=== PATIENT | female | born 1945 | race Caucasian/White ===

== ENCOUNTER → 2018-03-01 09:32 | Outpatient (CLI) | payer MEDICARE, SELFPAY ==
--- NOTE | 2018-03-01 09:35 | CT_ITS ---
STUDY: CT MAXILLOFACIAL SINUSES REASON FOR EXAM: Female, 73 years old. Chronic sinusitis. Nasal drainage. RADIATION DOSAGE (If Supplied By Facility): CTDIvol = ( 33.06 ) mGy, DLP = ( 792.53 ) mGycm TECHNIQUE: The patient was scanned in a multi detector CT scanner. High resolution axial imaging was performed without the administration of intravenous contrast material. Sagittal and coronal images were reconstructed. Individualized dose optimization techniques were used for this CT. COMPARISON: None. FINDINGS: FRONTAL SINUSES: Normal aeration, without mucosal inflammatory disease. ETHMOIDAL SINUSES: Normal aeration, without mucosal inflammatory disease. MAXILLARY SINUSES: Mild mucosal thickening floor of the right maxillary sinus. Mild mucosal thickening roof of the left maxillary sinus. SPHENOIDAL SINUSES: Normal aeration, without mucosal inflammatory disease. There is patency of the bilateral maxillary infundibuli with normal uncinate processes, ethmoid bullae, and hiatus semilunaris. Normal bilateral middle turbinates. Normal bilateral inferior turbinates. Nasal septum mildly deviated to the right. There is patency of the bilateral nasal airways. The visualized osseous structures are normal. The visualized bilateral orbital contents are normal. CT/Sinus/Facial Bone IMPRESSION: Mild bilateral maxillary sinus mucosal thickening. Ostiomeatal complexes are patent. Mild nasal septal deviation. Electronically Signed: Edenilson Escobedo MD at 6:55 EDT , Service support ,
== END ==
PROVIDERS: Family Provider Family Medicine; PCP Family Medicine; Visit Provider Otolaryngology
DX: J32.9 Chronic sinusitis, unspecified (principal); J34.2 Deviated nasal septum
CPT/HCPCS: 70486

== ENCOUNTER → 2018-05-31 09:55 | Outpatient (CLI) | payer MEDICARE, SELFPAY ==
[2018-05-31 10:25] LABS: Hematocrit 39.2 % (37-47); Hemoglobin 13.3 g/dl (12.0-15.0); Mean Corp Hgb Conc 33.9 g/gl (32-36); Mean Corpuscular Hgb 30.9 pg (27.0-32.0); Mean Platelet Vol. 12.2 fl (6.2-12.0); Platelet Count 221 K/mm3 (150-450); RBC Distribution Width CV 13.8 % (11.6-14.6); RBC Distribution Width SD 45.6 fl (35.1-43.9); Red Blood Count 4.31 M/mm3 (4.2-5.4); White Blood Count 9.9 K/mm3 (4.4-11.0)
[2018-05-31 10:26] LABS: Scan Indicated on CBC? Y/N NO
[2018-05-31 10:47] LABS: Anion Gap 13 (5-15); BUN 83 mg/dL (7-18); BUN/Creat Ratio 22.2 RATIO (10-20); Calcium,Total 9.1 mg/dL (8.5-10.1); Chloride 111 mmol/L (98-107); Creatinine, Serum 3.74 mg/dL (0.55-1.02); EST Glomerular Filtration Rate 13 mL/min (>60); Est Glom Filt Rate - Afr Amer 15 mL/min (>60); Glucose 100 mg/dL (74-106); Potassium 4.1 mmol/L (3.5-5.1); Sodium Level 143 mmol/L (136-145)
== END ==
PROVIDERS: Family Provider Family Medicine; PCP Family Medicine; Referring Provider Otolaryngology; Visit Provider Otolaryngology
DX: Z01.818 Encounter for other preprocedural examination (principal)
CPT/HCPCS: 36415; 80048; 85027

== ENCOUNTER 2018-06-05 10:25 | Emergency (ER) | payer MEDICARE, SELFPAY ==
[2018-06-05 10:25] VITALS: BP 145/68; PULSE 81; RESP 18; TEMP 37; O2SAT 99; BMI 38.5
--- NOTE | 2018-06-05 10:44 | ED.DCSUM_ITS ---
- ER Visit Summary Date of Service: 06/05/18 Chief Complaint: Abnormal labs and IV hydration History of Present Illness: The patient is a 73 F who had blood work on May 31 and was found to have an elevated BUN and creatinine of approximately 90 and 3.4. She is presently taking lisinopril with Hydrocort thiazide. She has been on the lisinopril Hydrocort thiazide for 2 years. She states she has had no change in medication for the past 2 years. Blood work was routine prior to sinus surgery for sinus problems. She denies any new symptoms. Review of systems positive for postnasal drainage, which is chronic and cough which is nonproductive and chronic. She is a smoker 1 pack/day for 50+ years. Please read written note for complete detail Physical Examination: Vital signs are remarkable for blood pressure 145/68. BMI 38.6. Head is atraumatic normocephalic. Pupils are equal round reactive. Extraocular muscles are intact. TMs are pearly white with landmarks noted. Nares patent with no drainage. Posterior pharynx without erythema or exudate. Uvula is midline. There is no dysphonia or dysphasia. Trachea is midline. There is no stridor with auscultation of the neck. Heart is regular without murmur, gallop or rub. S1 and S2 are normal. Lungs are clear to auscultation with good movement of air bilaterally. Abdomen is remarkable for minimal tenderness left lower quadrant without guarding or rebound tenderness. There is no CVA tenderness noted. Lower extremity exam is unremarkable. Neuro exam is nonfocal. Test Results: CBC is normal. Basic metabolic panel is marked for BUN of 76 and creatinine of 3.3. UA is positive for leukoesterase negative protein. There is no hematuria either. Emergency Department Course and Treatment: IV was established she received 1 L of normal saline and will repeat blood work and compared to results obtained on May 31, 2018. Treatment Plan: Spoke with Dr. Collazo who is on-call for Dr. Rene Limon. He will make arrangement for outpatient workup and referral to nephrology. Disposition: Discharge to home and will change blood pressure medicine to lisinopril without hydrochlorothiazide Impression: Acute renal failure History hypertension This note was generated with [employer] dictation software. It may contain incorrect words, spelling, and punctuation that were not noted in review of the chart prior to signing ED Disposition - Plan for ED Patient: Chief Complaint: Abn Labs Instructions: ED Insufficiency Renal Prescriptions: Lisinopril 20 mg PO DAILY #30 tab Referrals: Rene Limon III, MD [Primary Care Provider] - Additional Instructions: Discontinue taking lisinopril 20 hydrochlorothiazide 12.5. Fill new prescription for lisinopril only.
[2018-06-05 10:53] LABS: Bacteria 0 SEEN /hpf (None Seen); Mucous, Urine 0 SEEN /hpf (<or=2+); Red Blood Cells-Urine 0 SEEN /hpf (0-5); Squamous Epithelial Cells - UA 0 SEEN /hpf (5-10)
[2018-06-05] MEDS: 0.9% Normal Saline 1,000 ML 1000 ML IV (10:53)
[2018-06-05 10:57] LABS: Hematocrit 38.6 % (37-47); Hemoglobin 12.6 g/dl (12.0-15.0); Mean Corp Hgb Conc 32.6 g/gl (32-36); Mean Corpuscular Hgb 29.9 pg (27.0-32.0); Mean Corpuscular Volume 91.5 fL (81-99); Mean Platelet Vol. 11.8 fl (6.2-12.0); Platelet Count 233 K/mm3 (150-450); RBC Distribution Width CV 13.8 % (11.6-14.6); RBC Distribution Width SD 45.5 fl (35.1-43.9); Red Blood Count 4.22 M/mm3 (4.2-5.4); White Blood Count 10.1 K/mm3 (4.4-11.0)
[2018-06-05 10:57] LABS: Color, Urine Yellow (Yellow); Glucose, Dipstick Normal (Normal); Ketone-Dipstick Negative (Negative); Leukocyte Esterase-Dipstick 100 /ul (Negative); Nitrite-Dipstick Negative (Negative); Occult Blood-Urine Negative /ul (Negative); Protein-Dipstick Negative (Negative); Urine Bilirubin Dipstick Negative (Negative); Urine Clarity Clear (Clear); Urine Urobilinogen Normal (Normal); Urine pH 6.5 (5.0 - 8.0)
[2018-06-05 10:58] LABS: Scan Indicated on CBC? Y/N NO
[2018-06-05 11:04] LABS: White Blood Cells 0-5 SEEN /hpf (0-5)
[2018-06-05 11:08] LABS: Anion Gap 11 (5-15); BUN 76 mg/dL (7-18); BUN/Creat Ratio 22.6 RATIO (10-20); Calcium,Total 9.1 mg/dL (8.5-10.1); Chloride 110 mmol/L (98-107); Creatinine, Serum 3.36 mg/dL (0.55-1.02); EST Glomerular Filtration Rate 14 mL/min (>60); Est Glom Filt Rate - Afr Amer 17 mL/min (>60); Estimated Creatinine Clearance 10.87 ml/min; Glucose 86 mg/dL (74-106); Potassium 4.5 mmol/L (3.5-5.1); Sodium Level 143 mmol/L (136-145)
[2018-06-05 12:48] VITALS: BP 123/66
[2018-06-05 14:56] VITALS: BP 103/61; PULSE 77; RESP 15; O2SAT 98
== END 2018-06-05 15:12 | disposition home or self-care (01) ==
PROVIDERS: Emergency Provider Emergency Medicine; Family Provider Family Medicine; PCP Family Medicine
DX: N17.9 Acute kidney failure, unspecified (principal); I10 Essential (primary) hypertension; F17.200 Nicotine dependence, unspecified, uncomplicated; E66.9 Obesity, unspecified; Z68.38 Body mass index [BMI] 38.0-38.9, adult; Z79.899 Other long term (current) drug therapy
CPT/HCPCS: 80048; 81001; 85027; 99283

== ENCOUNTER 2020-08-22 09:18 | Outpatient (RCR) | payer MEDICARE, SELFPAY ==
[2020-08-18] MEDS: COVID-19 VACC, MRNA(PFIZER)/PF 30 MCG/0.3 ML SYRINGE IM (18:28)
[2020-09-08] MEDS: COVID-19 VACC, MRNA(PFIZER)/PF 30 MCG/0.3 ML SYRINGE IM (17:39)
== END 2020-11-15 23:59 ==
LOC: IMMUN 09:18
PROVIDERS: PCP Family Medicine; Referring Provider Family Medicine; Visit Provider Family Medicine
DX: Z23 Encounter for immunization (principal)
CPT/HCPCS: 0001A; 0002A; 91300

== ENCOUNTER → 2022-11-27 | Outpatient (CLI) | payer MEDICARE, SELFPAY ==
--- NOTE | 2022-11-27 13:02 | STRESSREP_ITS ---
Stress Test Report Date: 11/27/2022 Procedure: Pharmacologic stress nuclear imaging study Indications: Dyspnea Consent: Per the patient Procedure: The patient underwent pharmacologic (Regadenoson 0.4mg ) evaluation with a peak heart rate of 80 beats per minute (55%predicted maximal heart rate) and a peak blood pressure of 128/80 mmHg. The baseline ECG demonstrated normal sinus rhythm. The peak pharmacologic ECG demonstrated no ischemic changes. There were no cardiac dysrhythmias pretest, during pharmacologic infusion, or recovery. There was no complaint of chest discomfort during pharmacologic infusion or recovery. The patient was injected with 15 millicuries of technetium 99m Cardiolite and subsequently rest SPECT Cardiolite nuclear imaging was obtained in the horizontal long, vertical long, and short axis views. The patient underwent pharmacologic (Regadenoson) evaluation. The patient was injected with 45 millicuries of technetium 99m Cardiolite and subsequently stress SPECT Cardiolite nuclear imaging was obtained in the horizontal long, vertical long, and short axis views. A gated Cardiolite study at peak stress was obtained. The examination was stopped secondary to completion of protocol. Rest and stress SPECT Cardiolite nuclear imaging status post realignment, normalization, and attenuation correction demonstrate no fixed or reversible perfusion defects. There is end systolic thickening and brightening. The gated Cardiolite study demonstrates myocardial thickening and inward wall motion. The reported LVEF is 74%. Impression: 1. Pharmacologic (Regadenoson) evaluation 2. Peak pharmacologic ECG with no ischemic changes. 3. There were no cardiac dysrhythmias pretest, during pharmacologic infusion, or recovery. 5. No fixed or reversible perfusion defects. 6. The gated Cardiolite study reports an LVEF of 74%. This note was generated with [employer] software. It may contain incorrect words, spelling, and punctuation that were not noted in checking the note before signing.
== END | disposition home or self-care (01) ==
LOC: CVS 06:44
PROVIDERS: PCP Family Medicine; Referring Provider Family Medicine; Visit Provider Family Medicine
DX: R06.02 Shortness of breath (principal)
CPT/HCPCS: 78452; 93017; A9500; A4216; J2785

== ENCOUNTER 2023-05-13 15:53 | Emergency (ER) | payer MEDICARE, SELFPAY ==
[2023-05-13 15:56] VITALS: BP 127/63; PULSE 74; RESP 16; TEMP 36.9; O2SAT 99
--- NOTE | 2023-05-13 16:23 | EDS_ITS ---
HPI History of Present Illness Chief Complaint: Chest Pain Narrative Narrative: 78-year-old female, past medical history of COPD, smoker, presents to the emergency department because while she was at the eye doctor she states they performed an EKG which showed her to be in atrial fibrillation. She states that she does not have this diagnosis but admittedly has been having intermittent palpitations and fluttering of her heart for the last few months to years. She states that as soon as they took the EKG legs off of her, she felt back to normal. She denies any chest pain or shortness of breath that is new for her with her COPD. She presents because of the atrial fibrillation. PFSH PFS Home Medications albuterol sulfate 90 mcg/actuation aerosol inhaler (ProAir HFA) 2 puff PO PRN PRN Sob &/Or Wheezing 06/05/18 [History Last Taken Unknown] levothyroxine 150 mcg tablet (Synthroid) 150 mcg PO DAILY THYROID 06/05/18 [History Last Taken 06/05/18] lisinopril 20 mg tablet 20 mg PO DAILY #30 tabs 06/05/18 [Rx Last Taken Unknown] lisinopril 20 mg-hydrochlorothiazide 12.5 mg tablet 1 tab PO DAILY BP 06/05/18 [History Last Taken 06/05/18] [id number] 8 mg-folic 400 mcg-K 50 mcg-lutein 300 mcg tablet (Centrum Silver Women) 1 tab PO DAILY SUPPLEMENT 06/05/18 [History Last Taken 06/04/18] omeprazole 40 mg capsule,delayed release 40 mg PO DAILY 06/05/18 [History Last Taken 06/05/18] simvastatin 20 mg tablet 20 mg PO DAILY CHOLESTEROL 06/05/18 [History Last Taken 06/04/18] apixaban 5 mg tablet (Eliquis) 5 mg PO BID #60 tabs 05/13/23 [Rx Last Taken Unknown] metoprolol succinate 50 mg tablet,extended release 24 hr (Toprol XL) 50 mg PO DAILY #30 tabs 05/13/23 [Rx Last Taken Unknown] Allergy/AdvReac Type Severity Reaction Status Date / Time Sulfa (Sulfonamide AdvReac Vomiting Verified 05/13/23 15:56 Antibiotics) Social History Smoking Status: Current every day smoker tobacco type: cigarettes ROS ROS ED ROS Narrative Constitutional: No fever, no chills. HEENT: No sore throat. No neck pain. No loss of vision. No rhinorrhea. Cardiovascular: No chest pain. Intermittent palpitations and fluttering. No pedal edema. Respiratory: No cough, no shortness of breath. Abdominal: No abdominal pain. No nausea. No vomiting. Genitourinary: No dysuria. No hematuria. Musculoskeletal: No myalgias. No arthralgias. Neurologic: No headaches. No dizziness. No lightheadedness. Skin: No rash. No change in color. Psychiatric: No depression. No anxiety. EXAM Physical Exam Narrative Exam Narrative: Afebrile. Vital signs noted. HEENT: Normocephalic. Atraumatic. PERRL, EOMI. Neck soft and supple. No point tenderness or step off. Cardiovascular: Regular rate and rhythm. No murmurs, rubs, or gallops appreciated. Respiratory: No tachypnea. Lungs clear to auscultation bilaterally. Diminished breath sounds bilateral bases. Gastrointestinal: Abdomen soft, nontender, with normoactive bowel sounds. No rebound or guarding. Neurological: Awake. Alert. Nonfocal, nonlateralizing. Skin: No rash. Normal color. No pallor. Musculoskeletal: No pedal edema. Full range of motion extremities. Const Vital Signs: 05/13/23 15:56 05/13/23 16:15 05/13/23 16:18 Temperature 98.4 F Temperature Source Temporal Pulse Rate 74 Respiratory Rate 16 Respiratory Effort Normal Non-Labored Blood Pressure 127/63 H Blood Pressure Mean 84 Pulse Ox 99 Oxygen Delivery Method Room Air Room Air MDM MDM MDM Narrative Medical decision making narrative: Concern is for atrial fibrillation with RVR versus PACs. I reviewed her prior records. I see no evidence of atrial fibrillation on her previous EKGs except the one that was performed today. It shows atrial fibrillation at around 167 bpm/RVR. She states she is supposed to see a finished goods planner in the future as she has had multiple work-ups including echocardiogram and EKGs, but has never been found to be in atrial fibrillation. Her EKG today was obtained and interpreted by myself independently as normal sinus rhythm at 71 bpm without ectopy or acute ST changes. No STEMI. I reviewed her laboratory work and she has a normal white count of 7.9, hemoglobin slightly hemoconcentrated at 15.6, hematocrit 47.9, platelet count normal at 209. Potassium is slightly low at 3.2. She is on hydrochlorothiazide. This was supplemented and replaced with 40 mill equivalents orally. Glucose is slightly elevated at 117 but she has a normal anion gap of 7 with a BUN of 21 and creatinine normal 0.96. TSH is slightly low at 0.23, she does take levothyroxine. High-sensitivity troponin is 8. Chest x- ray in 1 view interpreted by myself independently shows no evidence of acute process, no pneumothorax or pneumonia. I reviewed the radiology report which confirms my independent interpretation. As her EKG shows her to be in normal sinus rhythm, she is not on anything for rate control currently. I did discuss the risk-benefit of starting her on a blood thinner such as Eliquis. She states her brothers take that and she is familiar with that. She was told of the risk of intracranial hemorrhage and GI bleeding and increased bleeding from wounds and acknowledges an understanding. I feel the risk-benefit ratio has been discussed and she accepts because her CHADS2 score is 2. Additionally, I discussed the patient with Dr. Fleming with [facility] cardiology who agrees with starting her on metoprolol succinate at 50 mg, and Eliquis. She was given her first doses here in the emergency department and prescription called in for the next 30 days. She will follow-up with cardiology in the next week. I feel she can be discharged safely home with follow-up. Return instructions to the emergency department were reviewed. Disposition is discharged home in stable condition. History & Record Review Discussion w/independent historian: Patient Additional record(s) reviewed:: Prior ED visit and Prior labs Lab Data Labs: Laboratory Results - last 24 hr 05/13/23 16:23 WBC 7.9 RBC 5.29 Hgb 15.6 H Hct 47.9 H MCV 90.5 MCH 29.5 MCHC 32.6 RDW Std Deviation 46.5 H RDW Coeff of Martir 13.8 Plt Count 209 MPV 11.0 Immature Gran % (Auto) 0.400 Neut % (Auto) 62.1 Lymph % (Auto) 26.0 [place] % (Auto) 8.7 Eos % (Auto) 1.9 Baso % (Auto) 0.9 Absolute Neuts (auto) 4.9 Absolute Lymphs (auto) 2.06 Nucleated RBC % 0 Sodium 142 Potassium 3.2 L Chloride 104 Carbon Dioxide 31.0 Anion Gap 7 BUN 21 H Creatinine 0.96 Est GFR (MDRD) Af Amer 72 Est GFR (MDRD) Non-Af 60 BUN/Creatinine Ratio 21.8 H Glucose 117 H Calcium 8.6 Magnesium 1.6 Total Bilirubin 0.50 AST 17 ALT 17 Alkaline Phosphatase 108 Troponin I High Sens 8 Total Protein 6.7 Albumin 3.2 Globulin 3.5 Albumin/Globulin Ratio 0.9 TSH 0.23 L Radiography Diagnostic Testing: Clinical Impression(s) from Imaging Studies Chest X-Ray 05/13/23 16:40 IMPRESSION: No acute findings in the chest. Electronically Signed: Shalom Lares MD at 17:01 EST , Discharge Plan Triage Chief Complaint: Chest Pain Other Complaint: Palpitations ED Provider: Giancarlo Ya Dx/Rx/DC Orders Clinical Impression: Palpitations, Atrial fibrillation, Hypokalemia Instructions: ED AFIB, ED Hypokalemia Prescriptions: New metoprolol succinate [Toprol XL] 50 mg tablet extended release 24 hr 50 mg PO DAILY Qty: 30 0RF Eliquis 5 mg tablet 5 mg PO BID Qty: 60 0RF No Action lisinopril-hydrochlorothiazide 20-12.5 tablet 1 tab PO DAILY omeprazole 40 MG capsule,delayed release(DR/EC) 40 mg PO DAILY simvastatin 20 MG tablet 20 mg PO DAILY levothyroxine [Synthroid] 150 MCG tablet 150 mcg PO DAILY albuterol sulfate [ProAir HFA] 1 PUFF inhaler 2 puff PO PRN PRN (Reason: Sob &/Or Wheezing) [id number] K-lut [Centrum Silver Women] 1 EACH tablet 1 tab PO DAILY lisinopril 20 MG tablet 20 mg PO DAILY Qty: 30 1RF Primary Care Provider: Bradley Collazo Referrals: Nu Fleming MD [Non-Staff] - 5-7 Days Bradley Collazo MD [Primary Care Provider] - 3-5 Days Activity Restrictions/Additional Instructions: Follow-up with cardiology in 5 to 7 days. You may need to follow-up with your primary care physician as well to recheck your potassium as you may need to start supplementation. We will be starting Eliquis, and you do have increased risk of bleeding. Disposition Disposition: Home, Self Care
[2023-05-13 16:31] LABS: Absolute Lymphocyte Count 2.06 X10^3/uL (0.83-4.51); Absolute Neutrophil Count 4.9 X10^3/uL (2.0-7.7); Basophil# 0.07 X10^3/uL; Basophil% 0.9 % (0-1); Eosinophil# 0.15 X10^3/uL; Eosinophils% 1.9 % (0-5); Hematocrit 47.9 % (37-47); Hemoglobin 15.6 g/dL (12.0-15.0); Lymphocyte # 2.06 X10^3/ul (0.83-4.51); Mean Corp Hgb Conc 32.6 g/dL (32-36); Mean Corpuscular Hgb 29.5 pg (27.0-32.0); Mean Corpuscular Volume 90.5 fL (81-99); Monocyte# 0.69 X10^3/uL; Monocyte% 8.7 % (0-10); NRBC Flagged by Analyzer 0 % (0-5); Neutrophil # 4.92 X10^3/uL (2.7-7.7); Neutrophil % 62.1 % (47-70); Platelet Count 209 K/mm3 (150-450); RBC Distribution Width CV 13.8 % (11.6-14.6); RBC Distribution Width SD 46.5 fl (35.1-43.9); Red Blood Count 5.29 M/mm3 (4.2-5.4); White Blood Count 7.9 K/mm3 (4.4-11.0)
--- NOTE | 2023-05-13 16:40 | RAD_ITS ---
EXAM: XR CHEST, 1 VIEW CLINICAL INDICATION: chest pain TECHNIQUE: Frontal view of the chest. COMPARISON: No relevant prior studies available. FINDINGS: LUNGS AND PLEURAL SPACES: Unremarkable. No consolidation or edema. No pneumothorax. No effusion. HEART: Unremarkable. Cardiac silhouette not enlarged. MEDIASTINUM: Central airways and mediastinal contour are unremarkable. BONES/JOINTS: There is elevation of the right humeral head in the glenoid fossa which can be seen in chronic rotator cuff injury. No acute fracture. SOFT TISSUES: Unremarkable. RAD/Chest 1 View (Portable) IMPRESSION: No acute findings in the chest. Electronically Signed: Shalom Lares MD at 17:01 EST ,
[2023-05-13 16:57] LABS: ALB/GLOB Ratio 0.9 RATIO (0.9-2.4); AST(SGOT) 17 U/L (15-37); Alanine Aminotransfer ALT/SGPT 17 U/L (13-56); Albumin, Serum 3.2 g/dL (3.2-5.0); Alkaline Phosphatase 108 U/L (45-117); Anion Gap 7 (5-15); BUN 21 mg/dL (7-18); BUN/Creat Ratio 21.8 RATIO (10-20); Calcium,Total 8.6 mg/dL (8.5-10.1); Chloride 104 mmol/L (98-107); Creatinine, Serum 0.96 mg/dL (0.55-1.02); EST Glomerular Filtration Rate 60 mL/min (>60); Est Glom Filt Rate - Afr Amer 72 mL/min (>60); Globulin 3.5 g/dL (2.2-4.2); Glucose 117 mg/dL (74-106); Magnesium 1.6 mg/dL (1.6-2.6); Potassium 3.2 mmol/L (3.5-5.1); Protein, Total 6.7 g/dL (6.4-8.2); Sodium Level 142 mmol/L (136-145); Thyroid Stim Hormone (TSH) 0.23 uIU/mL (0.358-3.74); Troponin-I HS 8 pg/mL (3.0-54.0)
--- NOTE | 2023-05-13 17:27 | NURSING ---
PAGED DR JONES THROUGH [employer]
[2023-05-13 17:53] VITALS: RESP 18
[2023-05-13] MEDS: Metoprolol(XL)Succ 50 MG Tablet PO (18:36)
[2023-05-13] MEDS: APIXABAN 5 MG TABLET PO (18:36)
[2023-05-13] MEDS: Potassium Chloride Oral Tablet 20 MEQ 40 MEQ PO (18:36)
== END 2023-05-13 18:46 | disposition home or self-care (01) ==
PROVIDERS: Emergency Provider Emergency Medicine; PCP Family Medicine; Visit Provider Emergency Medicine
DX: R00.2 Palpitations (principal); J44.9 Chronic obstructive pulmonary disease, unspecified; I48.91 Unspecified atrial fibrillation; E87.6 Hypokalemia; F17.210 Nicotine dependence, cigarettes, uncomplicated
CPT/HCPCS: 71045; 80053; 83735; 84443; 84484; 85025; 93005; 99285; A4216

== ENCOUNTER 2024-11-14 12:28 | Emergency (ER) | payer MEDICARE, SELFPAY ==
[2024-11-14 12:29] VITALS: BP 140/87; PULSE 56; RESP 19; TEMP 36.4; O2SAT 97
--- NOTE | 2024-11-14 12:44 | CT_ITS ---
PROCEDURE: ABDOMEN/PELVIS W IV CONT ONLY 11/14/2024 REASON FOR EXAM: ABD PAIN, CONSTIPATION TECHNIQUE: Abdomen and pelvis CT with intravenous contrast. Coronal and Sagittal reconstruction series were provided. PATIENT PREPARATION: Per protocol ORAL CONTRAST TYPE: None. AMOUNT: mL CONTRAST: VOLUME: CT control room CT mL One or more dose reduction techniques were used (e.g., Automated exposure control, adjustment of the mA and/or kV according to patient size, use of iterative reconstruction technique. RADIATION DOSE SUMMARY: CTDlvol: 33.21 mGy DLP: 1864.69 mGycm COMPARISON: None. FINDINGS: Lung bases: Moderate-sized hiatal hernia. Liver: Unremarkable. Gallbladder: Cholelithiasis. No pericholecystic fat stranding Spleen: Normal Pancreas: Normal Adrenals: Normal Kidneys: No hydronephrosis. Kidneys normal in size, contour and position Bladder: Unremarkable Reproductive Organs: Unremarkable Bowel: Normal caliber appearance. Appendix: Normal appendix identified. Lymph nodes: No lymphadenopathy Vasculature: Scattered moderate amount of calcific plaque Peritoneum / Retroperitoneum: Unremarkable Bones: No lytic or osteoblastic process. Osteoporotic vertebral central endplate compression deformities: T 12, L1, L4. No aggressive bony lesions. Spondylolisthesis L5 on S1 CT/Abdomen/Pelvis W IV Cont ONLY IMPRESSION: Cholelithiasis without cholecystitis Hiatal hernia Reading Location[facility]
--- OUTSIDE RECORDS SUMMARY | 2024-11-14 13:03 | XMS RPT_ITS | CCD ---
Author Organization [facility] Care Team Providers Care Front Desk Lead Name Role Phone Bradley Causey MD Primary Care Provider Priscilla GIBBONS Referring Unavailable BRADLEY CAUSEY Primary Care Unavailable Priscilla GIBBONS Referring Unavailable BRADLEY CAUSEY Primary Care Unavailable Priscilla GIBBONS Referring Unavailable BRADLEY CAUSEY Primary Care Unavailable Bradley Causey MD Primary Care Provider Bradley Causey Primary Care Unavailable Bradley Causey Consulting Unavailable Bradley Causey Referring Unavailable Ky Yen Attending Unavailable Giancarlo Ya Attending Unavailable Bradley Causey Primary Care Unavailable Bradley Causey Primary Care Unavailable Bradley Causey Attending Unavailable Bradley Causey Referring Unavailable Eloise Hurt PA-C Unavailable Bradley Causey MD Primary Care Provider Ashly PAINTING MD, Rene Neal Primary Care Provider Tamika vailable Gabi BRAIDING MACHINE TENDER.Yarelis VILLEDA Unavailable Suppan BRAIDING MACHINE TENDER.CHRISTIANA Preethi A Unavailable [phone] Suppan BRAIDING MACHINE TENDER.CHRISTIANA Preethi A Unavailable [phone] PREETHI MCCLURE Attending Unavailable BRADLEY CAUSEY Primary Care Unavailable BRADLEY CAUSEY Referring Unavailable BRADLEY CAUSEY Primary Care Unavailable ELOISE HURT Attending Unavailable BRADLEY CAUSEY Primary Care Unavailable ELOISE HURT Referring Unavailable BRADLEY CAUSEY Primary Care Unavailable HANNA ANTOINE Attending Unavailable BRADLEY CAUSEY Referring Unavailable BRADLEY CAUSEY Primary Care Unavailable BRADLEY CAUSEY Referring Unavailable BRADLEY CAUSEY Primary Care Unavailable PREETHI MCCLURE Attending Unavailable BRADLEY CAUSEY Primary Care Unavailable PREETHI MCCLURE Attending Unavailable BRADLEY CAUSEY Primary Care Unavailable FREDIS KHAN Referring Unavailable BRADLEY CAUSEY Primary Care Unavailable BRADLEY CAUSEY Referring Unavailable BRADLEY CAUSEY Primary Care Unavailable KEISHA HOFFMAN Attending Unavailable PREETHI MCCLURE A Referring Unavailable BRADLEY CAUSEY Primary Care Unavailable PREETHI MCCLURE A Attending Unavailable BRADLEY CAUSEY Primary Care Unavailable PREETHI CMCLURE A Referring Unavailable BRADLEY CAUSEY Primary Care Unavailable PREETHI MCCLURE A Attending Unavailable BRADLEY CAUSEY Primary Care Unavailable FREDIS KHAN Attending Unavailable FREDIS KHAN Referring Unavailable BRADLEY CAUSEY Primary Care Unavailable Allergies Allergy Classification Reported Allergen(s) Allergy Type Date of Onset Reaction(s) Facility Sulfonamides (antibiotic) (1 source) Sulfonamides (Antibiotic) Drug Allergy 6 [facility] (20 sources) Sulfonamides (Antibiotic); Translations: [SULFA (SULFONAMIDE ANTIBIOTICS)] Drug Allergy 6 [facility] (1 source) Sulfonamides (Antibiotic) Propensity to adverse reactions 3 [facility] (1 source) Sulfonamides (Antibiotic) Drug allergy (disorder) 3 [facility] Repository Medications Current Medications Medication Drug Class(es) Dates Sig (Normalized) Sig (Original) [id number] 200 actuat albuterol 0.09 mg/actuat metered dose inhaler (20 sources) beta2-Adrenergic Agonist Start: 07-21-2024 End: 07-21-2025 take 2 puff(s) by inhalation every four hours as needed for wheezing albuterol HFA (PROVENTIL HFA, VENTOLIN HFA) 90 mcg/actuation inhaler Indications: COPD with exacerbation (HCC) Inhale 2 Puffs as instructed every 4 hours as needed for wheezing/shortness of breath. 1 Each 07/21/2024 07/21/2025 Active Start: 06-08-2022 End: 07-21-2024 take 2 puff(s) by inhalation every four hours as needed for wheezing albuterol HFA (PROVENTIL HFA, VENTOLIN HFA) 90 mcg/actuation inhaler Indications: COPD with exacerbation (HCC) Inhale 2 Puffs as instructed every 4 hours as needed for wheezing/shortness of breath. 6.7 g 06/08/2022 07/21/2024 Discontinued Start: 06-05-2018 Albuterol Sulf ate (Proair Hfa) 1 PUFF inhaler Active 2 PUFF PO NEEDED June 05, 2018 12:00am Start: 12-13-2017 End: 05-20-2023 take 2 puff(s) by inhalation every six hours as needed albuterol HFA (PROVENTIL HFA, VENTOLIN HFA) 90 mcg/actuation inhaler Indications: Wheezing Inhale 2 Puffs as instructed every 6 hours as needed. 3 Each 3 01/27/2021 10/17/2021 Discontinued Comment on above: Inhale 2 Puffs as in structed every 6 hours as needed. Inhale 2 Puffs as in structed every 4 hours as needed for wheezing/shortness of breath. amoxicillin 875 mg / clavulanate 125 mg oral tablet (2 sources) Penicillin-class Antibacterial Start: 5 End: 5 take 1 tablet by mouth twice daily amoxicillin-clavulan ate potassium (AUGMENTIN) 875-125 mg per tablet Indications: Acute maxillary sinusitis, recurrence not specified Take 1 tablet by mouth two times a day for 10 days. 20 tablet 07/06/2024 07/16/2024 Active apixaban 5 mg oral tablet (20 sources) Factor Xa Inhibitor Start: 4 End: 6 take 1 tablet by mouth twice daily ELIQUIS 5 mg tab(s) Indications: Paroxysmal atrial fibrillation (HCC) Take 1 tablet by mouth two times a day. 180 tablet 3 07/06/2024 07/06/2025 Active Start: 06-11-2023 End: 11-09-2023 take 1 tablet by mouth twice daily ELIQUIS 5 mg tab(s) Take 1 tablet by mouth two times a day. 180 tablet 1 06/11/2023 11/09/2023 Discontinued Start: 05-13-2023 take 1 tablet by shikha th twice daily ELIQUIS 5 mg tab(s) Take 5 mg by mouth two times a day. 0 05/13/2023 Active Comment on above: Take 5 mg by mouth t wo times a day. Take 1 tablet by shikha th two times a day. Budesonide / formoterol (20 sources) Corticosteroid, beta2-Adrenergic Agonist Start: 05-20-20 take 2 puff(s) by inhalation twice daily budesonide-formoter ol (SYMBICORT) 160-4.5 mcg/actuation inhaler Indications: COPD, mild (HCC) Inhale 2 Puffs as instructed two times a day. 10.2 Each 11 05/20/2023 Active Comment on above: Inhale 2 Puffs as in structed two times a day. doxycycline monohydrate 100 mg oral capsule (1 source) Tetracycline-class Drug Start: 06-08-20 End: 06-13-19 23 take 1 capsule by mouth twice daily doxycycline monohydrate (MONODOX) 100 mg capsule Indications: COPD with exacerbation (HCC) Take 1 capsule by mouth twice daily for 5 days. 10 capsule 0 06/08/2022 06/13/2022 Active Comment on above: Take 1 capsule by [facility] twice daily for 5 days. fluticasone propionate 0.05 mg/actuat metered dose nasal spray (20 sources) Corticosteroid Start: 02-27-20 18 End: 01-28-20 21 take 1 spray(s) nasal route once daily fluticasone (FLONASE) 50 mcg/actuation nasal spray Use 1 [place] in each nostril once daily. 3 Bottle 3 01/27/2021 Active Comment on above: Use 1 [place] in each nostril once daily. furosemide 40 mg oral tablet (20 sources) Loop Diuretic Start: 11-11-19 24 End: 11-10-19 26 take 1 tablet by mouth once daily furosemide (LASIX) 40 mg tablet Indications: Bilateral leg edema Take 1 tablet by mouth once daily. 90 tablet 3 11/09/2024 11/09/2025 Active Start: 05-13-2023 End: 08-11-2023 take 1 tablet by mouth once daily furosemide (LASIX) 40 mg tablet Indications: Bilateral leg edema Take 1 tablet by mouth once daily. 90 tablet 1 05/13/2023 Active Start: 11-12-2022 End: 05-11-2023 take 1 tablet by mouth once daily furosemide (LASIX) 40 mg tablet Indications: Bilateral leg edema Take 1 tablet by mouth once daily. 90 tablet 1 11/12/2022 05/11/2023 Discontinued Start: 11-01-2022 End: 11-12-2022 take 1 tablet by mouth once daily furosemide (LASIX) 20 mg tablet Indications: Bilateral leg edema Take 1 tablet by mouth once daily. 30 tablet 0 11/01/2022 11/12/2022 Discontinued Comment on above: Take 1 tablet by shikha th once daily. hydroCHLOROthiazide 12.5 mg / lisinopril 20 mg oral tablet (1 source) Thiazide Diuretic, Angiotensin Converting Enzyme Inhibitor Start: 018 take 1 tablet by mouth once daily Lisinopril-Hydrochl orothiazide Active 1 TABLET PO DAILY June 05, 2018 12:00am levothyroxine sodium 0.15 mg oral tablet (20 sources) l-Thyroxine Start: 024 End: 025 take 1 tablet by mouth once daily before breakfast levothyroxine (SYNTHROID) 150 mcg tablet Indications: Hypothyroidism, unspecified type Take 1 tablet by mouth daily before breakfast. 90 tablet 3 05/25/2024 05/25/2025 Active Start: 03-08-2022 End: 08-22-2023 take 1 tablet by mouth once daily before breakfast levothyroxine (SYNTHROID) 175 mcg tablet Take 1 tablet by mouth daily before breakfast. 30 tablet 04/08/2023 05/20/2023 Discontinued (Duplicate Entry) Start: 11-27-2019 End: 01-30-2021 take 1 tablet by mouth once daily for thyroid dysfunction levothyroxine (SYNTHROID) 175 mcg tablet Indications: Hypothyroidism, unspecified type Take 1 tablet by mouth once daily. Take on empty stomach. For Thyroid. 90 tablet 3 01/27/2021 01/30/2021 Discontinued Start: 06-05-2018 End: 04-15-2022 take 1 tablet by mouth once daily for thyroid dysfunction levothyroxine (SYNTHROID) 150 mcg tablet Indications: Hypothyroidism, unspecified type Take 1 tablet by mouth once daily. Take on empty stomach. For Thyroid. 90 tablet 1 10/17/2021 03/15/2022 Discontinued (Dosage adjustment) Comment on above: Take 1 tablet by shikha th once daily. Take on empty stomach. For Thyroid. Take 1 tablet by shikha th daily before breakfast. lisinopril 20 mg oral tablet (1 source) Angiotensin Converting Enzyme Inhibitor Start: 06-05-20 18 take 20 mg by mouth once daily Lisinopril Active 20 MG PO DAILY June 05, 2018 12:00am meclizine hydrochloride 25 mg oral tablet (5 sources) Antiemetic Start: 08-30-19 End: 09-29-19 take 1 tablet by mouth three times daily as needed meclizine (ANTIVERT) 25 mg tab Indications: BPPV (benign paroxysmal positional vertigo), unspecified laterality Take 1 tablet by mouth three times a day as needed. 90 tablet 0 08/30/2023 09/29/2023 Active Comment on above: Take 1 tablet by shikha th three times a day as needed. 24 hr metoprolol succinate 50 mg extended release oral tablet (20 sources) beta-Adrenergic Angel Start: 05-11-20 End: 05-11-20 take 1.5 tablets by mouth once daily metoprolol succinate ER (TOPROL XL) 50 mg 24 hr tablet Indications: Paroxysmal atrial fibrillation (HCC) Take 1.5 tablets by mouth once daily. 135 tablet 2 05/11/2024 05/11/2025 Active Start: 06-11-2023 End: 02-26-2024 take 1.5 tablets by mouth once daily metoprolol succinate ER (TOPROL XL) 50 mg 24 hr tablet Indications: Paroxysmal atrial fibrillation (HCC) Take 1.5 tablets by mouth once daily. 135 tablet 1 08/30/2023 Active Start: 05-13-2023 take 1 tablet by shikha th once daily metoprolol succinate ER (TOPROL XL) 50 mg 24 hr tablet Take 50 mg by mouth once daily. 0 05/13/2023 Active Comment on above: Take 50 mg by mouth once daily. Take 1 tablet by shikha th once daily. Take 1.5 tablets by mouth once daily. mirtazapine 7.5 mg oral tablet (6 sources) Start: End: take 1 tablet by mouth once daily at bedtime Mirtazapine (REMERON) 7.5 mg tablet Indications: Anxiety with depression , Chronic insomnia Take 1 tablet by mouth daily at bedtime. 30 tablet 5 07/06/2024 01/02/2025 Active Klyofcws-Fot-Oybo-Fa -Vit K-Lut (Centrum Silver Women Tablet) 1 EACH tablet (1 source) Start: 8 take 1 tablet by mouth once daily Fmrazwji-Bsv-Kmwg-Fa-V it K-Lut (Centrum Silver Women Tablet) 1 EACH tablet Active 1 TABLET PO DAILY June 05, 2018 12:00am omeprazole 40 mg delayed release oral capsule (20 sources) Proton Pump Inhibitor Start: 8 End: 3 take 1 capsule by mouth once daily omeprazole (PRILOSEC) 40 mg capsule Indications: GERD without esophagitis Take 1 capsule by mouth once daily. 90 capsule 3 04/24/2023 Active Comment on above: Take 1 capsule by [facility] once daily. predniSONE 10 mg oral tablet (1 source) Start: 2 End: 3 take 5 tablets by mouth once daily, then take 4 tablets by mouth once daily, then take 3 tablets by mouth once daily, then take 2 tablets by mouth once daily, then take 1 tablet by mouth once daily predniSONE (DELTASONE) 10 mg tablet Indications: COPD with exacerbation ([facility]) Take 5 tablets by mouth once daily for 1 day, THEN 4 tablets once daily for 1 day, THEN 3 tablets once daily for 1 day, THEN 2 tablets once daily for 1 day, THEN 1 tablet once daily for 1 day. 15 tablet 0 06/08/2022 06/13/2022 Active Comment on above: Take 5 tablets by [facility] once daily for 1 day, THEN 4 tablets once daily for 1 day, THEN 3 tablets once daily for 1 day, THEN 2 tablets once daily for 1 day, THEN 1 tablet once daily for 1 day. semaglutide, weight loss, (WEGOVY) 0.25 mg/0.5 mL pen injector (1 source) Start: 4 End: 4 semaglutide, weight loss, (WEGOVY) 0.25 mg/0.5 mL pen injector Indications: Class 3 severe obesity due to excess calories with serious comorbidity and body mass index (BMI) of 40.0 to 44.9 in adult ([facility]) Inject 0.5 mL subcutaneously one time a week for 28 days. 2 mL 0 01/03/2024 01/31/2024 Active simvastatin 20 mg oral tablet (20 sources) HMG-CoA Reductase Inhibitor Start: 5 take 1 tablet by mouth once daily at bedtime simvastatin (ZOCOR) 20 mg tablet Indications: Hyperlipidemia with target LDL less than 100 Take 1 tablet by mouth daily at bedtime. 90 tablet 3 10/19/2024 Active Start: 06-05-2018 End: 10-16-2024 take 1 tablet by mouth once daily at bedtime simvastatin (ZOCOR) 20 mg tablet Indications: Hyperlipidemia with target LDL less than 100 Take 1 tablet by mouth daily at bedtime. 90 tablet 3 04/24/2023 10/16/2024 Discontinued Comment on above: Take 1 tablet by shikha th daily at bedtime. Completed/Discontinued Medications Medication Drug Class(es) Dates Sig (Normalized) Sig (Original) 6 ml hylan g-f 20 8 mg/ml prefilled syringe (2 sources) Start: 09-27-2023 End: 09-27-2023 hylan G-F 20 48 mg/6 mL 48 mg injection (SYNVISC-ONE) Start: 01-21-2023 End: 01-21-2023 hylan G-F 20 48 mg/6 mL 48 m g injection (SYNVISC-ONE) 10 ml lidocaine hydrochloride 10 mg/ml injection (2 sources) Antiarrhythmic, Amide Local Anesthetic Start: 09-27-2023 End: 09-27-2023 lidocaine (PF) 10 mg/mL (1 %) 5 mL injection (XYLOCAINE) Start: 01-21-2023 End: 01-21-2023 lidocaine (PF) 10 mg/mL (1 % ) 5 mL injection (XYLOCAINE) meloxicam 15 mg oral tablet (20 sources) Nonsteroidal Anti-inflammatory Drug Start: 06-19-2021 End: 11-12-2022 take 1 tablet by mouth once daily meloxicam (MOBIC) 15 mg tablet Indications: Primary osteoarthritis of right knee , Knee injury, right, initial encounter Take 1 tablet by mouth once daily. 90 tablet 1 09/28/2022 11/12/2022 Discontinued Start: 09-19-2020 End: 05-18-2021 take 1 tablet by mouth once daily meloxicam (MOBIC) 15 mg tablet Indications: Knee injury, right, initial encounter , Primary osteoarthritis of right knee Take 1 tablet by mouth once daily. 30 tablet 1 09/19/2020 05/18/2021 Discontinued Comment on above: Take 1 tablet by shikha th once daily. Multivitamins chew (5 sources) End: 01-14-2023 Multivitamins chew Take by mouth. gummy 0 01/14/2023 Discontinued Multivitamins ch ew Take by mouth. gummy 0 Active Comment on above: Take by mouth. gummy perflutren lipid microspheres 1.3 mL in NaCl (PF) 0.9% 10 mL injection (DEFINITY) (20 sources) Start: End: perflutren lipid microspheres 1.3 mL in NaCl (PF) 0.9% 10 mL injection (DEFINITY) regadenoson (LEXISCAN) 0.4 mg/5 mL syrg (1 source) Start: End: regadenoson (LEXISCAN) 0.4 mg/5 mL syrg Indications: SOB (shortness of breath) Inject 5 mL intravenously one time only for 1 dose. Give IV push over 10 seconds and follow with 5 ml of normal saline 5 mL 0 11/12/2022 11/12/2022 Comment on above: Inject 5 mL intraven ously one time only for 1 dose. Give IV push over 10 seconds and follow with 5 ml of normal saline 125 ml sodium chloride 9 mg/ml prefilled syringe (20 sources) Start: End: sodium chloride 0.9 % (flush) 10 mL (BD POSIFLUSH) tiotropium 0.018 mg inhalation powder (7 sources) Anticholinergic Start: End: take 1 capsule by inhalation once daily tiotropium (SPIRIVA WITH HANDIHALER) 18 mcg inhalation capsule Indications: COPD, mild (HCC) Inhale 1 capsule as instructed once daily. USE WITH HANDIHALER. 30 capsule 02/15/2023 05/20/2023 Discontinued (Discontinued by Patient) Comment on above: Inhale 1 capsule as instructed once daily. USE WITH HANDIHALER. Problems Active Problems Problem Classification Problem Date Documented Date Episodic/Chronic Anxiety disorders (1 source) Mixed anxiety and depressive disorder; Translations: [Other specified anxiety disorders] 07-06-2024 Chronic Cardiac dysrhythmias (20 sources) Irregular heart beat; Translations: [Cardiac arrhythmia, unspecified] Onset: 05-13-2023 02-15-2023 Chronic Cardiac dysrhythmias (1 source) Palpitations; Translations: [Palpitations] 05-13-2023 Episodic Chronic obstructive pulmonary disease and bronchiectasis (20 sources) Acute exacerbation of chronic obstructive airways disease; Translations: [Chronic obstructive pulmonary disease with (acute) exacerbation] Onset: 02-15-2023 Chronic Congestive heart failure; nonhypertensive (20 sources) Diastolic heart failure; Translations: [Unspecified diastolic (congestive) heart failure] Onset: 06-24-2023 04-24-2023 Chronic Disorders of lipid metabolism (20 sources) Hyperlipidemia; Translations: [Hyperlipidemia, unspecified] Onset: 06-20-2012 12-20-2014 Chronic Esophageal disorders (4 sources) Gastroesophageal reflux disease without esophagitis; Translations: [Gastro-esophageal reflux disease without esophagitis] Chronic Essential hypertension (20 sources) Benign essential hypertension; Translations: [Essential (primary) hypertension] Onset: 09-23-2008 09-23-2008 Chronic Fluid and electrolyte disorders (1 source) Hypokalemia; Translations: [Hypokalemia] 05-13-2023 Episodic Immunizations and screening for infectious disease (3 sources) Needs influenza immunization; Translations: [Encounter for immunization] Episodic Miscellaneous mental health disorders (3 sources) Chronic insomnia; Translations: [Psychophysiologic insomnia] Onset: 07-06-2024 07-06-2024 Chronic Nonspecific chest pain (1 source) Chest pain, unspecified; Translations: [Chest pain, unspecified] Onset: 05-17-2023 Episodic Osteoarthritis (20 sources) Arthritis of right knee; Translations: [Unilateral primary osteoarthritis, right knee] Onset: 06-09-2012 06-09-2012 Chronic Other connective tissue disease (2 sources) Swelling of left lower limb; Translations: [Other specified soft tissue disorders] Episodic Other connective tissue disease (2 sources) Pain of left calf; Translations: [Pain in left lower leg] Episodic Other connective tissue disease (2 sources) Pain in both feet; Translations: [Pain in right foot] 04-24-2023 Episodic Other injuries and conditions due to external causes (2 sources) Injury of finger of left hand; Translations: [Unspecified injury of left wrist, hand and finger(s), subsequent encounter] Episodic Other injuries and conditions due to external causes (1 source) Unspecified injury of left wrist, hand and finger(s), subsequent encounter; Translations: [Injury of finger of left hand, subsequent encounter] Onset: 10-01-2022 Episodic Other lower respiratory disease (3 sources) Wheezing; Translations: [Wheezing] Episodic Other non-traumatic joint disorders (1 source) Pain in left knee; Translations: [Pain in joint, lower leg] 01-27-2021 Episodic Other nutritional; endocrine; and metabolic disorders (20 sources) Metabolic syndrome X; Translations: [Metabolic syndrome] Onset: 08-24-2005 08-24-2005 Chronic Other nutritional; endocrine; and metabolic disorders (20 sources) Morbid obesity; Translations: [Morbid (severe) obesity due to excess calories] Onset: 06-09-2012 06-09-2012 Chronic Other nutritional; endocrine; and metabolic disorders (1 source) Severe obesity; Translations: [Morbid (severe) obesity due to excess calories] 01-03-2024 Chronic Other screening for suspected conditions (not mental disorders or infectious disease) (3 sources) Hormone level - finding; Translations: [Other specified abnormal findings of blood chemistry] Episodic Other skin disorders (2 sources) Nodule of subcutaneous tissue of left lower leg; Translations: [Localized swelling, mass and lump, left lower limb] Episodic Other skin disorders (4 sources) Mass of lower limb; Translations: [Localized swelling, mass and lump, right lower limb] Episodic Other skin disorders (2 sources) Disorder of left lower extremity; Translations: [Localized swelling, mass and lump, left lower limb] Episodic Other skin disorders (1 source) Localized swelling, mass and lump, right lower limb; Translations: [Mass of right lower leg] Onset: 10-18-2022 Episodic Other skin disorders (3 sources) Localized swelling, mass and lump, left lower limb; Translations: [Mass of left lower leg] Onset: 10-01-2022 Episodic Other upper respiratory infections (1 source) Acute maxillary sinusitis; Translations: [Acute maxillary sinusitis, unspecified] 07-06-2024 Episodic Residual codes; unclassified (3 sources) Tobacco use and exposure - finding; Translations: [Tobacco use] Episodic Residual codes; unclassified (2 sources) Edema; Translations: [Edema, unspecified] Episodic Residual codes; unclassified (6 sources) Bilateral lower limb edema; Translations: [Localized edema] Episodic Screening and history of mental health and substance abuse codes (2 sources) Patient encounter status; Translations: [Encounter for screening for depression] 07-06-2024 Episodic Substance-related disorders (3 sources) Cigarette smoker ; Translations: [Nicotine dependence, cigarettes, uncomplicated] 02-15-2023 Chronic Thyroid disorders (20 sources) Hypothyroidism; Translations: [Hypothyroidism, unspecified] Onset: 08-24-2005 02-25-2017 Chronic Past or Other Problems Problem Classification Problem Date Documented Da te Episodic/Chronic Acute and unspecified renal failure (20 sources) Acute renal failure syndrome; Translations: [Acute kidney failure, unspecified] Onset: 06-06-2018 Resolved: 01-27-2021 01-27-2021 Episodic Conditions associated with dizziness or vertigo (3 sources) Benign paroxysmal positional vertigo; Translations: [Benign paroxysmal vertigo, unspecified ear] Onset: 09-18-2023 08-30-2023 Episodic Diabetes mellitus without complication (20 sources) Prediabetes; Translations: [Prediabetes] Onset: 11-19-2022 11-19-2022 Episodic Nutritional deficiencies (20 sources) Vitamin D deficiency; Translations: [Vitamin D deficiency, unspecified] Onset: 12-19-2007 Resolved: 03-06-2017 03-06-2017 Chronic Osteoporosis (20 sources) Osteoporosis; Translations: [Other osteoporosis without current pathological fracture] Onset: 12-19-2007 Resolved: 07-24-2011 07-24-2011 Chronic Other and unspecified benign neoplasm (20 sources) Benign neoplasm of colon; Translations: [Benign neoplasm of colon, unspecified] Onset: 09-23-2008 09-23-2008 Episodic Other and unspecified benign neoplasm (20 sources) History of polyp of colon; Translations: [Personal history of colonic polyps] Onset: 10-29-2008 10-29-2008 Episodic Other bone disease and musculoskeletal deformities (20 sources) Osteopenia; Translations: [Other specified disorders of bone density and structure, unspecified site] Onset: 07-24-2011 07-24-2011 Episodic Other circulatory disease (20 sources) Cardiovascular finding; Translations: [Other specified symptoms and signs involving the circulatory and respiratory systems] Onset: 09-23-2008 Resolved: 03-14-2016 03-14-2016 Episodic Other connective tissue disease (20 sources) Plantar fascial fibromatosis; Translations: [Plantar fascial fibromatosis] Onset: 04-04-2006 Resolved: 01-27-2021 01-27-2021 Episodic Other connective tissue disease (20 sources) Enthesopathy of ankle AND/OR tarsus; Translations: [Other enthesopathy of unspecified foot and ankle] Onset: 11-05-2007 Resolved: 03-06-2017 03-06-2017 Episodic Other gastrointestinal disorders (20 sources) Occult blood in stools; Translations: [Other fecal abnormalities] Onset: 12-28-2014 Resolved: 03-06-2017 03-06-2017 Episodic Other injuries and conditions due to external causes (20 sources) Injury of right knee; Translations: [Unspecified injury of right lower leg, initial encounter] Onset: 12-27-2021 Episodic Other lower respiratory disease (20 sources) Dyspnea; Translations: [Shortness of breath] Onset: 11-19-2022 Resolved: 02-15-2023 Episodic Other lower respiratory disease (20 sources) Multiple nodules of lung; Translations: [Other nonspecific abnormal finding of lung field] Onset: 02-15-2023 Episodic Other lower respiratory disease (2 sources) Shortness of breath; Translations: [Shortness of breath] Onset: 12-06-2022 Episodic Other lower respiratory disease (1 source) Other nonspecific abnormal finding of lung field; Translations: [Lung nodules] Onset: 02-15-2023 Episodic Other skin disorders (20 sources) Ingrowing nail; Translations: [Ingrowing nail] Onset: 01-02-2008 Resolved: 04-23-2014 04-23-2014 Episodic Residual codes; unclassified (20 sources) Tobacco user; Translations: [Tobacco use] Onset: 12-20-2014 12-20-2014 Episodic Spondylosis; intervertebral disc disorders; other back problems (20 sources) Low back pain; Translations: [Lumbago] Onset: 08-24-2005 Resolved: 03-06-2017 03-06-2017 Episodic Sprains and strains (20 sources) Sprain of foot; Translations: [Unspecified sprain of unspecified foot, initial encounter] Onset: 10-22-2007 Resolved: 04-23-2014 04-23-2014 Episodic Results Test Name Value Interpretation Reference Range Facility [facility] 07-21-2024 [facility] MARIA ESTHER REDDY ([id number]) 1945 F Date Time Provider Department 07/21/24 10:20 AM [facility] During your visit today, we recorded the following information about you: Temperature Pulse Blood pressure Weight 98.4 degrees 64/minute 134/56 112.5 kg Preethi Mcclure, BRAIDING MACHINE TENDER.OTOLARYNGOLOGY NURSE 07/21/2024 10:46 AM Signed This is a 79 year old female who presents today with: Patient presents with: Follow Up HISTORY OF PRESENT ILLNESS: Maria Esther Reddy is a 79 year old female. Patient presents with: Follow Up Tearful. admitted to [facility]- metastatic cancer. Considering hospice Cough is better Mirtazepine helped with sleep. Lasts about 4 hours. 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 CHF (congestive heart failure) (HCC) Dysmetabolic syndrome X Hyperlipidemia LDL goal < 100 06/20/2012 Morbid obesity (HCC) 06/09/2012 Other osteoporosis Other symptoms involving cardiovascular system Personal history of colonic polyps Phlebitis and thrombophlebitis of other deep vessels of lower extremities Unspecified hypothyroidism H/o Radioactive Iodine Treatment Unspecified vitamin D deficiency PAST SURGICAL HISTORY Procedure Laterality Date ADENOIDECTOMY PRIMARY Adenoidectomy COLONOSCOPY W/BIOPSY SINGLE/MULTIPLE 12/10/08 3 small polyps COLSC FLX W/RMVL OF TUMOR POLYP LESION SNARE TQ COLSC FLX W/RMVL OF TUMOR POLYP LESION SNARE TQ 03/18/15 2 polyps in transverse colon - no retrieved, 2 at 20 nd 30cm EGD TRANSORAL BIOPSY SINGLE/MULTIPLE 03/18/15 duodenitis, small hiatal hernia LIG/TRNSXJ FLP TUBE ABDL/VAG APPR UNI/BI Tubal ligation NEUROPLASTY AND/TRANSPOS MEDIAN NRV CARPAL TUNNE Carpal tunnel decomp- both PAST SURGICAL HISTORY OF radioactive iodine to thyroid TONSILLECTOMY PRIMARY/SECONDARY Tonsillectomy ALLERGIES Sulfa (Sulfonamide Antibiotics) MEDICATIONS Current Outpatient Medications Medication Sig ELIQUIS 5 mg tab(s) Take 1 tablet by mouth two times a day. Mirtazapine (REMERON) 7.5 mg tablet Take 1 tablet by mouth daily at bedtime. levothyroxine (SYNTHROID) 150 mcg tablet Take 1 tablet by mouth daily before breakfast. metoprolol succinate ER (TOPROL XL) 50 mg 24 hr tablet Take 1.5 tablets by mouth once daily. furosemide (LASIX) 40 mg tablet Take 1 tablet by mouth once daily. budesonide-formoterol (SYMBICORT) 160-4.5 mcg/actuation inhaler Inhale 2 Puffs as instructed two times a day. omeprazole (PRILOSEC) 40 mg capsule Take 1 capsule by mouth once daily. simvastatin (ZOCOR) 20 mg tablet Take 1 tablet by mouth daily at bedtime. albuterol HFA (PROVENTIL HFA, VENTOLIN HFA) 90 mcg/actuation inhaler Inhale 2 Puffs as instructed every 4 hours as needed for wheezing/shortness of breath. fluticasone (FLONASE) 50 mcg/actuation nasal spray Use 1 [place] in each nostril once daily. No current facility-administered medications for this visit. FAMILY HISTORY Problem Relation Age of Onset Stroke Mother Heart Mother other (atrial fibulation) Mother Heart Father Alzheimer's Disease Father Diabetes Father other (PARKINSONS) Father other (atrial fibrillation) Brother artificial heart valve Colon Cancer Brother other (colon polyps) Brother Social History Tobacco Use Smoking status: Every Day Current packs/day: 1.00 Average packs/day: 1 pack/day for 57.0 years (57.0 ttl pk-yrs) Types: Cigarettes Smokeless tobacco: Never Vaping Use Vaping status: Never Used Substance Use Topics Alcohol use: Yes Comment: once a year Drug use: No EXAM: BP 134/56 Pulse 64 Temp 36.9 ?C (98.4 ?F) (Right Tympanic) Wt 112.5 kg (248 lb) SpO2 94% BMI 45.36 kg/m? PHYSICAL EXAM: Physical Exam Vitals reviewed. Constitutional: Appearance: Normal appearance. Cardiovascular: Rate and Rhythm: Normal rate and regular rhythm. Pulses: Normal pulses. Heart sounds: Normal heart sounds. Pulmonary: Effort: Pulmonary effort is normal. Breath sounds: Normal breath sounds. Musculoskeletal: General: Normal range of motion. Comments: Generalized weakness, presents in wheelchair- not able to ambulate any distance Skin: General: Skin is warm and dry. Neurological: Mental Status: She is alert and oriented to person, place, and time. Psychiatric: Comments: Tearful and sad about decline of who has stage IV metastatic cancer LABS: ASSESSMENT/PLAN: 1. Acute exacerbation of chronic obstructive pulmonary disease (COPD) (HCC) - ICD9: 491.21, ICD10: J44.1 (primary diagnosis) Acute flare resolved but pt. With JEROME 2. Chronic insomnia - ICD9: 780.52, ICD10: F51.04 Continue Mirtazapine 7.5 mg at bedtime Discussed treatment plan and patient voices understanding. Patient's questions answered appr (more content not included)... [facility] MARIA ESTHER REDDY ([id number]) 1945 F Date Time Provider Department 07/07/24 BRADLEY CAUSEY [facility] During your visit today, we recorded the following information about you: Maryam Oswald RN 07/07/2024 9:48 AM Signed Patient calling with prescription related question. Information provided. Maryam Oswald RN Allergies As of Date: 07/07/2024 Noted Allergy Reaction SULFA (SULFONAMIDE ANTIBIOTICS) 06/21/2005 11 - Vomiting Date Reviewed: 03/02/2024 Reviewed by: Preethi Mcclure APRN.OTOLARYNGOLOGY NURSE - Fully Assessed Reason for Visit: Patient Question [1216] Prescriptions as of 07/07/2024 - ELIQUIS 5 mg tab(s) Take 1 tablet by mouth two times a day. - amoxicillin-clavulana te potassium (AUGMENTIN) 875-125 mg per tablet Take 1 tablet by mouth two times a day for 10 days. - Mirtazapine (REMERON) 7.5 mg tablet Take 1 tablet by mouth daily at bedtime. - levothyroxine (SYNTHROID) 150 mcg tablet Take 1 tablet by mouth daily before breakfast. - metoprolol succinate ER (TOPROL XL) 50 mg 24 hr tablet Take 1.5 tablets by mouth once daily. - furosemide (LASIX) 40 mg tablet Take 1 tablet by mouth once daily. - budesonide-formoterol (SYMBICORT) 160-4.5 mcg/actuation inhaler Inhale 2 Puffs as instructed two times a day. - omeprazole (PRILOSEC) 40 mg capsule Take 1 capsule by mouth once daily. - simvastatin (ZOCOR) 20 mg tablet Take 1 tablet by mouth daily at bedtime. - albuterol HFA (PROVENTIL HFA, VENTOLIN HFA) 90 mcg/actuation inhaler Inhale 2 Puffs as instructed every 4 hours as needed for wheezing/shortness of breath. - fluticasone (FLONASE) 50 mcg/actuation nasal spray Use 1 [place] in each nostril once daily. Problem List As Of Date 07/07/2024 Noted Resolved DYSMETABOLIC SYNDROME X [E88.810] 08/24/2005 Hypothyroidism [E03.9] 08/24/2005 Lumbago [M54.50] 08/24/2005 03/06/2017 Plantar fascial fibromatosis [M72.2] 04/04/2006 01/27/2021 Sprain of foot, unspecified site [S93.609A] 10/22/2007 04/23/2014 Other enthesopathy of ankle and tarsus [M77.50] 11/05/2007 03/06/2017 Vitamin D deficiency [E55.9] 12/19/2007 03/06/2017 Other osteoporosis [M81.8] 12/19/2007 07/24/2011 Ingrowing nail [L60.0] 01/02/2008 04/23/2014 BENIGN HYPERTENSION [I10] 09/23/2008 BENIGN NEOPLASM LG BOWEL [D12.6] 09/23/2008 Other symptoms involving cardiovascular system *09/23/2008 03/14/2016 PERSONAL HISTORY OF COLONIC POLYPS [Z86.0100] 10/29/2008 Osteopenia [M85.80] 07/24/2011 Primary osteoarthritis of right knee [M17.11] 06/09/2012 Morbid obesity [E66.01] 06/09/2012 Hyperlipidemia with target LDL less than 100 [E*06/20/2012 Tobacco abuse [Z72.0] 12/20/2014 Occult GI bleeding [R19.5] 12/28/2014 03/06/2017 IVONNE (acute kidney injury) (HCC) [N17.9] 06/06/2018 01/27/2021 Knee injuries, right, initial encounter [S89.91*12/27/2021 Prediabetes [R73.03] 11/19/2022 SOB (shortness of breath) [R06.02] 11/19/2022 02/15/2023 COPD, 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] 02/15/2023 Centrilobular emphysema (HCC) [J43.2] 02/15/2023 Lung nodules [R91.8] 02/15/2023 Paroxysmal atrial fibrillation (HCC) [I48.0] 05/13/2023 Congestive heart failure (HCC) [I50.9] 06/24/2023 Pre-operative cardiovascular examination [Z01.8*06/24/2023 Encounter Status:Closed by MARYAM OSWALD on 07/07/24 Normal [facility] CBC W Auto Differential pane l (Bld)on 07-06-2024 Basophils (Bld) [#/Vol] 0.08 10*3/uL Normal <0.11 [facility] Comment on above: Order Comment: Speci men Type: BLOOD SPECIMEN Ordering Facility: [facility] Address: [address] [place] [address] Performed By: #### 5 7021-8 #### [facility] CLIA [id number] [address] [place], [place] [id number] [place] Basophils/100 WBC (Bld) 1.0 % Normal [facility] Comment on above: Order Comment: Speci men Type: BLOOD SPECIMEN Ordering Facility: [facility] Address: [address] [place] [address] Performed By: #### 5 7021-8 #### [facility] CLIA [id number] [address] [place] [address] [place] Differential cell count method Nom (Bld) Auto Normal [facility] Comment on above: Order Comment: Speci men Type: BLOOD SPECIMEN Ordering Facility: [facility] Address: [address] [place] [address] Performed By: #### 5 7021-8 #### [facility] CLIA [id number] [address] [place] [address] [place] Eosinophils (Bld) [#/Vol] 0.16 10*3/uL Normal <0.46 [facility] Comment on above: Order Comment: Speci men Type: BLOOD SPECIMEN Ordering Facility: [facility] Address: [address] [place] [address] Performed By: #### 5 7021-8 #### [facility] CLIA [id number] [address] [place] [address] [place] Eosinophils/100 WBC (Bld) 1.9 % Normal [facility] Comment on above: Order Comment: Speci men Type: BLOOD SPECIMEN Ordering Facility: [facility] Address: [address] [place] [address] Performed By: #### 5 7021-8 #### [facility] CLIA [id number] [address] [place] [address] [place] Erythrocyte distribution width (RBC) [Ratio] 14.1 % Normal 11.5-15.0 [facility] Comment on above: Order Comment: Speci men Type: BLOOD SPECIMEN Ordering Facility: [facility] Address: [address] [place] [address] Performed By: #### 5 7021-8 #### [facility] CLIA [id number] [address] [place] [address] [place] Hematocrit (Bld) [Volume fraction] 47.8 % High 36.0-46.0 [facility] Comment on above: Order Comment: Speci men Type: BLOOD SPECIMEN Ordering Facility: [facility] Address: [address] [place] [address] Performed By: #### 5 7021-8 #### [facility] CLIA [id number] [address] [place] [address] [place] Hemoglobin (Bld) [Mass/Vol] 15.0 g/dL Normal 11.5-15.5 [facility] Comment on above: Order Comment: Speci men Type: BLOOD SPECIMEN Ordering Facility: [facility] Address: [address] [place] [address] Performed By: #### 5 7021-8 #### [facility] CLIA [id number] [address] [place] [address] [place] Immature granulocytes (Bld) [#/Vol] 0.03 10*3/uL Normal <0.10 [facility] Comment on above: Order Comment: Speci men Type: BLOOD SPECIMEN Ordering Facility: [facility] Address: [address] [place] [address] Performed By: #### 5 7021-8 #### [facility] CLIA [id number] [address] [place] [address] [place] Immature granulocytes/100 WBC (Bld) 0.4 % Normal [facility] Comment on above: Order Comment: Speci men Type: BLOOD SPECIMEN Ordering Facility: [facility] Address: [address] [place] [address] Performed By: #### 5 7021-8 #### [facility] CLIA [id number] [address] [place] [address] [place] Lymphocytes (Bld) [#/Vol] 1.90 10*3/uL Normal 1.00-4.00 [facility] Comment on above: Order Comment: Speci men Type: BLOOD SPECIMEN Ordering Facility: [facility] Address: [address] [place] [address] Performed By: #### 5 7021-8 #### [facility] CLIA [id number] [address] [place] [address] [place] Lymphocytes/100 WBC (Bld) 23.0 % Normal [facility] Comment on above: Order Comment: Speci men Type: BLOOD SPECIMEN Ordering Facility: [facility] Address: [address] [place] [address] Performed By: #### 5 7021-8 #### [facility] CLIA [id number] [address] [place] [address] [place] MCH (RBC) [Entitic mass] 29.4 pg Normal 26.0-34.0 [facility] Comment on above: Order Comment: Speci men Type: BLOOD SPECIMEN Ordering Facility: [facility] Address: [address] [place] [address] Performed By: #### 5 7021-8 #### [facility] CLIA [id number] [address] [place] [address] [place] MCHC (RBC) [Mass/Vol] 31.4 g/dL Normal 30.5-36.0 [facility] Comment on above: Order Comment: Speci men Type: BLOOD SPECIMEN Ordering Facility: [facility] Address: [address] [place] [address] Performed By: #### 5 7021-8 #### [facility] CLIA [id number] [address] [place] [address] [place] MCV (RBC) [Entitic vol] 93.7 fL Normal 80.0-100.0 [facility] Comment on above: Order Comment: Speci men Type: BLOOD SPECIMEN Ordering Facility: [facility] Address: [address] [place] [address] Performed By: #### 5 7021-8 #### [facility] CLIA [id number] [address] [place] [address] [place] Monocytes (Bld) [#/Vol] 0.71 10*3/uL Normal <0.87 [facility] Comment on above: Order Comment: Speci men Type: BLOOD SPECIMEN Ordering Facility: [facility] Address: [address] [place] [address] Performed By: #### 5 7021-8 #### [facility] CLIA [id number] [address] [place] [address] [place] Monocytes/100 WBC (Bld) 8.6 % Normal [facility] Comment on above: Order Comment: Speci men Type: BLOOD SPECIMEN Ordering Facility: [facility] Address: [address] [place] [address] Performed By: #### 5 7021-8 #### [facility] CLIA [id number] [address] [place] [address] [place] Neutrophils (Bld) [#/Vol] 5.38 10*3/uL Normal 1.45-7.50 [facility] Comment on above: Order Comment: Speci men Type: BLOOD SPECIMEN Ordering Facility: [facility] Address: [address] [place] [address] Performed By: #### 5 7021-8 #### [facility] CLIA [id number] [address] [place] [address] [place] Neutrophils/100 WBC (Bld) 65.1 % Normal [facility] Comment on above: Order Comment: Speci men Type: BLOOD SPECIMEN Ordering Facility: [facility] Address: [address] [place] [address] Performed By: #### 5 7021-8 #### [facility] CLIA [id number] [address] [place] [address] [place] Nucleated RBC (Bld) [#/Vol] 10*3/uL Normal <0.01 [facility] Comment on above: Order Comment: Speci men Type: BLOOD SPECIMEN Ordering Facility: [facility] Address: [address] [place] [address] Performed By: #### 5 7021-8 #### [facility] CLIA [id number] [address] [place] [address] [place] Nucleated RBC/100 WBC (Bld) [Ratio] 0.0 /100 WBC Normal [facility] Comment on above: Order Comment: Speci men Type: BLOOD SPECIMEN Ordering Facility: [facility] Address: [address] [place] [address] Performed By: #### 5 7021-8 #### [facility] CLIA [id number] [address] [place] [address] [place] Platelet mean volume (Bld) [Entitic vol] 11.3 fL Normal 9.0-12.7 [facility] Comment on above: Order Comment: Speci men Type: BLOOD SPECIMEN Ordering Facility: [facility] Address: [address] [place] [address] Performed By: #### 5 7021-8 #### [facility] CLIA [id number] [address] [place] [address] [place] Platelets (Bld) [#/Vol] 232 10*3/uL Normal 150-400 [facility] Comment on above: Order Comment: Speci men Type: BLOOD SPECIMEN Ordering Facility: [facility] Address: [address] [place] [address] Performed By: #### 5 7021-8 #### [facility] CLIA [id number] [address] [place] [address] [place] RBC (Bld) [#/Vol] 5.10 10*6/uL Normal 3.90-5.20 [facility] Comment on above: Order Comment: Speci men Type: BLOOD SPECIMEN Ordering Facility: [facility] Address: [address] [place] [address] [place] [address] Performed By: #### 5 7021-8 #### [facility] CLIA [id number] [address] [place] [address] [place] WBC (Bld) [#/Vol] 8.26 10*3/uL Normal 3.70-11.00 [facility] Comment on above: Order Comment: Speci men Type: BLOOD SPECIMEN Ordering Facility: [facility] Address: [address] [place] [address] Performed By: #### 5 7021-8 #### [facility] CLIA [id number] [address] [place] [address] [place] CNOVon 07-06-2024 CNOV Office Visit ([facility] ) RAKELALEXANDRUMARIA ESTHER ([id number]) 1945 F Date Time Provider Department 07/06/24 10:00 AM [facility] During your visit today, we recorded the following information about you: Temperature Pulse Respiration Blood pressure 98.4 degrees 64/minute 16/minute 120/64 Weight 110.7 kg rPeethi Mcclure, BRAIDING MACHINE TENDER.OTOLARYNGOLOGY NURSE 07/06/2024 11:18 AM Signed This is a 79 year old female who presents today with: Patient presents with: 6 Month Exam HISTORY OF PRESENT ILLNESS: Maria Esther Reddy is a 79 year old female. Patient presents with: 6 Month Exam Tearful. Under much stress with who has cancer. Not sleeping well- only about 3- 4 hours. PAST MEDICAL HISTORY: PAST MEDICAL HISTORY Diagnosis Date A-fib (HCC) Arthritis of knee, right 06/09/2012 Benign neoplasm of colon 06/10/2002 CHF (congestive heart failure) (HCC) Dysmetabolic syndrome X Hyperlipidemia LDL goal < 100 06/20/2012 Morbid obesity (HCC) 06/09/2012 Other osteoporosis Other symptoms involving cardiovascular system Personal history of colonic polyps Phlebitis and thrombophlebitis of other deep vessels of lower extremities Unspecified hypothyroidism H/o Radioactive Iodine Treatment Unspecified vitamin D deficiency PAST SURGICAL HISTORY Procedure Laterality Date ADENOIDECTOMY PRIMARY Adenoidectomy COLONOSCOPY W/BIOPSY SINGLE/MULTIPLE 12/10/08 3 small polyps COLSC FLX W/RMVL OF TUMOR POLYP LESION SNARE TQ COLSC FLX W/RMVL OF TUMOR POLYP LESION SNARE TQ 03/18/15 2 polyps in transverse colon - no retrieved, 2 at 20 nd 30cm EGD TRANSORAL BIOPSY SINGLE/MULTIPLE 03/18/15 duodenitis, small hiatal hernia LIG/TRNSXJ FLP TUBE ABDL/VAG APPR UNI/BI Tubal ligation NEUROPLASTY AND/TRANSPOS MEDIAN NRV CARPAL TUNNE Carpal tunnel decomp- both PAST SURGICAL HISTORY OF radioactive iodine to thyroid TONSILLECTOMY PRIMARY/SECONDARY Tonsillectomy ALLERGIES Sulfa (Sulfonamide Antibiotics) MEDICATIONS Current Outpatient Medications Medication Sig levothyroxine (SYNTHROID) 150 mcg tablet Take 1 tablet by mouth daily before breakfast. metoprolol succinate ER (TOPROL XL) 50 mg 24 hr tablet Take 1.5 tablets by mouth once daily. furosemide (LASIX) 40 mg tablet Take 1 tablet by mouth once daily. budesonide-formoterol (SYMBICORT) 160-4.5 mcg/actuation inhaler Inhale 2 Puffs as instructed two times a day. omeprazole (PRILOSEC) 40 mg capsule Take 1 capsule by mouth once daily. simvastatin (ZOCOR) 20 mg tablet Take 1 tablet by mouth daily at bedtime. albuterol HFA (PROVENTIL HFA, VENTOLIN HFA) 90 mcg/actuation inhaler Inhale 2 Puffs as instructed every 4 hours as needed for wheezing/shortness of breath. fluticasone (FLONASE) 50 mcg/actuation nasal spray Use 1 [place] in each nostril once daily. ELIQUIS 5 mg tab(s) Take 1 tablet by mouth two times a day. No current facility-administered medications for this visit. FAMILY HISTORY Problem Relation Age of Onset Stroke Mother Heart Mother other (atrial fibulation) Mother Heart Father Alzheimer's Disease Father Diabetes Father other (PARKINSONS) Father other (atrial fibrillation) Brother artificial heart valve Colon Cancer Brother other (colon polyps) Brother Social History Tobacco Use Smoking status: Every Day Current packs/day: 1.00 Average packs/day: 1 pack/day for 57.0 years (57.0 ttl pk-yrs) Types: Cigarettes Smokeless tobacco: Never Vaping Use Vaping status: Never Used Substance Use Topics Alcohol use: Yes Comment: once a year Drug use: No REVIEW OF SYSTEMS GENERAL: No weight loss- some gain, no malaise no fevers/chills HEENT: Left frontal for frequent or significant headaches, No changes in hearing or vision. NECK: Left sided lumps, goiter, pain and significant neck swelling RESPIRATORY: Productive cough, no hemoptysis, + wheezing, + dyspnea or shortness of breath, + tobacco- getting LDCT in November CARDIOVASCULAR: Negative for chest pain, + leg swelling, no orthopnea, no palpitations GI: No nausea, vomiting, or diarrhea/constipation . No hematochezia/melena. No heartburn or reflux symptoms. : No history of dysuria, no frequency, + incontinence MUSCULOSKELETAL: Right knee joint painSKIN: Negative for lesions, rash, and itching ENDOCRINE: Negative for cold or heat intolerance, polyuria, polydipsia and goiter NEURO: No history of headaches, syncope, paralysis, seizures or tremors MOOD: Both depression, anxiety, sometimes suicidal ideation. EXAM: BP 120/64 Pulse 64 Temp 36.9 ?C (98.4 ?F) (Tympanic) Resp 16 Wt 110.7 kg (244 lb) SpO2 97% BMI 44.63 kg/m? PHYSICAL EXAM: Physical Exam Vitals reviewed. Constitutional: Appearance: Normal appearance. HENT: Head: Normocephalic. Right Ear: Ear canal and external ear normal. There is no impacted cerumen. Left Ear: Ear canal and external ear normal. (more content not included)... Normal [facility] Comprehensive metabolic 2000 panelon 07-06-2024 Albumin [Mass/Vol] 3.9 g/dL Normal 3.9-4.9 [facility] Comment on above: Order Comment: Speci men Type: BLOOD SPECIMENOrdering Facility: [facility] Address: [address] [place] [address] Performed By: #### L [facility], 6-3, 67720-5, ####[facility] LABCLIA [id number] [place] [address] [place] ALP [Catalytic activity/Vol] 128 U/L High 34-123 [facility] Comment on above: Order Comment: Speci men Type: BLOOD SPECIMENOrdering Facility: [facility] Address: [address] [place] [address] Performed By: #### L IPNF, 6-3, 92137-2, ####[facility] LABCLIA [id number] [place] [address] [place] ALT [Catalytic activity/Vol] 14 U/L Normal 7-38 [facility] Comment on above: Order Comment: Speci men Type: BLOOD SPECIMENOrdering Facility: [facility] Address: [address] [place] [address] Performed By: #### L IPNF, 3015-3, 14068-5, ####[facility] LABIA [id number] [place] [address] [place] Anion gap [Moles/Vol] 15 mmol/L Normal 8-15 [facility] Comment on above: Order Comment: Speci men Type: BLOOD SPECIMENOrdering Facility: [facility] Address: [address] [place] [address] Performed By: #### L IPNF, 6-3, 95088-9, ####[facility] LABCLIA [id number] [place] [id number] [place] AST [Catalytic activity/Vol] 19 U/L Normal 13-35 [facility] Comment on above: Order Comment: Speci men Type: BLOOD SPECIMENOrdering Facility: [facility] Address: [address] [place] [address] Performed By: #### L IPNF, 6-3, 09654-4, 93500-0 ####[facility] LABCLIA [id number] [address] [address] [place] Bilirubin [Mass/Vol] 0.8 mg/dL Normal 0.2-1.3 [facility] Comment on above: Order Comment: Speci men Type: BLOOD SPECIMENOrdering Facility: [facility] Address: [address] [place] [address] Performed By: #### L IPNF, 3015-3, 95445-2, 69540-8 ####[facility] LABCLIA [id number] [address] [address] [place] Calcium [Mass/Vol] 9.2 mg/dL Normal 8.5-10.2 [facility] Comment on above: Order Comment: Speci men Type: BLOOD SPECIMENOrdering Facility: [facility] Address: [address] [place] [address] Performed By: #### L IPNF, 3015-3, 02191-5, ####[facility] LABCLIA [id number] [place] [id number] [place] Chloride [Moles/Vol] 101 mmol/L Normal 98-107 [facility] Comment on above: Order Comment: Speci men Type: BLOOD SPECIMENOrdering Facility: [facility] Address: [address] [place] [address] Performed By: #### L IPNF, 3015-3, 08787-5, ####[facility] LABCLIA [id number] [address] [address] [place] CO2 [Moles/Vol] 26 mmol/L Normal 22-30 [facility] Comment on above: Order Comment: Speci men Type: BLOOD SPECIMENOrdering Facility: [facility] Address: [address] [place] [address] Performed By: #### L IPNF, 3015-3, 43532-0, 14111-1 ####[facility] LABCLIA [id number] [address] [address] [place] Creatinine [Mass/Vol] 0.92 mg/dL Normal 0.58-0.96 [facility] Comment on above: Order Comment: Bryn bradford Type: BLOOD SPECIMENOrdering Facility: [facility] Address: [address] [place] [address] Performed By: #### L ANGIE, 3016-3, 32058-3, ####[facility] LABIA [id number] [place] [address] [place] Creatinine and Glomerular filtration rate.predicted panel (S/P/Bld) 64 mL/min/1.73m??? Normal >=60 [facility] Comment on above: Order Comment: Bryn bradford Type: BLOOD SPECIMENOrdering Facility: [facility] Address: [address] [place] [address] Result Comment: Marcela mated Glomerular Filtration Rate (eGFR) is calculated using the 2020 CKD-EPI creatinine equation. This equation utilizes serum creatinine, sex, and age as parameters. The creatinine assay has traceable calibration to isotope dilution-mass spectrometry. Refer to KDIGO guidelines for clinical interpretation. In patients with unstable renal function, e.g. those with acute kidney injury, the eGFR may not accurately reflect actual GFR. Performed By: #### L ANGIE, 3016-3, 75356-2, ####[facility] LABIA [id number] [place] [id number] [place] Glucose [Mass/Vol] 126 mg/dL High 74-99 [facility] Comment on above: Order Comment: Speci men Type: BLOOD SPECIMENOrdering Facility: [facility] Address: [address] [place] [address] Result Comment: The [place] Diabetes Association (ADA) provides guidance for cutoff values for fasting glucose and random glucose. The ADA defines fasting as no caloric intake for at least 8 hours. Fasting plasma glucose results between 100 to 125 mg/dL indicate increased risk for diabetes (prediabetes). Fasting plasma glucose results greater than or equal to 126 mg/dL meet the criteria for diagnosis of diabetes. In the absence of unequivocal hyperglycemia, results should be confirmed by repeat testing. In a patient with classic symptoms of hyperglycemia or hyperglycemic crisis, random plasma glucose results greater than or equal to 200 mg/dL meet the criteria for diagnosis of diabetes. Reference: Standards of Medical Care in Diabetes 2016, [place] Diabetes Association. Diabetes Care. 2016.39(Suppl 1). Performed By: #### L IPASHLEY, 6-3, 68538-3, 43633-7 ####[facility] LABCLIA [id number] [address] [address] [place] Potassium [Moles/Vol] 4.0 mmol/L Normal 3.7-5.1 [facility] Comment on above: Order Comment: Speci men Type: BLOOD SPECIMENOrdering Facility: [facility] Address: [address] [place] [address] Performed By: #### L ANGIE, 3015-3, , ####[facility] LABCLIA [id number] [place] [address] [place] Protein [Mass/Vol] 6.7 g/dL Normal 6.3-8.0 [facility] Comment on above: Order Comment: Speci men Type: BLOOD SPECIMENOrdering Facility: [facility] Address: [address] [place] [address] Performed By: #### L ANGIE, 3015-3, 29947-7, ####[facility] LABCLIA [id number] [address] [address] [place] Sodium [Moles/Vol] 142 mmol/L Normal 136-144 [facility] Comment on above: Order Comment: Speci men Type: BLOOD SPECIMENOrdering Facility: [facility] Address: [address] [place] [address] Performed By: #### L IPASHLEY, 6-3, 31118-4, 22212-1 ####[facility] LABCLIA [id number] [place] [address] [place] Urea nitrogen [Mass/Vol] 21 mg/dL Normal 7-21 [facility] Comment on above: Order Comment: Bryn bradford Type: BLOOD SPECIMENOrdering Facility: [facility] Address: [address] [place] [address] Performed By: #### L IPNF, 3016-3, 40188-1, 42877-4 ####[facility] [id number] [place] [address] [place] HbA1c (Bld)on 07-06-2024 Average glucose Estimated from glycated hemoglobin (Bld) [Mass/Vol] 128 mg/dL Normal [facility] Comment on above: Order Comment: Bryn bradford Type: BLOOD SPECIMENOrdering Facility: [facility] Address: [address] [place] [address] Result Comment: eAG: (Estimated average glucose) is a calculated value from HgbA1c and is admissions representative of the average blood glucose level in the last 2-3 month period. Performed By: #### 5 5454-3 ####[facility] [id number] [place] [address] [place] HbA1c (Bld) [Mass fraction] 6.1 % High 4.3-5.6 [facility] Comment on above: Order Comment: Bryn bradford Type: BLOOD SPECIMENOrdering Facility: [facility] Address: [address] [place] [address] Result Comment: Amer [place] Diabetes Association guidelines indicate that patients with HgbA1c in the range 5.7-6.4% are at increased risk for development of diabetes, and intervention by lifestyle modification may be beneficial. HgbA1c greater or equal to 6.5% is considered diagnostic of diabetes. Performed By: #### 5 5454-3 ####[facility] LABIA [id number] [place] [address] [place] LIPID PANEL, NONFASTINGon Cholesterol [Mass/Vol] 163 mg/dL Normal <200 [facility] Comment on above: Order Comment: Speci men Type: BLOOD SPECIMENOrdering Facility: [facility] Address: [address] [place] [address] Result Comment: <200 mg/dL, Desirable 200-239 mg/dL, Borderline high >239 mg/dL, High Performed By: #### L IPNF, 6-3, 03607-1, ####[facility] LABCLIA [id number] [place] [address] [place] HDL CHOLESTEROL, NF 48 mg/dL Normal >39 [facility] Comment on above: Order Comment: Speci men Type: BLOOD SPECIMENOrdering Facility: [facility] Address: [address] [place] [address] Result Comment: 40-5 9 mg/dL, Acceptable >59 mg/dL, High: Negative risk factor for coronary heart disease <40 mg/dL, Low: Positive risk factor for coronary heart disease Performed By: #### L IPNF, 6-3, 50216-5, ####[facility] LABCLIA [id number] [place] [address] [place] LDL CHOLESTEROL, NF 98 mg/dL Normal <100 [facility] Comment on above: Order Comment: Speci men Type: BLOOD SPECIMENOrdering Facility: [facility] Address: [address] [place] [address] Result Comment: <100 mg/dL, Optimal 100-129 mg/dL, Near optimal/above optimal 130-159 mg/dL, Borderline high 160-189 mg/dL, High >189 mg/dL, Very high Secondary prevention optimal LDL Cholesterol levels are recommended to be < 70 mg/dL Performed By: #### L IPNF, 6-3, 17563-2, ####[facility] LABCLIA [id number] [place] [address] [place] LDL/HDL RATIO, NF 2.04 mg/dL Normal <2.54 [facility] Comment on above: Order Comment: Holliei men Type: BLOOD SPECIMENOrdering Facility: [facility] Address: [address] [place] [address] Result Comment: Antonio luevano: 1. National Cholesterol Education Program ATP III Guideline At-A-Glance Quick Desk Reference: National Heart, Lung, and Blood [place]. National Institutes of Health. 2001: NIH Publication No. 01-3305. 2. An International Atherosclerosis Society position paper: global recommendations for the management of dyslipidemia: executive summary, Atherosclerosis. 2014: 232(2):410-413. Performed By: #### L IPNF, 3016-3, 80267-8, 09706-6 ####[facility] LABCLIA [id number] [place] [address] [place] NON HDL CHOL, NF 115 mg/dL Normal <130 [facility] Comment on above: Order Comment: Bryn suzette Type: BLOOD SPECIMENOrdering Facility: [facility] Address: [address] [place] [address] Result Comment: <130 mg/dL, Optimal 130-159 mg/dL, Near optimal/above optimal 160-189 mg/dL, Borderline high 190-219 mg/dL, High >219 mg/dL, Very high Secondary prevention optimal non HDL Cholesterol levels are recommended to be <100 mg/dL Performed By: #### L IPNF, 3016-3, 00083-5, ####[facility] LABCLIA [id number] [place] [address] [place] T CHOL/HDL RATIO NF 3.40 mg/dL Normal <5.10 [facility] Comment on above: Order Comment: Holliei suzette Type: BLOOD SPECIMENOrdering Facility: [facility] Address: [address] [place] [address] Performed By: #### L IPNF, 3016-3, 01726-4, 85756-1 ####[facility] LABCLIA [id number] [place] [address] [place] TRIGLYCERIDES, NF 84 mg/dL Normal <150 [facility] Comment on above: Order Comment: Speci men Type: BLOOD SPECIMENOrdering Facility: [facility] Address: [address] [place] [address] Result Comment: <150 mg/dL, Normal 150-199 mg/dL, Borderline high 200-499 mg/dL, High >499 mg/dL, Very high Performed By: #### L IPNF, 3016-3, 70923-9, ####[facility] LABCLIA [id number] [place] [address] [place] VLDL CHOLESTEROL, NF 17 mg/dL Normal <30 [facility] Comment on above: Order Comment: Speci men Type: BLOOD SPECIMENOrdering Facility: [facility] Address: [address] [place] [address] Performed By: #### L IPNF, 6-3, 24626-7, ####[facility] LABCLIA [id number] [place] [address] [place] Magnesium SerPl-mCncon 07-06 Magnesium [Mass/Vol] 2.0 mg/dL Normal 1.7-2.3 [facility] Comment on above: Order Comment: Speci men Type: BLOOD SPECIMENOrdering Facility: [facility] Address: [address] [place] [address] Performed By: #### L IPNF, 6-3, 20139-8, ####[facility] LABCLIA [id number] [place] [address] [place] TSH SerPl-aCncon 07-06-2024 TSH Qn 1.080 m[IU]/L Normal 0.270-4.200 [facility] Comment on above: Order Comment: Speci men Type: BLOOD SPECIMENOrdering Facility: [facility] Address: [address] [place] [address] Performed By: #### L IPNF, 6-3, 63099-5, ####[facility] LABCLIA [id number] [facility] [id number] [id number] [place] Vit B12 [facility] -27-2 025 Cobalamin (Vitamin B12) [Mass/Vol] 686 pg/mL Normal 232-1245 [facility] Comment on above: Order Comment: Speci men Type: BLOOD SPECIMENOrdering Facility: [facility] Address: [address] [place] [address] Performed By: #### 2 132-9 ####[facility] LABCLIA [id number] [facility] [id number] [id number] [place] CNOVon 03-02-2024 [facility] MARIA ESTHER REDDY ([id number]) 1945 F Date Time Provider Department 03/02/24 11:40 AM [facility] During your visit today, we recorded the following information about you: Temperature Pulse Respiration Blood pressure 97.4 degrees 70/minute 20/minute 110/58 Weight 113.4 kg Preethi Mcclure, BRAIDING MACHINE TENDER.OTOLARYNGOLOGY NURSE 03/02/2024 12:02 PM Signed This is a 79 year old female who presents today with: Patient presents with: Swelling: Bilateral legs, worse Cough: Couple days Shortness of Breath HISTORY OF PRESENT ILLNESS: Maria Esther Val Reddy is a 79 year old female. Patient presents with: Swelling: Bilateral legs, worse Cough: Couple days Shortness of Breath Drove to wedding in [place] on Saturday. Wedding on Saturday. Skipped Water pill for wedding. Came back yesterday. Stopped a few times driving back because water pills were working. Ate pulled pork, cheese and pasta salad. Cut out salt. Feels SOB- continuous even at rest. Swelling in legs all along. No orthopnea or PND. No chest pain- some pulling on left side not related to activity. Once or twice palpations related to stress. Appetite is good. Urine out is fine. On Eliquis PAST MEDICAL HISTORY: PAST MEDICAL HISTORY Diagnosis Date A-fib (HCC) Arthritis of knee, right 06/09/2012 Benign neoplasm of colon 06/10/2002 CHF (congestive heart failure) (HCC) Dysmetabolic syndrome X Hyperlipidemia LDL goal < 100 06/20/2012 Morbid obesity (HCC) 06/09/2012 Other osteoporosis Other symptoms involving cardiovascular system Personal history of colonic polyps Phlebitis and thrombophlebitis of other deep vessels of lower extremities Unspecified hypothyroidism H/o Radioactive Iodine Treatment Unspecified vitamin D deficiency PAST SURGICAL HISTORY Procedure Laterality Date ADENOIDECTOMY PRIMARY Adenoidectomy COLONOSCOPY W/BIOPSY SINGLE/MULTIPLE 12/10/08 3 small polyps COLSC FLX W/RMVL OF TUMOR POLYP LESION SNARE TQ COLSC FLX W/RMVL OF TUMOR POLYP LESION SNARE TQ 03/18/15 2 polyps in transverse colon - no retrieved, 2 at 20 nd 30cm EGD TRANSORAL BIOPSY SINGLE/MULTIPLE 03/18/15 duodenitis, small hiatal hernia LIG/TRNSXJ FLP TUBE ABDL/VAG APPR UNI/BI Tubal ligation NEUROPLASTY AND/TRANSPOS MEDIAN NRV CARPAL TUNNE Carpal tunnel decomp- both PAST SURGICAL HISTORY OF radioactive iodine to thyroid TONSILLECTOMY PRIMARY/SECONDARY Tonsillectomy ALLERGIES Sulfa (Sulfonamide Antibiotics) MEDICATIONS Current Outpatient Medications Medication Sig furosemide (LASIX) 40 mg tablet Take 1 tablet by mouth once daily. ELIQUIS 5 mg tab(s) Take 1 tablet by mouth two times a day. metoprolol succinate ER (TOPROL XL) 50 mg 24 hr tablet Take 1.5 tablets by mouth once daily. levothyroxine (SYNTHROID) 150 mcg tablet Take 1 tablet by mouth daily before breakfast. budesonide-formoterol (SYMBICORT) 160-4.5 mcg/actuation inhaler Inhale 2 Puffs as instructed two times a day. omeprazole (PRILOSEC) 40 mg capsule Take 1 capsule by mouth once daily. simvastatin (ZOCOR) 20 mg tablet Take 1 tablet by mouth daily at bedtime. albuterol HFA (PROVENTIL HFA, VENTOLIN HFA) 90 mcg/actuation inhaler Inhale 2 Puffs as instructed every 4 hours as needed for wheezing/shortness of breath. fluticasone (FLONASE) 50 mcg/actuation nasal spray Use 1 [place] in each nostril once daily. No current facility-administered medications for this visit. FAMILY HISTORY Problem Relation Age of Onset Stroke Mother Heart Mother other (atrial fibulation) Mother Heart Father Alzheimer's Disease Father Diabetes Father other (PARKINSONS) Father other (atrial fibrillation) Brother artificial heart valve Colon Cancer Brother other (colon polyps) Brother Social History Tobacco Use Smoking status: Every Day Current packs/day: 1.00 Average packs/day: 1 pack/day for 57.0 years (57.0 ttl pk-yrs) Types: Cigarettes Smokeless tobacco: Never Vaping Use Vaping status: Never Used Substance Use Topics Alcohol use: Yes Comment: once a year Drug use: No EXAM: BP 110/58 Pulse 70 Temp 36.3 ?C (97.4 ?F) (Tympanic) Resp 20 Wt 113.4 kg (250 lb) SpO2 96% BMI 45.73 kg/m? PHYSICAL EXAM: Physical Exam Vitals reviewed. Constitutional: Appearance: Normal appearance. She is obese. HENT: Head: Normocephalic. Cardiovascular: Rate and Rhythm: Normal rate and regular rhythm. Pulses: Normal pulses. Heart sounds: Normal heart sounds. Pulmonary: Effort: Pulmonary effort is normal. Breath sounds: Normal breath sounds. Comments: Diminished in RLL- poor air exchange throughout Abdominal: General: Bowel sounds are normal. Palpations: Abdomen is soft. Musculoskeletal: General: Swelling present. Normal range of motion. Comments: Negative Chace's sign raji. Skin: General: Skin is warm and dry. Neurological: (more content not included)... Normal [facility] CNOVon 01-03-2024 CNOV Office Visit ([facility] ) MARIA ESTHER REDDY ([id number]) 1945 F Date Time Provider Department 01/03/24 1:00 PM PREETHI MCCLURE During your visit today, we recorded the following information about you: Pulse Respiration Blood pressure Weight 77/minute 16/minute 100/58 107.5 kg Preethi Mcclure APRN.CNP 01/03/2024 1:17 PM Addendum This is a 78 year old female who presents today with: No chief complaint on file. HISTORY OF PRESENT ILLNESS: Maria Esther Reddy is a 78 year old female. No chief complaint on file. Knee pain- can't have surgery until she looses weight. No further palpitations Dizziness with lying down resolved with Hallpike's maneuver . HR better- known Afib, anticoagulated REVIEW OF SYSTEMS has cancer GENERAL: No weight loss, + malaise, no fevers, + chills HEENT: Negative for frequent or significant headaches, No changes in hearing, had cataract surgery. NECK: Negative for lumps, goiter, pain and significant neck swelling RESPIRATORY: + productive cough clear on occ.- lung nodules being monitored by CT, no hemoptysis, + wheezing, + dyspnea or shortness of breath CARDIOVASCULAR: Negative for chest pain,+ leg swelling left > right, not new, denies orthopnea, no palpitations GI: No nausea, vomiting, or diarrhea/constipation . No hematochezia/melena. No heartburn or reflux symptoms with medication. : No history of dysuria, no frequency, +incontinence MUSCULOSKELETAL: Negative for joint pain or swelling, right knee SKIN: Negative for lesions, rash, and itching ENDOCRINE: Negative for cold or heat intolerance, polyuria, + polydipsia, no goiter NEURO: No history of headaches, syncope, paralysis, seizures or tremors MOOD: Negative for depression, anxiety, and suicidal ideation except with HR increased PAST MEDICAL HISTORY: PAST MEDICAL HISTORY Diagnosis Date A-fib (HCC) Arthritis of knee, right 06/09/2012 Benign neoplasm of colon 06/10/2002 CHF (congestive heart failure) (HCC) Dysmetabolic syndrome X Hyperlipidemia LDL goal < 100 06/20/2012 Morbid obesity (HCC) 06/09/2012 Other osteoporosis Other symptoms involving cardiovascular system Personal history of colonic polyps Phlebitis and thrombophlebitis of other deep vessels of lower extremities Unspecified hypothyroidism H/o Radioactive Iodine Treatment Unspecified vitamin D deficiency PAST SURGICAL HISTORY Procedure Laterality Date ADENOIDECTOMY PRIMARY Adenoidectomy COLONOSCOPY W/BIOPSY SINGLE/MULTIPLE 12/10/08 3 small polyps COLSC FLX W/RMVL OF TUMOR POLYP LESION SNARE TQ COLSC FLX W/RMVL OF TUMOR POLYP LESION SNARE TQ 03/18/15 2 polyps in transverse colon - no retrieved, 2 at 20 nd 30cm EGD TRANSORAL BIOPSY SINGLE/MULTIPLE 03/18/15 duodenitis, small hiatal hernia LIG/TRNSXJ FLP TUBE ABDL/VAG APPR UNI/BI Tubal ligation NEUROPLASTY AND/TRANSPOS MEDIAN NRV CARPAL TUNNE Carpal tunnel decomp- both PAST SURGICAL HISTORY OF radioactive iodine to thyroid TONSILLECTOMY PRIMARY/SECONDARY Tonsillectomy ALLERGIES Sulfa (Sulfonamide Antibiotics) MEDICATIONS Current Outpatient Medications Medication Sig furosemide (LASIX) 40 mg tablet Take 1 tablet by mouth once daily. ELIQUIS 5 mg tab(s) Take 1 tablet by mouth two times a day. metoprolol succinate ER (TOPROL XL) 50 mg 24 hr tablet Take 1.5 tablets by mouth once daily. levothyroxine (SYNTHROID) 150 mcg tablet Take 1 tablet by mouth daily before breakfast. budesonide-formoterol (SYMBICORT) 160-4.5 mcg/actuation inhaler Inhale 2 Puffs as instructed two times a day. omeprazole (PRILOSEC) 40 mg capsule Take 1 capsule by mouth once daily. simvastatin (ZOCOR) 20 mg tablet Take 1 tablet by mouth daily at bedtime. albuterol HFA (PROVENTIL HFA, VENTOLIN HFA) 90 mcg/actuation inhaler Inhale 2 Puffs as instructed every 4 hours as needed for wheezing/shortness of breath. fluticasone (FLONASE) 50 mcg/actuation nasal spray Use 1 [place] in each nostril once daily. No current facility-administered medications for this visit. FAMILY HISTORY Problem Relation Age of Onset Stroke Mother Heart Mother other (atrial fibulation) Mother Heart Father Alzheimer's Disease Father Diabetes Father other (PARKINSONS) Father other (atrial fibrillation) Brother artificial heart valve Colon Cancer Brother other (colon polyps) Brother Social History Tobacco Use Smoking status: Every Day Packs/day: 1.00 Years: 57.00 Additional pack years: 0.00 Total pack years: 57.00 Types: Cigarettes Smokeless tobacco: Never Vaping Use Vaping Use: Never used Substance Use Topics Alcohol use: Yes Comment: once a year Drug use: No EXAM: BP 100/58 Pulse 77 Resp 16 Wt 107.5 kg (237 lb) SpO2 96% BMI 43.35 kg/m? PHYSICAL EXAM: Physical Exam Vitals reviewed. Constitutional: Appearance: Normal appearance. She is obese. HENT: (more content not included)... Normal [facility] TSH SerPl-aCncon 12-31-2023 TSH Qn 0.972 m[IU]/L Normal 0.270-4.200 [facility] Comment on above: Order Comment: Speci men Type: BLOOD SPECIMEN Ordering Facility: [facility] Address: [facility] [place] [id number] Performed By: #### 5 [id number] #### [facility] CLIA [id number] [address] [place] [address] Sadaf 12-05-2023 CHRISTIANAN Telephone ([facility]) MARIA ESTHER REDDY ([id number]) 1945 F Date Time Provider Department 12/05/23 FREDIS KHAN [facility] During your visit today, we recorded the following information about you: Fredis Khan APRN.CNP 12/05/2023 3:13 PM Signed Left message for pt to I will call back regarding results and recommendations on 12/10/2023. CHITRA Neumann Melinda, APRN.CNP 12/11/2023 2:52 PM Signed Left message notifying pt 12 month follow up is recommended. Fredis Khan APRN.CNP Allergies As of Date: 12/05/2023 Noted Allergy Reaction SULFA (SULFONAMIDE ANTIBIOTICS) 06/21/2005 11 - Vomiting Date Reviewed: 12/02/2023 Reviewed by: Fredis Khan APRN.OTOLARYNGOLOGY NURSE - Fully Assessed Reason for Visit: Results [95] Primary Visit Diagnosis:Lung nodules [R91.8] Order(s):CT LUNG FOLLOWUP WO KRISTINE [[id number]] Order #: [id number] FUTURE Prescriptions as of 12/11/2023 - furosemide (LASIX) 40 mg tablet Take 1 tablet by mouth once daily. - ELIQUIS 5 mg tab(s) Take 1 tablet by mouth two times a day. - metoprolol succinate ER (TOPROL XL) 50 mg 24 hr tablet Take 1.5 tablets by mouth once daily. - levothyroxine (SYNTHROID) 150 mcg tablet Take 1 tablet by mouth daily before breakfast. - budesonide-formoterol (SYMBICORT) 160-4.5 mcg/actuation inhaler Inhale 2 Puffs as instructed two times a day. - omeprazole (PRILOSEC) 40 mg capsule Take 1 capsule by mouth once daily. - simvastatin (ZOCOR) 20 mg tablet Take 1 tablet by mouth daily at bedtime. - albuterol HFA (PROVENTIL HFA, VENTOLIN HFA) 90 mcg/actuation inhaler Inhale 2 Puffs as instructed every 4 hours as needed for wheezing/shortness of breath. - fluticasone (FLONASE) 50 mcg/actuation nasal spray Use 1 [place] in each nostril once daily. Problem List As Of Date 12/05/2023 Noted Resolved DYSMETABOLIC SYNDROME X [E88.810] 08/24/2005 Hypothyroidism [E03.9] 08/24/2005 Lumbago [M54.50] 08/24/2005 03/06/2017 Plantar fascial fibromatosis [M72.2] 04/04/2006 01/27/2021 Sprain of foot, unspecified site [S93.609A] 10/22/2007 04/23/2014 Other enthesopathy of ankle and tarsus [M77.50] 11/05/2007 03/06/2017 Vitamin D deficiency [E55.9] 12/19/2007 03/06/2017 Other osteoporosis [M81.8] 12/19/2007 07/24/2011 Ingrowing nail [L60.0] 01/02/2008 04/23/2014 BENIGN HYPERTENSION [I10] 09/23/2008 BENIGN NEOPLASM LG BOWEL [D12.6] 09/23/2008 Other symptoms involving cardiovascular system *09/23/2008 03/14/2016 PERSONAL HISTORY OF COLONIC POLYPS [Z86.010] 10/29/2008 Osteopenia [M85.80] 07/24/2011 Primary osteoarthritis of right knee [M17.11] 06/09/2012 Morbid obesity [E66.01] 06/09/2012 Hyperlipidemia with target LDL less than 100 [E*06/20/2012 Tobacco abuse [Z72.0] 12/20/2014 Occult GI bleeding [R19.5] 12/28/2014 03/06/2017 IVONEN (acute kidney injury) (HCC) [N17.9] 06/06/2018 01/27/2021 Knee injuries, right, initial encounter [S89.91*12/27/2021 Prediabetes [R73.03] 11/19/2022 SOB (shortness of breath) [R06.02] 11/19/2022 02/15/2023 COPD, 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] 02/15/2023 Centrilobular emphysema (HCC) [J43.2] 02/15/2023 Lung nodules [R91.8] 02/15/2023 Paroxysmal atrial fibrillation (HCC) [I48.0] 05/13/2023 Congestive heart failure (HCC) [I50.9] 06/24/2023 Pre-operative cardiovascular examination [Z01.8*06/24/2023 Encounter Status:Closed by FREDIS KHAN on 12/11/23 [facility] CNOVon 12-02-2023 CNOV Office Visit (PULMWS ) MARIA ESTHER REDDY ([id number]) 1945 F Date Time Provider Department 12/02/23 11:00 AM FREDIS KHAN During your visit today, we recorded the following information about you: Pulse Respiration Weight 66/minute 18/minute 108 kg Fredis Khan APRN.CNP 12/02/2023 12:35 PM Signed Chief Complaint: 6 mos follow-up from LDCT scan dated 06/04/2023 for LUNG RADS Category 3 finding of new 5 mm RUL nodule. History of Present Illness: Maria Esther Reddy is a 78 year old female who is presenting today for pulmonary nodule follow-up. Nodule was found through lung cancer screening on LDCT. Patient has a PMH significant for hypothyroidism, HLD, copd, emphysema, A fib, CHF. Patient is a current smoker with a 71.25 pack year history. Currently still smoking daily. Since the patient's last visit the patient has not had new medical issues or hospitalizations. No recent respiratory infections/pneumonia. The patient does not require assistance with normal activities of daily living. Modified Medical Research [place] Dyspnea Scale (MMRC) I only get breathless with strenous exercise 0 Patient's appetite is good and weight is stable. Unintentional weight loss: No Sinus drainage: No SOB: Yes, not worsening Chest tightness: No Coughing: Without mucus Hemoptysis: No Fever/Chills: No Wheezing: Yes, not worsening Medication Treatment: Are you using regular inhalers?: Yes symbicort Past Medical History: PAST MEDICAL HISTORY Diagnosis Date A-fib (HCC) Arthritis of knee, right 06/09/2012 Benign neoplasm of colon 06/10/2002 CHF (congestive heart failure) (HCC) Dysmetabolic syndrome X Hyperlipidemia LDL goal < 100 06/20/2012 Morbid obesity (HCC) 06/09/2012 Other osteoporosis Other symptoms involving cardiovascular system Personal history of colonic polyps Phlebitis and thrombophlebitis of other deep vessels of lower extremities Unspecified hypothyroidism H/o Radioactive Iodine Treatment Unspecified vitamin D deficiency Surgical Hx: PAST SURGICAL HISTORY Procedure Laterality Date ADENOIDECTOMY PRIMARY Adenoidectomy COLONOSCOPY W/BIOPSY SINGLE/MULTIPLE 12/10/08 3 small polyps COLSC FLX W/RMVL OF TUMOR POLYP LESION SNARE TQ COLSC FLX W/RMVL OF TUMOR POLYP LESION SNARE TQ 03/18/15 2 polyps in transverse colon - no retrieved, 2 at 20 nd 30cm EGD TRANSORAL BIOPSY SINGLE/MULTIPLE 03/18/15 duodenitis, small hiatal hernia LIG/TRNSXJ FLP TUBE ABDL/VAG APPR UNI/BI Tubal ligation NEUROPLASTY AND/TRANSPOS MEDIAN NRV CARPAL TUNNE Carpal tunnel decomp- both PAST SURGICAL HISTORY OF radioactive iodine to thyroid TONSILLECTOMY PRIMARY/SECONDARY Tonsillectomy Family Hx: FAMILY HISTORY Problem Relation Age of Onset Stroke Mother Heart Mother other (atrial fibulation) Mother Heart Father Alzheimer's Disease Father Diabetes Father other (PARKINSONS) Father other (atrial fibrillation) Brother artificial heart valve Colon Cancer Brother other (colon polyps) Brother Allergies: ALLERGIES Allergen Reactions Sulfa (Sulfonamide * Vomiting Social History Tobacco Use: 1 packs/day, for 57 years. Types: Cigarettes Review Of Systems: See HPI for ROS All of the remainder systems were reviewed and negative. PHYSICAL EXAMINATION: Pulse 66 Resp 18 Wt 238 lb (108.0kg) SpO2 94% General appearance: well appearing, in no acute distress, and alert Skin: skin color, texture, turgor normal, no rashes or lesions Nose/Sinuses: Negative Oropharynx: Lips, mucosa, and tongue normal, teeth and gums normal, oropharynx normal Neck: Supple, no adenopathy; thyroid symmetric, normal size Respiratory: lungs clear to auscultation no wheezing or rhonchi Cardiovascular: Negative. RRR without murmur, gallop, or rubs. No ectopy Musculoskeletal: Extremities normal. No deformities, edema, or skin discoloration. Neuro: Oriented X 3 Data Review I have visually reviewed imaging and testing below CT imaging done today was reviewed and analyzed independently by practitioner and awaiting radiology review. CT was compared to prior CT chest. Prior PFTS: SPIROMETRY WITH DILATOR IF OBSTRUCTED ([id number]) - ordered on 01/16/23 [facility] [address] [place] [address] Test Date: 2023-01-16 Pat Name: MARIA ESTHER REDDY Department: Room: Gender: Female Doughmaker: : 1945 Requested By: Order Number: [id number] Reading MD: Smita Henderson MD Interpretive Statements ATS/ERS acceptability and repeatability standards for spirometry met. IMPRESSION: Spirometry shows a reduced FEV1/FVC ratio; but individually normal FVC and FEV1 predicted values.This pattern indicates mild obstruction or a normal variant. Small airways obstruction noted. Electronically Signed On 01-17-2023 8:21:29 EDT by Priscilla Milian (more content not included)... Normal [facility] CT LUNG FOLLOWUP WO IVCONon 12-02-2023 CT LUNG FOLLOWUP WO IVCON * * *Final Report* * * DATE OF EXAM: Dec 02 2023 11:32AM [facility] 0561 - CT LUNG FOLLOWUP WO IVCON / PROCEDURE REASON: Lung nodules * * * * Physician Interpretation * * * * EXAMINATION: CT LUNG FOLLOWUP WO IVCON CLINICAL HISTORY: Lung nodules Technique: Spiral CT acquisition of the chest from the thoracic inlet to the upper abdomen without contrast. MQ: CTLCS_6 Followup LDCT Patient characteristics: * Kumk-vx-Bjwmp: 1945; Age at exam: 78 years * Gender: Female * Lung Disease: Asymptomatic (no signs or symptoms of lung disease) * Number of Pack Years: 71 * Current smoker (=0) or Number of Years since Quit: 0 * Ordering provider and NPI: FREDIS KHAN [id number] * Interpreting radiologist and NPI: Jalen [id number] Exam acquisition parameters: * Exam Date: 12/02/2023 11:32 AM * Site: [facility] * * CT System Closing Manager: Siemens * CT System Model: Sensation * Tube Current-Time (mA-sec): 36 * Peak Voltage (kV): 120V * Scan Time (sec): 10.04 * Scan Volume (z-length, cm): -26.50 * Pitch: 0.75 * Slice Thickness (mm): 1.5 * CT Dose-Length Product: 103 mGy*cm * CT Dose Index: 2.81mGy * CT Dose Reduction Method: Automated exposure control(AEC) and iterative recon COMPARISON: Prior lung screen dated 06/04/2023 RESULT: Are nodules present? Yes, 1-5 nodules Lung nodule comments: 5 mm posterior right upper lobe nodule (99) unchanged. 7 mm posterior subpleural right lower lobe nodule (122) unchanged. 6 mm subpleural right lateral lung base nodule (205) unchanged. Other findings: Small hiatal hernia. Aortic root calcifications and minimal coronary calcifications. Mild degenerative changes of the thoracic spine. Diffuse bronchial thickening, moderate upper lobe predominant emphysema, scattered areas of groundglass opacity and subpleural reticulation likely smoking-related interstitial lung disease. IMPRESSION: LungRADS category: 2 LungRADS modifier: None LungRADS 0 reason: n/a Recommendations: Continue annual screening with LDCT in 12 months. Reference: [employer]. Lung CT Screening Reporting and Data System (Lung-RADS). Available at: http://www.acr.org/Qu ality-Safety/Resource s/LungRADS Partner Marketing Manager: ARBEN Transcribe Date/Time: Dec 03 2023 10:36A Dictated by : DONNA GRAY MD This examination was interpreted and the report reviewed and electronically signed by: DONNA GRAY MD on Dec 03 2023 10:49AM EST [id number] Normal [facility] CNOVon 09-27-2023 CNOV Office Visit (REYES ) MARIA ESTHER REDDY ([id number]) 1945 F Date Time Provider Department 09/27/23 10:30 AM HANNA ANTOINE During your visit today, we recorded the following information about you: Darlnig Hodgson MA 09/27/2023 10:05 AM Signed AMB ROOMING INTAKE FLOWSHEET DATA Pain Pain Level: 9 Pain Location: Knee-Right Description: Sharp Duration Amount of Time: (ongoing) Frequency: Continuous Intervention/Comfort measure: Exercise Patient here today for Synvisc One injection into the right knee. LOT # [id number] EXP 09/07/2025 RUTH Mcwilliams Pawel, PA-C 09/27/2023 10:05 AM Signed INJECTION PROCEDURE NOTE: Patient returns today for synvisc one injection. Previously been seen by Marissa Pena for routine injection. Prior to the procedure, the patient's allergies were reviewed. The procedure site was marked. The procedure team checked for proper functioning of devices and supplies to be used for the procedure. Large Joint Arthro/Inj: R knee joint Informed Consent Consent Obtained: Verbal [place] Protocol A moment to CARE was completed. SIGN IN Personnel directly involved with the procedure wore the appropriate PPE. Special Equipment: N/A Patient/Surrogate Stated/Verified: Patient name, Date of , Relevant allergies and Intended procedure TIME OUT Relevant labs, photos, and/or imaging studies have been reviewed. Correct side/site marked and visible. Medications required for procedure verified. Fire risk assessed and interventions discussed. No implant(s) inserted. 09/27/2023 10:05 AM The procedure site was prepped in the usual sterile fashion. Site: R knee joint Medications: 48 mg hylan G-F 20 48 mg/6 mL Anesthetics: 5 mL lidocaine (PF) 10 mg/mL (1 %) Outcome: Tolerated well, no immediate complications Post-injection instructions were reviewed with the patient and the patient voiced understanding of these instructions. SIGN OUT All instruments, equipment, possible retained foreign bodies accounted for. Hanna Antoine PA-C Referring Provider: BRADLEY CAUSEY [[id number]] Allergies As of Date: 09/27/2023 Noted Allergy Reaction SULFA (SULFONAMIDE ANTIBIOTICS) 06/21/2005 11 - Vomiting Date Reviewed: 09/27/2023 Reviewed by: Darling Hodgson MA - Fully Assessed Reason for Visit: Established Patient [175] Injections [199] Primary Visit Diagnosis:Primary osteoarthritis of right knee [M17.11] Order(s):Large Joint Arthro/Inj: R knee joint [UEW695] Order #: [id number] [] hylan G-F 20 48 mg/6 mL 48 mg injection (SYNVISC-ONE)Disp: Rfl: [] lidocaine (PF) 10 mg/mL (1 %) 5 mL injection (XYLOCAINE)Disp: Rfl: Prescriptions as of 09/27/2023 - metoprolol succinate ER (TOPROL XL) 50 mg 24 hr tablet Take 1.5 tablets by mouth once daily. - meclizine (ANTIVERT) 25 mg tab Take 1 tablet by mouth three times a day as needed. - levothyroxine (SYNTHROID) 150 mcg tablet Take 1 tablet by mouth daily before breakfast. - ELIQUIS 5 mg tab(s) Take 1 tablet by mouth two times a day. - budesonide-formoterol (SYMBICORT) 160-4.5 mcg/actuation inhaler Inhale 2 Puffs as instructed two times a day. - furosemide (LASIX) 40 mg tablet Take 1 tablet by mouth once daily. - omeprazole (PRILOSEC) 40 mg capsule Take 1 capsule by mouth once daily. - simvastatin (ZOCOR) 20 mg tablet Take 1 tablet by mouth daily at bedtime. - albuterol HFA (PROVENTIL HFA, VENTOLIN HFA) 90 mcg/actuation inhaler Inhale 2 Puffs as instructed every 4 hours as needed for wheezing/shortness of breath. - fluticasone (FLONASE) 50 mcg/actuation nasal spray Use 1 [place] in each nostril once daily. Facility-Administered Medications as of 09/27/2023 - perflutren lipid microspheres 1.3 mL in NaCl (PF) 0.9% 10 mL injection (DEFINITY) - sodium chloride 0.9 % (flush) 10 mL (BD POSIFLUSH) Problem List As Of Date 09/27/2023 Noted Resolved DYSMETABOLIC SYNDROME X [E88.810] 08/24/2005 Hypothyroidism [E03.9] 08/24/2005 Lumbago [M54.50] 08/24/2005 03/06/2017 Plantar fascial fibromatosis [M72.2] 04/04/2006 01/27/2021 Sprain of foot, unspecified site [S93.609A] 10/22/2007 04/23/2014 Other enthesopathy of ankle and tarsus [M77.50] 11/05/2007 03/06/2017 Vitamin D deficiency [E55.9] 12/19/2007 03/06/2017 Other osteoporosis [M81.8] 12/19/2007 07/24/2011 Ingrowing nail [L60.0] 01/02/2008 04/23/2014 BENIGN HYPERTENSION [I10] 09/23/2008 BENIGN NEOPLASM LG BOWEL [D12.6] 09/23/2008 Other symptoms involving cardiovascular system *09/23/2008 03/14/2016 PERSONAL HISTORY OF COLONIC POLYPS [Z86.010] 10/29/2008 Osteopenia [M85.80] 07/24/2011 Primary osteoarthritis of right knee [M17.11] 06/09/2012 Morbid obesity [E66.01] 06/09/2012 Hyperlipidemia with target LDL less than 100 [E*06/20/2012 Tobacco abuse [Z72.0] 12/20/2014 Occult GI bleeding [R19.5] 12/28/2014 03/06/2017 IVONNE (more content not included)... Normal [facility] [id number] 09-18-2023 [id number] HNO ID: [id number] Author: KEISHA HOFFMAN PT Service: ? Author Type: Physical Therapist Type: [id number] Filed: 09/18/2023 11:55 Note Text: [facility] Physical Therapy Plan of Care Certification Patient Name: Maria Esther Reddy : 1945 [facility] #: [id number] Date: 09/18/2023 To: Preethi Mcclure A* From Therapist: Keisha Hoffman PT RE: Patient Certification/ Recertification Your review, approval and electronic signature are required in order to comply with Payor: T MEDICARE / Plan: [employer] MEDICARE PPO / Product Type: PPO / regulations. The identified Physical Therapy PLAN OF CARE for the patient is as follows: H81.10 BPPV (benign paroxysmal positional vertigo), unspecified laterality PLAN OF CARE: Assessment: Maria Esther Reddy presents with diagnosis of vertigo that interferes with nothing . She presents with impairments in functional performance testing indicates pt. Is currently performing all fucntional movements at her baseline without onset of dizziness symptoms. PROMIS? (Patient-Reported Outcomes Measurement Information System) scores were reviewed and identified as a rehabilitation concern. Prognosis for therapy is Excellent due to: current objective clinical presentation . She will benefit from skilled therapy services to meet the goals established for this plan of care as noted below. Goals for Episode of Care: created on 09/18/23 through 09/18/23 All goals met. Symptoms resolved. Patient Goals: pt. denies dizziness but states she came to al as instructed by referring provider Planned Interventions, Frequency, and Duration: Current Frequency: 1 visit Duration: 1 visit Total Number of Visits Planned: 0 Planned Treatment Interventions: Self-retirement management ([id number]) PLAN FOR NEXT VISIT: DC - pt. denies need for PT and demonstrates negative testing for peripheral vestibular involvement Patient demonstrates good understanding of plan of care and treatment. The above goals and plan of care were discussed and agreed upon by patient/family. For further details regarding this patient refer to the Physical Therapy electronically documented visit dated 09/18/2023. Provider Attestation I have reviewed the treatment plan for Maria Esther Merchantalexandru, [facility]# [id number] for the period of 09/18/23 -- 09/18/23, established on 09/18/2023. Signature certifies the need for therapy services. Normal [facility] 09-18-2023 [facility] Telephone (ORTHWS) MARIA ESTHER REDDY ([id number]) 1945 F Date Time Provider Department 09/18/23 MARISSA PENA During your visit today, we recorded the following information about you: Darling Hodgson MA 09/18/2023 1:45 PM Signed Patient stopped by the office while in the building. She would like to get another Synvisc One injection into the right knee. She had good relief from previous injection. Referral created. Allergies As of Date: 09/18/2023 Noted Allergy Reaction SULFA (SULFONAMIDE ANTIBIOTICS) 06/21/2005 11 - Vomiting Date Reviewed: 08/30/2023 Reviewed by: Preethi Mcclure APRN.MOLD HOISTER - Fully Assessed Reason for Visit: Synvisc One injection [Other] Prescriptions as of 09/26/2023 - metoprolol succinate ER (TOPROL XL) 50 mg 24 hr tablet Take 1.5 tablets by mouth once daily. - meclizine (ANTIVERT) 25 mg tab Take 1 tablet by mouth three times a day as needed. - levothyroxine (SYNTHROID) 150 mcg tablet Take 1 tablet by mouth daily before breakfast. - ELIQUIS 5 mg tab(s) Take 1 tablet by mouth two times a day. - budesonide-formoterol (SYMBICORT) 160-4.5 mcg/actuation inhaler Inhale 2 Puffs as instructed two times a day. - furosemide (LASIX) 40 mg tablet Take 1 tablet by mouth once daily. - omeprazole (PRILOSEC) 40 mg capsule Take 1 capsule by mouth once daily. - simvastatin (ZOCOR) 20 mg tablet Take 1 tablet by mouth daily at bedtime. - albuterol HFA (PROVENTIL HFA, VENTOLIN HFA) 90 mcg/actuation inhaler Inhale 2 Puffs as instructed every 4 hours as needed for wheezing/shortness of breath. - fluticasone (FLONASE) 50 mcg/actuation nasal spray Use 1 [place] in each nostril once daily. Facility-Administered Medications as of 09/26/2023 - perflutren lipid microspheres 1.3 mL in NaCl (PF) 0.9% 10 mL injection (DEFINITY) - sodium chloride 0.9 % (flush) 10 mL (BD POSIFLUSH) Problem List As Of Date 09/18/2023 Noted Resolved DYSMETABOLIC SYNDROME X [E88.810] 08/24/2005 Hypothyroidism [E03.9] 08/24/2005 Lumbago [M54.50] 08/24/2005 03/06/2017 Plantar fascial fibromatosis [M72.2] 04/04/2006 01/27/2021 Sprain of foot, unspecified site [S93.609A] 10/22/2007 04/23/2014 Other enthesopathy of ankle and tarsus [M77.50] 11/05/2007 03/06/2017 Vitamin D deficiency [E55.9] 12/19/2007 03/06/2017 Other osteoporosis [M81.8] 12/19/2007 07/24/2011 Ingrowing nail [L60.0] 01/02/2008 04/23/2014 BENIGN HYPERTENSION [I10] 09/23/2008 BENIGN NEOPLASM LG BOWEL [D12.6] 09/23/2008 Other symptoms involving cardiovascular system *09/23/2008 03/14/2016 PERSONAL HISTORY OF COLONIC POLYPS [Z86.010] 10/29/2008 Osteopenia [M85.80] 07/24/2011 Primary osteoarthritis of right knee [M17.11] 06/09/2012 Morbid obesity [E66.01] 06/09/2012 Hyperlipidemia with target LDL less than 100 [E*06/20/2012 Tobacco abuse [Z72.0] 12/20/2014 Occult GI bleeding [R19.5] 12/28/2014 03/06/2017 IVONNE (acute kidney injury) (HCC) [N17.9] 06/06/2018 01/27/2021 Knee injuries, right, initial encounter [S89.91*12/27/2021 Prediabetes [R73.03] 11/19/2022 SOB (shortness of breath) [R06.02] 11/19/2022 02/15/2023 COPD, 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] 02/15/2023 Centrilobular emphysema (HCC) [J43.2] 02/15/2023 Lung nodules [R91.8] 02/15/2023 Paroxysmal atrial fibrillation (HCC) [I48.0] 05/13/2023 Congestive heart failure (HCC) [I50.9] 06/24/2023 Pre-operative cardiovascular examination [Z01.8*06/24/2023 Encounter Status:Closed by DARLING HODGSON on 09/26/23 [facility] CNTHERAPYon 09-18-2023 CNTHERAPY OT/PT/Speech Visit (PTWS) MARIA ESTHER REDDY ([id number]) 1945 F Date Time Provider Department 09/18/23 11:15 AM KEISHA HOFFMAN Date Time Provider Department Center 09/18/2023 11:15 AM [id number] HOFFMAN Jet Osman Reason for Visit: PT Discharge [752] Visit Diagnosis:BPPV (benign paroxysmal positional vertigo), unspecified laterality [H81.10] Allergies As of Date: 09/18/2023 Noted Allergy Reaction SULFA (SULFONAMIDE ANTIBIOTICS) 06/21/2005 11 - Vomiting Date Reviewed: 08/30/2023 Reviewed by: Preethi Mcclure APRN.MOLD HOISTER - Fully Assessed Prescriptions as of 01/08/2024 - semaglutide, weight loss, (WEGOVY) 0.25 mg/0.5 mL pen injector Inject 0.5 mL subcutaneously one time a week for 28 days. - furosemide (LASIX) 40 mg tablet Take 1 tablet by mouth once daily. - ELIQUIS 5 mg tab(s) Take 1 tablet by mouth two times a day. - metoprolol succinate ER (TOPROL XL) 50 mg 24 hr tablet Take 1.5 tablets by mouth once daily. - levothyroxine (SYNTHROID) 150 mcg tablet Take 1 tablet by mouth daily before breakfast. - budesonide-formoterol (SYMBICORT) 160-4.5 mcg/actuation inhaler Inhale 2 Puffs as instructed two times a day. - omeprazole (PRILOSEC) 40 mg capsule Take 1 capsule by mouth once daily. - simvastatin (ZOCOR) 20 mg tablet Take 1 tablet by mouth daily at bedtime. - albuterol HFA (PROVENTIL HFA, VENTOLIN HFA) 90 mcg/actuation inhaler Inhale 2 Puffs as instructed every 4 hours as needed for wheezing/shortness of breath. - fluticasone (FLONASE) 50 mcg/actuation nasal spray Use 1 [place] in each nostril once daily. [facility] MARIA ESTHER REDDY ([id number]) 1945 F Date Time Provider Department 08/30/23 2:40 PM [facility] During your visit today, we recorded the following information about you: Pulse Respiration Blood pressure Weight 132/minute 20/minute 128/64 104.8 kg Preethi Mcclure APRN.MOLD HOISTER 08/30/2023 3:03 PM Signed This is a 78 year old female who presents today with: Patient presents with: Follow Up: Routine 4 month follow up HISTORY OF PRESENT ILLNESS: Maria Esther Reddy is a 78 year old female. Patient presents with: Follow Up: Routine 4 month follow up Having palpitations and lightheadedness. Dizziness with lying down. HR elevated- known Afib, anticoagulated REVIEW OF SYSTEMS has cancer GENERAL: No weight loss, + malaise, no fevers, + chills HEENT: Negative for frequent or significant headaches, No changes in hearing, + change in vision since cataract surgery. NECK: Negative for lumps, goiter, pain and significant neck swelling RESPIRATORY: + productive cough clear- lung nodules being monitored by CT, no hemoptysis, + wheezing, + dyspnea or shortness of breath CARDIOVASCULAR: Negative for chest pain,+ leg swelling left not new, denies orthopnea, + palpitations GI: No nausea, vomiting, or diarrhea/constipation . No hematochezia/melena. No heartburn or reflux symptoms with medication. : No history of dysuria, no frequency, +incontinence MUSCULOSKELETAL: Negative for joint pain or swelling, right knee SKIN: Negative for lesions, rash, and itching ENDOCRINE: Negative for cold or heat intolerance, polyuria, + polydipsia, no goiter NEURO: No history of headaches, syncope, paralysis, seizures or tremors MOOD: Negative for depression, anxiety, or suicidal ideation except with HR increased PAST MEDICAL HISTORY: PAST MEDICAL HISTORY Diagnosis Date A-fib (HCC) Arthritis of knee, right 06/09/2012 Benign neoplasm of colon 06/10/2002 CHF (congestive heart failure) (HCC) Dysmetabolic syndrome X Hyperlipidemia LDL goal < 100 06/20/2012 Morbid obesity (HCC) 06/09/2012 Other osteoporosis Other symptoms involving cardiovascular system Personal history of colonic polyps Phlebitis and thrombophlebitis of other deep vessels of lower extremities Unspecified hypothyroidism H/o Radioactive Iodine Treatment Unspecified vitamin D deficiency PAST SURGICAL HISTORY Procedure Laterality Date ADENOIDECTOMY PRIMARY Adenoidectomy COLONOSCOPY W/BIOPSY SINGLE/MULTIPLE 12/10/08 3 small polyps COLSC FLX W/RMVL OF TUMOR POLYP LESION SNARE TQ COLSC FLX W/RMVL OF TUMOR POLYP LESION SNARE TQ 03/18/15 2 polyps in transverse colon - no retrieved, 2 at 20 nd 30cm EGD TRANSORAL BIOPSY SINGLE/MULTIPLE 03/18/15 duodenitis, small hiatal hernia LIG/TRNSXJ FLP TUBE ABDL/VAG APPR UNI/BI Tubal ligation NEUROPLASTY AND/TRANSPOS MEDIAN NRV CARPAL TUNNE Carpal tunnel decomp- both PAST SURGICAL HISTORY OF radioactive iodine to thyroid TONSILLECTOMY PRIMARY/SECONDARY Tonsillectomy ALLERGIES Sulfa (Sulfonamide Antibiotics) MEDICATIONS Current Outpatient Medications Medication Sig levothyroxine (SYNTHROID) 150 mcg tablet Take 1 tablet by mouth daily before breakfast. ELIQUIS 5 mg tab(s) Take 1 tablet by mouth two times a day. metoprolol succinate ER (TOPROL XL) 50 mg 24 hr tablet Take 1 tablet by mouth once daily. budesonide-formoterol (SYMBICORT) 160-4.5 mcg/actuation inhaler Inhale 2 Puffs as instructed two times a day. furosemide (LASIX) 40 mg tablet Take 1 tablet by mouth once daily. omeprazole (PRILOSEC) 40 mg capsule Take 1 capsule by mouth once daily. simvastatin (ZOCOR) 20 mg tablet Take 1 tablet by mouth daily at bedtime. albuterol HFA (PROVENTIL HFA, VENTOLIN HFA) 90 mcg/actuation inhaler Inhale 2 Puffs as instructed every 4 hours as needed for wheezing/shortness of breath. fluticasone (FLONASE) 50 mcg/actuation nasal spray Use 1 [place] in each nostril once daily. Current Facility-Administered Medications Medication Dose Route Frequency perflutren lipid microspheres 1.3 mL in NaCl (PF) 0.9% 10 mL injection (DEFINITY) INTRAVENOUS DIRECTED PRN sodium chloride 0.9 % (flush) 10 mL (BD POSIFLUSH) 10 mL INTRAVENOUS DIRECTED PRN FAMILY HISTORY Problem Relation Age of Onset Stroke Mother Heart Mother other (atrial fibulation) Mother Heart Father Alzheimer's Disease Father Diabetes Father other (PARKINSONS) Father other (atrial fibrillation) Brother artificial heart valve Colon Cancer Brother other (colon polyps) Brother Social History Tobacco Use Smoking status: Every Day Packs/day: 1.00 Years: 57.00 Additional pack years: 0.00 Total pack years: 57.00 Types: Cigarettes Smokeless tobacco: Never Vaping Use Vaping Use: Never used Substance Use Topics Alcohol use: Yes Comment: once a year Drug use: No EXAM: B (more content not included)... Normal [facility] MARIA ESTHER REDDY ([id number]) 1945 F Date Time Provider Department 08/23/23 BRADLEY CAUSEY [facility] During your visit today, we recorded the following information about you: Bradley Causey MD 08/23/2023 12:42 PM Signed They nan thyroid when they did pulmonary's labs. It was not to be done for a number of weeks yet. Recheck labs in four to six weeks. Celina Hernadez MA 08/23/2023 1:41 PM Signed Patient informed via . Advised to call back with any questions or concerns. Celina Hernadez MA Allergies As of Date: 08/23/2023 Noted Allergy Reaction SULFA (SULFONAMIDE ANTIBIOTICS) 06/21/2005 11 - Vomiting Date Reviewed: 08/21/2023 Reviewed by: Mandie, Eloise M, PA-C - Fully Assessed Reason for Visit: Results [95] Primary Visit Diagnosis:Hypothyroid ism, unspecified type [E03.9] [facility] Order #: [id number] FUTURE Prescriptions as of 08/23/2023 - levothyroxine (SYNTHROID) 150 mcg tablet Take 1 tablet by mouth daily before breakfast. - ELIQUIS 5 mg tab(s) Take 1 tablet by mouth two times a day. - metoprolol succinate ER (TOPROL XL) 50 mg 24 hr tablet Take 1 tablet by mouth once daily. - budesonide-formoterol (SYMBICORT) 160-4.5 mcg/actuation inhaler Inhale 2 Puffs as instructed two times a day. - furosemide (LASIX) 40 mg tablet Take 1 tablet by mouth once daily. - omeprazole (PRILOSEC) 40 mg capsule Take 1 capsule by mouth once daily. - simvastatin (ZOCOR) 20 mg tablet Take 1 tablet by mouth daily at bedtime. - albuterol HFA (PROVENTIL HFA, VENTOLIN HFA) 90 mcg/actuation inhaler Inhale 2 Puffs as instructed every 4 hours as needed for wheezing/shortness of breath. - fluticasone (FLONASE) 50 mcg/actuation nasal spray Use 1 [place] in each nostril once daily. Facility-Administered Medications as of 08/23/2023 - perflutren lipid microspheres 1.3 mL in NaCl (PF) 0.9% 10 mL injection (DEFINITY) - sodium chloride 0.9 % (flush) 10 mL (BD POSIFLUSH) Problem List As Of Date 08/23/2023 Noted Resolved DYSMETABOLIC SYNDROME X [E88.810] 08/24/2005 Hypothyroidism [E03.9] 08/24/2005 Lumbago [M54.50] 08/24/2005 03/06/2017 Plantar fascial fibromatosis [M72.2] 04/04/2006 01/27/2021 Sprain of foot, unspecified site [S93.609A] 10/22/2007 04/23/2014 Other enthesopathy of ankle and tarsus [M77.50] 11/05/2007 03/06/2017 Vitamin D deficiency [E55.9] 12/19/2007 03/06/2017 Other osteoporosis [M81.8] 12/19/2007 07/24/2011 Ingrowing nail [L60.0] 01/02/2008 04/23/2014 BENIGN HYPERTENSION [I10] 09/23/2008 BENIGN NEOPLASM LG BOWEL [D12.6] 09/23/2008 Other symptoms involving cardiovascular system *09/23/2008 03/14/2016 PERSONAL HISTORY OF COLONIC POLYPS [Z86.010] 10/29/2008 Osteopenia [M85.80] 07/24/2011 Primary osteoarthritis of right knee [M17.11] 06/09/2012 Morbid obesity [E66.01] 06/09/2012 Hyperlipidemia with target LDL less than 100 [E*06/20/2012 Tobacco abuse [Z72.0] 12/20/2014 Occult GI bleeding [R19.5] 12/28/2014 03/06/2017 IVONNE (acute kidney injury) (HCC) [N17.9] 06/06/2018 01/27/2021 Knee injuries, right, initial encounter [S89.91*12/27/2021 Prediabetes [R73.03] 11/19/2022 SOB (shortness of breath) [R06.02] 11/19/2022 02/15/2023 COPD, 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] 02/15/2023 Centrilobular emphysema (HCC) [J43.2] 02/15/2023 Lung nodules [R91.8] 02/15/2023 Paroxysmal atrial fibrillation (HCC) [I48.0] 05/13/2023 Congestive heart failure (HCC) [I50.9] 06/24/2023 Pre-operative cardiovascular examination [Z01.8*06/24/2023 Encounter Status:Closed by CELINA HERNADEZ on 08/23/23 [facility] 08-22-2023 [facility] Telephone ([facility]) MARIA ESTHER REDDY ([id number]) 1945 F Date Time Provider Department 08/22/23 BRADLEY CAUSEY [facility] During your visit today, we recorded the following information about you: Bradley Causey MD 08/22/2023 8:11 AM Signed Labs are ok.thyroid appears to be overcorrected now. Change synthroid to 150 mcg a day and recheck tsh in six weeks. Padmini Tobin LPN 08/22/2023 11:42 AM Signed Patient notified of results, verbalizes understanding of instructions. Padmini Tobin LPN Allergies As of Date: 08/22/2023 Noted Allergy Reaction SULFA (SULFONAMIDE ANTIBIOTICS) 06/21/2005 11 - Vomiting Date Reviewed: 08/21/2023 Reviewed by: Eloise Hurt PA-C - Fully Assessed Reason for Visit: Results [95] Primary Visit Diagnosis:Hypothyroid ism, unspecified type [E03.9] Order(s):TSH BLD [[facility]] Order #: [id number] FUTURE levothyroxine (SYNTHROID) 150 mcg tabletTake 1 tablet by mouth daily before breakfast.Disp: 90 tabletRfl: 3 Prescriptions as of 08/22/2023 - levothyroxine (SYNTHROID) 150 mcg tablet Take 1 tablet by mouth daily before breakfast. - ELIQUIS 5 mg tab(s) Take 1 tablet by mouth two times a day. - metoprolol succinate ER (TOPROL XL) 50 mg 24 hr tablet Take 1 tablet by mouth once daily. - budesonide-formoterol (SYMBICORT) 160-4.5 mcg/actuation inhaler Inhale 2 Puffs as instructed two times a day. - furosemide (LASIX) 40 mg tablet Take 1 tablet by mouth once daily. - omeprazole (PRILOSEC) 40 mg capsule Take 1 capsule by mouth once daily. - simvastatin (ZOCOR) 20 mg tablet Take 1 tablet by mouth daily at bedtime. - albuterol HFA (PROVENTIL HFA, VENTOLIN HFA) 90 mcg/actuation inhaler Inhale 2 Puffs as instructed every 4 hours as needed for wheezing/shortness of breath. - fluticasone (FLONASE) 50 mcg/actuation nasal spray Use 1 [place] in each nostril once daily. Facility-Administered Medications as of 08/22/2023 - perflutren lipid microspheres 1.3 mL in NaCl (PF) 0.9% 10 mL injection (DEFINITY) - sodium chloride 0.9 % (flush) 10 mL (BD POSIFLUSH) Problem List As Of Date 08/22/2023 Noted Resolved DYSMETABOLIC SYNDROME X [E88.810] 08/24/2005 Hypothyroidism [E03.9] 08/24/2005 Lumbago [M54.50] 08/24/2005 03/06/2017 Plantar fascial fibromatosis [M72.2] 04/04/2006 01/27/2021 Sprain of foot, unspecified site [S93.609A] 10/22/2007 04/23/2014 Other enthesopathy of ankle and tarsus [M77.50] 11/05/2007 03/06/2017 Vitamin D deficiency [E55.9] 12/19/2007 03/06/2017 Other osteoporosis [M81.8] 12/19/2007 07/24/2011 Ingrowing nail [L60.0] 01/02/2008 04/23/2014 BENIGN HYPERTENSION [I10] 09/23/2008 BENIGN NEOPLASM LG BOWEL [D12.6] 09/23/2008 Other symptoms involving cardiovascular system *09/23/2008 03/14/2016 PERSONAL HISTORY OF COLONIC POLYPS [Z86.010] 10/29/2008 Osteopenia [M85.80] 07/24/2011 Primary osteoarthritis of right knee [M17.11] 06/09/2012 Morbid obesity [E66.01] 06/09/2012 Hyperlipidemia with target LDL less than 100 [E*06/20/2012 Tobacco abuse [Z72.0] 12/20/2014 Occult GI bleeding [R19.5] 12/28/2014 03/06/2017 IVONNE (acute kidney injury) (HCC) [N17.9] 06/06/2018 01/27/2021 Knee injuries, right, initial encounter [S89.91*12/27/2021 Prediabetes [R73.03] 11/19/2022 SOB (shortness of breath) [R06.02] 11/19/2022 02/15/2023 COPD, 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] 02/15/2023 Centrilobular emphysema (HCC) [J43.2] 02/15/2023 Lung nodules [R91.8] 02/15/2023 Paroxysmal atrial fibrillation (HCC) [I48.0] 05/13/2023 Congestive heart failure (HCC) [I50.9] 06/24/2023 Pre-operative cardiovascular examination [Z01.8*06/24/2023 Prescriptions ordered this encounter Disp Refills Start End LEVOTHYROXINE 150 MCG TABLET 90 t* 3 08/22/2023 08/21/2024 Route: ORAL Sig: Take 1 tablet by mouth daily before breakfast. Medications Discontinued During This Encounter Prescriptions - levothyroxine (SYNTHROID) 175 mcg tablet (Discontinued) Take 1 tablet by mouth daily before breakfast. Encounter Status:Closed by PADMINI TOBIN on 08/22/23 Normal [facility] TSH BLDon 08-22-2023 TSH Qn 0.120 m[IU]/L Low 0.270 - 4.200 mIU/L [facility] TSH SerPl-aCncon 08-22-2023 TSH Qn 0.120 m[IU]/L Low 0.270-4.200 [facility] Comment on above: Order Comment: Speci men Type: BLOOD SPECIMEN Ordering Facility: [facility] Address: [address] [place] [address] Performed By: #### 3 016-3 #### [facility] CLIA [id number] [address] [place] [address] [place] A1AT SerPl-mCncon 08-21-2023 Alpha 1 antitrypsin [Mass/Vol] 161 mg/dL Normal 90-200 [facility] Comment on above: Order Comment: Speci men Type: BLOOD SPECIMENOrdering Facility: [facility] Address: [address] [place] [address] Performed By: #### 1 825-9 ####[facility] [id number] [place] [address] [place] ALPHA 1 ANTITRYP PHEN/GENOTY PEon 08-21-2023 HA1IN Normal [facility] Comment on above: Order Comment: Speci men Type: BLOOD SPECIMEN Ordering Facility: [facility] Address: [place] [address] Result Comment: Alph a 1 Antitrypsin Phenotype and Genotype Laboratory Accession Number: [id number] Result: No Variant Detected in SERPINA1 (PI*MM) Interpretation: DNA testing indicates that this patient does not have the S, Z, F, or I alleles of SERPINA1, the alpha-1 antitrypsin gene. Guidance: Genetic consultation and counseling of at risk family members regarding this laboratory testing may be considered as clinically appropriate. Patients with no variants of SERPINA1 typically have serum alpha-1 antitrypsin levels between 102-254 mg/dL. If this patient has a serum alpha-1 antitrypsin level that is not consistent with this genotype and alpha-1 antitrypsin deficiency caused by a rare variant is clinically suspected, consider performing SERPINA1 gene sequencing. Methodology: Isolated genomic DNA from the patient's blood specimen is evaluated for four variants in the alpha-1 antitrypsin gene SERPINA1 (RefSeq NM_[id number]; GRCh38/hg38) by multiplex polymerase chain reaction (PCR) followed by melting curve analysis. These included the two most common pathogenic variants: S (c.863A>T, p.Xfs091Fhz, g.[id number]), Z (c.1096G>A, p.Bnw897Aai, g.37685310), and the rarer variants: F (c.739C>T, p.Gvx227Ock, g.03195843), I (c.187C>T, p.Jzf80Prt, g.06693131). Limitations: This Laboratory Developed Test (LDT) is designed to detect the S, Z, F and I alleles. The S and Z alleles comprise 95% of non-wild type genotypes. Uncommon variants or Single Nucleotide Polymorphisms may affect binding of LightMix or LightSNiP probes and may result in a false negative, false positive, or indeterminate result. Absence of the S, Z, F, and I alleles is interpreted as PI*MM genotype. However, there are over 100 known rare variants of SERPINA1 that are not detected by this LDT. Therefore, correlation of the genotype with the patient's serum alpha-1 antitrypsin level and clinical manifestations is strongly recommended. Frequency of S, Z, F and I Alleles in the general population: S: Heterozygous 2%; Homozygous 0.04% Z: Heterozygous 1%; Homozygous 0.01% F: Heterozygous 0.3%; Homozygous 0.001% I: Heterozygous 0.1%; Homozygous unknown Allele frequency information was gathered from the [employer] ([employer]) and includes data from , , , and populations (supporting data in references). Disclaimer: This test was developed and its performance characteristics determined by [facility]'s [facility] [place] ([facility]). It has not been cleared or approved by the FDA. [facility] is regulated under CLIA as certified to perform high- complexity testing. This test is used for clinical purposes. It should not be regarded as investigational or for research. Testing and interpretation performed at [facility], [address] [place] [address]. CLIA Number: [id number] References: 1) Lauren GONSALEZ, Jarod G, Shai ML, Harry M, Melvin CE, K, Clovis DK, Markus SL, Khanh JM, Delonte LanK, Fernanda C, Chad J. The Diagnosis and Management of Alpha-1 Antritrypsin Deficiency in the Adult. Chronic Obstr Pulm Dis. 2016 Nov 6;3:668-682. 2) Corry JA, Jose Elias ON, Matt ER, Adiel DG. a1-Antitrypsin phenotypes and associated serum protein concentrations in a large clinical population. Chest.2013 Sep;143(4):1000-8. 3) Israel Neal, Jackie NA, Noel CR, Watson FJ, Armand SJ, Giovany AF. Molecular characterisation of three kqsra-7-gendeffnpnn deficiency variants: proteinase inhibitor (Pi) nullcardiff (Fob901----Zut); PiMmalton (Uet62----rsxcyesc) and PiI (Yeq51----Ygv). Hum Camryn. 1989 May;84(1):55-8. 4) Shahid GONZALEZ and Lauren GONSALEZ. Clinical practice. Alpha1-antitrypsin deficiency. N Engl J Med. 2008Dec 02;360(43)0073-74. 5) Michelle NJ, Quita F, Kezia RA. The significance of the F variant of cikcy-6-khpsdrhdvfr and unique case report of a PiFF homozygote. [facility] Pulm Med. 2013Jan 14;14:132. 6) Delonte LanK, Gina FL, and Shin Perez. Alpha-1 Antitrypsin Deficiency. 2005Apr 05 [Updated 2016June 28]. In: Stacia RA, Jimenez MP, Lito TO, et al., editors. GeneReviews [Internet]. [place]): [facility]; 0738-9392. Available from: http://www.ncbi.nlm.nih.gov/books/VJK2466/ As reviewed by Morteza Villanueva, PhD, [facility] Performed By: #### 5 7021-8 #### [facility] CLIA [id number] [address] [place] [address] [place] CBC W Auto Differential pane l (Bld)on 08-21-2023 Basophils (Bld) [#/Vol] 0.07 10*3/uL Normal <0.11 [facility] Comment on above: Order Comment: Speci men Type: BLOOD SPECIMEN Ordering Facility: [facility] Address: [address] [place] [address] Performed By: #### 5 7021-8 #### [facility] CLIA [id number] [address] [place] [address] [place] Basophils/100 WBC (Bld) 1.0 % Normal [facility] Comment on above: Order Comment: Speci men Type: BLOOD SPECIMEN Ordering Facility: [facility] Address: [address] [place] [address] Performed By: #### 5 7021-8 #### [facility] CLIA [id number] [address] [place] [address] [place] Differential cell count method Nom (Bld) Auto Normal [facility] Comment on above: Order Comment: Speci men Type: BLOOD SPECIMEN Ordering Facility: [facility] Address: [address] [place] [address] Performed By: #### 5 7021-8 #### [facility] CLIA [id number] [address] [place] [address] [place] Eosinophils (Bld) [#/Vol] 0.21 10*3/uL Normal <0.46 [facility] Comment on above: Order Comment: Speci men Type: BLOOD SPECIMEN Ordering Facility: [facility] Address: [address] [place] [address] Performed By: #### 5 7021-8 #### [facility] CLIA [id number] [address] [place] [address] [place] Eosinophils/100 WBC (Bld) 2.9 % Normal [facility] Comment on above: Order Comment: Speci men Type: BLOOD SPECIMEN Ordering Facility: [facility] Address: [address] [place] [address] Performed By: #### 5 7021-8 #### [facility] CLIA [id number] [address] [place] [address] [place] Erythrocyte distribution width (RBC) [Ratio] 14.5 % Normal 11.5-15.0 [facility] Comment on above: Order Comment: Speci men Type: BLOOD SPECIMEN Ordering Facility: [facility] Address: [address] [place] [address] Performed By: #### 5 7021-8 #### [facility] CLIA [id number] [address] [place] [address] [place] Hematocrit (Bld) [Volume fraction] 44.0 % Normal 36.0-46.0 [facility] Comment on above: Order Comment: Speci men Type: BLOOD SPECIMEN Ordering Facility: [facility] Address: [address] [place] [address] Performed By: #### 5 7021-8 #### [facility] CLIA [id number] [address] [place] [address] [place] Hemoglobin (Bld) [Mass/Vol] 14.6 g/dL Normal 11.5-15.5 [facility] Comment on above: Order Comment: Speci men Type: BLOOD SPECIMEN Ordering Facility: [facility] Address: [address] [place] [address] Performed By: #### 5 7021-8 #### [facility] CLIA [id number] [address] [place] [address] [place] Immature granulocytes (Bld) [#/Vol] 10*3/uL Normal <0.10 [facility] Comment on above: Order Comment: Speci men Type: BLOOD SPECIMEN Ordering Facility: [facility] Address: [address] [place] [address] Performed By: #### 5 7021-8 #### [facility] CLIA [id number] [address] [place] [address] [place] Immature granulocytes/100 WBC (Bld) 0.3 % Normal [facility] Comment on above: Order Comment: Speci men Type: BLOOD SPECIMEN Ordering Facility: [facility] Address: [address] [place] [address] Performed By: #### 5 7021-8 #### [facility] CLIA [id number] [address] [place] [address] [place] Lymphocytes (Bld) [#/Vol] 2.26 10*3/uL Normal 1.00-4.00 [facility] Comment on above: Order Comment: Speci men Type: BLOOD SPECIMEN Ordering Facility: [facility] Address: [address] [place] [address] Performed By: #### 5 7021-8 #### [facility] CLIA [id number] [address] [place] [address] [place] Lymphocytes/100 WBC (Bld) 31.0 % Normal [facility] Comment on above: Order Comment: Speci men Type: BLOOD SPECIMEN Ordering Facility: [facility] Address: [address] [place] [address] Performed By: #### 5 7021-8 #### [facility] CLIA [id number] [address] [place] [address] [place] MCH (RBC) [Entitic mass] 29.7 pg Normal 26.0-34.0 [facility] Comment on above: Order Comment: Speci men Type: BLOOD SPECIMEN Ordering Facility: [facility] Address: [address] [place] [address] Performed By: #### 5 7021-8 #### [id number] [address] [place] [address] [place] MCHC (RBC) [Mass/Vol] 33.2 g/dL Normal 30.5-36.0 [facility] Comment on above: Order Comment: Speci men Type: BLOOD SPECIMEN Ordering Facility: [facility] Address: [address] [place] [address] Performed By: #### 5 7021-8 #### [facility] [id number] [address] [place] [address] [place] MCV (RBC) [Entitic vol] 89.4 fL Normal 80.0-100.0 [facility] Comment on above: Order Comment: Speci men Type: BLOOD SPECIMEN Ordering Facility: [facility] Address: [address] [place] [address] Performed By: #### 5 7021-8 #### [facility] [id number] [address] [place] [address] [place] Monocytes (Bld) [#/Vol] 0.72 10*3/uL Normal <0.87 [facility] Comment on above: Order Comment: Speci men Type: BLOOD SPECIMEN Ordering Facility: [facility] Address: [address] [place], [place] [address], [place] [address] Performed By: #### 5 7021-8 #### [facility] CLIA [id number] [address] [place] [address] [place] Monocytes/100 WBC (Bld) 9.9 % Normal [facility] Comment on above: Order Comment: Speci men Type: BLOOD SPECIMEN [facility] [facility] Address: [address] [place] [address] Performed By: #### 5 7021-8 #### [facility] CLIA [id number] [address] [place] [address] [place] Neutrophils (Bld) [#/Vol] 4.00 10*3/uL Normal 1.45-7.50 [facility] Comment on above: Order Comment: Speci men Type: BLOOD SPECIMEN Ordering Facility: [facility] Address: [facility] [place] [address] Performed By: #### 5 7021-8 #### [facility] CLIA [id number] [address] [place] [address] [place] Neutrophils/100 WBC (Bld) 54.9 % Normal [facility] Comment on above: Order Comment: Speci men Type: BLOOD SPECIMEN Ordering Facility: [facility] Address: [address] [place] [address] Performed By: #### 5 7021-8 #### [facility] CLIA [id number] [address] [place] [address] [place] Nucleated RBC (Bld) [#/Vol] 10*3/uL Normal <0.01 [facility] Comment on above: Order Comment: Speci men Type: BLOOD SPECIMEN Ordering Facility: [facility] Address: [address] [place] [address] Performed By: #### 5 7021-8 #### [facility] CLIA [id number] [address] [place] [address] [place] Nucleated RBC/100 WBC (Bld) [Ratio] 0.0 /100 WBC Normal [facility] Comment on above: Order Comment: Speci men Type: BLOOD SPECIMEN Ordering Facility: [facility] Address: [address] [place] [address] Performed By: #### 5 7021-8 #### [facility] CLIA [id number] [address] [place] [address] [place] Platelet mean volume (Bld) [Entitic vol] 10.9 fL Normal 9.0-12.7 [facility] Comment on above: Order Comment: Speci men Type: BLOOD SPECIMEN Ordering Facility: [facility] Address: [address] [place] [address] Performed By: #### 5 7021-8 #### [facility] CLIA [id number] [address] [place] [address] [place] Platelets (Bld) [#/Vol] 203 10*3/uL Normal 150-400 [facility] Comment on above: Order Comment: Speci men Type: BLOOD SPECIMEN Ordering Facility: [facility] Address: [address] [place] [address] Performed By: #### 5 7021-8 #### [facility] CLIA [id number] [address] [place] [address] [place] RBC (Bld) [#/Vol] 4.92 10*6/uL Normal 3.90-5.20 [facility] Comment on above: Order Comment: Speci men Type: BLOOD SPECIMEN Ordering Facility: [facility] Address: [address] [place] [address] Performed By: #### 5 7021-8 #### [facility] CLIA [id number] [address] [place] [address] [place] WBC (Bld) [#/Vol] 7.28 10*3/uL Normal 3.70-11.00 [facility] Comment on above: Order Comment: Speci men Type: BLOOD SPECIMEN Ordering Facility: [facility] Address: [address] [place] [address] Performed By: #### 5 7021-8 #### [facility]IR [id number] [address] [place] [address] [place] [facility] CNOVon 08-21-2023 CNOV Office Visit (PULMWS ) MARIA ESTHER REDDY ([id number]) 1945 F Date Time Provider Department 08/21/23 10:30 AM ELOISE HURT PULMWS During your visit today, we recorded the following information about you: Temperature Pulse Respiration Blood pressure 98 degrees 65/minute 17/minute 124/62 Weight 108.8 kg Eloise Hurt PA-C 08/21/2023 1:13 PM Signed Patient: Maria Esther Reddy PCP: Bradley Causey MD CC: follow up HPI: Maria Esther Reddy 78 year old morbidly obese female current smoker, 57 pack years with PMH significant for hypothyroidism h/o Grave's dz s/p radioactive iodine ablation, HLD, AFib on Eliquis, lung nodules, and COPD. Current maintenance therapy with Symbicort and as needed Albuterol. Today, patient reports daily cough productive of white phlegm. No hemoptysis. Variable wheezing. Exertional dyspnea with climbing stairs, walking up inclines and long distances. Patient states, I am headed in my brothers footsteps. Apparently he is on supplemental oxygen and has a very minimal remote smoking history. She is unsure of any further details. I do not see an Alpha-1 on file. Lower extremity edema, stable. Currently smoking 1 ppd. She is under stress with her spouses cancer. He has melanoma and they are traveling [facility] for treatment. PAST MEDICAL HISTORY Diagnosis Date A-fib (HCC) Arthritis of knee, right 06/09/2012 Benign neoplasm of colon 06/10/2002 CHF (congestive heart failure) ([facility]) Dysmetabolic syndrome X Hyperlipidemia LDL goal < 100 06/20/2012 Morbid obesity (HCC) 06/09/2012 Other osteoporosis Other symptoms involving cardiovascular system Personal history of colonic polyps Phlebitis and thrombophlebitis of other deep vessels of lower extremities Unspecified hypothyroidism H/o Radioactive Iodine Treatment Unspecified vitamin D deficiency Allergies: Sulfa (Sulfonamide * Vomiting ELIQUIS 5 mg tab(s)Take 1 tablet by mouth two times a day.Disp: 180 tabletRfl: 1 metoprolol succinate ER (TOPROL XL) 50 mg 24 hr tabletTake 1 tablet by mouth once daily.Disp: 90 tabletRfl: 1 budesonide-formoterol (SYMBICORT) 160-4.5 mcg/actuation inhalerInhale 2 Puffs as instructed two times a day.Disp: 10.2 EachRfl: 11 furosemide (LASIX) 40 mg tabletTake 1 tablet by mouth once daily.Disp: 90 tabletRfl: 1 omeprazole (PRILOSEC) 40 mg capsuleTake 1 capsule by mouth once daily.Disp: 90 capsuleRfl: 3 simvastatin (ZOCOR) 20 mg tabletTake 1 tablet by mouth daily at bedtime.Disp: 90 tabletRfl: 3 levothyroxine (SYNTHROID) 175 mcg tabletTake 1 tablet by mouth daily before breakfast.Disp: 90 tabletRfl: 3 albuterol HFA (PROVENTIL HFA, VENTOLIN HFA) 90 mcg/actuation inhalerInhale 2 Puffs as instructed every 4 hours as needed for wheezing/shortness of breath.Disp: 6.7 gRfl: 0 fluticasone (FLONASE) 50 mcg/actuation nasal sprayUse 1 [place] in each nostril once daily.Disp: 3 BottleRfl: 3 Social History Tobacco Use Smoking status: Every Day Packs/day: 1.00 Years: 57.00 Additional pack years: 0.00 Total pack years: 57.00 Types: Cigarettes Smokeless tobacco: Never Substance Use Topics Alcohol use: Yes Comment: once a year Drug use: No Family History Problem Relation Age of Onset Stroke Mother Heart Mother other (atrial fibulation) Mother Heart Father Alzheimer's Disease Father Diabetes Father other (PARKINSONS) Father other (atrial fibrillation) Brother artificial heart valve Colon Cancer Brother other (colon polyps) Brother PAST SURGICAL HISTORY Procedure Laterality Date ADENOIDECTOMY PRIMARY Adenoidectomy COLONOSCOPY W/BIOPSY SINGLE/MULTIPLE 12/10/08 3 small polyps COLSC FLX W/RMVL OF TUMOR POLYP LESION SNARE TQ COLSC FLX W/RMVL OF TUMOR POLYP LESION SNARE TQ 03/18/15 2 polyps in transverse colon - no retrieved, 2 at 20 nd 30cm EGD TRANSORAL BIOPSY SINGLE/MULTIPLE 03/18/15 duodenitis, small hiatal hernia LIG/TRNSXJ FLP TUBE ABDL/VAG APPR UNI/BI Tubal ligation NEUROPLASTY AND/TRANSPOS MEDIAN NRV CARPAL TUNNE Carpal tunnel decomp- both PAST SURGICAL HISTORY OF radioactive iodine to thyroid TONSILLECTOMY PRIMARY/SECONDARY Tonsillectomy I reviewed the past medical history, family history, social history and surgical history with changes noted above and updated in EMR. IMMUNIZATIONS Prevnar - 2014 Pneumovax - 2016 Influenza - 04/24/2023 COVID-19 - most recent 09/2020 ROS: CONSTITUTIONAL: No fevers, chills, nightsweats, unintended weight loss HEENT: Some nasal congestion/sinus symptoms, postnasal drip. EYES: No diplopia or blurry vision, itchy eyes CARDIOVASCULAR: No chest pain, palpitations, orthopnea, PND PULM: See HPI GI: No dysphagia/odynophagia , problematic reflux. NEURO: No new balance problems, peripheral weakness/paresthesias or numbness of concern. MUSC-SKEL: Polyarticular joint (more content not included)... Normal [facility] HbA1c (Bld)on 08-21-2023 Average glucose Estimated from glycated hemoglobin (Bld) [Mass/Vol] 131 mg/dL Normal [facility] Comment on above: Order Comment: Speci men Type: BLOOD SPECIMEN Ordering Facility: [facility] Address: [address] [facility] [place] [address] Result Comment: eAG: (Estimated average glucose) is a calculated value from HgbA1c and is admissions representative of the average blood glucose level in the last 2-3 month period. Performed By: #### 5 7021-8 #### [facility] JET BEST [id number] [address] [place] [address] [place] HbA1c (Bld) [Mass fraction] 6.2 % High 4.3-5.6 [facility] Comment on above: Order Comment: Bryn bradford Type: BLOOD SPECIMEN Ordering Facility: [facility] Address: [address] [place] [address] Result Comment: [place] Diabetes Association guidelines indicate that patients with HgbA1c in the range 5.7-6.4% are at increased risk for development of diabetes, and intervention by lifestyle modification may be beneficial. HgbA1c greater or equal to 6.5% is considered diagnostic of diabetes. Performed By: #### 5 7021-8 #### [facility] [id number] [address] [place] [address] [place] TSH SerPl-aCncon 08-21-2023 TSH Qn 0.109 m[IU]/L Low 0.270-4.200 [facility] Comment on above: Order Comment: Bryn bradford Type: BLOOD SPECIMENOrdering Facility: [facility] Address: [address] [place] [address] Performed By: #### 3 016-3 ####[facility] LABCLIA [id number] [place] [address] [place] CNPElizabeth [facility] MARIA ESTHER REDDY ([id number]) 1945 F Date Time Provider Department 08/20/23 [facility] During your visit today, we recorded the following information about you: Janell Cosme 08/20/2023 9:15 AM Signed Patient called requesting labs before her appointment on 08/29 w/ pcp please advise Bradley Causey MD 08/20/2023 9:26 AM Signed Labs placed Mavis Torres LPN 08/20/2023 10:17 AM Signed Phoned patient and aware lab orders in place in computer per PCP. Allergies As of Date: 08/20/2023 Noted Allergy Reaction SULFA (SULFONAMIDE ANTIBIOTICS) 06/21/2005 11 - Vomiting Date Reviewed: 06/24/2023 Reviewed by: Brett Warner MD - Fully Assessed Reason for Visit: Orders [681] Cmt: labs Primary Visit Diagnosis:Hypothyroid ism, unspecified type [E03.9] Other Visit Diagnosis:Hyperglycem ia [R73.9] Order(s):CBC + DIFF [SQCBCDIF] Order #: [id number] FUTURE TSH BLD [SQTSH] Order #: [id number] FUTURE HGB A1C [FPLUA6L] Order #: [id number] FUTURE Prescriptions as of 08/20/2023 - ELIQUIS 5 mg tab(s) Take 1 tablet by mouth two times a day. - metoprolol succinate ER (TOPROL XL) 50 mg 24 hr tablet Take 1 tablet by mouth once daily. - budesonide-formoterol (SYMBICORT) 160-4.5 mcg/actuation inhaler Inhale 2 Puffs as instructed two times a day. - furosemide (LASIX) 40 mg tablet Take 1 tablet by mouth once daily. - omeprazole (PRILOSEC) 40 mg capsule Take 1 capsule by mouth once daily. - simvastatin (ZOCOR) 20 mg tablet Take 1 tablet by mouth daily at bedtime. - levothyroxine (SYNTHROID) 175 mcg tablet Take 1 tablet by mouth daily before breakfast. - albuterol HFA (PROVENTIL HFA, VENTOLIN HFA) 90 mcg/actuation inhaler Inhale 2 Puffs as instructed every 4 hours as needed for wheezing/shortness of breath. - fluticasone (FLONASE) 50 mcg/actuation nasal spray Use 1 [place] in each nostril once daily. Facility-Administered Medications as of 08/20/2023 - perflutren lipid microspheres 1.3 mL in NaCl (PF) 0.9% 10 mL injection (DEFINITY) - sodium chloride 0.9 % (flush) 10 mL (BD POSIFLUSH) Problem List As Of Date 08/20/2023 Noted Resolved DYSMETABOLIC SYNDROME X [E88.810] 08/24/2005 Hypothyroidism [E03.9] 08/24/2005 Lumbago [M54.50] 08/24/2005 03/06/2017 Plantar fascial fibromatosis [M72.2] 04/04/2006 01/27/2021 Sprain of foot, unspecified site [S93.609A] 10/22/2007 04/23/2014 Other enthesopathy of ankle and tarsus [M77.50] 11/05/2007 03/06/2017 Vitamin D deficiency [E55.9] 12/19/2007 03/06/2017 Other osteoporosis [M81.8] 12/19/2007 07/24/2011 Ingrowing nail [L60.0] 01/02/2008 04/23/2014 BENIGN HYPERTENSION [I10] 09/23/2008 BENIGN NEOPLASM LG BOWEL [D12.6] 09/23/2008 Other symptoms involving cardiovascular system *09/23/2008 03/14/2016 PERSONAL HISTORY OF COLONIC POLYPS [Z86.010] 10/29/2008 Osteopenia [M85.80] 07/24/2011 Primary osteoarthritis of right knee [M17.11] 06/09/2012 Morbid obesity [E66.01] 06/09/2012 Hyperlipidemia with target LDL less than 100 [E*06/20/2012 Tobacco abuse [Z72.0] 12/20/2014 Occult GI bleeding [R19.5] 12/28/2014 03/06/2017 IVONNE (acute kidney injury) (HCC) [N17.9] 06/06/2018 01/27/2021 Knee injuries, right, initial encounter [S89.91*12/27/2021 Prediabetes [R73.03] 11/19/2022 SOB (shortness of breath) [R06.02] 11/19/2022 02/15/2023 COPD, 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] 02/15/2023 Centrilobular emphysema (HCC) [J43.2] 02/15/2023 Lung nodules [R91.8] 02/15/2023 Paroxysmal atrial fibrillation (HCC) [I48.0] 05/13/2023 Congestive heart failure (HCC) [I50.9] 06/24/2023 Pre-operative cardiovascular examination [Z01.8*06/24/2023 Encounter Status:Closed by MAVIS TORRES on 08/20/23 Normal [facility] Absolute lymphocyte countOrd ered By: Giancarlo Ya on 05-13-2023 Lymphocytes Auto (Unsp spec) [#/Vol] 2.06 10*3/uL 0.83-4.51 [facility] Basophil percentageOrdered B y: Giancarlo Ya on 05-13-2023 Basophils/100 WBC (Bld) 0.9 % 0-[address] [facility] Bilirubin [Mass/Vol] 0.50 mg/dL 0.20-1.00 [facility] Comment on above: For patients on eltr ombopag therapy, use of Dimension [place] TBIL is not recommended. Chloride [Moles/Vol] 104 mmol/L 98-107 [facility] Eosinophils/100 WBC (Bld) 1.9 % 0-5 [facility] Glucose [Mass/Vol] 117 mg/dL 74-106 [facility] Comment on above: Fasting Glucose resu lt from 100 to 125 mg/dL suggests IMPAIRED HOMEOSTASIS per A.D.A. criteria. Neutrophils (Bld) [#/Vol] 4.9 10*3/uL 2.0-7.7 [facility] Neutrophils/100 WBC (Bld) 62.1 % 47-70 [facility] Potassium [Moles/Vol] 3.2 mmol/L 3.5-5.1 [facility] Protein [Mass/Vol] 6.7 g/dL 6.4-8.2 [facility] Sodium [Moles/Vol] 142 mmol/L 136-145 [facility] WBC (Bld) [#/Vol] 7.9 10*3/uL 4.4-11.0 [facility] Blood erythrocytes count (nu mber/volume)Ordered By: Giancarlo Ya on 05-13-2023 RBC (Bld) [#/Vol] 5.29 10*6/uL 4.2-5.4 [facility] Blood hemoglobin measurement (mass/volume)Ordered By: Giancarlo Ya on 05-13-2023 Hemoglobin (Bld) [Mass/Vol] 15.6 g/dL 12.0-15.0 [facility] Blood lymphocytes/100 leukoc ytesOrdered By: Giancarlo Ya on 05-13-2023 Lymphocytes/100 WBC (Bld) 26.0 % 19-41 [facility] Blood monocytes/100 leukocyt esOrdered By: Giancarlo Ya on 05-13-2023 Monocytes/100 WBC (Bld) 8.7 % 0-[address] [facility] Blood platelet mean volumeOr dered By: Giancarlo Ya on 05-13-2023 Platelet mean volume (Bld) [Entitic vol] 11.0 fL 6.2-12.0 [facility] CBC W/Diff, Automatedon -0 Absolute Lymph 2.06 X10 3/uL Normal 0.83-4.51 [facility] Comment on above: Performed By: #### L 501.5200, L100.0100, L501.4020, L501.9520, L500.4050 #### [facility] [address] [place], [address] Absolute Neut 4.9 X10 3/uL Normal 2.0-7.7 [facility] Comment on above: Performed By: #### L 501.5200, L100.0100, L501.4020, L501.9520, L500.4050 #### [facility] [address] [place], [address] Basophils/100 WBC (Bld) 0.9 % Normal 0-[address] [facility] Comment on above: Performed By: #### L 501.5200, L100.0100, L501.4020, L501.9520, L500.4050 #### [facility] [address] [place], [address] Eosinophils/100 WBC (Bld) 1.9 % Normal 0-5 [facility] Comment on above: Performed By: #### L 501.5200, L100.0100, L501.4020, L501.9520, L500.4050 #### [facility] [address] [place], [address] Erythrocyte distribution width (RBC) [Ratio] 13.8 % Normal 11.6-14.6 [facility] Comment on above: Performed By: #### L 501.5200, L100.0100, L501.4020, L501.9520, L500.4050 #### [facility] [address] [place], [address] Hematocrit (Bld) [Volume fraction] 47.9 % High 37-47 [facility] Comment on above: Performed By: #### L 501.5200, L100.0100, L501.4020, L501.9520, L500.4050 #### [facility] [address] [place], [address] Hemoglobin (Bld) [Mass/Vol] 15.6 g/dL High 12.0-15.0 [facility] Comment on above: Performed By: #### L 501.5200, L100.0100, L501.4020, L501.9520, L500.4050 #### [facility] [address] [place], [address] IG% 0.400 Normal 0.0-0.9 [facility] Comment on above: Result Comment: IG% - Immature Granulocytes (promyelocytes, myelocytes and metamyelocytes) > 1% indicates that a LEFT SHIFT is Present. Performed By: #### L 501.5200, L100.0100, L501.4020, L501.9520, L500.4050 #### [facility] [address] [place], [address] Lymphocytes/100 WBC (Bld) 26.0 % Normal 19-41 [facility] Comment on above: Performed By: #### L 501.5200, L100.0100, L501.4020, L501.9520, L500.4050 #### [facility] [address] [place], [address] MCH (RBC) [Entitic mass] 29.5 pg Normal 27.0-32.0 [facility] Comment on above: Performed By: #### L 501.5200, L100.0100, L501.4020, L501.9520, L500.4050 #### [facility] [address] [place], [address] MCHC (RBC) [Mass/Vol] 32.6 g/dL Normal 32-36 [facility] Comment on above: Performed By: #### L 501.5200, L100.0100, L501.4020, L501.9520, L500.4050 #### [facility] [address] [place], [address] MCV (RBC) [Entitic vol] 90.5 fL Normal 81-99 [facility] Comment on above: Performed By: #### L 501.5200, L100.0100, L501.4020, L501.9520, L500.4050 #### [facility] [address] [place], [address] Monocytes/100 WBC (Bld) 8.7 % Normal 0-10 [facility] Comment on above: Performed By: #### L 501.5200, L100.0100, L501.4020, L501.9520, L500.4050 #### [facility] [address] [place], [address] Neutrophils/100 WBC (Bld) 62.1 % Normal 47-70 [facility] Comment on above: Performed By: #### L 501.5200, L100.0100, L501.4020, L501.9520, L500.4050 #### [facility] [address] [place], [address] Nucleated RBC (Bld) [#/Vol] 0 10*3/uL Normal 0-5 [facility] Comment on above: Performed By: #### L 501.5200, L100.0100, L501.4020, L501.9520, L500.4050 #### [facility] [address] [place], [address] Platelet mean volume (Bld) [Entitic vol] 11.0 fL Normal 6.2-12.0 [facility] Comment on above: Performed By: #### L 501.5200, L100.0100, L501.4020, L501.9520, L500.4050 #### [facility] [address] [place], [address] Platelets (Bld) [#/Vol] 209 10*3/uL Normal 150-450 [facility] Comment on above: Performed By: #### L 501.5200, L100.0100, L501.4020, L501.9520, L500.4050 #### [facility] [address] [place], [address] RBC (Bld) [#/Vol] 5.29 10*6/uL Normal 4.2-5.4 [facility] Comment on above: Performed By: #### L 501.5200, L100.0100, L501.4020, L501.9520, L500.4050 #### [facility] [address] [place], [address] RDW SD 46.5 fl High 35.1-43.9 [facility] Comment on above: Performed By: #### L 501.5200, L100.0100, L501.4020, L501.9520, L500.4050 #### [facility] [address] [place], [address] WBC (Bld) [#/Vol] 7.9 10*3/uL Normal 4.4-11.0 [facility] Comment on above: Performed By: #### L 501.5200, L100.0100, L501.4020, L501.9520, L500.4050 #### [facility] [address] [facility] [place], [address] Chest 1 View (Portable)on Chest 1 View (Portable) [facility] Services [address] [place] [address] Chest 1 View (Portable) MR#: [id number] Acct: [id number] Name: MARIA ESTHER REDDY DIANELYS Rep #: [id number] : 1945 F 78 From: Shalom Lares MD PCP: Dr. Bradley Causey MD Status: REG ER Study: Chest 1 View (Portable) Date of Exam: 05/13/23 Exam# [id number] Ordering Dr: Giancarlo Ya MD [id number] EXAM: XR CHEST, 1 VIEW CLINICAL INDICATION: chest pain TECHNIQUE: Frontal view of the chest. COMPARISON: No relevant prior studies available. FINDINGS: LUNGS AND PLEURAL SPACES: Unremarkable. No consolidation or edema. No pneumothorax. No effusion. HEART: Unremarkable. Cardiac silhouette not enlarged. MEDIASTINUM: Central airways and mediastinal contour are unremarkable. BONES/JOINTS: There is elevation of the right humeral head in the glenoid fossa which can be seen in chronic rotator cuff injury. No acute fracture. SOFT TISSUES: Unremarkable. RAD/Chest 1 View (Portable) IMPRESSION: No acute findings in the chest. Electronically Signed: Shalom Lares MD at 17:01 EST , CC: Dr. Giancarlo Ya MD; Dr. Bradley Causey MD Partner Marketing Manager: Signed Normal [facility] Comprehensive Metabolic Prof ilon 05-13-2023 Albumin [Mass/Vol] 3.2 g/dL Normal 3.2-5.0 [facility] Comment on above: Order Comment: 'TROP ' Serial specimen #1, #2 or #3: 1 Performed By: #### L 501.5200, L100.0100, L501.4020, L501.9520, L500.4050 #### [facility] [address] [place], [address] Albumin/Globulin [Mass ratio] 0.9 {ratio} Normal 0.9-2.4 [facility] Comment on above: Order Comment: 'TROP ' Serial specimen #1, #2 or #3: 1 Performed By: #### L 501.5200, L100.0100, L501.4020, L501.9520, L500.4050 #### [facility] [address] [place], [address] ALK P 108 U/L Normal 45-117 [facility] Comment on above: Order Comment: 'TROP ' Serial specimen #1, #2 or #3: 1 Performed By: #### L 501.5200, L100.0100, L501.4020, L501.9520, L500.4050 #### [facility] [address] [place], [address] ALT [Catalytic activity/Vol] 17 U/L Normal 13-56 [facility] Comment on above: Order Comment: 'TROP ' Serial specimen #1, #2 or #3: 1 Performed By: #### L 501.5200, L100.0100, L501.4020, L501.9520, L500.4050 #### [facility] [address] [place], [place], [address] AST [Catalytic activity/Vol] 17 U/L Normal 15-37 [facility] Comment on above: Order Comment: 'TROP ' Serial specimen #1, #2 or #3: 1 Performed By: #### L 501.5200, L100.0100, L501.4020, L501.9520, L500.4050 #### [facility] [address] [place], [address] Bilirubin [Mass/Vol] 0.50 mg/dL Normal 0.20-1.00 [facility] Comment on above: Order Comment: 'TROP ' Serial specimen #1, #2 or #3: 1 Result Comment: For patients on eltrombopag therapy, use of Dimension [place] TBIL is not recommended. Performed By: #### L 501.5200, L100.0100, L501.4020, L501.9520, L500.4050 #### [facility] [address] [place], [address] BUN/CRE 21.8 RATIO High 10-20 [facility] Comment on above: Order Comment: 'TROP ' Serial specimen #1, #2 or #3: 1 Performed By: #### L 501.5200, L100.0100, L501.4020, L501.9520, L500.4050 #### [facility] [address] [place], [address] CA,Total 8.6 mg/dL Normal 8.5-10.1 [facility] Comment on above: Order Comment: 'TROP ' Serial specimen #1, #2 or #3: 1 Performed By: #### L 501.5200, L100.0100, L501.4020, L501.9520, L500.4050 #### [facility] [address] [place], [address] Chloride [Moles/Vol] 104 mmol/L Normal 98-107 [facility] Comment on above: Order Comment: 'TROP ' Serial specimen #1, #2 or #3: 1 Performed By: #### L 501.5200, L100.0100, L501.4020, L501.9520, L500.4050 #### [facility] [address] [place], [address] CO2 [Moles/Vol] 31.0 mmol/L Normal 21.0-32.0 [facility] Comment on above: Order Comment: 'TROP ' Serial specimen #1, #2 or #3: 1 Performed By: #### L 501.5200, L100.0100, L501.4020, L501.9520, L500.4050 #### [facility] [address] [place], [address] Creatinine [Mass/Vol] 0.96 mg/dL Normal 0.55-1.02 [facility] Comment on above: Order Comment: 'TROP ' Serial specimen #1, #2 or #3: 1 Result Comment: The validity of the calculated GFR GFRAA in patients over 70 years has not been determined. Clinical correlation is essential. Performed By: #### L 501.5200, L100.0100, L501.4020, L501.9520, L500.4050 #### [facility] [address] [place], [address] EST GFR - AA 72 mL/min Normal >60 [facility] Comment on above: Order Comment: 'TROP ' Serial specimen #1, #2 or #3: 1 Result Comment: Afri can Hungarian GFR Calc Performed By: #### L 501.5200, L100.0100, L501.4020, L501.9520, L500.4050 #### [facility] [address] [place], [address] GAP 7 Normal 5-15 [facility] Comment on above: Order Comment: 'TROP ' Serial specimen #1, #2 or #3: 1 Performed By: #### L 501.5200, L100.0100, L501.4020, L501.9520, L500.4050 #### [facility] [address] [place], [address] GFR/1.73 sq M.predicted among non-blacks MDRD (S/P/Bld) [Vol rate/Area] 60 mL/min/{1.73_m2} Normal >60 [facility] Comment on above: Order Comment: 'TROP ' Serial specimen #1, #2 or #3: 1 Result Comment: Non- GFR Calc Performed By: #### L 501.5200, L100.0100, L501.4020, L501.9520, L500.4050 #### [facility] [address] [place], [address] Globulin (S) [Mass/Vol] 3.5 g/dL Normal 2.2-4.2 [facility] Comment on above: Order Comment: 'TROP ' Serial specimen #1, #2 or #3: 1 Performed By: #### L 501.5200, L100.0100, L501.4020, L501.9520, L500.4050 #### [facility] [address] [place], [address] Glucose [Mass/Vol] 117 mg/dL High 74-106 [facility] Comment on above: Order Comment: 'TROP ' Serial specimen #1, #2 or #3: 1 Result Comment: Fast ing Glucose result from 100 to 125 mg/dL suggests IMPAIRED HOMEOSTASIS per A.D.A. criteria. Performed By: #### L 501.5200, L100.0100, L501.4020, L501.9520, L500.4050 #### [facility] [address] [place], [address] Potassium [Moles/Vol] 3.2 mmol/L Low 3.5-5.1 [facility] Comment on above: Order Comment: 'TROP ' Serial specimen #1, #2 or #3: 1 Performed By: #### L 501.5200, L100.0100, L501.4020, L501.9520, L500.4050 #### [facility] [address] [place], [address] Sodium [Moles/Vol] 142 mmol/L Normal 136-145 [facility] Comment on above: Order Comment: 'TROP ' Serial specimen #1, #2 or #3: 1 Performed By: #### L 501.5200, L100.0100, L501.4020, L501.9520, L500.4050 #### [facility] [address] [place], [address] T PROT 6.7 g/dL Normal 6.4-8.2 [facility] Comment on above: Order Comment: 'TROP ' Serial specimen #1, #2 or #3: 1 Performed By: #### L 501.5200, L100.0100, L501.4020, L501.9520, L500.4050 #### [facility] [address] [place], [address] Urea nitrogen [Mass/Vol] 21 mg/dL High 7-18 [facility] Comment on above: Order Comment: 'TROP ' Serial specimen #1, #2 or #3: 1 Performed By: #### L 501.5200, L100.0100, L501.4020, L501.9520, L500.4050 #### [facility] [address] [place], [address] Determination of erythrocyte mean corpuscular volume (MCV)Ordered By: Giancarlo Ya on 05-13-2023 MCV (RBC) [Entitic vol] 90.5 fL 81-[address] [facility] Emergency Department Summary on 05-13-2023 Emergency Department Summary [facility] Medical Records Department [address] [place] [address] Emergency Department Summary 05/13/23 MR#: [id number] Acct: [id number] Name: MARIA ESTHER REDDY DIANELYS Rep #: [id number] : 1945 78 From: Giancarlo Ya MD PCP: Dr. Bradley Causey MD Status:REG ER Location: ED HPI History of Present Illness Chief Complaint: Chest Pain Narrative Narrative: 78-year-old female, past medical history of COPD, smoker, presents to the emergency department because while she was at the eye doctor she states they performed an EKG which showed her to be in atrial fibrillation. She states that she does not have this diagnosis but admittedly has been having intermittent palpitations and fluttering of her heart for the last few months to years. She states that as soon as they took the EKG legs off of her, she felt back to normal. She denies any chest pain or shortness of breath that is new for her with her COPD. She presents because of the atrial fibrillation. PFSH PFS Home Medications albuterol sulfate 90 mcg/actuation aerosol inhaler (ProAir HFA) 2 puff PO PRN PRN Sob /Or Wheezing 06/05/18 [History Last Taken Unknown] levothyroxine 150 mcg tablet (Synthroid) 150 mcg PO DAILY THYROID 06/05/18 [History Last Taken 06/05/18] lisinopril 20 mg tablet 20 mg PO DAILY #30 tabs 06/05/18 [Rx Last Taken Unknown] lisinopril 20 mg-hydrochlorothiazid e 12.5 mg tablet 1 tab PO DAILY BP 06/05/18 [History Last Taken 06/05/18] eiytrugq-edan-geze 8 mg-folic 400 mcg-K 50 mcg-lutein 300 mcg tablet (Centrum Silver Women) 1 tab PO DAILY SUPPLEMENT 06/05/18 [History Last Taken 06/04/18] omeprazole 40 mg capsule,delayed release 40 mg PO DAILY 06/05/18 [History Last Taken 06/05/18] simvastatin 20 mg tablet 20 mg PO DAILY CHOLESTEROL 06/05/18 [History Last Taken 06/04/18] apixaban 5 mg tablet (Eliquis) 5 mg PO BID #60 tabs 05/13/23 [Rx Last Taken Unknown] metoprolol succinate 50 mg tablet,extended release 24 hr (Toprol XL) 50 mg PO DAILY #30 tabs 05/13/23 [Rx Last Taken Unknown] Allergy/AdvReac Type Severity Reaction Status Date / Time Sulfa (Sulfonamide AdvReac Vomiting Verified 05/13/23 15:56 Antibiotics) Social History Smoking Status: Current every day smoker tobacco type: cigarettes ROS ROS ED ROS Narrative Constitutional: No fever, no chills. HEENT: No sore throat. No neck pain. No loss of vision. No rhinorrhea. Cardiovascular: No chest pain. Intermittent palpitations and fluttering. No pedal edema. Respiratory: No cough, no shortness of breath. Abdominal: No abdominal pain. No nausea. No vomiting. Genitourinary: No dysuria. No hematuria. Musculoskeletal: No myalgias. No arthralgias. Neurologic: No headaches. No dizziness. No lightheadedness. Skin: No rash. No change in color. Psychiatric: No depression. No anxiety. EXAM Physical Exam Narrative Exam Narrative: Afebrile. Vital signs noted. HEENT: Normocephalic. Atraumatic. PERRL, EOMI. Neck soft and supple. No point tenderness or step off. Cardiovascular: Regular rate and rhythm. No murmurs, rubs, or gallops appreciated. Respiratory: No tachypnea. Lungs clear to auscultation bilaterally. Diminished breath sounds bilateral bases. Gastrointestinal: Abdomen soft, nontender, with normoactive bowel sounds. No rebound or guarding. Neurological: Awake. Alert. Nonfocal, nonlateralizing. Skin: No rash. Normal color. No pallor. Musculoskeletal: No pedal edema. Full range of motion extremities. Const Vital Signs: 05/13/23 15:56 05/13/23 16:15 05/13/23 16:18 Temperature 98.4 F Temperature Source Temporal Pulse Rate 74 Respiratory Rate 16 Respiratory Effort Normal Non-Labored Blood Pressure 127/63 H Blood Pressure Mean 84 Pulse Ox 99 Oxygen Delivery Method Room Air Room Air MDM MDM MDM Narrative Medical decision making narrative: Concern is for atrial fibrillation with RVR versus PACs. I reviewed her prior records. I see no evidence of atrial fibrillation on her previous EKGs except the one that was performed today. It shows atrial fibrillation at around 167 bpm/RVR. She states she is supposed to see a continuous drier operator in the future as she has had multiple work-ups including echocardiogram and EKGs, but has never been found to be in atrial fibrillation. Her EKG today was obtained and interpreted by myself independently as normal sinus rhythm at 71 bpm without ectopy or acute ST changes. No STEMI. I reviewed her laboratory work and she has a normal white count of 7.9, hemoglobin slightly hemoconcentrated at 15.6, hematocrit 47.9, platelet count normal at 209. Potassium is slightly low at 3.2. She is on hydrochlorothiazide. This was supplemented and replaced with 40 mill equivalents orally. Glucose is slightly elevated at 117 but she has a normal ani (more content not included)... Normal [facility] Hematocrit Auto (Bld) [Volum e fraction]Ordered By: Giancarlo Ya on 05-13-2023 Hematocrit (Bld) [Volume fraction] 47.9 % 37-47 [facility] L501.4020on 05-13-2023 TROPONIN-I HS 8 pg/mL Normal 3.0-54.0 [facility] Comment on above: Order Comment: 'TROP ' Serial specimen #1, #2 or #3: 1 Result Comment: David eagle Note: New Test Units and Gender Specific Reference Ranges. For more information see Policy Stat Procedure [place] High Sensitivity Troponin (TNIH) and attachments. Performed By: #### L 501.5200, L100.0100, L501.4020, L501.9520, L500.4050 #### [facility] [address] [place], [address] Laboratory - Chemistry and C hemistry - challengeOrdered By: Giancarlo Ya on 05-13-2023 ALP [Catalytic activity/Vol] 108 U/L 45-117 [facility] ALT [Catalytic activity/Vol] 17 U/L 13-56 [facility] CO2 [Moles/Vol] 31.0 mmol/L 21.0-32.0 [facility] Globulin (S) [Mass/Vol] 3.5 g/dL 2.2-4.2 [facility] Magnesium [Mass/Vol] 1.6 mg/dL 1.6-2.6 [facility] Urea nitrogen/Creatinine [Mass ratio] 21.8 mg/mg 10-20 [facility] Laboratory - Hematology and Cell countsOrdered By: Giancarlo Ya on 05-13-2023 Erythrocyte distribution width (RBC) [Entitic vol] 46.5 fL 35.1-43.9 [facility] Erythrocyte distribution width (RBC) [Ratio] 13.8 % 11.6-14.6 [facility] Immature granulocytes/100 WBC (Bld) 0.400 % 0.0-0.9 [facility] Comment on above: IG% - Immature Granu locytes (promyelocytes, myelocytes and metamyelocytes) > 1% indicates that a LEFT SHIFT is Present. MCH (RBC) [Entitic mass] 29.5 pg 27.0-32.0 [facility] Nucleated RBC/100 WBC (Bld) [Ratio] 0 % 0-5 [facility] MCHC Auto (RBC) [Mass/Vol]Or dered By: Giancarlo Ya on 05-13-2023 MCHC (RBC) [Mass/Vol] 32.6 g/dL 32-36 [facility] Magnesiumon 05-13-2023 Magnesium [Mass/Vol] 1.6 mg/dL Normal 1.6-2.6 [facility] Comment on above: Order Comment: 'TROP ' Serial specimen #1, #2 or #3: 1 Performed By: #### L 501.5200, L100.0100, L501.4020, L501.9520, L500.4050 #### [facility] [address] [place], [place] [address]all [facility] [place], [address] No Panel InformationOrdered By: Giancarlo Ya on 05-13-2023 Estimated GFR (MDRD) Amer 72 mL/min >60 [facility] Comment on above: GFR Calc Estimated GFR (MDRD) Non-Af Amer 60 mL/min >60 [facility] Comment on above: Non- GFR Calc Thyroid Stimulating Hormone (TSH) 0.23 uIU/mL 0.358-3.74 [facility] Troponin I High Sensitivity 8 pg/mL 3.0-54.0 [facility] Comment on above: Please Note: New Gina t Units and Gender Specific Reference Ranges. For more information see Policy Stat Procedure [place] High Sensitivity Troponin (TNIH) and attachments. Platelets bldOrdered By: Carleen Ya on 05-13-2023 Platelets (Bld) [#/Vol] 209 10*3/uL 150-450 [facility] Serum or plasma albumin kasie urement (mass/volume)Ordered By: Giancarlo Ya on 05-13-2023 Albumin [Mass/Vol] 3.2 g/dL 3.2-5.0 [facility] Serum or plasma albumin/glob ulin mass ratioOrdered By: Giancarlo Ya on 05-13-2023 Albumin/Globulin [Mass ratio] 0.9 {ratio} 0.9-2.4 [facility] Serum or plasma calcium kasie urement (mass/volume)Ordered By: Giancarlo Ya on 05-13-2023 Calcium [Mass/Vol] 8.6 mg/dL 8.5-10.1 [facility] Serum or plasma creatinine m easurement (mass/volume)Ordered By: Giancarlo Ya on 05-13-2023 Creatinine [Mass/Vol] 0.96 mg/dL 0.55-1.02 [facility] Comment on above: The validity of the calculated GFR & GFRAA in patients over 70 years has not been determined. Clinical correlation is essential. Serum or plasma urea nitroge n measurement (mass/volume)Ordered By: Giancarlo Ya on 05-13-2023 Urea nitrogen [Mass/Vol] 21 mg/dL -18 [facility] Thin prep Papanicolaou smear with manual screeningOrdered By: Giancarlo Ya on 05-13-2023 Thin prep Papanicolaou smear with manual screening 17 U/L 15-37 [facility] Thin prep Papanicolaou smear with manual screening 7 5-15 [facility] Thyroid Stim Hormone (TSH)on 05-13-2023 TSH 0.23 uIU/mL Low 0.358-3.74 [facility] Comment on above: Order Comment: 'TROP ' Serial specimen #1, #2 or #3: 1 Performed By: #### L 501.5200, L100.0100, L501.4020, L501.9520, L500.4050 #### [facility] [address] [place], [address] XR Foot - bilateral AP and L ateral and obliqueon 04-27-2023 * * *Final Report* * * DATE OF EXAM: Apr 24 2023 4:30PM WOX 5555 - XR FOOT 3V AP/LAT/OBL RAJI / PROCEDURE REASON: multiple diagnoses * * * * Physician Interpretation * * * * FOOT RADIOGRAPHS - BILATERAL HISTORY: Foot pain, bilateral TECHNOLOGIST PROVIDED HISTORY (if applicable): Chronic bilateral heel pain TECHNIQUE: XR FOOT 3V AP/LAT/OBL RAJI COMPARISON: Radiographs 08/19/2013 RESULT: There is generalized osteopenia. Right foot: There is mild narrowing of the first metatarsal phalangeal joint and interphalangeal joints of the toes. Mild diffuse midfoot degenerative changes with dorsal osteophytes. No articular erosion or soft tissue swelling is identified. Second hammertoe deformity Left foot: There is mild narrowing of the first metatarsal phalangeal joint and interphalangeal joints of the toes with hallux valgus and bunion. Mild midfoot degenerative changes. There is no articular erosion or soft tissue swelling identified. And hammertoe deformities. DIVISION OF RADIOLOGY Provider, David Clarke - 04/27/2023 * * *Final Report* * * DATE OF EXAM: Apr 24 2023 4:30PM WOX 5555 - XR FOOT 3V AP/LAT/OBL RAJI / PROCEDURE REASON: multiple diagnoses * * * * Physician Interpretation * * * * FOOT RADIOGRAPHS - BILATERAL HISTORY: Foot pain, bilateral TECHNOLOGIST PROVIDED HISTORY (if applicable): Chronic bilateral heel pain TECHNIQUE: XR FOOT 3V AP/LAT/OBL RAJI COMPARISON: Radiographs 08/19/2013 RESULT: There is generalized osteopenia. Right foot: There is mild narrowing of the first metatarsal phalangeal joint and interphalangeal joints of the toes. Mild diffuse midfoot degenerative changes with dorsal osteophytes. No articular erosion or soft tissue swelling is identified. Second hammertoe deformity Left foot: There is mild narrowing of the first metatarsal phalangeal joint and interphalangeal joints of the toes with hallux valgus and bunion. Mild midfoot degenerative changes. There is no articular erosion or soft tissue swelling identified. And hammertoe deformities. IMPRESSION IMPRESSION: 1. Mild osteoarthrosis of the bilateral feet with interval progression at the left forefoot Partner Marketing Manager: ARBEN Transcribe Date/Time: Apr 27 2023 11:37A Dictated by : KAYLEN JUARES MD This examination was interpreted and the report reviewed and electronically signed by: KAYLEN JUARES MD on Apr 27 2023 11:39AM EST [facility] XR Foot - bilateral AP and L ateral and obliqueOrdered By: David Provider on 04-27-2023 [facility] XR Foot - bilateral AP and L ateral and obliqueon 04-24-2023 Radiology Study observation (narrative) Krzysztof [facility] CT LUNG SCREEN WO IVCONon [facility] Stress Reporton 11-27-2022 Stress Report [facility] [address] [place] [address] MR#: [id number] Acct: [id number] Name: MARIA ESTHER REDDY Rep #: [id number] : 1945 77 From: Ky Yen MD Primary Care: Dr. Bradley Causey MD Status: REG CLI Referring Dr: Bradley Causey MD Sex: F C Stress Test Report Date: 11/27/2022 Procedure: Pharmacologic stress nuclear imaging study Indications: Dyspnea Consent: Per the patient Procedure: The patient underwent pharmacologic (Regadenoson 0.4mg ) evaluation with a peak heart rate of 80 beats per minute (55%predicted maximal heart rate) and a peak blood pressure of 128/80 mmHg. The baseline ECG demonstrated normal sinus rhythm. The peak pharmacologic ECG demonstrated no ischemic changes. There were no cardiac dysrhythmias pretest, during pharmacologic infusion, or recovery. There was no complaint of chest discomfort during pharmacologic infusion or recovery. The patient was injected with 15 millicuries of technetium 99m Cardiolite and subsequently rest SPECT Cardiolite nuclear imaging was obtained in the horizontal long, vertical long, and short axis views. The patient underwent pharmacologic (Regadenoson) evaluation. The patient was injected with 45 millicuries of technetium 99m Cardiolite and subsequently stress SPECT Cardiolite nuclear imaging was obtained in the horizontal long, vertical long, and short axis views. A gated Cardiolite study at peak stress was obtained. The examination was stopped secondary to completion of protocol. Rest and stress SPECT Cardiolite nuclear imaging status post realignment, normalization, and attenuation correction demonstrate no fixed or reversible perfusion defects. There is end systolic thickening and brightening. The gated Cardiolite study demonstrates myocardial thickening and inward wall motion. The reported LVEF is 74%. Impression: 1. Pharmacologic (Regadenoson) evaluation 2. Peak pharmacologic ECG with no ischemic changes. 3. There were no cardiac dysrhythmias pretest, during pharmacologic infusion, or recovery. 5. No fixed or reversible perfusion defects. 6. The gated Cardiolite study reports an LVEF of 74%. This note was generated with MILI dictation software. It may contain incorrect words, spelling, and punctuation that were not noted in checking the note before signing. 11/27/22 1307 Date Ky Yen MD CC: Dr. Bradley Causey MD Date Dictated: 11/27/22 1302 Date Transcribed: 11/27/221301 Partner Marketing Manager: MAREN Signed Normal [facility] XR CHEST 2V FRONTAL/LATon [facility] XR Chest PA and Lateralon IMPRESSION: Increased pulmonary vascular congestion and increased markings including peribronchial cuffing. New patchy partially consolidative right basilar opacity. Diagnostic considerations therefore include congestive and/or inflammatory interstitial prominence and uncomplicated right basilar atelectasis or in association with aspiration pneumonitis/bronchopn eumonia. Partner Marketing Manager: ARBEN Transcribe Date/Time: Nov 01 2022 7:48P Dictated by : DELICIA ARANGO MD This examination was interpreted and the report reviewed and electronically signed by: DELICIA ARANGO MD on Nov 01 2022 7:56PM [facility] DIVISION OF RADIOLOGY * * *Final Report* * * DATE OF EXAM: Nov 01 2022 7:07PM WOX 5291 - XR CHEST 2V FRONTAL/LAT / PROCEDURE REASON: SOB (shortness of breath) * * * * Physician Interpretation * * * * EXAMINATION: CHEST RADIOGRAPH (2 VIEW FRONTAL & LATERAL) CLINICAL HISTORY: SOB (shortness of breath) MQ: XC2_6 EXAM DATE/TIME: 11/01/2022 7:07 PM COMPARISON: Chest radiograph 04/13/2016, lumbar spine radiograph 01/27/2021 RESULT: Lines, tubes, and devices: None. Lungs and pleura: Mild increased pulmonary vascularity. New peribronchial cuffing. Coarser markings. New patchy partially consolidative opacity posterolateral right base. No evident pneumothorax or pleural effusion. Cardiomediastinal silhouette: Mildly larger hilar vessels and mildly larger cardiac silhouette Bones and soft tissues: No evident new or progressive thoracal lumbar vertebral compression. No acute findings. DIVISION OF RADIOLOGY Provider, David Clarke - 11/01/2022 * * *Final Report* * * DATE OF EXAM: Nov 01 2022 7:07PM WOX 5291 - XR CHEST 2V FRONTAL/LAT / PROCEDURE REASON: SOB (shortness of breath) * * * * Physician Interpretation * * * * EXAMINATION: CHEST RADIOGRAPH (2 VIEW FRONTAL & LATERAL) CLINICAL HISTORY: SOB (shortness of breath) MQ: XC2_6 EXAM DATE/TIME: 11/01/2022 7:07 PM COMPARISON: Chest radiograph 04/13/2016, lumbar spine radiograph 01/27/2021 RESULT: Lines, tubes, and devices: None. Lungs and pleura: Mild increased pulmonary vascularity. New peribronchial cuffing. Coarser markings. New patchy partially consolidative opacity posterolateral right base. No evident pneumothorax or pleural effusion. Cardiomediastinal silhouette: Mildly larger hilar vessels and mildly larger cardiac silhouette Bones and soft tissues: No evident new or progressive thoracal lumbar vertebral compression. No acute findings. IMPRESSION IMPRESSION: Increased pulmonary vascular congestion and increased markings including peribronchial cuffing. New patchy partially consolidative right basilar opacity. Diagnostic considerations therefore include congestive and/or inflammatory interstitial prominence and uncomplicated right basilar atelectasis or in association with aspiration pneumonitis/bronchopn eumonia. Partner Marketing Manager: P[employer] Transcribe Date/Time: Nov 01 2022 7:48P Dictated by : DELICIA ARANGO MD This examination was interpreted and the report reviewed and electronically signed by: DELICIA ARANGO MD on Nov 01 2022 7:56PM EST [facility] Radiology Study observation (narrative) Krzysztof Tracy XR Chest PA and LateralOrder ed By: Ccf Provider on 11-01-2022 [facility] US EXT MASS/FLUID COLLECTION LTon 10-01-2022 US EXT MASS/FLUID COLLECTION LT * * *Final Report* * * DATE OF EXAM: Oct 01 2022 3:44PM LDU 1024 - US EXT MASS/FLUID COLLECTION LT / PROCEDURE REASON: Subcutaneous nodule of left lower leg * * * * Physician Interpretation * * * * EXAM TITLE: US EXT MASS/FLUID COLLECTION LT DATE: 10/01/2022 INDICATION: Patient history of palpable lump posterior to right knee. COMPARISON: None. Images were captured and stored in a permanent archive. Sonographic imaging at site of patient's complaint demonstrated ill-defined edema within fat lobules of the subcutaneous fat. There is a cluster of either small veins or small cystic spaces just below the skin surface at site of palpable abnormality measuring up to 10 mm. IMPRESSION: Small cluster of either tiny veins or cysts new nodular area measuring approximately 10 mm at site of patient's complaint of palpable abnormality. Unclear etiology. Would recommend further evaluation with MRI. Partner Marketing Manager: [facility] Transcribe Date/Time: Oct 03 2022 10:35A Dictated by : SULLY MARIE MD This examination was interpreted and the report reviewed and electronically signed by: SULLY MARIE MD on Oct 03 2022 10:39AM EST [id number] [facility] XR DIGIT 3V FRONTAL/LAT/OBL LTon 10-01-2022 XR DIGIT 3V FRONTAL/LAT/OBL LT * * *Final Report* * * DATE OF EXAM: Oct 01 2022 3:43PM LDX 5318 - XR DIGIT 3V FRONTAL/LAT/OBL LT / PROCEDURE REASON: Injury of finger of left hand, subsequent encounter * * * * Physician Interpretation * * * * EXAMINATION: XR DIGIT 3V FRONTAL/LAT/OBL LT HISTORY: Pinched left ring finger three weeks ago. Injury of finger of left hand, subsequent encounter . COMPARISON: None TECHNIQUE: XR DIGIT 3V FRONTAL/LAT/OBL LT Laterality: LEFT Number of different views (projections): 3 M: XB_1 FINDINGS: No acute fracture. Degenerative changes at multiple IP joints. No bone erosion. Old ulnar styloid injury. Degenerative changes at the base of the thumb. IMPRESSION: No acute fracture. Partner Marketing Manager: [facility] Transcribe Date/Time: Oct 03 2022 10:51A Dictated by : JEANMARIE MOY MD This examination was interpreted and the report reviewed and electronically signed by: JEANMARIE MOY MD on Oct 03 2022 10:55AM EST [id number] N [facility] Influenza virus A and B RNA and SARS-CoV-2 (COVID-19) N gene panel NANCY+probe (Resp)on 06-09-2022 FLUAV RNA NANCY+probe Ql (Unsp spec) Negative Negative for Influenza A by RT-PCR [facility] FLUBV RNA NANCY+probe Ql (Unsp spec) Negative Negative for Influenza B by RT-PCR [facility] SARS-CoV-2 (COVID-19) RNA NANCY+probe Ql (Resp) SARS-CoV-2 (Agent of COVID-19) Detected by RT-PCR or equivalent method. Abnormal Not Detected [facility] US DVT LOWER LTon 09-28-2021 [facility] No Panel Informationon 01-27 Radiology Study observation (narrative) [facility] XR Knee - left 4 Viewson * * *Final Report* * * DATE OF EXAM: Jan 27 2021 2:23PM WOX 5202 - XR KNEE 4V AP/PA BOTH+LAT/DANDRE LT / PROCEDURE REASON: Acute pain of left knee * * * * Physician Interpretation * * * * Indication: Left knee pain Comparison: None AP, PA, lateral and merchant views of the left knee are obtained. AP, PA and merchant views of the right knee are included. There is no acute fracture or dislocation. There is bilateral medial compartment joint space narrowing with subchondral sclerosis and marginal osteophytes. Impression: 1. No acute fracture or dislocation. 2. 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 Partner Marketing Manager: ARBEN Transcribe Date/Time: Jan 27 2021 2:26P Dictated by : PUJA QUIÑONES MD This examination was interpreted and the report reviewed and electronically signed by: PUJA QUIÑONES MD on Jan 27 2021 2:28PM [facility] DIVISION OF RADIOLOGY Provider, [facility] - 01/27/2021 * * *Final Report* * * DATE OF EXAM: Jan 27 2021 2:23PM WOX 5202 - XR KNEE 4V AP/PA BOTH+LAT/DANDRE LT / PROCEDURE REASON: Acute pain of left knee * * * * Physician Interpretation * * * * Indication: Left knee pain Comparison: None AP, PA, lateral and merchant views of the left knee are obtained. AP, PA and merchant views of the right knee are included. There is no acute fracture or dislocation. There is bilateral medial compartment joint space narrowing with subchondral sclerosis and marginal osteophytes. Impression: 1. No acute fracture or dislocation. 2. 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 Degenerative changes as discussed 2. Remote compression fractures Partner Marketing Manager: [facility] Transcribe Date/Time: Jan 27 2021 2:29P Dictated by : IZAIAH FRY DO This examination was interpreted and the report reviewed and electronically signed by: IZAIAH FRY DO on Jan 27 2021 2:31PM EST DIVISION OF RADIOLOGY * * *Final Report* * * DATE OF EXAM: Jan 27 2021 2:23PM WOX 5228 - XR LUMBAR 3V AP/LAT/L5-S1 / PROCEDURE REASON: Lumbar pain * * * * Physician Interpretation * * * * LUMBAR SPINE: EXAM DATE/TIME: 01/27/2021 2:23 PM HISTORY: 75 years old Indication: Lumbar pain pain 1-2 months in both low back and left knee pain is si joint on left side and anterior left knee no inj TECHNIQUE: Views obtained: XR LUMBAR 3V AP/LAT/L5-S1 Comparison: Lumbar spine 10/21/2009. RESULT: Findings: Marked bony demineralization. No narrowing of the disk spaces is seen. There is grade II spondylolisthesis of L5 on S1.There is again noted be a compression fracture of the L3 vertebral body with loss of height of 50% similar to the previous study. Also mild compression fracture of the superior endplate of T12 similar to the previous study. DIVISION OF RADIOLOGY Provider, [facility] - 01/27/2021 * * *Final Report* * * DATE OF EXAM: Jan 27 2021 2:23PM WOX 5228 - XR LUMBAR 3V AP/LAT/L5-S1 / PROCEDURE REASON: Lumbar pain * * * * Physician Interpretation * * * * LUMBAR SPINE: EXAM DATE/TIME: 01/27/2021 2:23 PM HISTORY: 75 years old Indication: Lumbar pain pain 1-2 months in both low back and left knee pain is si joint on left side and anterior left knee no inj TECHNIQUE: Views obtained: XR LUMBAR 3V AP/LAT/L5-S1 Comparison: Lumbar spine 10/21/2009. RESULT: Findings: Marked bony demineralization. No narrowing of the disk spaces is seen. There is grade II spondylolisthesis of L5 on S1.There is again noted be a compression fracture of the L3 vertebral body with loss of height of 50% similar to the previous study. Also mild compression fracture of the superior endplate of T12 similar to the previous study. IMPRESSION IMPRESSION: 1. Degenerative changes as discussed 2. Remote compression fractures Partner Marketing Manager: ARBEN Transcribe Date/Time: Jan 27 2021 2:29P Dictated by : IZAIAH FRY DO This examination was interpreted and the report reviewed and electronically signed by: IZAIAH FRY DO on Jan 27 2021 2:31PM EST [facility] XR Knee - right 4 Viewson IMPRESSION: 1. There are tricompartmental osteoarthritic changes in the right knee, most pronounced in the medial compartment. 2. Osteoarthritic changes in the left knee, most pronounced medially. Partner Marketing Manager: AR[employer]EN Transcribe Date/Time: Aug 22 2020 2:23P Dictated by : BRETT HENDERSON MD This examination was interpreted and the report reviewed and electronically signed by: BRETT HENDERSON MD on Aug 22 2020 2:26PM [facility] DIVISION OF RADIOLOGY * * *Final Report* * * DATE OF EXAM: Aug 22 2020 2:21PM WOX 5203 - XR KNEE 4V AP/PA BOTH+LAT/DANDRE RT / PROCEDURE REASON: Knee injury, right, initial encounter * * * * Physician Interpretation * * * * EXAMINATION: RIGHT KNEE X-RAY SERIES EXAMINATION: BILATERAL KNEE STANDING X-RAY SERIES HISTORY: Knee injury, right, initial encounter COMPARISON: None available. TECHNIQUE: Right knee x-ray series, lateral view ; bilateral knee standing AP/PA, and merchant x-ray images RESULT:Right knee: No fracture, dislocation or destructive changes. There are tricompartmental osteoarthritic changes, most advanced in the medial compartment where there is severe joint space narrowing, subchondral sclerosis and marginal spur formation. No evidence of knee joint effusion. Left knee: No evidence of fracture, dislocation or foreign body. Osteoarthritic changes in the medial lateral compartments, most pronounced medially. DIVISION OF RADIOLOGY [facility] * * *Final Report* * * DATE OF EXAM: Aug 22 2020 2:21PM WOX 5203 - XR KNEE 4V AP/PA BOTH+LAT/DANDRE RT / PROCEDURE REASON: Knee injury, right, initial encounter * * * * Physician Interpretation * * * * EXAMINATION: RIGHT KNEE X-RAY SERIES EXAMINATION: BILATERAL KNEE STANDING X-RAY SERIES HISTORY: Knee injury, right, initial encounter COMPARISON: None available. TECHNIQUE: Right knee x-ray series, lateral view ; bilateral knee standing AP/PA, and merchant x-ray images RESULT:Right knee: No fracture, dislocation or destructive changes. There are tricompartmental osteoarthritic changes, most advanced in the medial compartment where there is severe joint space narrowing, subchondral sclerosis and marginal spur formation. No evidence of knee joint effusion. Left knee: No evidence of fracture, dislocation or foreign body. Osteoarthritic changes in the medial lateral compartments, most pronounced medially. IMPRESSION IMPRESSION: 1. There are tricompartmental osteoarthritic changes in the right knee, most pronounced in the medial compartment. 2. Osteoarthritic changes in the left knee, most pronounced medially. Partner Marketing Manager: [employer] Transcribe Date/Time: Aug 22 2020 2:23P Dictated by : BRETT HENDERSON MD This examination was interpreted and the report reviewed and electronically signed by: BRETT HENDERSON MD on Aug 22 2020 2:26PM EST [facility] Radiology Study observation (narrative) Krzysztof Tracy XR Knee - right 4 ViewsOrder ed By: Ccf Provider on 08-22-2020 [facility] No Panel Information [facility] Vital Signs Date Time Vital Sign Value Performing Clinician Facility 07-21-2024 10:17-0500 Body mass index (BMI) [Ratio] 45.36 kg/m2 Preethi Mcclure BRAIDING MACHINE TENDER.OTOLARYNGOLOGY NURSE Work Phone: [facility] 07-21-2024 10:17-0500 Body temperature 98.4 [degF] Preethi Suppan BRAIDING MACHINE TENDER.OTOLARYNGOLOGY NURSE Work Phone: [facility] 07-21-2024 10:17-0500 Body weight 112.49 kg Preethi Suppan BRAIDING MACHINE TENDER.OTOLARYNGOLOGY NURSE Work Phone: [facility] 07-21-2024 10:17-0500 Diastolic blood pressure 56 mm[Hg] Preethi Suppan BRAIDING MACHINE TENDER.OTOLARYNGOLOGY NURSE Work Phone: [facility] 07-21-2024 10:17-0500 Heart rate 64 /min Preethi Suppan BRAIDING MACHINE TENDER.OTOLARYNGOLOGY NURSE Work Phone: [facility] 07-21-2024 10:17-0500 SaO2% (BldA) [Mass fraction] 94 % Preethi Suppan BRAIDING MACHINE TENDER.OTOLARYNGOLOGY NURSE Work Phone: [facility] 07-21-2024 10:17-0500 Systolic blood pressure 134 mm[Hg] Preethi Suppan BRAIDING MACHINE TENDER.OTOLARYNGOLOGY NURSE Work Phone: [facility] 07-06-2024 09:37-0500 Body mass index (BMI) [Ratio] 44.63 kg/m2 Preethi Suppan BRAIDING MACHINE TENDER.OTOLARYNGOLOGY NURSE Work Phone: [facility] 07-06-2024 09:37-0500 Body temperature 98.4 [degF] Preethi Suppan BRAIDING MACHINE TENDER.OTOLARYNGOLOGY NURSE Work Phone: [facility] 07-06-2024 09:37-0500 Body weight 110.68 kg Preethi Suppan BRAIDING MACHINE TENDER.OTOLARYNGOLOGY NURSE Work Phone: [facility] 07-06-2024 09:37-0500 Diastolic blood pressure 64 mm[Hg] Preethi Suppan BRAIDING MACHINE TENDER.OTOLARYNGOLOGY NURSE Work Phone: [facility] 07-06-2024 09:37-0500 Heart rate 64 /min Preethi Suppan BRAIDING MACHINE TENDER.OTOLARYNGOLOGY NURSE Work Phone: [facility] 01-27-2025 09:37-0500 Respiratory rate 16 /min Preethi Suppan BRAIDING MACHINE TENDER.OTOLARYNGOLOGY NURSE Work Phone: [facility] 07-06-2024 09:37-0500 SaO2% (BldA) [Mass fraction] 97 % Preethi Suppan BRAIDING MACHINE TENDER.OTOLARYNGOLOGY NURSE Work Phone: [facility] 07-06-2024 09:37-0500 Systolic blood pressure 120 mm[Hg] Preethi Suppan BRAIDING MACHINE TENDER.OTOLARYNGOLOGY NURSE Work Phone: [facility] 03-02-2024 11:36-0400 Body mass index (BMI) [Ratio] 45.73 kg/m2 Preethi Suppan BRAIDING MACHINE TENDER.OTOLARYNGOLOGY NURSE Work Phone: [facility] 03-02-2024 11:36-0400 Body temperature 97.39 [degF] Preethi Suppan BRAIDING MACHINE TENDER.OTOLARYNGOLOGY NURSE Work Phone: [facility] 03-02-2024 11:36-0400 Body weight 113.4 kg Preethi Suppan BRAIDING MACHINE TENDER.OTOLARYNGOLOGY NURSE Work Phone: [facility] 03-02-2024 11:36-0400 Diastolic blood pressure 58 mm[Hg] Preethi Suppan BRAIDING MACHINE TENDER.OTOLARYNGOLOGY NURSE Work Phone: [facility] 03-02-2024 11:36-0400 Heart rate 70 /min Preethi Suppan BRAIDING MACHINE TENDER.OTOLARYNGOLOGY NURSE Work Phone: [facility] 03-02-2024 11:36-0400 Respiratory rate 20 /min Preethi Suppan BRAIDING MACHINE TENDER.OTOLARYNGOLOGY NURSE Work Phone: [facility] 03-02-2024 11:36-0400 SaO2% (BldA) [Mass fraction] 96 % Preethi Suppan BRAIDING MACHINE TENDER.OTOLARYNGOLOGY NURSE Work Phone: [facility] 03-02-2024 11:36-0400 Systolic blood pressure 110 mm[Hg] Preethi Suppan BRAIDING MACHINE TENDER.OTOLARYNGOLOGY NURSE Work Phone: [facility] 01-03-2024 12:46-0400 Body mass index (BMI) [Ratio] 43.35 kg/m2 Preethi Suppan BRAIDING MACHINE TENDER.OTOLARYNGOLOGY NURSE Work Phone: [facility] 01-03-2024 12:46-0400 Body weight 107.5 kg Preethi Suppan BRAIDING MACHINE TENDER.OTOLARYNGOLOGY NURSE Work Phone: [facility] 01-03-2024 12:46-0400 Diastolic blood pressure 58 mm[Hg] Preethi Suppan BRAIDING MACHINE TENDER.OTOLARYNGOLOGY NURSE Work Phone: [facility] 01-03-2024 12:46-0400 Heart rate 77 /min Preethi Suppan BRAIDING MACHINE TENDER.OTOLARYNGOLOGY NURSE Work Phone: [facility] 01-03-2024 12:46-0400 Respiratory rate 16 /min Preethi Suppan BRAIDING MACHINE TENDER.OTOLARYNGOLOGY NURSE Work Phone: [facility] 01-03-2024 12:46-0400 SaO2% (BldA) [Mass fraction] 96 % Preethi Suppan BRAIDING MACHINE TENDER.OTOLARYNGOLOGY NURSE Work Phone: [facility] 01-03-2024 12:46-0400 Systolic blood pressure 100 mm[Hg] Preethi Suppan BRAIDING MACHINE TENDER.OTOLARYNGOLOGY NURSE Work Phone: [facility] 12-02-2023 11:34-0400 Body mass index (BMI) [Ratio] 43.53 kg/m2 Fredis Hdzpster BRAIDING MACHINE TENDER.OTOLARYNGOLOGY NURSE Work Phone: [facility] 12-02-2023 11:34-0400 Body weight 107.96 kg Fredis Hdzpster BRAIDING MACHINE TENDER.OTOLARYNGOLOGY NURSE Work Phone: [facility] 12-02-2023 11:34-0400 Heart rate 66 /min Fredis Glidden BRAIDING MACHINE TENDER.OTOLARYNGOLOGY NURSE Work Phone: [facility] 12-02-2023 11:34-0400 Respiratory rate 18 /min Fredis Glidden BRAIDING MACHINE TENDER.OTOLARYNGOLOGY NURSE Work Phone: [facility] 12-02-2023 11:34-0400 SaO2% (BldA) [Mass fraction] 94 % Fredis Hdzpster BRAIDING MACHINE TENDER.OTOLARYNGOLOGY NURSE Work Phone: [facility] 09-18-2023 11:00-0400 Heart rate 61 /min Keisha Hoffman [facility] 08-30-2023 14:27-0400 Body weight 104.78 kg Preethi Suppan BRAIDING MACHINE TENDER.MOLD HOISTER Work Phone: [facility] 08-30-2023 14:27-0400 Diastolic blood pressure 64 mm[Hg] Preethi Suppan BRAIDING MACHINE TENDER.MOLD HOISTER Work Phone: [facility] 08-30-2023 14:27-0400 Heart rate 132 /min Preethi Suppan BRAIDING MACHINE TENDER.MOLD HOISTER Work Phone: [facility] 08-30-2023 14:27-0400 Respiratory rate 20 /min Preethi Suppan BRAIDING MACHINE TENDER.MOLD HOISTER Work Phone: [facility] 08-30-2023 14:27-0400 SaO2% (BldA) [Mass fraction] 94 % Preethi Suppan BRAIDING MACHINE TENDER.MOLD HOISTER Work Phone: [facility] 08-30-2023 14:27-0400 Systolic blood pressure 128 mm[Hg] Preethi Suppan BRAIDING MACHINE TENDER.MOLD HOISTER Work Phone: [facility] 08-21-2023 10:17-0400 Body temperature 98.01 [degF] Eloise Mandie PA-C Work Phone: [facility] 08-21-2023 10:17-0400 Body weight 108.77 kg Eloise Mandie PA-C Work Phone: [facility] 08-21-2023 10:17-0400 Diastolic blood pressure 62 mm[Hg] Eloise Mandie PA-C Work Phone: [facility] 08-21-2023 10:17-0400 Heart rate 65 /min Eloise Mandie PA-C Work Phone: [facility] 08-21-2023 10:17-0400 Respiratory rate 17 /min Eloise Mandie PA-C Work Phone: [facility] 08-21-2023 10:17-0400 SaO2% (BldA) [Mass fraction] 95 % Eloise Mandie PA-C Work Phone: [facility] 08-21-2023 10:17-0400 Systolic blood pressure 124 mm[Hg] Eloise Mandie PA-C Work Phone: [facility] 05-20-2023 09:42-0500 Body height 157.5 cm Eloise Mandie PA-C Work Phone: [facility] 05-20-2023 09:42-0500 Body temperature 96.01 [degF] Eloise Mandie PA-C Work Phone: [facility] 05-20-2023 09:42-0500 Body weight 107.96 kg Eloise Mandie PA-C Work Phone: [facility] 05-20-2023 09:42-0500 Diastolic blood pressure 70 mm[Hg] Eloise Mandie PA-C Work Phone: [facility] 05-20-2023 09:42-0500 Heart rate 67 /min Eloise Mandie PA-C Work Phone: [facility] 05-20-2023 09:42-0500 Systolic blood pressure 130 mm[Hg] Eloise Mandie PA-C Work Phone: [facility] 05-13-2023 17:53-0500 Respiratory rate 18 /min [facility] 05-13-2023 15:56-0500 Body height 157.48 cm [facility] 05-13-2023 15:56-0500 Body temperature 98.4 [degF] [facility] 05-13-2023 15:56-0500 Diastolic blood pressure 63 mm[Hg] [facility] 05-13-2023 15:56-0500 Heart rate 74 /min [facility] 05-13-2023 15:56-0500 SaO2% (BldA) [Mass fraction] 99 % [facility] 05-13-2023 15:56-0500 Systolic blood pressure 127 mm[Hg] [facility] 04-24-2023 15:20-0500 Body weight 104.78 kg Bradley Causey MD Work Phone: [facility] 04-24-2023 15:20-0500 Diastolic blood pressure 62 mm[Hg] Bradley Causey MD Work Phone: [facility] 04-24-2023 15:20-0500 Heart rate 69 /min Bradley Causey MD Work Phone: [facility] 04-24-2023 15:20-0500 SaO2% (BldA) [Mass fraction] 97 % Bradley Causey MD Work Phone: [facility] 04-24-2023 15:20-0500 Systolic blood pressure 112 mm[Hg] Bradley Causey MD Work Phone: [facility] 01-16-2023 10:01-0400 Body height 150.2 cm Pulm Wstr Work Phone: [facility] 01-16-2023 10:01-0400 Body weight 101.61 kg Pulm Wstr Work Phone: [facility] 01-16-2023 10:01-0400 Heart rate 72 /min Pulm Wstr Work Phone: [facility] 01-16-2023 10:01-0400 Respiratory rate 16 /min Pulm Wstr Work Phone: [facility] 01-16-2023 10:01-0400 SaO2% (BldA) [Mass fraction] 98 % Pulm Wstr Work Phone: [facility] 11-12-2022 19:19-0400 Body weight 105.69 kg Bradley Causey MD Work Phone: [facility] 11-12-2022 19:19-0400 Diastolic blood pressure 64 mm[Hg] Bradley Causey MD Work Phone: [facility] 11-12-2022 19:19-0400 Heart rate 78 /min Bradley Causey MD Work Phone: [facility] 11-12-2022 19:19-0400 SaO2% (BldA) [Mass fraction] 95 % Bradley Causey MD Work Phone: [facility] 11-12-2022 19:19-0400 Systolic blood pressure 142 mm[Hg] Bradley Causey MD Work Phone: [facility] 09-28-2022 08:09-0400 Body weight 101.61 kg NA Gibbons PA-C Work Phone: [facility] 09-28-2022 08:09-0400 Diastolic blood pressure 60 mm[Hg] NA Gibbons PA-C Work Phone: [facility] 09-28-2022 08:09-0400 Heart rate 72 /min NA Gibbons PA-C Work Phone: [facility] 09-28-2022 08:09-0400 Respiratory rate 16 /min NA Gibbons PA-C Work Phone: [facility] 09-28-2022 08:09-0400 SaO2% (BldA) [Mass fraction] 94 % NA Gibbons PA-C Work Phone: [facility] 09-28-2022 08:09-0400 Systolic blood pressure 132 mm[Hg] NA Gibbons PA-C Work Phone: [facility] 06-08-2022 13:49-0500 Body temperature 97.9 [degF] Stoney Delvalle MD Work Phone: [facility] 06-08-2022 13:49-0500 Body weight 100.61 kg Stoney Delvalle MD Work Phone: [facility] 06-08-2022 13:49-0500 Diastolic blood pressure 80 mm[Hg] Stoney Delvalle MD Work Phone: [facility] 06-08-2022 13:49-0500 Heart rate 67 /min Stoney Delvalle MD Work Phone: [facility] 06-08-2022 13:49-0500 Respiratory rate 18 /min Stoney Delvalle MD Work Phone: [facility] 06-08-2022 13:49-0500 SaO2% (BldA) [Mass fraction] 93 % Stoney Delvalle MD Work Phone: [facility] 06-08-2022 13:49-0500 Systolic blood pressure 160 mm[Hg] Stoney Delvalle MD Work Phone: [facility] 03-15-2022 09:23-0400 Body weight 108.41 kg NA Gibbons PA-C Work Phone: [facility] 03-15-2022 09:23-0400 Diastolic blood pressure 72 mm[Hg] NA Gibbons PA-C Work Phone: [facility] 03-15-2022 09:23-0400 Heart rate 76 /min NA Gibbons PA-C Work Phone: [facility] 03-15-2022 09:23-0400 Respiratory rate 16 /min NA Gibbons PA-C Work Phone: [facility] 03-15-2022 09:23-0400 SaO2% (BldA) [Mass fraction] 100 % NA Gibbons PA-C Work Phone: [facility] 03-15-2022 09:23-0400 Systolic blood pressure 120 mm[Hg] NA Gibbons PA-C Work Phone: [facility] 09-26-2021 11:55-0400 Body temperature 97.2 [degF] NA Gibbons PA-C Work Phone: [facility] 09-26-2021 11:55-0400 Body weight 110.5 kg NA Gibbons PA-C Work Phone: [facility] 09-26-2021 11:55-0400 Diastolic blood pressure 70 mm[Hg] NA Gibbons PA-C Work Phone: [facility] 09-26-2021 11:55-0400 Heart rate 69 /min NA Gibbons PA-C Work Phone: [facility] 09-26-2021 11:55-0400 Respiratory rate 16 /min NA Gibbons PA-C Work Phone: [facility] 09-26-2021 11:55-0400 SaO2% (BldA) [Mass fraction] 97 % NA Gibbons PA-C Work Phone: [facility] 09-26-2021 11:55-0400 Systolic blood pressure 122 mm[Hg] NA Gibbons PA-C Work Phone: [facility] Encounters Encounter Date Encounter Type Care Provider Facility Start: 11-07-2024 End: 11-09-2024 Refill Bradley Causey MD Work Phone: [facility] [place] Comment on above: Refill Request Start: 10-16-2024 End: 10-19-2024 Refill Bradley Causey MD Work Phone: [facility] [place] Comment on above: Refill Request Start: 07-21-2024 End: 07-21-2024 ambulatory PREETHI A SUPPAN Facility:[facility] Start: 07-21-2024 End: 07-21-2024 Office outpatient visit 15 minutes Preethi A Suppan BRAIDING MACHINE TENDER.OTOLARYNGOLOGY NURSE Work Phone: [facility] Comment on above: Acute exacerbation o f chronic obstructive pulmonary disease (COPD) (HCC) (Primary Dx); Chronic insomnia; COPD with exacerbation (HCC) Start: 07-07-2024 End: 07-07-2024 Telephone encounter Bradley Causey MD Work Phone: [facility] [place] Comment on above: Patient Question Start: 07-06-2024 End: 07-06-2024 ambulatory PREETHI A SUPPAN Facility:[facility] Start: 07-06-2024 End: 07-06-2024 Office outpatient visit 25 minutes Preethi A Suppan BRAIDING MACHINE TENDER.OTOLARYNGOLOGY NURSE Work Phone: [facility] [place] Comment on above: Paroxysmal atrial fi brillation (HCC) (Primary Dx); Screening for depression; Encounter for screening examination for other mental health and behavioral disorders; Anxiety with depression; Chronic insomnia; Essential hypertension, benign; Hyperlipidemia with target LDL less than 100; COPD, mild (HCC); Prediabetes; Encounter for immunization; Acute maxillary sinusitis, recurrence not specified Start: 05-25-2024 End: 05-25-2024 Refill Bradley Causey MD Work Phone: Pulmonology [facility] Comment on above: Refill Request Start: 05-22-2024 End: 05-22-2024 Refill Romy Spann BRAIDING MACHINE TENDER.OTOLARYNGOLOGY NURSE Work Phone: [facility] Comment on above: Refill Request Start: 05-08-2024 End: 05-11-2024 Refill Preethi A Suppan BRAIDING MACHINE TENDER.OTOLARYNGOLOGY NURSE Work Phone: [facility] Comment on above: Refill Request Start: 03-18-2024 End: 03-18-2024 Refill Bradley Causey MD Work Phone: [facility] Comment on above: Refill Request Start: 03-02-2024 End: 03-02-2024 ambulatory PREETHI A SUPPAN Facility:[facility] Start: 03-02-2024 End: 03-02-2024 Office outpatient visit 15 minutes Preethi A Suppan BRAIDING MACHINE TENDER.OTOLARYNGOLOGY NURSE Work Phone: [facility] Comment on above: Bilateral leg edema (Primary Dx) Start: 01-03-2024 End: 01-03-2024 ambulatory PREETHI A SUPPAN Facility:[facility] Start: 01-03-2024 End: 01-03-2024 Office outpatient visit 25 minutes Preethi A Suppan BRAIDING MACHINE TENDER.OTOLARYNGOLOGY NURSE Work Phone: [facility] Comment on above: Essential hypertensi on, benign (Primary Dx); Chronic systolic congestive heart failure (HCC); Centrilobular emphysema (HCC); Tobacco abuse; Acquired hypothyroidism; Class 3 severe obesity due to excess calories with serious comorbidity and body mass index (BMI) of 40.0 to 44.9 in adult (HCC); Class 3 severe obesity due to excess calories with body mass index (BMI) of 40.0 to 44.9 in adult, unspecified whether serious comorbidity present (HCC) Start: 12-31-2023 End: 12-31-2023 ambulatory BRADLEY CAUSEY Facility:[facility] Start: 12-05-2023 Telephone encounter Fredis fay BRAIDING MACHINE TENDER.OTOLARYNGOLOGY NURSE Work Phone: Pulmonary Medicine Comment on above: Results Start: 12-02-2023 End: 12-02-2023 Patient encounter procedure Fredis Khan BRAIDING MACHINE TENDER.OTOLARYNGOLOGY NURSE Work Phone: Pulmonary Medicine Comment on above: Multiple lung nodule s (Primary Dx); Tobacco use current Start: 12-02-2023 End: 12-02-2023 ambulatory FREDIS KHAN Facility:[facility] Start: 12-02-2023 End: 12-02-2023 Subsequent hospital visit by physician [facility] ([facility]) Work Phone: Cat Scan Comment on above: Lung nodules [R91.8] Start: 11-09-2023 Refill Bradley Causey MD Work Phone: [facility] Comment on above: Refill Request Start: 09-27-2023 End: 09-27-2023 ambulatory HANNA ANTOINE Facility:[facility] Start: 09-27-2023 End: 09-27-2023 Patient encounter procedure Hanna Antoine PA-C Work Phone: Orthopaedics Comment on above: Primary osteoarthrit is of right knee (Primary Dx) Start: 09-18-2023 Telephone encounter Marissa PALMER-C Work Phone: Orthopaedics Comment on above: Synvisc One injectio n Start: 09-18-2023 End: 09-18-2023 ambulatory Keisha Hoffman PT [facility] Comment on above: BPPV (benign paroxys mal positional vertigo), unspecified laterality Start: 09-11-2023 ambulatory Amy Zarate RN [facility] Comment on above: NAT BUSBY RN ( EDU per request of payor) Start: 08-30-2023 End: 08-30-2023 ambulatory PREETHI MCCLURE Facility:[facility] Start: 08-30-2023 End: 08-30-2023 Office outpatient visit 25 minutes Preethi Mcclure BRAIDING MACHINE TENDER.MOLD HOISTER Work Phone: [facility] [place] Comment on above: Chronic obstructive pulmonary disease, unspecified COPD type (HCC) (Primary Dx); Hypothyroidism, unspecified type; Hyperglycemia; Paroxysmal atrial fibrillation (HCC); Bilateral leg edema; Centrilobular emphysema (HCC); Essential hypertension, benign; Lung nodules; Morbid obesity (HCC); Tobacco use; BPPV (benign paroxysmal positional vertigo), unspecified laterality Start: 08-23-2023 Telephone encounter Bradley Causey MD Work Phone: Family Medicine [place] Comment on above: Results Start: 08-22-2023 Telephone encounter Bradley Causey MD Work Phone: Pulmonology [facility] Comment on above: Results Start: 08-22-2023 End: 08-22-2023 ambulatory BRADLEY CAUSEY Facility:[facility] Start: 08-21-2023 End: 08-21-2023 ambulatory ELOISE HURT Facility:[facility] Start: 08-21-2023 End: 08-21-2023 Patient encounter procedure Eloise Hutr PA-C Work Phone: Pulmonary Medicine Comment on above: Pulmonary emphysema, unspecified emphysema type (HCC) (Primary Dx); Morbid obesity (HCC); Lung nodules; Cigarette smoker Start: 08-21-2023 End: 08-21-2023 ambulatory BRADLEY CAUSEY Facility:[facility] Start: 08-20-2023 Telephone encounter Bradley Causey MD Work Phone: [facility] [place] Comment on above: Orders (labs) Start: 07-13-2023 ambulatory Bradley Causey MD Work Phone: [facility] [place] Comment on above: Cough Start: 06-24-2023 Patient encounter status Lon Causey MD Work Phone: [facility] Work Phone: Start: 05-20-2023 End: 05-20-2023 Office outpatient visit 25 minutes Eloise Hurt PA-C Work Phone: Pulmonary Medicine Comment on above: COPD, mild (HCC) (Pr imary Dx); Lung nodules; Cigarette smoker; Morbid obesity (HCC) Start: 05-13-2023 End: 05-13-2023 Emergency department patient visit Giancarlo Ya Facility:[facility] Start: 05-13-2023 End: 05-13-2023 Emergency department patient visit [facility] Work Phone: Start: 05-13-2023 Telephone encounter Bradley Causey MD Work Phone: [facility] Comment on above: Patient Update Start: 05-11-2023 Refill Bradley Causey MD Work Phone: [facility] Comment on above: Refill Request Start: 04-24-2023 End: 04-24-2023 Subsequent hospital visit by physician Xr [facility] Work Phone: Radiology Comment on above: Foot pain, bilateral [M79.671, M79.672] Start: 04-24-2023 End: 04-24-2023 Patient encounter procedure Bradley Causey MD Work Phone: [facility] Comment on above: Diastolic congestive heart failure, unspecified HF chronicity (HCC) (Primary Dx); Encounter for immunization; GERD without esophagitis; Hyperlipidemia with target LDL less than 100; Essential hypertension, benign; Centrilobular emphysema (HCC); COPD, mild (HCC); Lung nodules; Hypothyroidism, unspecified type; Dysmetabolic syndrome X; Prediabetes; Morbid obesity (HCC); Foot pain, bilateral Start: 04-08-2023 Refill Bradley Causey MD Work Phone: [facility] Comment on above: Refill Request Start: 02-15-2023 End: 02-15-2023 Patient encounter procedure Smita Henderson MD Work Phone: Pulmonary Medicine Comment on above: COPD, mild (HCC) (Pr imary Dx); Irregular heart rate; Lung nodules; Cigarette smoker; Morbid obesity (HCC) Start: 01-21-2023 End: 01-21-2023 Patient encounter procedure Marissa Pena PA-C Work Phone: Orthopaedics Comment on above: Primary osteoarthrit is of right knee (Primary Dx) Start: 01-17-2023 Telephone encounter Bradley Causey MD Work Phone: [facility] Comment on above: Results Start: 01-16-2023 End: 01-16-2023 ambulatory Pulm Lab [facility] Work Phone: PULM LAB [facility] Comment on above: Spirometry Start: 01-16-2023 End: 01-16-2023 Patient encounter procedure [facility] Work Phone: [place] [facility] Start: 01-07-2023 Telephone encounter Giovanni beckman MD Work Phone: Orthopaedics Comment on above: Patient Question Start: 12-06-2022 Telephone encounter Fredis fay APRN.OTOLARYNGOLOGY NURSE Work Phone: Pulmonary Medicine Comment on above: Results Start: 12-03-2022 End: 12-03-2022 Subsequent hospital visit by physician [facility] ([facility]) Work Phone: Cat Scan Comment on above: Tobacco use [Z72.0] Start: 11-27-2022 End: 11-27-2022 ambulatory Bradley Causey Facility:[facility] Start: 11-16-2022 End: 11-16-2022 Subsequent hospital visit by physician [facility] [place] Work Phone: Radiology Comment on above: Elevated brain natri uretic peptide (BNP) level [R79.89] Start: 11-12-2022 End: 11-12-2022 Patient encounter procedure Bradley Causey MD Work Phone: [facility] Comment on above: Edema, unspecified t ype (Primary Dx); Tobacco use; Essential hypertension, benign; Hypothyroidism, unspecified type; Hyperlipidemia with target LDL less than 100; Morbid obesity (HCC); Dysmetabolic syndrome X; Elevated brain natriuretic peptide (BNP) level; SOB (shortness of breath); Bilateral leg edema Start: 11-01-2022 End: 11-01-2022 Subsequent hospital visit by physician [facility] Work Phone: Radiology Comment on above: SOB (shortness of br eath) [R06.02] Start: 10-18-2022 Telephone encounter Priscilla Gibbons PA-C Work Phone: [facility] Comment on above: Orders Start: 10-18-2022 ambulatory Priscilla FARAZ [place] ty:[facility] Start: 10-18-2022 End: 10-18-2022 Subsequent hospital visit by physician [facility] (1.5t) [facility] Comment on above: Mass of left lower l eg [R22.42] Start: 10-03-2022 Telephone encounter Priscilla Gibbons PA-C Work Phone: [facility] [place] Comment on above: MRI Appointment Start: 10-01-2022 ambulatory Priscilla FARAZ [place] ty:[facility] Start: 10-01-2022 End: 10-01-2022 Subsequent hospital visit by physician Us [facility] Comment on above: Subcutaneous nodule of left lower leg [R22.42] Injury of finger of left hand, subsequent encounter [S69.92XD] Start: 09-28-2022 End: 09-28-2022 Patient encounter procedure Priscilla Gibbons PA-C Work Phone: [facility] Comment on above: Hypothyroidism, unsp ecified type (Primary Dx); Primary osteoarthritis of right knee; Knee injury, right, initial encounter; Hyperlipidemia with target LDL less than 100; GERD without esophagitis; Wheezing; Injury of finger of left hand, subsequent encounter; Subcutaneous nodule of left lower leg Start: 06-08-2022 End: 06-08-2022 Patient encounter procedure Stoney Delvalle MD [facility] Comment on above: COPD with exacerbati on (HCC) (Primary Dx) Start: 03-15-2022 End: 03-15-2022 Patient encounter procedure Priscilla Gibbons PA-C Work Phone: [facility] Comment on above: Hyperlipidemia with target LDL less than 100 (Primary Dx); Hypothyroidism, unspecified type; GERD without esophagitis; Wheezing; Morbid obesity (HCC); Need for influenza vaccination; Primary osteoarthritis of right knee; Knee injury, right, initial encounter Start: 03-08-2022 Refill [facility]eller [facility]-C [facility] Comment on above: Refill Request Start: 02-20-2022 Telephone encounter Priscilla Faraz Gibbons PA-C Work Phone: [facility] Comment on above: Lab Orders Start: 01-12-2022 End: 01-12-2022 ambulatory Keisha O'Jean-Pierre PT [facility] Comment on above: Knee injuries, right , initial encounter Start: 01-03-2022 End: 01-03-2022 ambulatory Keisha O'Jean-Pierre PT [facility] Comment on above: Knee injuries, right , initial encounter Start: 12-27-2021 End: 12-27-2021 ambulatory Keisha O'Jean-Pierre PT [facility] Comment on above: Primary osteoarthrit is of right knee (Primary Dx); Knee injury, right, initial encounter; Knee injuries, right, initial encounter Start: 12-06-2021 Telephone encounter Giovanni beckman MD Work Phone: Orthopaedics Comment on above: Patient Question Start: 10-25-2021 ambulatory Ina Kaufman MA [facility] [place] Comment on above: Population Health Na vigation Outreach ([employer] Gaps) Start: 10-17-2021 Refill Bradley Causey MD Work Phone: [facility] Comment on above: Refill Request Start: 09-28-2021 End: 09-28-2021 Subsequent hospital visit by physician [facility] Work Phone: Radiology Comment on above: Left leg swelling [M 79.89] Start: 09-26-2021 End: 09-26-2021 Patient encounter procedure Priscilla Gibbons PA-C Work Phone: [facility] Comment on above: Left leg swelling (P rimary Dx); Pain of left calf Start: 01-27-2021 End: 01-27-2021 Subsequent hospital visit by physician Shea [facility] Work Phone: Radiology Comment on above: Acute pain of left k nee [M25.562] Start: 08-22-2020 End: 08-22-2020 Subsequent hospital visit by physician Xr [facility] [place] Work Phone: Radiology Comment on above: Knee injury, right, initial encounter [S89.91XA] Procedures Date Procedure Procedure Detail Performing Clinician Start: 07-06-2024 Adult depression scr eening assessment Preethi Mcclure BRAIDING MACHINE TENDER.OTOLARYNGOLOGY NURSE Work Phone: Start: 09-27-2023 Arthrocentesis aspir &/inj major jt/bursa w/o Hanna Antoine PA-C Work Phone: Start: 05-13-2023 Plain chest X-ray Start: 04-24-2023 Radex foot complete minimum 3 views Bradley Causey MD Work Phone: Start: 04-24-2023 INFLUENZA VACCINE, P RSV FREE, AGE 65+ YR, HIGH DOSE, QUADRIVALENT (FLUZONE HIGH-DOSE) Bradley Causey MD Work Phone: Start: 01-21-2023 Arthrocentesis aspir &/inj major jt/bursa w/o Marissa Pena PADeshawn Work Phone: Start: 01-16-2023 Brncdilat rspse spmt ry pre&post-brncdilat admn Bradley Causey MD Work Phone: Start: 12-03-2022 CT LUNG SCREEN WO KRISTINE Pylealan Khan BRAIDING MACHINE TENDER.OTOLARYNGOLOGY NURSE Work Phone: Start: 11-16-2022 Radiologic exam ches t 2 views Bradley Causey MD Work Phone: Start: 11-01-2022 Radiologic exam ches t 2 views Meli Antonio BRAIDING MACHINE TENDER.OTOLARYNGOLOGY NURSE Work Phone: Start: 06-08-2022 COVID WITH FLUA+B, ROUTINE Stoney Delvalle MD Work Phone: Start: 03-15-2022 INFLUENZA SEASONAL QUADRIVALENT HIGH DOSE AGE 65+ M Faraz Gibbons PA-C Work Phone: Start: 09-28-2021 Dup-scan xtr veins unilateral/limited study M Faraz Shai AMANDA Work Phone: Start: 09-26-2021 Adult depression scr eening assessment NAJMA Gibbons PA-C Work Phone: Start: 01-27-2021 Radiologic exam knee complete 4/more views Bradley Causey MD Work Phone: Start: 08-22-2020 Radiologic exam knee complete 4/more views Vicki Velez PA-C Work Phone: Start: 03-25-2015 Colonoscopy NA Shai AMANDA Work Phone: Plan of Treatment Date Care Activity Detail Author Start: 07-06-2027 [facility] Start: 08-20-2026 [facility] Start: 04-03-2026 [facility] Start: 01-14-2026 DIABETES SCREEN DIABETES SCREEN [facility] Start: 12-05-2025 LIPID SCREEN LIPID SCREEN [facility] Start: 11-16-2025 DIABETES SCREEN DIABETES SCREEN [facility] Start: 11-02-2025 DIABETES SCREEN DIABETES SCREEN [facility] Start: 07-21-2025 Annual PCP Team Mussel Farmer oleg Disease Visit Annual PCP Team Chronic Disease Visit [facility] Start: 07-06-2025 Annual PCP Team Mussel Farmer oleg Disease Visit Annual PCP Team Chronic Disease Visit [facility] Start: 07-06-2025 Anxiety Screening Anxiety Screening [facility] Start: 07-06-2025 BP Controlled (<130/80) BP Controlle d (<130/80) [facility] Start: 07-06-2025 Covid-19 Vaccine ( season) Covid-19 Vaccine () [facility] Comment on above: Postponed from 02/08 (Declined at this time) Start: 07-06-2025 Depression Screening Depression Scre ening [facility] Start: 03-25-2025 Colonoscopy COLONOSCOPY [facility] Start: 03-25-2025 COLORECTAL CANCER SCREENING COLORECTAL CANCER SCREENING [facility] Start: 03-02-2025 BP Controlled (<130/80) BP Controlle d (<130/80) [facility] Start: 2025 DIABETES SCREEN DIABETES SCREEN [facility] Start: 01-18-2025 End: 01-18-2025 Patient encounter procedure 01/18/2025 10:40 AM EDT Office Visit [facility] [address] [place] [address] Bradley Causey MD [address] [place], [place] [id number] 6 month exam [facility] [place] Comment on above: 6 month exam Start: 01-02-2025 BP Controlled (<130/80) BP Controlle d (<130/80) [facility] Start: 12-20-2024 Urine microalbumin profile [facility] Start: 12-07-2024 End: 12-07-2024 Patient encounter procedure [facility] Comment on above: yearly LDCT yearly LCS Start: 12-01-2024 BP Controlled (<130/80) BP Controlle d (<130/80) [facility] Start: 12-01-2024 Screening for malign ant neoplasm of lung Lung Cancer Screening [facility] Start: 08-29-2024 BP Controlled (<130/80) BP Controlle d (<130/80) [facility] Start: 08-20-2024 BP Controlled (<130/80) BP Controlle d (<130/80) [facility] Start: 07-21-2024 End: 07-21-2024 Patient encounter procedure 07/21/2024 10:20 AM EST Office Visit [facility] [address] [place] [address] Preethi Mcclure, BRAIDING MACHINE TENDER.OTOLARYNGOLOGY NURSE [address] [place], [place] [id number] 2 week sinus/insomnia [facility] [place] Comment on above: 2 week sinus/insomni a Start: 07-06-2024 End: 10-05-2024 CBC W Auto Differential panel - Blood [facility] Work Phone: Comment on above: Expected: 07/06/2024 , Expires: 10/05/2024 Start: 07-06-2024 End: 10-05-2024 Cobalamin (Vitamin B12) [Mass/volume] in Serum or Plasma [facility] Comment on above: Expected: 07/06/2024 , Expires: 10/05/2024 Start: 07-06-2024 End: 10-05-2024 Comprehensive metabolic 2000 panel - Serum or Plasma [facility] Comment on above: Expected: 07/06/2024 , Expires: 10/05/2024 Start: 07-06-2024 End: 10-05-2024 Hemoglobin A1c in Blood [facility] Comment on above: Expected: 07/06/2024 , Expires: 10/05/2024 Start: 07-06-2024 End: 10-05-2024 LIPID PANEL, NONFASTING [facility] Comment on above: Expected: 07/06/2024 , Expires: 10/05/2024 Start: 07-06-2024 End: 10-05-2024 Magnesium [Mass/volume] in Serum or Plasma [facility] Comment on above: Expected: 07/06/2024 , Expires: 10/05/2024 Start: 07-06-2024 End: 10-05-2024 Thyrotropin [Units/volume] in Serum or Plasma [facility] Comment on above: Expected: 07/06/2024 , Expires: 10/05/2024 Start: 07-06-2024 End: 07-06-2024 Patient encounter procedure 07/06/2024 10:00 AM EST Office Visit [facility] [address] [place], [place] [id number] Preethi Mcclure APRN.OTOLARYNGOLOGY NURSE [address] [place], [place] [id number] 6 month f/u [facility] [place] Comment on above: 6 month f/u Start: 06-10-2024 Advance Directive Discussion Advance Directive Discussion [facility] Start: 06-04-2024 Screening for malign ant neoplasm of lung Lung Cancer Screening [facility] Start: 04-24-2024 Annual PCP Team Mussel Farmer oleg Disease Visit Annual PCP Team Chronic Disease Visit [facility] Start: 04-24-2024 BP Controlled (<130/80) BP Controlle d (<130/80) [facility] Start: 04-24-2024 Covid-19 Vaccine (3 - 2023-24 season) Covid-19 Vaccine () [facility] Comment on above: Postponed from 02/08 (Declined at this time) Start: 04-24-2024 RSV Vaccine (1 - 1-d ose 60+ series) RSV Vaccine (1 - 1-dose 60+ series) [facility] Comment on above: Postponed from 02/22 (Declined at this time) Start: 04-24-2024 RSV Vaccine (1 - 1-d ose 75+ series) RSV Vaccine (1 - 1-dose 75+ series) [facility] Comment on above: Postponed from 02/22 (Declined at this time) Start: 02-27-2024 End: 02-27-2024 Patient encounter procedure 02/27/2024 2:15 PM EDT Office Visit Pulmonary Medicine [address] [place], [place] [id number] Smita Henderson MD [address] [place], [place] [id number] 6 MTH F/U COPD Pulmonary Medicine Comment on above: 6 MTH F/U COPD Start: 02-16-2024 BP CONTROLLED (<130/80) BP CONTROLLE D (<130/80) [facility] Start: 02-09-2024 Covid-19 Vaccine ( season) Covid-19 Vaccine () [facility] Start: 02-09-2024 Covid-19 Vaccine () Covid-19 Vaccine ( season) [facility] Start: 02-09-2024 Influenza vaccination Influenza Vacc ine (#1) [facility] Start: 01-15-2024 ANNUAL PCP TEAM TELEPHONIC NURSE CASE MANAGER OLEG DISEASE VISIT ANNUAL PCP TEAM CHRONIC DISEASE VISIT [facility] Start: 01-15-2024 BP CONTROLLED (<130/80) BP CONTROLLE D (<130/80) [facility] Start: 01-03-2024 End: 01-03-2024 Patient encounter procedure 01/03/2024 1:00 PM EDT Office Visit [facility] [address] [place] [address] Preethi Mcclure APRN.MOLD HOISTER [address] [place] [address] follow up appointment [facility] Comment on above: follow up appointmen t Start: 12-06-2023 DIABETES SCREEN DIABETES SCREEN [facility] Start: 12-04-2023 Influenza vaccination LUNG CANCER SC REENING [facility] Start: 12-02-2023 End: 12-02-2023 Patient encounter procedure Cat Scan Comment on above: 6 month f/u LDCT 6 month f/u LSC Start: 11-21-2023 BP CONTROLLED (<130/80) BP CONTROLLE D (<130/80) [facility] Start: 11-20-2023 ANNUAL PCP TEAM TELEPHONIC NURSE CASE MANAGER OLEG DISEASE VISIT ANNUAL PCP TEAM CHRONIC DISEASE VISIT [facility] Start: 11-20-2023 BP Controlled (<130/80) BP Controlle d (<130/80) [facility] Start: 11-13-2023 ANNUAL PCP TEAM TELEPHONIC NURSE CASE MANAGER OLEG DISEASE VISIT ANNUAL PCP TEAM CHRONIC DISEASE VISIT [facility] Start: 10-04-2023 End: 01-03-2024 Thyrotropin [Units/volume] in Serum or Plasma TSH BLD Lab Routine Hypothyroidism, unspecified type Expected: 10/04/2023, Expires: 01/03/2024 [facility] Work Phone: Comment on above: Expected: 10/04/2023 , Expires: 01/03/2024 Start: 09-29-2023 ANNUAL PCP TEAM TELEPHONIC NURSE CASE MANAGER OLEG DISEASE VISIT ANNUAL PCP TEAM CHRONIC DISEASE VISIT [facility] Start: 08-21-2023 End: 11-20-2023 ALPHA 1 ANTITRYP PHEN/GENOTYPE [facility] Work Phone: Comment on above: Expected: 08/21/2023 , Expires: 11/20/2023 Start: 08-20-2023 End: 11-19-2023 CBC W Auto Differential panel - Blood CBC + DIFF Lab Routine Hypothyroidism, unspecified type Hyperglycemia Expected: 08/20/2023, Expires: 11/19/2023 [facility] Work Phone: Comment on above: Expected: 08/20/2023 , Expires: 11/19/2023 Start: 08-20-2023 End: 11-19-2023 Hemoglobin A1c in Blood HGB A1C Lab Routine Hypothyroidism, unspecified type Hyperglycemia Expected: 08/20/2023, Expires: 11/19/2023 [facility] Work Phone: Comment on above: Expected: 08/20/2023 , Expires: 11/19/2023 Start: 08-20-2023 End: 11-19-2023 Thyrotropin [Units/volume] in Serum or Plasma TSH BLD Lab Routine Hypothyroidism, unspecified type Hyperglycemia Expected: 08/20/2023, Expires: 11/19/2023 [facility] Work Phone: Comment on above: Expected: 08/20/2023 , Expires: 11/19/2023 Start: 06-10-2023 Advance Directive Discussion Advance Directive Discussion [facility] Start: 06-10-2023 Behavioral Health Screening Behavioral Health Screening [facility] Start: 06-10-2023 Depression Assessment Depression Ass essment [facility] Start: 06-07-2023 End: 01-05-2024 Ct thorax w/o contrast material CT LUNG FOLLOWUP WO [facility] Radiology Routine Lung nodules Expected: 06/07/2023, Expires: 01/05/2024 [facility] Work Phone: Comment on above: Expected: 06/07/2023 , Expires: 01/05/2024 Start: 05-13-2023 [facility] Start: 03-30-2023 End: 05-30-2023 CBC W Auto Differential panel - Blood CBC + DIFF Lab Routine Primary osteoarthritis of right knee GERD without esophagitis Hypothyroidism, unspecified type Expected: 03/30/2023, Expires: 05/30/2023 [facility] Work Phone: Comment on above: Expected: 03/30/2023 , Expires: 05/30/2023 Start: 03-30-2023 End: 05-30-2023 Comprehensive metabolic 2000 panel - Serum or Plasma COMP METABOLIC PANEL Lab Routine Primary osteoarthritis of right knee Hyperlipidemia with target LDL less than 100 GERD without esophagitis Hypothyroidism, unspecified type Expected: 03/30/2023, Expires: 05/30/2023 [facility] Work Phone: Comment on above: Expected: 03/30/2023 , Expires: 05/30/2023 Start: 03-30-2023 End: 05-30-2023 Lipid 1996 panel - Serum or Plasma LIPID PANEL BASIC Lab Routine Hyperlipidemia with target LDL less than 100 Expected: 03/30/2023, Expires: 05/30/2023 [facility] Work Phone: Comment on above: Expected: 03/30/2023 , Expires: 05/30/2023 Start: 03-15-2023 ANNUAL PCP TEAM TELEPHONIC NURSE CASE MANAGER OLEG DISEASE VISIT ANNUAL PCP TEAM CHRONIC DISEASE VISIT [facility] Start: 03-15-2023 BP CONTROLLED (<130/80) BP CONTROLLE D (<130/80) [facility] Start: 03-15-2023 COVID-19 VACCINE (3 - Booster for Pfizer series) COVID-19 VACCINE (3 - Booster for Pfizer series) [facility] Comment on above: Postponed from 11/03 (Declined at this time) Start: 03-15-2023 COVID-19 VACCINE (3 - Pfizer series) COVID-19 VACCINE (3 - Pfizer series) [facility] Comment on above: Postponed from 11/03 (Declined at this time) Start: 02-08-2023 Covid-19 Vaccine (2022- season) Covid-19 Vaccine (2022- season) [facility] Start: 02-08-2023 Influenza vaccination C [facility] Start: 11-12-2022 End: 01-12-2023 Hemoglobin A1c in Blood HGB A1C Lab Routine Dysmetabolic syndrome X Expected: 11/12/2022, Expires: 01/12/2023 [facility] Work Phone: Comment on above: Expected: 11/12/2022 , Expires: 01/12/2023 Start: 10-18-2022 End: 11-17-2023 MRI LOWER LEG WO IVCON LEFT [facility] Work Phone: Comment on above: Expected: 10/18/2022 , Expires: 11/17/2023 1 Occurrences starti ng 10/18/2022 until 10/18/2022 Start: 09-28-2022 End: 11-28-2022 Thyrotropin [Units/volume] in Serum or Plasma TSH BLD Lab Routine Hypothyroidism, unspecified type Expected: 09/28/2022, Expires: 11/28/2022 [facility] Work Phone: Comment on above: Expected: 09/28/2022 , Expires: 11/28/2022 Start: 09-26-2022 Adult depression scr eening assessment DEPRESSION SCREENING [facility] Start: 09-26-2022 ANNUAL PCP TEAM TELEPHONIC NURSE CASE MANAGER OLEG DISEASE VISIT ANNUAL PCP TEAM CHRONIC DISEASE VISIT [facility] Start: 09-26-2022 BP CONTROLLED (<130/80) BP CONTROLLE D (<130/80) [facility] Start: 06-10-2022 ADVANCE DIRECTIVE DISCUSSION ADVANCE DIRECTIVE DISCUSSION [facility] Start: 06-10-2022 DEPRESSION ASSESSMENT DEPRESSION ASS ESSMENT [facility] Start: 02-20-2022 End: 04-22-2022 Basic metabolic 2000 panel - Serum or Plasma BASIC METABOLIC PNL Lab Routine Essential hypertension, benign Expected: 02/20/2022, Expires: 04/22/2022 [facility] Work Phone: Comment on above: Expected: 02/20/2022 , Expires: 04/22/2022 Start: 02-20-2022 End: 04-22-2022 CBC panel - Blood by Automated count CBC Lab Routine Essential hypertension, benign Expected: 02/20/2022, Expires: 04/22/2022 [facility] Work Phone: Comment on above: Expected: 02/20/2022 , Expires: 04/22/2022 Start: 02-20-2022 End: 04-22-2022 Hemoglobin A1c in Blood HGB A1C Lab Routine Morbid obesity (HCC) Expected: 02/20/2022, Expires: 04/22/2022 [facility] Work Phone: Comment on above: Expected: 02/20/2022 , Expires: 04/22/2022 Start: 02-20-2022 End: 04-22-2022 Lipid 1996 panel - Serum or Plasma LIPID PANEL BASIC Lab Routine Hyperlipidemia with target LDL less than 100 Expected: 02/20/2022, Expires: 04/22/2022 [facility] Work Phone: Comment on above: Expected: 02/20/2022 , Expires: 04/22/2022 Start: 02-20-2022 End: 04-22-2022 Thyrotropin [Units/volume] in Serum or Plasma TSH BLD Lab Routine Hypothyroidism, unspecified type Expected: 02/20/2022, Expires: 04/22/2022 [facility] Work Phone: Comment on above: Expected: 02/20/2022 , Expires: 04/22/2022 Start: 02-08-2022 Influenza vaccination C [facility] Start: 06-10-2021 ADVANCE DIRECTIVE DISCUSSION ADVANCE DIRECTIVE DISCUSSION [facility] Start: 06-10-2021 DEPRESSION ASSESSMENT DEPRESSION ASS ESSMENT [facility] Start: 2021 RSV Vaccine (1 - 1-d ose 75+ series) RSV Vaccine (1 - 1-dose 75+ series) [facility] Start: 02-08-2021 COVID-19 VACCINE (3 - Booster for Pfizer series) COVID-19 VACCINE (3 - Booster for Pfizer series) [facility] Start: 11-03-2020 COVID-19 VACCINE (3 - Booster for Pfizer series) COVID-19 VACCINE (3 - Booster for Pfizer series) [facility] Start: 08-04-2020 SHINGRIX VACCINE (2 of 2) [place] GRIX VACCINE (2 of 2) [facility] Start: 03-05-2018 FECAL OCCULT BLOOD FECAL OCCULT BLOO D [facility] Start: 2006 RSV Vaccine (1 - 1-d ose 60+ series) RSV Vaccine (1 - 1-dose 60+ series) [facility] Start: 02-23-1996 Influenza vaccination LUNG CANCER SC REENING [facility] Start: 1991 COLOGUARD (FIT-DNA) COLOGUARD (FIT-D NA) [facility] Start: [address] COLONOGRAPHY [facility] Start: 1991 SIGMOIDOSCOPY SIGMOIDOSCOPY [facility] Start: 02-23-1964 Anxiety Screening Anxiety Screening [facility] Start: 02-23-1964 BP CONTROLLED (<130/80) BP CONTROLLE D (<130/80) [facility] Start: 02-23-1964 Depression Screening Depression Scre ening [facility] Start: 02-23-1964 SPIROMETRY SPIROMETRY [facility] CT Lung parenchyma W O contrast CT LUNG FOLLOWUP WO IVCON Radiology Routine Lung nodules 12/02/2023 11:32 AM EDT [facility] Work Phone: End: 01-09-2025 CT Lung parenchyma WO contrast CT LUNG FOLLOWUP WO IVCON Radiology Routine Lung nodules 1 Occurrences starting 12/11/2023 until 01/09/2025 [facility] Work Phone: Comment on above: 1 Occurrences starti ng 12/11/2023 until 01/09/2025 End: 10-26-2022 Dup-scan xtr veins unilateral/limited study US DVT LOWER LT Radiology STAT Left leg swelling Pain of left calf 1 Occurrences starting 09/26/2021 until 10/26/2022 [facility] Work Phone: Comment on above: 1 Occurrences starti ng 09/26/2021 until 10/26/2022 End: 11-13-2023 ECG COMPLETE ECG COMPLETE ECG Routine SOB (shortness of breath) Edema, unspecified type 1 Occurrences starting 11/12/2022 until 11/13/2023 [facility] Work Phone: Comment on above: 1 Occurrences starti ng 11/12/2022 until 11/13/2023 End: 02-16-2024 ECG COMPLETE ECG COMPLETE ECG Routine Irregular heart rate 1 Occurrences starting 02/15/2023 until 02/16/2024 [facility] Work Phone: Comment on above: 1 Occurrences starti ng 02/15/2023 until 02/16/2024 End: 11-13-2023 Echocardiography ECHO Cardiology Routine Elevated brain natriuretic peptide (BNP) level SOB (shortness of breath) Edema, unspecified type 1 Occurrences starting 11/12/2022 until 11/13/2023 [facility] Work Phone: Comment on above: 1 Occurrences starti ng 11/12/2022 until 11/13/2023 End: 11-02-2023 MRI LOWER LEG WO IVCON RIGHT MRI LOWER LEG WO IVCON RIGHT Radiology Routine Mass of right lower leg 1 Occurrences starting 10/03/2022 until 11/02/2023 [facility] Work Phone: Comment on above: 1 Occurrences starti ng 10/03/2022 until 11/02/2023 NM CARDIAC PERF STRESS/PHARM NM CARDIAC PERF STRESS/PHARM Radiology Routine SOB (shortness of breath) Ordered: 11/12/2022 [facility] Work Phone: Comment on above: Ordered: 11/12/2022 Patient Education ED AFIB ED Hypokalemia [facility] Work Phone: Patient referral [facility] Work Phone: PT PLAN OF CARE CERTIFICATION PT PLAN OF CARE CERTIFICATION Procedures Routine Primary osteoarthritis of right knee Knee injury, right, initial encounter Knee injuries, right, initial encounter Ordered: 12/27/2021 [facility] Comment on above: Ordered: 12/27/2021 End: 12-12-2023 Radiologic exam chest 2 views XR CHEST 2V FRONTAL/LAT Radiology Routine Elevated brain natriuretic peptide (BNP) level SOB (shortness of breath) Edema, unspecified type 1 Occurrences starting 11/12/2022 until 12/12/2023 [facility] Work Phone: Comment on above: 1 Occurrences starti ng 11/12/2022 until 12/12/2023 SPIROMETRY WITH DILA TOR IF OBSTRUCTED SPIROMETRY WITH DILATOR IF OBSTRUCTED PFT Routine SOB (shortness of breath) 01/16/2023 10:03 AM EDT [facility] Work Phone: End: 10-28-2023 US EXTREMITY MASS/FLUID COLLECTION LEFT US EXTREMITY MASS/FLUID COLLECTION LEFT Radiology Routine Subcutaneous nodule of left lower leg 1 Occurrences starting 09/28/2022 until 10/28/2023 [facility] Work Phone: Comment on above: 1 Occurrences starti ng 09/28/2022 until 10/28/2023 End: 10-01-2022 US EXTREMITY MASS/FLUID COLLECTION LEFT [facility] Work Phone: Comment on above: 1 Occurrences starti ng 10/01/2022 until 10/01/2022 End: 10-28-2023 XR DIGIT GENERAL 3V FRONTAL/LAT/OBL LEFT XR DIGIT GENERAL 3V FRONTAL/LAT/OBL LEFT Radiology Routine Injury of finger of left hand, subsequent encounter 1 Occurrences starting 09/28/2022 until 10/28/2023 [facility] Work Phone: Comment on above: 1 Occurrences starti ng 09/28/2022 until 10/28/2023 End: 10-01-2022 XR DIGIT GENERAL 3V FRONTAL/LAT/OBL LEFT [facility] Work Phone: Comment on above: 1 Occurrences starti ng 10/01/2022 until 10/01/2022 End: 05-23-2024 XR FOOT GENERAL 3V AP/LAT/OBL BILATERAL XR FOOT GENERAL 3V AP/LAT/OBL BILATERAL Radiology Routine Foot pain, bilateral 1 Occurrences starting 04/24/2023 until 05/23/2024 [facility] Work Phone: Comment on above: 1 Occurrences starti ng 04/24/2023 until 05/23/2024 XR FOOT GENERAL 3V AP/LAT/OBL BILATERAL XR FOOT GENERAL 3V AP/LAT/OBL BILATERAL Radiology Routine Foot pain, bilateral 04/24/2023 4:30 PM EST [facility] Work Phone: [facility] Immunizations Immunization Date Immunization Notes Care Provider Corrine greer 07-06-2024 influenza, high dose seasonal, preservative-free Preethi Mcclure BRAIDING MACHINE TENDER.OTOLARYNGOLOGY NURSE Work Phone: [facility] 04-24-2023 influenza (HD-IIV4) vaccine, age 65+ yr, high dose, quadrivalent, PF (FLUZONE HIGH-DOSE) Bradley Causey MD Work Phone: [facility] 04-24-2023 influenza virus vacc ine, unspecified formulation Fredis Khan BRAIDING MACHINE TENDEREleazarOTOLARYNGOLOGY NURSE Work Phone: [facility] 03-15-2022 influenza, high-dose , quadrivalent vaccine (FLUZONE HIGH DOSE QUADRIVALENT) NA Gibbons PA-C Work Phone: [facility] 03-15-2022 influenza virus vacc ine, unspecified formulation Bradley Causey MD Work Phone: [facility] 11-06-2020 zoster vaccine recombinant NA Gibbons PA-C Work Phone: [facility] 09-08-2020 COVID-19 vaccine, ag e 12+ yr (PFIZER-BIONTECH - PURPLE TOP) NA Gibbons PA-C Work Phone: [facility] 08-18-2020 COVID-19 vaccine, ag e 12+ yr (PFIZER-BIONTECH - PURPLE TOP) NA Gibbons PA-C Work Phone: [facility] 06-09-2020 influenza, high-dose , quadrivalent vaccine (FLUZONE HIGH DOSE QUADRIVALENT) NA Gibbons PA-C Work Phone: [facility] 06-09-2020 zoster vaccine recombinant NA Gibbons PA-C Work Phone: [facility] 06-19-2019 influenza, high dose seasonal, preservative-free NA Gibbons PA-C Work Phone: [facility] 02-26-2018 influenza, high dose seasonal, preservative-free NA Gibbons PA-C Work Phone: [facility] 03-06-2017 influenza, high dose seasonal, preservative-free NA Gibbons PA-C Work Phone: [facility] 07-11-2016 influenza, high dose seasonal, preservative-free NA Gibbons PA-C Work Phone: [facility] 07-11-2016 pneumococcal polysaccharide vaccine, 23 valent NA Gibbons PA-C Work Phone: [facility] 12-20-2014 pneumococcal conjuga te vaccine, 13 valent NA Gibbons PA-C Work Phone: [facility] 12-20-2014 tetanus toxoid, redu jacquelyn diphtheria toxoid, and acellular pertussis vaccine, adsorbed NA Gibbons PA-C Work Phone: [facility] 04-23-2014 influenza, high dose seasonal, preservative-free NA Gibbons PA-C Work Phone: [facility] 04-24-2012 influenza virus vacc ine, unspecified formulation NA Gibbons PA-C Work Phone: [facility] 05-05-2010 influenza virus vacc ine, unspecified formulation NA Gibbons PA-C Work Phone: [facility] 05-05-2010 pneumococcal polysaccharide vaccine, 23 valent NA Gibbons PA-C Work Phone: [facility] 03-10-2009 influenza virus vacc ine, unspecified formulation NA Gibbons PA-C Work Phone: [facility] 11-30-2004 diphtheria and tetan us toxoids, adsorbed for pediatric use NA Gibbons PA-C Work Phone: [facility] Payers Date Payer Category Payer Self-pay [id number] 2021 Medicare [employer] MEDICARE A ETNA MEDICARE PPO [id number] 2021-Present [phone] [address] [place] [address] O [id number] 2021 Medicare (Managed Care) [employer] CT VIJAY [id number] 2020 Medicare [id number] 2014 Medicare [id number] Medicare MEDICARE PART A B [id number] Unknown [id number] Unknown [id number] Unknown [id number] Social History Date Type Detail Facility Start: 07-24-2011 End: 03-02-2024 Tobacco smoking status IDIS Smokes tobacco daily [facility] History of tobacco use Cigarette Smoker C [facility] Start: 09-26-2021 End: 07-21-2024 Alcohol intake Current drinker of alcohol (finding) [facility] Start: 1945 Sex Assigned At Not on file C [facility] Start: 07-23-2020 End: 03-15-2022 Exposure to SARS-CoV-2 (event) Not sure [facility] Start: 07-24-2011 End: 05-15-2020 Cigarettes smoked current (pack per day) - Reported 1 [facility] Work Phone: Start: 07-24-2011 End: 03-02-2024 Tobacco use and exposure Smokeless tobacco non-user [facility] Start: 05-15-2020 End: 01-16-2023 Tobacco use panel [facility] Work Phone: Adult Depression Screening Assessment 0 [facility] Work Phone: Start: 05-13-2023 [facility] Start: 1945 Sex Assigned At Female [facility] Functional Status Date Assessment Result Facility 12-20-2014 Are you deaf, or do you have serious difficulty hearing No 12/20/2014 3:44 PM EDT Monica Arreguin MA No [facility] 12-20-2014 Are you blind, or do you have serious difficulty seeing, even when wearing glasses No 12/20/2014 3:44 PM EDT Monica Arreguin MA No [facility] 12-20-2014 Do you have serious difficulty walking or climbing stairs No 12/20/2014 3:44 PM EDT Monica Arreguin MA No [facility] 12-20-2014 Do you have difficul ty dressing or bathing No 12/20/2014 3:44 PM EDT Monica Arreguin MA No [facility] 12-20-2014 Because of a physica l, mental, or emotional condition, do you have difficulty doing errands alone such as visiting a physician's office or shopping No 12/20/2014 3:44 PM EDT Monica Arreguin MA No [facility] Mental Status Date Assessment Result Facility 05-13-2023 Cognitive function Voice/Name [facility] Work Phone: 12-20-2014 Because of a physica l, mental, or emotional condition, do you have serious difficulty concentrating, remembering, or making decisions No 12/20/2014 3:44 PM EDT Monica Arreguin MA No [facility] Clinical Notes 06-06-2018 to 11-09-2024 Telephone Encounter - Michael Mistry LPN - 11/09/2024 3:51 PM EDTTelephone Encounter - Michael Mistry LPN - 11/09/2024 3:51 PM EDTTelephone Encounter - Monica Arreguin MA - 10/19/2024 9:19 AM EDT Note Date & Type Note Facility 11-09-2024 Telephone encounter Note Prescription Refill Information The patient has been identified by name and date of : Yes Caregiver verified no other encounters exist for this prescription request: Yes Caregiver confirmed with patient/requestor that no other refills are due, in the near future, with this provider at this time: Yes The last office visit in the department: 07/21/24 Does the patient have a future office visit with this provider/department: Yes, 01/18/25 Requested Prescriptions Pending Prescriptions Disp Refills furosemide (LASIX) 40 mg tablet 90 tablet 3 Sig: Take 1 tablet by mouth once daily. Michael Mistry LPN November 09, 2024 3:51 PM [facility] 11-09-2024 Miscellaneous Notes Prescription Refill Information The patient has been identified by name and date of : Yes Caregiver verified no other encounters exist for this prescription request: Yes Caregiver confirmed with patient/requestor that no other refills are due, in the near future, with this provider at this time: Yes The last office visit in the department: 07/21/24 Does the patient have a future office visit with this provider/department: Yes, 01/18/25 Requested Prescriptions Pending Prescriptions Disp Refills furosemide (LASIX) 40 mg tablet 90 tablet 3 Sig: Take 1 tablet by mouth once daily. Michael Mistry LPN November 09, 2024 3:51 PM documented in this encounter [facility] 10-19-2024 Telephone encounter Note Prescription Refill Information The patient has been identified by name and date of : Yes Caregiver verified no other encounters exist for this prescription request: Yes Caregiver confirmed with patient/requestor that no other refills are due, in the near future, with this provider at this time: Yes The last office visit in the department: 07/2024 Does the patient have a future office visit with this provider/department: Yes Last prescription written 2022 Requested Prescriptions Pending Prescriptions Disp Refills simvastatin (ZOCOR) 20 mg tablet 90 tablet 3 Sig: Take 1 tablet by mouth daily at bedtime. Monica Arreguin MA October 19, 2024 9:19 AM [facility] 10-19-2024 Miscellaneous Notes Prescription Refill Information The patient has been identified by name and date of : Yes Caregiver verified no other encounters exist for this prescription request: Yes Caregiver confirmed with patient/requestor that no other refills are due, in the near future, with this provider at this time: Yes The last office visit in the department: 07/2024 Does the patient have a future office visit with this provider/department: Yes Last prescription written 2022 Requested Prescriptions Pending Prescriptions Disp Refills simvastatin (ZOCOR) 20 mg tablet 90 tablet 3 Sig: Take 1 tablet by mouth daily at bedtime. Monica Arreguin MA October 19, 2024 9:19 AM documented in this encounter [facility] 07-21-2024 Instructions Preethi Mcclure APRN.CNP - 07/21/2024 10:46 AM EST 1) Follow up in 6 months and if needed documented in this encounter [facility] 07-21-2024 Note HNO ID: [id number] Author: PREETHI MCCLURE APRN.CNP Service: ? Author Type: Nurse Practitioner Type: Progress Notes Filed: 07/21/2024 10:46 Note Text: This is a 79 year old female who presents today with: Patient presents with: Follow Up HISTORY OF PRESENT ILLNESS: Maria Esther Reddy is a 79 year old female. Patient presents with: Follow Up Tearful. admitted to [facility]- metastatic cancer. Considering hospice Cough is better Mirtazepine helped with sleep. Lasts about 4 hours. 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 CHF (congestive heart failure) (HCC) Dysmetabolic syndrome X Hyperlipidemia LDL goal < 100 06/20/2012 Morbid obesity (HCC) 06/09/2012 Other osteoporosis Other symptoms involving cardiovascular system Personal history of colonic polyps Phlebitis and thrombophlebitis of other deep vessels of lower extremities Unspecified hypothyroidism H/o Radioactive Iodine Treatment Unspecified vitamin D deficiency PAST SURGICAL HISTORY Procedure Laterality Date ADENOIDECTOMY PRIMARY Adenoidectomy COLONOSCOPY W/BIOPSY SINGLE/MULTIPLE 12/10/08 3 small polyps COLSC FLX W/RMVL OF TUMOR POLYP LESION SNARE TQ COLSC FLX W/RMVL OF TUMOR POLYP LESION SNARE TQ 03/18/15 2 polyps in transverse colon - no retrieved, 2 at 20 nd 30cm EGD TRANSORAL BIOPSY SINGLE/MULTIPLE 03/18/15 duodenitis, small hiatal hernia LIG/TRNSXJ FLP TUBE ABDL/VAG APPR UNI/BI Tubal ligation NEUROPLASTY AND/TRANSPOS MEDIAN NRV CARPAL TUNNE Carpal tunnel decomp- both PAST SURGICAL HISTORY OF radioactive iodine to thyroid TONSILLECTOMY PRIMARY/SECONDARY Tonsillectomy ALLERGIES Sulfa (Sulfonamide Antibiotics) MEDICATIONS Current Outpatient Medications Medication Sig ELIQUIS 5 mg tab(s) Take 1 tablet by mouth two times a day. Mirtazapine (REMERON) 7.5 mg tablet Take 1 tablet by mouth daily at bedtime. levothyroxine (SYNTHROID) 150 mcg tablet Take 1 tablet by mouth daily before breakfast. metoprolol succinate ER (TOPROL XL) 50 mg 24 hr tablet Take 1.5 tablets by mouth once daily. furosemide (LASIX) 40 mg tablet Take 1 tablet by mouth once daily. budesonide-formoterol (SYMBICORT) 160-4.5 mcg/actuation inhaler Inhale 2 Puffs as instructed two times a day. omeprazole (PRILOSEC) 40 mg capsule Take 1 capsule by mouth once daily. simvastatin (ZOCOR) 20 mg tablet Take 1 tablet by mouth daily at bedtime. albuterol HFA (PROVENTIL HFA, VENTOLIN HFA) 90 mcg/actuation inhaler Inhale 2 Puffs as instructed every 4 hours as needed for wheezing/shortness of breath. fluticasone (FLONASE) 50 mcg/actuation nasal spray Use 1 [place] in each nostril once daily. No current facility-administered medications for this visit. FAMILY HISTORY Problem Relation Age of Onset Stroke Mother Heart Mother other (atrial fibulation) Mother Heart Father Alzheimer's Disease Father Diabetes Father other (PARKINSONS) Father other (atrial fibrillation) Brother artificial heart valve Colon Cancer Brother other (colon polyps) Brother Social History Tobacco Use Smoking status: Every Day Current packs/day: 1.00 Average packs/day: 1 pack/day for 57.0 years (57.0 ttl pk-yrs) Types: Cigarettes Smokeless tobacco: Never Vaping Use Vaping status: Never Used Substance Use Topics Alcohol use: Yes Comment: once a year Drug use: No EXAM: BP 134/56 Pulse 64 Temp 36.9 ?C (98.4 ?F) (Right Tympanic) Wt 112.5 kg (248 lb) SpO2 94% BMI 45.36 kg/m? PHYSICAL EXAM: Physical Exam Vitals reviewed. Constitutional: Appearance: Normal appearance. Cardiovascular: Rate and Rhythm: Normal rate and regular rhythm. Pulses: Normal pulses. Heart sounds: Normal heart sounds. Pulmonary: Effort: Pulmonary effort is normal. Breath sounds: Normal breath sounds. Musculoskeletal: General: Normal range of motion. Comments: Generalized weakness, presents in wheelchair- not able to ambulate any distance Skin: General: Skin is warm and dry. Neurological: Mental Status: She is alert and oriented to person, place, and time. Psychiatric: Comments: Tearful and sad about decline of who has stage IV metastatic cancer LABS: ASSESSMENT/PLAN: 1. Acute exacerbation of chronic obstructive pulmonary disease (COPD) (HCC) - ICD9: 491.21, ICD10: J44.1 (primary diagnosis) Acute flare resolved but pt. With JEROME 2. Chronic insomnia - ICD9: 780.52, ICD10: F51.04 Continue Mirtazapine 7.5 mg at bedtime Discussed treatment plan and patient voices understanding. Patient's questions answered appropriately. Medications and potential side effects were discussed and patient voices understanding. Return to the office as scheduled or as needed for worsening/no improvement. Preethi Mcclure, RASHI.[facility] 07-21-2024 History of Presen t illness Narrative This is a 79 year old female who presents today with: Patient presents with: Follow Up HISTORY OF PRESENT ILLNESS: Maria Esther Reddy is a 79 year old female. Patient presents with: Follow Up Tearful. admitted to [facility]- metastatic cancer. Considering hospice Cough is better Mirtazepine helped with sleep. Lasts about 4 hours. 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 CHF (congestive heart failure) (HCC) Dysmetabolic syndrome X Hyperlipidemia LDL goal < 100 06/20/2012 Morbid obesity (HCC) 06/09/2012 Other osteoporosis Other symptoms involving cardiovascular system Personal history of colonic polyps Phlebitis and thrombophlebitis of other deep vessels of lower extremities Unspecified hypothyroidism H/o Radioactive Iodine Treatment Unspecified vitamin D deficiency PAST SURGICAL HISTORY Procedure Laterality Date ADENOIDECTOMY PRIMARY <AGE 13 Adenoidectomy COLONOSCOPY W/BIOPSY SINGLE/MULTIPLE 12/10/08 3 small polyps COLSC FLX W/RMVL OF TUMOR POLYP LESION SNARE TQ COLSC FLX W/RMVL OF TUMOR POLYP LESION SNARE TQ 03/18/15 2 polyps in transverse colon - no retrieved, 2 at 20 nd 30cm EGD TRANSORAL BIOPSY SINGLE/MULTIPLE 03/18/15 duodenitis, small hiatal hernia LIG/TRNSXJ FLP TUBE ABDL/VAG APPR UNI/BI Tubal ligation NEUROPLASTY &/TRANSPOS MEDIAN NRV CARPAL TUNNE Carpal tunnel decomp- both PAST SURGICAL HISTORY OF radioactive iodine to thyroid TONSILLECTOMY PRIMARY/SECONDARY <AGE 13 Tonsillectomy ALLERGIES Sulfa (Sulfonamide Antibiotics) MEDICATIONS Current Outpatient Medications Medication Sig ELIQUIS 5 mg tab(s) Take 1 tablet by mouth two times a day. Mirtazapine (REMERON) 7.5 mg tablet Take 1 tablet by mouth daily at bedtime. levothyroxine (SYNTHROID) 150 mcg tablet Take 1 tablet by mouth daily before breakfast. metoprolol succinate ER (TOPROL XL) 50 mg 24 hr tablet Take 1.5 tablets by mouth once daily. furosemide (LASIX) 40 mg tablet Take 1 tablet by mouth once daily. budesonide-formoterol (SYMBICORT) 160-4.5 mcg/actuation inhaler Inhale 2 Puffs as instructed two times a day. omeprazole (PRILOSEC) 40 mg capsule Take 1 capsule by mouth once daily. simvastatin (ZOCOR) 20 mg tablet Take 1 tablet by mouth daily at bedtime. albuterol HFA (PROVENTIL HFA, VENTOLIN HFA) 90 mcg/actuation inhaler Inhale 2 Puffs as instructed every 4 hours as needed for wheezing/shortness of breath. fluticasone (FLONASE) 50 mcg/actuation nasal spray Use 1 [place] in each nostril once daily. No current facility-administered medications for this visit. FAMILY HISTORY Problem Relation Age of Onset Stroke Mother Heart Mother other (atrial fibulation) Mother Heart Father Alzheimer's Disease Father Diabetes Father other (PARKINSONS) Father other (atrial fibrillation) Brother artificial heart valve Colon Cancer Brother other (colon polyps) Brother Social History Tobacco Use Smoking status: Every Day Current packs/day: 1.00 Average packs/day: 1 pack/day for 57.0 years (57.0 ttl pk-yrs) Types: Cigarettes Smokeless tobacco: Never Vaping Use Vaping status: Never Used Substance Use Topics Alcohol use: Yes Comment: once a year Drug use: No EXAM: BP 134/56 Pulse 64 Temp 36.9 C (98.4 F) (Right Tympanic) Wt 112.5 kg (248 lb) SpO2 94% BMI 45.36 kg/m PHYSICAL EXAM: Physical Exam Vitals reviewed. Constitutional: Appearance: Normal appearance. Cardiovascular: Rate and Rhythm: Normal rate and regular rhythm. Pulses: Normal pulses. Heart sounds: Normal heart sounds. Pulmonary: Effort: Pulmonary effort is normal. Breath sounds: Normal breath sounds. Musculoskeletal: General: Normal range of motion. Comments: Generalized weakness, presents in wheelchair- not able to ambulate any distance Skin: General: Skin is warm and dry. Neurological: Mental Status: She is alert and oriented to person, place, and time. Psychiatric: Comments: Tearful and sad about decline of who has stage IV metastatic cancer LABS: ASSESSMENT/PLAN: 1. Acute exacerbation of chronic obstructive pulmonary disease (COPD) ([facility]) - ICD9: 491.21, ICD10: J44.1 (primary diagnosis) Acute flare resolved but pt. With JEROME 2. Chronic insomnia - ICD9: 780.52, ICD10: F51.04 Continue Mirtazapine 7.5 mg at bedtime Discussed treatment plan and patient voices understanding. Patient's questions answered appropriately. Medications and potential side effects were discussed and patient voices understanding. Return to the office as scheduled or as needed for worsening/no improvement. Preethi Mcclure APRN.OTOLARYNGOLOGY NURSE documented in this encounter [facility] 07-07-2024 Miscellaneous Notes Patient calling with prescription related question. Information provided. Maryam Oswald RN documented in this encounter [facility] 07-07-2024 Telephone encounter Note Patient calling with prescription related question. Information provided. Maryam Oswald RN [facility] 07-06-2024 Instructions Preethi Mcclure APRN.CNP - 07/06/2024 10:14 AM EST 1) Check labs 2) Mirtazapine 7.5 mg at bedtime 3) Augmentin 875 mg 2 x day 4) Influenza vaccine 5) Follow up in 2 weeks documented in this encounter [facility] 07-06-2024 Note HNO ID: [id number] Author: PREETHI MCCLURE APRN.CNP Service: ? Author Type: Physician Type: Progress Notes Filed: 07/06/2024 11:18 Note Text: This is a 79 year old female who presents today with: Patient presents with: 6 Month Exam HISTORY OF PRESENT ILLNESS: Maria Esther Reddy is a 79 year old female. Patient presents with: 6 Month Exam Tearful. Under much stress with who has cancer. Not sleeping well- only about 3- 4 hours. PAST MEDICAL HISTORY: PAST MEDICAL HISTORY Diagnosis Date A-fib (HCC) Arthritis of knee, right 06/09/2012 Benign neoplasm of colon 06/10/2002 CHF (congestive heart failure) (HCC) Dysmetabolic syndrome X Hyperlipidemia LDL goal < 100 06/20/2012 Morbid obesity (HCC) 06/09/2012 Other osteoporosis Other symptoms involving cardiovascular system Personal history of colonic polyps Phlebitis and thrombophlebitis of other deep vessels of lower extremities Unspecified hypothyroidism H/o Radioactive Iodine Treatment Unspecified vitamin D deficiency PAST SURGICAL HISTORY Procedure Laterality Date ADENOIDECTOMY PRIMARY Adenoidectomy COLONOSCOPY W/BIOPSY SINGLE/MULTIPLE 12/10/08 3 small polyps COLSC FLX W/RMVL OF TUMOR POLYP LESION SNARE TQ COLSC FLX W/RMVL OF TUMOR POLYP LESION SNARE TQ 03/18/15 2 polyps in transverse colon - no retrieved, 2 at 20 nd 30cm EGD TRANSORAL BIOPSY SINGLE/MULTIPLE 03/18/15 duodenitis, small hiatal hernia LIG/TRNSXJ FLP TUBE ABDL/VAG APPR UNI/BI Tubal ligation NEUROPLASTY AND/TRANSPOS MEDIAN NRV CARPAL TUNNE Carpal tunnel decomp- both PAST SURGICAL HISTORY OF radioactive iodine to thyroid TONSILLECTOMY PRIMARY/SECONDARY Tonsillectomy ALLERGIES Sulfa (Sulfonamide Antibiotics) MEDICATIONS Current Outpatient Medications Medication Sig levothyroxine (SYNTHROID) 150 mcg tablet Take 1 tablet by mouth daily before breakfast. metoprolol succinate ER (TOPROL XL) 50 mg 24 hr tablet Take 1.5 tablets by mouth once daily. furosemide (LASIX) 40 mg tablet Take 1 tablet by mouth once daily. budesonide-formoterol (SYMBICORT) 160-4.5 mcg/actuation inhaler Inhale 2 Puffs as instructed two times a day. omeprazole (PRILOSEC) 40 mg capsule Take 1 capsule by mouth once daily. simvastatin (ZOCOR) 20 mg tablet Take 1 tablet by mouth daily at bedtime. albuterol HFA (PROVENTIL HFA, VENTOLIN HFA) 90 mcg/actuation inhaler Inhale 2 Puffs as instructed every 4 hours as needed for wheezing/shortness of breath. fluticasone (FLONASE) 50 mcg/actuation nasal spray Use 1 [place] in each nostril once daily. ELIQUIS 5 mg tab(s) Take 1 tablet by mouth two times a day. No current facility-administered medications for this visit. FAMILY HISTORY Problem Relation Age of Onset Stroke Mother Heart Mother other (atrial fibulation) Mother Heart Father Alzheimer's Disease Father Diabetes Father other (PARKINSONS) Father other (atrial fibrillation) Brother artificial heart valve Colon Cancer Brother other (colon polyps) Brother Social History Tobacco Use Smoking status: Every Day Current packs/day: 1.00 Average packs/day: 1 pack/day for 57.0 years (57.0 ttl pk-yrs) Types: Cigarettes Smokeless tobacco: Never Vaping Use Vaping status: Never Used Substance Use Topics Alcohol use: Yes Comment: once a year Drug use: No REVIEW OF SYSTEMS GENERAL: No weight loss- some gain, no malaise no fevers/chills HEENT: Left frontal for frequent or significant headaches, No changes in hearing or vision. NECK: Left sided lumps, goiter, pain and significant neck swelling RESPIRATORY: Productive cough, no hemoptysis, + wheezing, + dyspnea or shortness of breath, + tobacco- getting LDCT in November CARDIOVASCULAR: Negative for chest pain, + leg swelling, no orthopnea, no palpitations GI: No nausea, vomiting, or diarrhea/constipation. No hematochezia/melena. No heartburn or reflux symptoms. : No history of dysuria, no frequency, + incontinence MUSCULOSKELETAL: Right knee joint painSKIN: Negative for lesions, rash, and itching ENDOCRINE: Negative for cold or heat intolerance, polyuria, polydipsia and goiter NEURO: No history of headaches, syncope, paralysis, seizures or tremors MOOD: Both depression, anxiety, sometimes suicidal ideation. EXAM: BP 120/64 Pulse 64 Temp 36.9 ?C (98.4 ?F) (Tympanic) Resp 16 Wt 110.7 kg (244 lb) SpO2 97% BMI 44.63 kg/m? PHYSICAL EXAM: Physical Exam Vitals reviewed. Constitutional: Appearance: Normal appearance. HENT: Head: Normocephalic. Right Ear: Ear canal and external ear normal. There is no impacted cerumen. Left Ear: Ear canal and external ear normal. There is no impacted cerumen. Ears: Comments: Both TM bulging and red Nose: Congestion and rhinorrhea present. Mouth/Throat: Pharynx: Oropharyngeal exudate and posterior oropharyngeal erythema present. Cardiovascular: Rate and Rhythm: Normal rate and regular rhythm. Pulses: Normal pulses. H (more content not included)... [facility] 07-06-2024 History of Presen t illness Narrative This is a 79 year old female who presents today with: Patient presents with: 6 Month Exam HISTORY OF PRESENT ILLNESS: Maria Esther Reddy is a 79 year old female. Patient presents with: 6 Month Exam Tearful. Under much stress with who has cancer. Not sleeping well- only about 3- 4 hours. PAST MEDICAL HISTORY: PAST MEDICAL HISTORY Diagnosis Date A-fib (HCC) Arthritis of knee, right 06/09/2012 Benign neoplasm of colon 06/10/2002 CHF (congestive heart failure) (HCC) Dysmetabolic syndrome X Hyperlipidemia LDL goal < 100 06/20/2012 Morbid obesity (HCC) 06/09/2012 Other osteoporosis Other symptoms involving cardiovascular system Personal history of colonic polyps Phlebitis and thrombophlebitis of other deep vessels of lower extremities Unspecified hypothyroidism H/o Radioactive Iodine Treatment Unspecified vitamin D deficiency PAST SURGICAL HISTORY Procedure Laterality Date ADENOIDECTOMY PRIMARY <AGE 13 Adenoidectomy COLONOSCOPY W/BIOPSY SINGLE/MULTIPLE 12/10/08 3 small polyps COLSC FLX W/RMVL OF TUMOR POLYP LESION SNARE TQ COLSC FLX W/RMVL OF TUMOR POLYP LESION SNARE TQ 03/18/15 2 polyps in transverse colon - no retrieved, 2 at 20 nd 30cm EGD TRANSORAL BIOPSY SINGLE/MULTIPLE 03/18/15 duodenitis, small hiatal hernia LIG/TRNSXJ FLP TUBE ABDL/VAG APPR UNI/BI Tubal ligation NEUROPLASTY &/TRANSPOS MEDIAN NRV CARPAL TUNNE Carpal tunnel decomp- both PAST SURGICAL HISTORY OF radioactive iodine to thyroid TONSILLECTOMY PRIMARY/SECONDARY <AGE 13 Tonsillectomy ALLERGIES Sulfa (Sulfonamide Antibiotics) MEDICATIONS Current Outpatient Medications Medication Sig levothyroxine (SYNTHROID) 150 mcg tablet Take 1 tablet by mouth daily before breakfast. metoprolol succinate ER (TOPROL XL) 50 mg 24 hr tablet Take 1.5 tablets by mouth once daily. furosemide (LASIX) 40 mg tablet Take 1 tablet by mouth once daily. budesonide-formoterol (SYMBICORT) 160-4.5 mcg/actuation inhaler Inhale 2 Puffs as instructed two times a day. omeprazole (PRILOSEC) 40 mg capsule Take 1 capsule by mouth once daily. simvastatin (ZOCOR) 20 mg tablet Take 1 tablet by mouth daily at bedtime. albuterol HFA (PROVENTIL HFA, VENTOLIN HFA) 90 mcg/actuation inhaler Inhale 2 Puffs as instructed every 4 hours as needed for wheezing/shortness of breath. fluticasone (FLONASE) 50 mcg/actuation nasal spray Use 1 [place] in each nostril once daily. ELIQUIS 5 mg tab(s) Take 1 tablet by mouth two times a day. No current facility-administered medications for this visit. FAMILY HISTORY Problem Relation Age of Onset Stroke Mother Heart Mother other (atrial fibulation) Mother Heart Father Alzheimer's Disease Father Diabetes Father other (PARKINSONS) Father other (atrial fibrillation) Brother artificial heart valve Colon Cancer Brother other (colon polyps) Brother Social History Tobacco Use Smoking status: Every Day Current packs/day: 1.00 Average packs/day: 1 pack/day for 57.0 years (57.0 ttl pk-yrs) Types: Cigarettes Smokeless tobacco: Never Vaping Use Vaping status: Never Used Substance Use Topics Alcohol use: Yes Comment: once a year Drug use: No REVIEW OF SYSTEMS GENERAL: No weight loss- some gain, no malaise no fevers/chills HEENT: Left frontal for frequent or significant headaches, No changes in hearing or vision. NECK: Left sided lumps, goiter, pain and significant neck swelling RESPIRATORY: Productive cough, no hemoptysis, + wheezing, + dyspnea or shortness of breath, + tobacco- getting LDCT in November CARDIOVASCULAR: Negative for chest pain, + leg swelling, no orthopnea, no palpitations GI: No nausea, vomiting, or diarrhea/constipation. No hematochezia/melena. No heartburn or reflux symptoms. : No history of dysuria, no frequency, + incontinence MUSCULOSKELETAL: Right knee joint painSKIN: Negative for lesions, rash, and itching ENDOCRINE: Negative for cold or heat intolerance, polyuria, polydipsia and goiter NEURO: No history of headaches, syncope, paralysis, seizures or tremors MOOD: Both depression, anxiety, sometimes suicidal ideation. EXAM: BP 120/64 Pulse 64 Temp 36.9 C (98.4 F) (Tympanic) Resp 16 Wt 110.7 kg (244 lb) SpO2 97% BMI 44.63 kg/m PHYSICAL EXAM: Physical Exam Vitals reviewed. Constitutional: Appearance: Normal appearance. HENT: Head: Normocephalic. Right Ear: Ear canal and external ear normal. There is no impacted cerumen. Left Ear: Ear canal and external ear normal. There is no impacted cerumen. Ears: Comments: Both TM bulging and red Nose: Congestion and rhinorrhea present. Mouth/Throat: Pharynx: Oropharyngeal exudate and posterior oropharyngeal erythema present. Cardiovascular: Rate and Rhythm: Normal rate and regular rhythm. Pulses: Normal pulses. Heart sounds: Normal heart sounds. Comments: Diminished at apex Pulmonary: Effort: Pulmonary effort is normal. Comments: Poor air exchange Abdominal: General: Bowel sounds are normal. Palpations: Abdomen is soft. Tenderness: There is no abdominal tenderness. There is no guarding. Musculoskeletal: General: Normal range of motion. Comments: Walks w/o assistive device Skin: Comments: Cool and dry Neurological: Mental Status: She is alert and oriented to person, place, and time. Psychiatric: Comments: Very tearful LABS: check labs ASSESSMENT/PLAN: 1. Paroxysmal atrial fibrillation (HCC) - ICD9: 427.31, ICD10: I48.0 (primary diagnosis) anticoagulated - ELIQUIS 5 MG TABLET - COMPLETE BLOOD COUNT AND DIFFERENTIAL - THYROID STIMULATING HORMONE - VITAMIN B12 2. Screening for depression - ICD9: V79.0, ICD10: Z13.31 depressed - DEPRESSION SCREENING 3. Encounter for screening examination for other mental health and behavioral disorders - ICD9: V79.8, ICD10: Z13.39 Worsening by insomnia - ANXIETY SCREENING 4. Anxiety with depression - ICD9: 300.4, ICD10: F41.8 Worsening by insomnia - MIRTAZAPINE 7.5 MG TABLET 5. Chronic insomnia - ICD9: 780.52, ICD10: F51.04 Ongoing - MIRTAZAPINE 7.5 MG TABLET qhs - THYROID STIMULATING HORMONE 6. Essential hypertension, benign - ICD9: 401.1, ICD10: I10 - Controlled - Recommend home blood pressure monitoring, to bring results to next visit - Encouraged sodium restriction, DASH or Mediterranean diet - Recommend regular aerobic exercise 7. Hyperlipidemia with target LDL less than 100 - ICD9: 272.4, ICD10: E78.5 - Control undetermined, due for labs - Counseled on healthy diet and regular exercise - LIPID PANEL, NONFASTING 8. COPD, mild (HCC) - ICD9: 496, ICD10: J44.9 ongoing - COMPREHENSIVE METABOLIC PANEL - MAGNESIUM - HEMOGLOBIN A1C 9. Prediabetes - ICD9: 790.29, ICD10: R73.03 Check labs - COMPREHENSIVE METABOLIC PANEL - MAGNESIUM - HEMOGLOBIN A1C 10. Encounter for immunization - ICD9: V03.89, ICD10: Z23 - INFLUENZA VACCINE, PRSV FREE, AGE 65+ YR, HIGH DOSE, TRIVALENT (FLUZONE HIGH-DOSE) 11. Acute maxillary sinusitis, recurrence not specified - ICD9: 461.0, ICD10: J01.00 - Will begin treatment with Augmentin 875 mg PO BID for 10 days Discussed treatment plan and patient voices understanding. Patient's questions answered appropriately. Medications and potential side effects were discussed and patient voices understanding. Return to the office as scheduled or as needed for worsening/no improvement. Preethi Mcclure APRN.CHRISTIANA documented in this encounter [facility] 05-25-2024 Telephone encounter Note Prescription Refill Information The patient has been identified by name and date of : Yes Caregiver verified no other encounters exist for this prescription request: Yes Caregiver confirmed with patient/requestor that no other refills are due, in the near future, with this provider at this time: Yes The last office visit in the department: 03/02/24 Does the patient have a future office visit with this provider/department: Yes, 07/06/24 Requested Prescriptions Pending Prescriptions Disp Refills levothyroxine (SYNTHROID) 150 mcg tablet 90 tablet 3 Sig: Take 1 tablet by mouth daily before breakfast. Michael Mistry LPN May 25, 2024 12:46 PM [facility] 05-25-2024 Miscellaneous Notes Prescription Refill Information The patient has been identified by name and date of : Yes Caregiver verified no other encounters exist for this prescription request: Yes Caregiver confirmed with patient/requestor that no other refills are due, in the near future, with this provider at this time: Yes The last office visit in the department: 03/02/24 Does the patient have a future office visit with this provider/department: Yes, 07/06/24 Requested Prescriptions Pending Prescriptions Disp Refills levothyroxine (SYNTHROID) 150 mcg tablet 90 tablet 3 Sig: Take 1 tablet by mouth daily before breakfast. Michael Mistry LPN May 25, 2024 12:46 PM documented in this encounter [facility] 05-22-2024 Telephone encounter Note Prescription Refill Information The patient has been identified by name and date of : Yes Caregiver verified no other encounters exist for this prescription request: Yes Caregiver confirmed with patient/requestor that no other refills are due, in the near future, with this provider at this time: No The last office visit in the department: 03/02/24 Does the patient have a future office visit with this provider/department: Yes Requested Prescriptions Pending Prescriptions Disp Refills ELIQUIS 5 mg tab(s) 20 tablet 0 Sig: Take 1 tablet by mouth two times a day. Nadiya Baum MA May 22, 2024 3:42 PM [facility] 05-22-2024 Miscellaneous Notes Prescription Refill Information The patient has been identified by name and date of : Yes Caregiver verified no other encounters exist for this prescription request: Yes Caregiver confirmed with patient/requestor that no other refills are due, in the near future, with this provider at this time: No The last office visit in the department: 03/02/24 Does the patient have a future office visit with this provider/department: Yes Requested Prescriptions Pending Prescriptions Disp Refills ELIQUIS 5 mg tab(s) 20 tablet 0 Sig: Take 1 tablet by mouth two times a day. Nadiya Baum MA May 22, 2024 3:42 PM documented in this encounter [facility] 05-11-2024 Telephone encounter Note The following approved medication requests have been transmitted electronically. Requested Prescriptions Pending Prescriptions Disp Refills metoprolol succinate ER (TOPROL XL) 50 mg 24 hr tablet 135 tablet 2 Sig: Take 1.5 tablets by mouth once daily. Preethi A Suppan, BRAIDING MACHINE TENDER.OTOLARYNGOLOGY NURSE [facility] 05-11-2024 Miscellaneous Notes The following approved medication requests have been transmitted electronically. Requested Prescriptions Pending Prescriptions Disp Refills metoprolol succinate ER (TOPROL XL) 50 mg 24 hr tablet 135 tablet 2 Sig: Take 1.5 tablets by mouth once daily. Preethi Mcclure APRN.CNP Prescription Refill Information The patient has been identified by name and date of : Yes Caregiver verified no other encounters exist for this prescription request: Yes Caregiver confirmed with patient/requestor that no other refills are due, in the near future, with this provider at this time: Yes The last office visit in the department: 03/02/24 Does the patient have a future office visit with this provider/department: Yes 07/06/24 Requested Prescriptions Pending Prescriptions Disp Refills metoprolol succinate ER (TOPROL XL) 50 mg 24 hr tablet 135 tablet 1 Sig: Take 1.5 tablets by mouth once daily. Padmini Tobin LPN May 11, 2024 10:07 AM documented in this encounter [facility] 05-11-2024 Telephone encounter Note Prescription Refill Information The patient has been identified by name and date of : Yes Caregiver verified no other encounters exist for this prescription request: Yes Caregiver confirmed with patient/requestor that no other refills are due, in the near future, with this provider at this time: Yes The last office visit in the department: 03/02/24 Does the patient have a future office visit with this provider/department: Yes 07/06/24 Requested Prescriptions Pending Prescriptions Disp Refills metoprolol succinate ER (TOPROL XL) 50 mg 24 hr tablet 135 tablet 1 Sig: Take 1.5 tablets by mouth once daily. Padmini Tobin LPN May 11, 2024 10:07 AM [facility] 03-18-2024 Telephone encounter Note Prescription Refill Information The patient has been identified by name and date of : Yes Caregiver verified no other encounters exist for this prescription request: Yes Caregiver confirmed with patient/requestor that no other refills are due, in the near future, with this provider at this time: Yes The last office visit in the department: 03/02/24 Does the patient have a future office visit with this provider/department: Yes 07/06/24 Requested Prescriptions Pending Prescriptions Disp Refills ELIQUIS 5 mg tab(s) 20 tablet 0 Sig: Take 1 tablet by mouth two times a day. Patient comment: Need 10 day supply waiting on mail order. Send to [facility]. Padmini Tobin LPN March 18, 2024 10:54 AM [facility] 03-18-2024 Miscellaneous Notes Prescription Refill Information The patient has been identified by name and date of : Yes Caregiver verified no other encounters exist for this prescription request: Yes Caregiver confirmed with patient/requestor that no other refills are due, in the near future, with this provider at this time: Yes The last office visit in the department: 03/02/24 Does the patient have a future office visit with this provider/department: Yes 07/06/24 Requested Prescriptions Pending Prescriptions Disp Refills ELIQUIS 5 mg tab(s) 20 tablet 0 Sig: Take 1 tablet by mouth two times a day. Patient comment: Need 10 day supply waiting on mail order. Send to [facility]. Padmini Tobin LPN March 18, 2024 10:54 AM documented in this encounter [facility] 03-02-2024 Instructions Preethi Mcclure APRN.OTOLARYNGOLOGY NURSE - 03/02/2024 12:01 PM EDT 1) Increase furosemide to 2 tablets daily for 3 days 2) Keep legs elevated 3) Increase dietary protein 4) Follow up in June as scheduled but let me know if this doesn't resolve edema documented in this encounter [facility] 03-02-2024 Note HNO ID: [id number] Author: PREETHI MCCLURE APRN.CHRISTIANA Service: ? Author Type: Clinical Nurse Specialist Type: Progress Notes Filed: 03/02/2024 12:02 Note Text: This is a 79 year old female who presents today with: Patient presents with: Swelling: Bilateral legs, worse Cough: Couple days Shortness of Breath HISTORY OF PRESENT ILLNESS: Maria Esther Reddy is a 79 year old female. Patient presents with: Swelling: Bilateral legs, worse Cough: Couple days Shortness of Breath Drove to wedding in [place] on Saturday. Wedding on Saturday. Skipped Water pill for wedding. Came back yesterday. Stopped a few times driving back because water pills were working. Ate pulled pork, cheese and pasta salad. Cut out salt. Feels SOB- continuous even at rest. Swelling in legs all along. No orthopnea or PND. No chest pain- some pulling on left side not related to activity. Once or twice palpations related to stress. Appetite is good. Urine out is fine. On Eliquis PAST MEDICAL HISTORY: PAST MEDICAL HISTORY Diagnosis Date A-fib (HCC) Arthritis of knee, right 06/09/2012 Benign neoplasm of colon 06/10/2002 CHF (congestive heart failure) (HCC) Dysmetabolic syndrome X Hyperlipidemia LDL goal < 100 06/20/2012 Morbid obesity (HCC) 06/09/2012 Other osteoporosis Other symptoms involving cardiovascular system Personal history of colonic polyps Phlebitis and thrombophlebitis of other deep vessels of lower extremities Unspecified hypothyroidism H/o Radioactive Iodine Treatment Unspecified vitamin D deficiency PAST SURGICAL HISTORY Procedure Laterality Date ADENOIDECTOMY PRIMARY Adenoidectomy COLONOSCOPY W/BIOPSY SINGLE/MULTIPLE 12/10/08 3 small polyps COLSC FLX W/RMVL OF TUMOR POLYP LESION SNARE TQ COLSC FLX W/RMVL OF TUMOR POLYP LESION SNARE TQ 03/18/15 2 polyps in transverse colon - no retrieved, 2 at 20 nd 30cm EGD TRANSORAL BIOPSY SINGLE/MULTIPLE 03/18/15 duodenitis, small hiatal hernia LIG/TRNSXJ FLP TUBE ABDL/VAG APPR UNI/BI Tubal ligation NEUROPLASTY AND/TRANSPOS MEDIAN NRV CARPAL TUNNE Carpal tunnel decomp- both PAST SURGICAL HISTORY OF radioactive iodine to thyroid TONSILLECTOMY PRIMARY/SECONDARY Tonsillectomy ALLERGIES Sulfa (Sulfonamide Antibiotics) MEDICATIONS Current Outpatient Medications Medication Sig furosemide (LASIX) 40 mg tablet Take 1 tablet by mouth once daily. ELIQUIS 5 mg tab(s) Take 1 tablet by mouth two times a day. metoprolol succinate ER (TOPROL XL) 50 mg 24 hr tablet Take 1.5 tablets by mouth once daily. levothyroxine (SYNTHROID) 150 mcg tablet Take 1 tablet by mouth daily before breakfast. budesonide-formoterol (SYMBICORT) 160-4.5 mcg/actuation inhaler Inhale 2 Puffs as instructed two times a day. omeprazole (PRILOSEC) 40 mg capsule Take 1 capsule by mouth once daily. simvastatin (ZOCOR) 20 mg tablet Take 1 tablet by mouth daily at bedtime. albuterol HFA (PROVENTIL HFA, VENTOLIN HFA) 90 mcg/actuation inhaler Inhale 2 Puffs as instructed every 4 hours as needed for wheezing/shortness of breath. fluticasone (FLONASE) 50 mcg/actuation nasal spray Use 1 [place] in each nostril once daily. No current facility-administered medications for this visit. FAMILY HISTORY Problem Relation Age of Onset Stroke Mother Heart Mother other (atrial fibulation) Mother Heart Father Alzheimer's Disease Father Diabetes Father other (PARKINSONS) Father other (atrial fibrillation) Brother artificial heart valve Colon Cancer Brother other (colon polyps) Brother Social History Tobacco Use Smoking status: Every Day Current packs/day: 1.00 Average packs/day: 1 pack/day for 57.0 years (57.0 ttl pk-yrs) Types: Cigarettes Smokeless tobacco: Never Vaping Use Vaping status: Never Used Substance Use Topics Alcohol use: Yes Comment: once a year Drug use: No EXAM: BP 110/58 Pulse 70 Temp 36.3 ?C (97.4 ?F) (Tympanic) Resp 20 Wt 113.4 kg (250 lb) SpO2 96% BMI 45.73 kg/m? PHYSICAL EXAM: Physical Exam Vitals reviewed. Constitutional: Appearance: Normal appearance. She is obese. HENT: Head: Normocephalic. Cardiovascular: Rate and Rhythm: Normal rate and regular rhythm. Pulses: Normal pulses. Heart sounds: Normal heart sounds. Pulmonary: Effort: Pulmonary effort is normal. Breath sounds: Normal breath sounds. Comments: Diminished in RLL- poor air exchange throughout Abdominal: General: Bowel sounds are normal. Palpations: Abdomen is soft. Musculoskeletal: General: Swelling present. Normal range of motion. Comments: Negative Chace's sign raji. Skin: General: Skin is warm and dry. Neurological: Mental Status: She is alert. LABS: ASSESSMENT/PLAN: 1. Bilateral leg edema - ICD9: 782.3, ICD10: R60.0 Likely due to combination of holding a day of furosemide and dietary indiscretion at wedding - Increase furosemide to 2 tablets daily for 3 days - Added protein in diet - el (more content not included)... [facility] 03-02-2024 History of Presen t illness Narrative This is a 79 year old female who presents today with: Patient presents with: Swelling: Bilateral legs, worse Cough: Couple days Shortness of Breath HISTORY OF PRESENT ILLNESS: Maria Esther Reddy is a 79 year old female. Patient presents with: Swelling: Bilateral legs, worse Cough: Couple days Shortness of Breath Drove to wedding in [place] on Saturday. Wedding on Saturday. Skipped Water pill for wedding. Came back yesterday. Stopped a few times driving back because water pills were working. Ate pulled pork, cheese and pasta salad. Cut out salt. Feels SOB- continuous even at rest. Swelling in legs all along. No orthopnea or PND. No chest pain- some pulling on left side not related to activity. Once or twice palpations related to stress. Appetite is good. Urine out is fine. On Eliquis PAST MEDICAL HISTORY: PAST MEDICAL HISTORY Diagnosis Date A-fib (HCC) Arthritis of knee, right 06/09/2012 Benign neoplasm of colon 06/10/2002 CHF (congestive heart failure) (HCC) Dysmetabolic syndrome X Hyperlipidemia LDL goal < 100 06/20/2012 Morbid obesity (HCC) 06/09/2012 Other osteoporosis Other symptoms involving cardiovascular system Personal history of colonic polyps Phlebitis and thrombophlebitis of other deep vessels of lower extremities Unspecified hypothyroidism H/o Radioactive Iodine Treatment Unspecified vitamin D deficiency PAST SURGICAL HISTORY Procedure Laterality Date ADENOIDECTOMY PRIMARY <AGE 13 Adenoidectomy COLONOSCOPY W/BIOPSY SINGLE/MULTIPLE 12/10/08 3 small polyps COLSC FLX W/RMVL OF TUMOR POLYP LESION SNARE TQ COLSC FLX W/RMVL OF TUMOR POLYP LESION SNARE TQ 03/18/15 2 polyps in transverse colon - no retrieved, 2 at 20 nd 30cm EGD TRANSORAL BIOPSY SINGLE/MULTIPLE 03/18/15 duodenitis, small hiatal hernia LIG/TRNSXJ FLP TUBE ABDL/VAG APPR UNI/BI Tubal ligation NEUROPLASTY &/TRANSPOS MEDIAN NRV CARPAL TUNNE Carpal tunnel decomp- both PAST SURGICAL HISTORY OF radioactive iodine to thyroid TONSILLECTOMY PRIMARY/SECONDARY <AGE 13 Tonsillectomy ALLERGIES Sulfa (Sulfonamide Antibiotics) MEDICATIONS Current Outpatient Medications Medication Sig furosemide (LASIX) 40 mg tablet Take 1 tablet by mouth once daily. ELIQUIS 5 mg tab(s) Take 1 tablet by mouth two times a day. metoprolol succinate ER (TOPROL XL) 50 mg 24 hr tablet Take 1.5 tablets by mouth once daily. levothyroxine (SYNTHROID) 150 mcg tablet Take 1 tablet by mouth daily before breakfast. budesonide-formoterol (SYMBICORT) 160-4.5 mcg/actuation inhaler Inhale 2 Puffs as instructed two times a day. omeprazole (PRILOSEC) 40 mg capsule Take 1 capsule by mouth once daily. simvastatin (ZOCOR) 20 mg tablet Take 1 tablet by mouth daily at bedtime. albuterol HFA (PROVENTIL HFA, VENTOLIN HFA) 90 mcg/actuation inhaler Inhale 2 Puffs as instructed every 4 hours as needed for wheezing/shortness of breath. fluticasone (FLONASE) 50 mcg/actuation nasal spray Use 1 [place] in each nostril once daily. No current facility-administered medications for this visit. FAMILY HISTORY Problem Relation Age of Onset Stroke Mother Heart Mother other (atrial fibulation) Mother Heart Father Alzheimer's Disease Father Diabetes Father other (PARKINSONS) Father other (atrial fibrillation) Brother artificial heart valve Colon Cancer Brother other (colon polyps) Brother Social History Tobacco Use Smoking status: Every Day Current packs/day: 1.00 Average packs/day: 1 pack/day for 57.0 years (57.0 ttl pk-yrs) Types: Cigarettes Smokeless tobacco: Never Vaping Use Vaping status: Never Used Substance Use Topics Alcohol use: Yes Comment: once a year Drug use: No EXAM: BP 110/58 Pulse 70 Temp 36.3 C (97.4 F) (Tympanic) Resp 20 Wt 113.4 kg (250 lb) SpO2 96% BMI 45.73 kg/m PHYSICAL EXAM: Physical Exam Vitals reviewed. Constitutional: Appearance: Normal appearance. She is obese. HENT: Head: Normocephalic. Cardiovascular: Rate and Rhythm: Normal rate and regular rhythm. Pulses: Normal pulses. Heart sounds: Normal heart sounds. Pulmonary: Effort: Pulmonary effort is normal. Breath sounds: Normal breath sounds. Comments: Diminished in RLL- poor air exchange throughout Abdominal: General: Bowel sounds are normal. Palpations: Abdomen is soft. Musculoskeletal: General: Swelling present. Normal range of motion. Comments: Negative Chace's sign raji. Skin: General: Skin is warm and dry. Neurological: Mental Status: She is alert. LABS: ASSESSMENT/PLAN: 1. Bilateral leg edema - ICD9: 782.3, ICD10: R60.0 Likely due to combination of holding a day of furosemide and dietary indiscretion at wedding - Increase furosemide to 2 tablets daily for 3 days - Added protein in diet - elevate legs Discussed treatment plan and patient voices understanding. Patient's questions answered appropriately. Medications and potential side effects were discussed and patient voices understanding. Return to the office as scheduled or as needed for worsening/no improvement. Preethi Mcclure APRN.CNP documented in this encounter [facility] 01-03-2024 Instructions Preethi Mcclure APRN.CNP - 01/03/2024 1:13 PM EDT 1) Wegovy injectio once a week for weight loss requested 2) Follow up in 6 months documented in this encounter [facility] 01-03-2024 Note HNO ID: [id number] Author: PREETHI MCCLURE APRN.CHRISTIANA Service: ? Author Type: Clinical Nurse Specialist Type: Progress Notes Filed: 01/03/2024 13:17 Note Text: This is a 78 year old female who presents today with: No chief complaint on file. HISTORY OF PRESENT ILLNESS: Maria Esther Reddy is a 78 year old female. No chief complaint on file. Knee pain- can't have surgery until she looses weight. No further palpitations Dizziness with lying down resolved with Hallpike's maneuver . HR better- known Afib, anticoagulated REVIEW OF SYSTEMS has cancer GENERAL: No weight loss, + malaise, no fevers, + chills HEENT: Negative for frequent or significant headaches, No changes in hearing, had cataract surgery. NECK: Negative for lumps, goiter, pain and significant neck swelling RESPIRATORY: + productive cough clear on occ.- lung nodules being monitored by CT, no hemoptysis, + wheezing, + dyspnea or shortness of breath CARDIOVASCULAR: Negative for chest pain,+ leg swelling left > right, not new, denies orthopnea, no palpitations GI: No nausea, vomiting, or diarrhea/constipation. No hematochezia/melena. No heartburn or reflux symptoms with medication. : No history of dysuria, no frequency, +incontinence MUSCULOSKELETAL: Negative for joint pain or swelling, right knee SKIN: Negative for lesions, rash, and itching ENDOCRINE: Negative for cold or heat intolerance, polyuria, + polydipsia, no goiter NEURO: No history of headaches, syncope, paralysis, seizures or tremors MOOD: Negative for depression, anxiety, and suicidal ideation except with HR increased PAST MEDICAL HISTORY: PAST MEDICAL HISTORY Diagnosis Date A-fib (HCC) Arthritis of knee, right 06/09/2012 Benign neoplasm of colon 06/10/2002 CHF (congestive heart failure) (HCC) Dysmetabolic syndrome X Hyperlipidemia LDL goal < 100 06/20/2012 Morbid obesity (HCC) 06/09/2012 Other osteoporosis Other symptoms involving cardiovascular system Personal history of colonic polyps Phlebitis and thrombophlebitis of other deep vessels of lower extremities Unspecified hypothyroidism H/o Radioactive Iodine Treatment Unspecified vitamin D deficiency PAST SURGICAL HISTORY Procedure Laterality Date ADENOIDECTOMY PRIMARY Adenoidectomy COLONOSCOPY W/BIOPSY SINGLE/MULTIPLE 12/10/08 3 small polyps COLSC FLX W/RMVL OF TUMOR POLYP LESION SNARE TQ COLSC FLX W/RMVL OF TUMOR POLYP LESION SNARE TQ 03/18/15 2 polyps in transverse colon - no retrieved, 2 at 20 nd 30cm EGD TRANSORAL BIOPSY SINGLE/MULTIPLE 03/18/15 duodenitis, small hiatal hernia LIG/TRNSXJ FLP TUBE ABDL/VAG APPR UNI/BI Tubal ligation NEUROPLASTY AND/TRANSPOS MEDIAN NRV CARPAL TUNNE Carpal tunnel decomp- both PAST SURGICAL HISTORY OF radioactive iodine to thyroid TONSILLECTOMY PRIMARY/SECONDARY Tonsillectomy ALLERGIES Sulfa (Sulfonamide Antibiotics) MEDICATIONS Current Outpatient Medications Medication Sig furosemide (LASIX) 40 mg tablet Take 1 tablet by mouth once daily. ELIQUIS 5 mg tab(s) Take 1 tablet by mouth two times a day. metoprolol succinate ER (TOPROL XL) 50 mg 24 hr tablet Take 1.5 tablets by mouth once daily. levothyroxine (SYNTHROID) 150 mcg tablet Take 1 tablet by mouth daily before breakfast. budesonide-formoterol (SYMBICORT) 160-4.5 mcg/actuation inhaler Inhale 2 Puffs as instructed two times a day. omeprazole (PRILOSEC) 40 mg capsule Take 1 capsule by mouth once daily. simvastatin (ZOCOR) 20 mg tablet Take 1 tablet by mouth daily at bedtime. albuterol HFA (PROVENTIL HFA, VENTOLIN HFA) 90 mcg/actuation inhaler Inhale 2 Puffs as instructed every 4 hours as needed for wheezing/shortness of breath. fluticasone (FLONASE) 50 mcg/actuation nasal spray Use 1 [place] in each nostril once daily. No current facility-administered medications for this visit. FAMILY HISTORY Problem Relation Age of Onset Stroke Mother Heart Mother other (atrial fibulation) Mother Heart Father Alzheimer's Disease Father Diabetes Father other (PARKINSONS) Father other (atrial fibrillation) Brother artificial heart valve Colon Cancer Brother other (colon polyps) Brother Social History Tobacco Use Smoking status: Every Day Packs/day: 1.00 Years: 57.00 Additional pack years: 0.00 Total pack years: 57.00 Types: Cigarettes Smokeless tobacco: Never Vaping Use Vaping Use: Never used Substance Use Topics Alcohol use: Yes Comment: once a year Drug use: No EXAM: BP 100/58 Pulse 77 Resp 16 Wt 107.5 kg (237 lb) SpO2 96% BMI 43.35 kg/m? PHYSICAL EXAM: Physical Exam Vitals reviewed. Constitutional: Appearance: Normal appearance. She is obese. HENT: Head: Normocephalic. Cardiovascular: Rate and Rhythm: Normal rate and regular rhythm. Heart sounds: Murmur heard. Comments: Soft MAX @ sternal border Pulmonary: Effort: Pulmonary effort is normal. Comments: Bi-basilar rales, diminished throughout (more content not included)... [facility] 01-03-2024 History of Presen t illness Narrative This is a 78 year old female who presents today with: No chief complaint on file. HISTORY OF PRESENT ILLNESS: Maria Esther Reddy is a 78 year old female. No chief complaint on file. Knee pain- can't have surgery until she looses weight. No further palpitations Dizziness with lying down resolved with Hallpike's maneuver . HR better- known Afib, anticoagulated REVIEW OF SYSTEMS has cancer GENERAL: No weight loss, + malaise, no fevers, + chills HEENT: Negative for frequent or significant headaches, No changes in hearing, had cataract surgery. NECK: Negative for lumps, goiter, pain and significant neck swelling RESPIRATORY: + productive cough clear on occ.- lung nodules being monitored by CT, no hemoptysis, + wheezing, + dyspnea or shortness of breath CARDIOVASCULAR: Negative for chest pain,+ leg swelling left > right, not new, denies orthopnea, no palpitations GI: No nausea, vomiting, or diarrhea/constipation. No hematochezia/melena. No heartburn or reflux symptoms with medication. : No history of dysuria, no frequency, +incontinence MUSCULOSKELETAL: Negative for joint pain or swelling, right knee SKIN: Negative for lesions, rash, and itching ENDOCRINE: Negative for cold or heat intolerance, polyuria, + polydipsia, no goiter NEURO: No history of headaches, syncope, paralysis, seizures or tremors MOOD: Negative for depression, anxiety, and suicidal ideation except with HR increased PAST MEDICAL HISTORY: PAST MEDICAL HISTORY Diagnosis Date A-fib (HCC) Arthritis of knee, right 06/09/2012 Benign neoplasm of colon 06/10/2002 CHF (congestive heart failure) (HCC) Dysmetabolic syndrome X Hyperlipidemia LDL goal < 100 06/20/2012 Morbid obesity (HCC) 06/09/2012 Other osteoporosis Other symptoms involving cardiovascular system Personal history of colonic polyps Phlebitis and thrombophlebitis of other deep vessels of lower extremities Unspecified hypothyroidism H/o Radioactive Iodine Treatment Unspecified vitamin D deficiency PAST SURGICAL HISTORY Procedure Laterality Date ADENOIDECTOMY PRIMARY <AGE 13 Adenoidectomy COLONOSCOPY W/BIOPSY SINGLE/MULTIPLE 12/10/08 3 small polyps COLSC FLX W/RMVL OF TUMOR POLYP LESION SNARE TQ COLSC FLX W/RMVL OF TUMOR POLYP LESION SNARE TQ 03/18/15 2 polyps in transverse colon - no retrieved, 2 at 20 nd 30cm EGD TRANSORAL BIOPSY SINGLE/MULTIPLE 03/18/15 duodenitis, small hiatal hernia LIG/TRNSXJ FLP TUBE ABDL/VAG APPR UNI/BI Tubal ligation NEUROPLASTY &/TRANSPOS MEDIAN NRV CARPAL TUNNE Carpal tunnel decomp- both PAST SURGICAL HISTORY OF radioactive iodine to thyroid TONSILLECTOMY PRIMARY/SECONDARY <AGE 13 Tonsillectomy ALLERGIES Sulfa (Sulfonamide Antibiotics) MEDICATIONS Current Outpatient Medications Medication Sig furosemide (LASIX) 40 mg tablet Take 1 tablet by mouth once daily. ELIQUIS 5 mg tab(s) Take 1 tablet by mouth two times a day. metoprolol succinate ER (TOPROL XL) 50 mg 24 hr tablet Take 1.5 tablets by mouth once daily. levothyroxine (SYNTHROID) 150 mcg tablet Take 1 tablet by mouth daily before breakfast. budesonide-formoterol (SYMBICORT) 160-4.5 mcg/actuation inhaler Inhale 2 Puffs as instructed two times a day. omeprazole (PRILOSEC) 40 mg capsule Take 1 capsule by mouth once daily. simvastatin (ZOCOR) 20 mg tablet Take 1 tablet by mouth daily at bedtime. albuterol HFA (PROVENTIL HFA, VENTOLIN HFA) 90 mcg/actuation inhaler Inhale 2 Puffs as instructed every 4 hours as needed for wheezing/shortness of breath. fluticasone (FLONASE) 50 mcg/actuation nasal spray Use 1 [place] in each nostril once daily. No current facility-administered medications for this visit. FAMILY HISTORY Problem Relation Age of Onset Stroke Mother Heart Mother other (atrial fibulation) Mother Heart Father Alzheimer's Disease Father Diabetes Father other (PARKINSONS) Father other (atrial fibrillation) Brother artificial heart valve Colon Cancer Brother other (colon polyps) Brother Social History Tobacco Use Smoking status: Every Day Packs/day: 1.00 Years: 57.00 Additional pack years: 0.00 Total pack years: 57.00 Types: Cigarettes Smokeless tobacco: Never Vaping Use Vaping Use: Never used Substance Use Topics Alcohol use: Yes Comment: once a year Drug use: No EXAM: BP 100/58 Pulse 77 Resp 16 Wt 107.5 kg (237 lb) SpO2 96% BMI 43.35 kg/m PHYSICAL EXAM: Physical Exam Vitals reviewed. Constitutional: Appearance: Normal appearance. She is obese. HENT: Head: Normocephalic. Cardiovascular: Rate and Rhythm: Normal rate and regular rhythm. Heart sounds: Murmur heard. Comments: Soft MAX @ sternal border Pulmonary: Effort: Pulmonary effort is normal. Comments: Bi-basilar rales, diminished throughout Abdominal: Palpations: Abdomen is soft. Musculoskeletal: General: Normal range of motion. Comments: Walks w/ a cane Skin: General: Skin is warm and dry. Neurological: Mental Status: She is alert. LABS: TSH normal ASSESSMENT/PLAN: 1. Essential hypertension, benign - ICD9: 401.1, ICD10: I10 (primary diagnosis) - Controlled - Recommend home blood pressure monitoring, to bring results to next visit - Encouraged sodium restriction, DASH or Mediterranean diet - Recommend regular aerobic exercise 2. Chronic systolic congestive heart failure (HCC) - ICD9: 428.22, 428.0, ICD10: I50.22 - Compensated - Continue current medications 3. Centrilobular emphysema (HCC) - ICD9: 492.8, ICD10: J43.2 Ongoing 4. Tobacco abuse - ICD9: 305.1, ICD10: Z72.0 - Cessation encouraged. - Physiologic and physical aspects of tobacco addiction as well as strategies for quitting were discussed. - Counseling was given focusing on the harmful effects of this addiction especially given the patient's medical condition(s) which will be worsened because of the chemicals in tobacco. - Follows LDCT, pulmonary nodules 5. Acquired hypothyroidism - ICD9: 244.9, ICD10: E03.9 - Instructed patient on importance of taking on an empty stomach either first thing in the morning or at bedtime. 6. Class 3 severe obesity due to excess calories with serious comorbidity and body mass index (BMI) of 40.0 to 44.9 in adult (HCC) - ICD9: 278.01, V85.41, ICD10: E66.01, Z68.41 Stable - Pharmacological intervention - SEMAGLUTIDE (WEIGHT LOSS) 0.25 MG/0.5 ML SUBCUTANEOUS PEN INJECTOR- discussed benefits - Weight loss for TKA - Declined aquatherapy Discussed treatment plan and patient voices understanding. Patient's questions answered appropriately. Medications and potential side effects were discussed and patient voices understanding. Return to the office as scheduled or as needed for worsening/no improvement. Preethi Mcclure APRN.CNP documented in this encounter [facility] 12-11-2023 Telephone encounter Note Left message notifying pt 12 month follow up is recommended. Fredis Khan APRN.CNP [facility] 12-11-2023 Miscellaneous Notes Left message notifying pt 12 month follow up is recommended. Fredis Khan APRN.CNP Left message for pt to I will call back regarding results and recommendations on 12/10/2023. Fredis Khan APRN.CNP documented in this encounter [facility] 12-05-2023 Telephone encounter Note Left message for pt to I will call back regarding results and recommendations on 12/10/2023. Fredis Khan APRN.CNP [facility] 12-02-2023 Instructions Fredis Khan APRN.CNP - 12/02/2023 12:35 PM EDT Lung nodule/s: all previously seen nodule/s have not changed in size or characteristic/resolved and there are no new nodules of concern. Please return in 6 mos/one year for the following 2 visits on the same day: Annual low-dose CT chest Lung cancer screening Provider visit. This recommendation is subject to change pending the final report from radiology. I will notify you of the final radiology report recommendations when available by [facility] message, letter, or phone call. We will also notify your referring provider/PCP of the results and recommendations. If you didn t schedule this before you left the office or need to reschedule, you can call in to schedule it anytime: [facility] [phone] [facility] [phone] All other [facility] locations [phone] Feel free to reach out for any questions or concerns, Fredis Khan APRN.CNP Lung Cancer Screening [phone] documented in this encounter [facility] 12-02-2023 Note HNO ID: [id number] Author: FREDIS KHAN APRN.CNP Service: ? Author Type: Nurse Practitioner Type: Progress Notes Filed: 12/02/2023 12:35 Note Text: Chief Complaint: 6 mos follow-up from LDCT scan dated 06/04/2023 for LUNG RADS Category 3 finding of new 5 mm RUL nodule. History of Present Illness: Maria Esther Reddy is a 78 year old female who is presenting today for pulmonary nodule follow-up. Nodule was found through lung cancer screening on LDCT. Patient has a PMH significant for hypothyroidism, HLD, copd, emphysema, A fib, CHF. Patient is a current smoker with a 71.25 pack year history. Currently still smoking daily. Since the patient's last visit the patient has not had new medical issues or hospitalizations. No recent respiratory infections/pneumonia. The patient does not require assistance with normal activities of daily living. Modified Medical Research [place] Dyspnea Scale (MMRC) I only get breathless with strenous exercise 0 Patient's appetite is good and weight is stable. Unintentional weight loss: No Sinus drainage: No SOB: Yes, not worsening Chest tightness: No Coughing: Without mucus Hemoptysis: No Fever/Chills: No Wheezing: Yes, not worsening Medication Treatment: Are you using regular inhalers?: Yes symbicort Past Medical History: PAST MEDICAL HISTORY Diagnosis Date A-fib (HCC) Arthritis of knee, right 06/09/2012 Benign neoplasm of colon 06/10/2002 CHF (congestive heart failure) (HCC) Dysmetabolic syndrome X Hyperlipidemia LDL goal < 100 06/20/2012 Morbid obesity (HCC) 06/09/2012 Other osteoporosis Other symptoms involving cardiovascular system Personal history of colonic polyps Phlebitis and thrombophlebitis of other deep vessels of lower extremities Unspecified hypothyroidism H/o Radioactive Iodine Treatment Unspecified vitamin D deficiency Surgical Hx: PAST SURGICAL HISTORY Procedure Laterality Date ADENOIDECTOMY PRIMARY Adenoidectomy COLONOSCOPY W/BIOPSY SINGLE/MULTIPLE 12/10/08 3 small polyps COLSC FLX W/RMVL OF TUMOR POLYP LESION SNARE TQ COLSC FLX W/RMVL OF TUMOR POLYP LESION SNARE TQ 03/18/15 2 polyps in transverse colon - no retrieved, 2 at 20 nd 30cm EGD TRANSORAL BIOPSY SINGLE/MULTIPLE 03/18/15 duodenitis, small hiatal hernia LIG/TRNSXJ FLP TUBE ABDL/VAG APPR UNI/BI Tubal ligation NEUROPLASTY AND/TRANSPOS MEDIAN NRV CARPAL TUNNE Carpal tunnel decomp- both PAST SURGICAL HISTORY OF radioactive iodine to thyroid TONSILLECTOMY PRIMARY/SECONDARY Tonsillectomy Family Hx: FAMILY HISTORY Problem Relation Age of Onset Stroke Mother Heart Mother other (atrial fibulation) Mother Heart Father Alzheimer's Disease Father Diabetes Father other (PARKINSONS) Father other (atrial fibrillation) Brother artificial heart valve Colon Cancer Brother other (colon polyps) Brother Allergies: ALLERGIES Allergen Reactions Sulfa (Sulfonamide * Vomiting Social History Tobacco Use: 1 packs/day, for 57 years. Types: Cigarettes Review Of Systems: See HPI for ROS All of the remainder systems were reviewed and negative. PHYSICAL EXAMINATION: Pulse 66 Resp 18 Wt 238 lb (108.0kg) SpO2 94% General appearance: well appearing, in no acute distress, and alert Skin: skin color, texture, turgor normal, no rashes or lesions Nose/Sinuses: Negative Oropharynx: Lips, mucosa, and tongue normal, teeth and gums normal, oropharynx normal Neck: Supple, no adenopathy; thyroid symmetric, normal size Respiratory: lungs clear to auscultation no wheezing or rhonchi Cardiovascular: Negative. RRR without murmur, gallop, or rubs. No ectopy Musculoskeletal: Extremities normal. No deformities, edema, or skin discoloration. Neuro: Oriented X 3 Data Review I have visually reviewed imaging and testing below CT imaging done today was reviewed and analyzed independently by practitioner and awaiting radiology review. CT was compared to prior CT chest. Prior PFTS: SPIROMETRY WITH DILATOR IF OBSTRUCTED ([id number]) - ordered on 01/16/[address] [address] Test Date: 2023-01-16 Pat Name: MARIA ESTHER REDDY Department: Room: Gender: Female Doughmaker: : 1945 Requested By: Order Number: [id number] Reading MD: Smita Henderson MD Interpretive Statements ATS/ERS acceptability and repeatability standards for spirometry met. IMPRESSION: Spirometry shows a reduced FEV1/FVC ratio; but individually normal FVC and FEV1 predicted values.This pattern indicates mild obstruction or a normal variant. Small airways obstruction noted. Electronically Signed On 01-17-2023 8:21:29 EDT by Smita Henderson MD ID: [id number] Name: MARIA ESTHER REDDY Race: White Ht: 59.13 in Wt: 224.00 lbs Age: 77 Gender: Female : 1945 Dx: Shortness of breath Smoking Hx: Non-smoker Doctor: BRADLEY CAUSEY Test Date: 01/16/2023 Site: Tech: Crystal Laboy (more content not included)... [facility] 12-02-2023 History of Presen t illness Narrative Images from the original note were not included. Chief Complaint: 6 mos follow-up from LDCT scan dated 06/04/2023 for LUNG RADS Category 3 finding of new 5 mm RUL nodule. History of Present Illness: Maria Esther Reddy is a 78 year old female who is presenting today for pulmonary nodule follow-up. Nodule was found through lung cancer screening on LDCT. Patient has a PMH significant for hypothyroidism, HLD, copd, emphysema, A fib, CHF. Patient is a current smoker with a 71.25 pack year history. Currently still smoking daily. Since the patient's last visit the patient has not had new medical issues or hospitalizations. No recent respiratory infections/pneumonia. The patient does not require assistance with normal activities of daily living. Modified Medical Research [place] Dyspnea Scale (MMRC) I only get breathless with strenous exercise 0 Patient's appetite is good and weight is stable. Unintentional weight loss: No Sinus drainage: No SOB: Yes, not worsening Chest tightness: No Coughing: Without mucus Hemoptysis: No Fever/Chills: No Wheezing: Yes, not worsening Medication Treatment: Are you using regular inhalers?: Yes symbicort Past Medical History: PAST MEDICAL HISTORY Diagnosis Date A-fib (HCC) Arthritis of knee, right 06/09/2012 Benign neoplasm of colon 06/10/2002 CHF (congestive heart failure) (HCC) Dysmetabolic syndrome X Hyperlipidemia LDL goal < 100 06/20/2012 Morbid obesity (HCC) 06/09/2012 Other osteoporosis Other symptoms involving cardiovascular system Personal history of colonic polyps Phlebitis and thrombophlebitis of other deep vessels of lower extremities Unspecified hypothyroidism H/o Radioactive Iodine Treatment Unspecified vitamin D deficiency Surgical Hx: PAST SURGICAL HISTORY Procedure Laterality Date ADENOIDECTOMY PRIMARY <AGE 13 Adenoidectomy COLONOSCOPY W/BIOPSY SINGLE/MULTIPLE 12/10/08 3 small polyps COLSC FLX W/RMVL OF TUMOR POLYP LESION SNARE TQ COLSC FLX W/RMVL OF TUMOR POLYP LESION SNARE TQ 03/18/15 2 polyps in transverse colon - no retrieved, 2 at 20 nd 30cm EGD TRANSORAL BIOPSY SINGLE/MULTIPLE 03/18/15 duodenitis, small hiatal hernia LIG/TRNSXJ FLP TUBE ABDL/VAG APPR UNI/BI Tubal ligation NEUROPLASTY &/TRANSPOS MEDIAN NRV CARPAL TUNNE Carpal tunnel decomp- both PAST SURGICAL HISTORY OF radioactive iodine to thyroid TONSILLECTOMY PRIMARY/SECONDARY <AGE 13 Tonsillectomy Family Hx: FAMILY HISTORY Problem Relation Age of Onset Stroke Mother Heart Mother other (atrial fibulation) Mother Heart Father Alzheimer's Disease Father Diabetes Father other (PARKINSONS) Father other (atrial fibrillation) Brother artificial heart valve Colon Cancer Brother other (colon polyps) Brother Allergies: ALLERGIES Allergen Reactions Sulfa (Sulfonamide * Vomiting Social History Tobacco Use: 1 packs/day, for 57 years. Types: Cigarettes Review Of Systems: See HPI for ROS All of the remainder systems were reviewed and negative. PHYSICAL EXAMINATION: Pulse 66 Resp 18 Wt 238 lb (108.0kg) SpO2 94% General appearance: well appearing, in no acute distress, and alert Skin: skin color, texture, turgor normal, no rashes or lesions Nose/Sinuses: Negative Oropharynx: Lips, mucosa, and tongue normal, teeth and gums normal, oropharynx normal Neck: Supple, no adenopathy; thyroid symmetric, normal size Respiratory: lungs clear to auscultation no wheezing or rhonchi Cardiovascular: Negative. RRR without murmur, gallop, or rubs. No ectopy Musculoskeletal: Extremities normal. No deformities, edema, or skin discoloration. Neuro: Oriented X 3 Data Review I have visually reviewed imaging and testing below CT imaging done today was reviewed and analyzed independently by practitioner and awaiting radiology review. CT was compared to prior CT chest. Prior PFTS: SPIROMETRY WITH DILATOR IF OBSTRUCTED ([id number]) - ordered on 01/16/23 [id number] [facility], [place] [address] Test Date: 2023-01-16 Pat Name: MARIA ESTHER REDDY Department: Room: Gender: Female Doughmaker: : 1945 Requested By: Order Number: [id number] Reading MD: Smita Henderson MD Interpretive Statements ATS/ERS acceptability and repeatability standards for spirometry met. IMPRESSION: Spirometry shows a reduced FEV1/FVC ratio; but individually normal FVC and FEV1 predicted values.This pattern indicates mild obstruction or a normal variant. Small airways obstruction noted. Electronically Signed On 01-17-2023 8:21:29 EDT by Smita Henderson MD ID: [id number] Name: MARIA ESTHER REDDY Race: White Ht: 59.13 in Wt: 224.00 lbs Age: 77 Gender: Female : 1945 Dx: Shortness of breath Smoking Hx: Non-smoker Doctor: BRADLEY CAUSEY Test Date: 01/16/2023 Site: Tech: Radha Laboy PRE-BRONCH POST-BRONCH Pre LLN Pred ULN %Pred Post %Pred %Chg SPIROMETRY FVC (L) 2.22 1.48 2.12 2.79 104 FEV1 (L) 1.42 1.13 1.66 2.15 85 FEV1/FVC 0.64 0.66 0.79 0.90 80 PEF L/s (L/sec) 3.50 2.90 4.36 5.82 80 FEF50 (L/sec) 0.97 0.93 2.54 4.15 38 FIF50 (L/sec) 2.67 FEF50/FIF50 0.37 90-100 FIVC (L) 2.15 ZVT25-65 (L/sec) 0.58 0.63 1.47 2.71 39 Time (sec) 9.96 FET PEF (sec) 0.08 CAROLYN (L) 0.05 Vol Extrap % (%) 2 Assessment and Plan: 1. Pulmonary Nodule: RUL lung nodule identified on the last CT is similar, and no new nodules of concern were seen on the exam. Recommended follow-up in 6mos/one year. This recommendation is subject to change, pending final radiology report. The patient was counseled on the importance of adherence to annual LDCT lung cancer screening, impact of comorbidities and ability or willingness to undergo diagnosis and treatment. 2. Nicotine Dependence, Current: Smoking cessation encouraged. Offered patient assistance programs and treatment. Patient plans to continue smoking Fredis Khan APRN.OTOLARYNGOLOGY NURSE December 02, 2023 11:46 AM I spent a total of 30 minutes on the date of the service which included preparing to see the patient, [id number] patient care, completing clinical documentation, performing a medically appropriate examination, counseling and educating the patient/family/caregiver, ordering medications, tests, or procedures, communicating with other HCPs (not separately reported), independently interpreting results (not separately reported), communicating results to the patient/family/caregiver, and care coordination (not separately reported). documented in this encounter [facility] 12-02-2023 History of Presen t illness Narrative Radiology Service Progress Note PATIENT NAME: Maria Esther Reddy DATE OF SERVICE: December 02, 2023 TIME: 3:09 PM PATIENT IDENTITY VERIFICATION COMPLETED USING TWO (2) IDENTIFIERS: Name and Date of confirmed by patient verbally. FALL SCREENING: Has the patient had 2 falls in the last year or 1 fall with injury or currently using an Ambulatory Assistive Device (Walker, Cane, Wheelchair, Crutches, etc.)? No PATIENT GENDER DATA: Female. status: : No status: NO. PATIENT RELEVANT IMPLANT DATA REVIEWED: Yes PATIENT PRESENTS WITH AN IMPLANTABLE OR ATTACHED HISTOLOGIC TECHNICIAN: No RADIOLOGY DEPARTMENT: CT; Exam(s) Completed: Chest PERIPHERAL IV DATA: Not applicable SIGNED BY: RT Elkin(R) December 02, 2023 3:09 PM documented in this encounter [facility] 12-02-2023 Note HNO ID: [id number] Author: BEVERLY CHILDERS RT(R) Service: ? Author Type: Doughmaker Type: Progress Notes Filed: 12/02/2023 15:10 Note Text: Radiology Service Progress Note PATIENT NAME: Maria Esther Reddy DATE OF SERVICE: December 02, 2023 TIME: 3:09 PM PATIENT IDENTITY VERIFICATION COMPLETED USING TWO (2) IDENTIFIERS: Name and Date of confirmed by patient verbally. FALL SCREENING: Has the patient had 2 falls in the last year or 1 fall with injury or currently using an Ambulatory Assistive Device (Walker, Cane, Wheelchair, Crutches, etc.)? No PATIENT GENDER DATA: Female. status: : No status: NO. PATIENT RELEVANT IMPLANT DATA REVIEWED: Yes PATIENT PRESENTS WITH AN IMPLANTABLE OR ATTACHED HISTOLOGIC TECHNICIAN: No RADIOLOGY DEPARTMENT: CT; Exam(s) Completed: Chest PERIPHERAL IV DATA: Not applicable SIGNED BY: RT Elkin(R) December 02, 2023 3:09 PM [facility] 11-11-2023 Telephone encounter Note Patient has been identified by name and date of : Yes Patient phones for refill(s): Requested Prescriptions Pending Prescriptions Disp Refills ELIQUIS 5 mg tab(s) 180 tablet 1 Sig: Take 1 tablet by mouth two times a day. Date of last office visit in primary care: 08/30/2023 Date of next office visit in primary care: 01/03/2024 Please advise. Thank you. Lindsey Moyer MA. [facility] 11-11-2023 Miscellaneous Notes Patient has been identified by name and date of : Yes Patient phones for refill(s): Requested Prescriptions Pending Prescriptions Disp Refills ELIQUIS 5 mg tab(s) 180 tablet 1 Sig: Take 1 tablet by mouth two times a day. Date of last office visit in primary care: 08/30/2023 Date of next office visit in primary care: 01/03/2024 Please advise. Thank you. Lindsey Moyer MA. documented in this encounter [facility] 11-11-2023 Telephone encounter Note Patient Muxlimhart message requesting the following refill Refill(s) Requested: Requested Prescriptions Pending Prescriptions Disp Refills furosemide (LASIX) 40 mg tablet 90 tablet 1 Sig: Take 1 tablet by mouth once daily. ALLERGIES Allergen Reactions Sulfa (Sulfonamide * Vomiting (home) [phone] (work) [phone] (cell) Last Office Visit Date: 08/30/2023 Last [facility] Visit: Visit date not found Future Appointment: 01/03/2024 The patients preferred pharmacy has been captured for this encounter? yes Request is for script(s) to be escript to pharmacy. Viviane Davis LPN [facility] 11-11-2023 Miscellaneous Notes Patient MyChart message requesting the following refill Refill(s) Requested: Requested Prescriptions Pending Prescriptions Disp Refills furosemide (LASIX) 40 mg tablet 90 tablet 1 Sig: Take 1 tablet by mouth once daily. ALLERGIES Allergen Reactions Sulfa (Sulfonamide * Vomiting (home) [phone] (work) [phone] (cell) Last Office Visit Date: 08/30/2023 Last [facility] Visit: Visit date not found Future Appointment: 01/03/2024 The patients preferred pharmacy has been captured for this encounter? yes Request is for script(s) to be escript to pharmacy. Viviane Davis LPN documented in this encounter [facility] 09-27-2023 Note HNO ID: [id number] Author: HANNA ANTOINE PA-C Service: ? Author Type: Physician Therapeutic Recreation Leader Type: Progress Notes Filed: 09/27/2023 10:05 Note Text: INJECTION PROCEDURE NOTE: Patient returns today for synvisc one injection. Previously been seen by Marissa Pena for routine injection. Prior to the procedure, the patient's allergies were reviewed. The procedure site was marked. The procedure team checked for proper functioning of devices and supplies to be used for the procedure. Large Joint Arthro/Inj: R knee joint Informed Consent Consent Obtained: Verbal [place] Protocol A moment to CARE was completed. SIGN IN Personnel directly involved with the procedure wore the appropriate PPE. Special Equipment: N/A Patient/Surrogate Stated/Verified: Patient name, Date of , Relevant allergies and Intended procedure TIME OUT Relevant labs, photos, and/or imaging studies have been reviewed. Correct side/site marked and visible. Medications required for procedure verified. Fire risk assessed and interventions discussed. No implant(s) inserted. 09/27/2023 10:05 AM The procedure site was prepped in the usual sterile fashion. Site: R knee joint Medications: 48 mg hylan G-F 20 48 mg/6 mL Anesthetics: 5 mL lidocaine (PF) 10 mg/mL (1 %) Outcome: Tolerated well, no immediate complications Post-injection instructions were reviewed with the patient and the patient voiced understanding of these instructions. SIGN OUT All instruments, equipment, possible retained foreign bodies accounted for. Hanna Antoine PA-C [facility] 09-27-2023 History of Presen t illness Narrative Associated Order(s): Large Joint Arthro/Inj: R knee joint Post-Procedure Diagnose(s): Primary osteoarthritis of right knee INJECTION PROCEDURE NOTE: Patient returns today for synvisc one injection. Previously been seen by Marissa Pena for routine injection. Prior to the procedure, the patient's allergies were reviewed. The procedure site was marked. The procedure team checked for proper functioning of devices and supplies to be used for the procedure. Large Joint Arthro/Inj: R knee joint Informed Consent Consent Obtained: Verbal [place] Protocol A moment to CARE was completed. SIGN IN Personnel directly involved with the procedure wore the appropriate PPE. Special Equipment: N/A Patient/Surrogate Stated/Verified: Patient name, Date of , Relevant allergies and Intended procedure TIME OUT Relevant labs, photos, and/or imaging studies have been reviewed. Correct side/site marked and visible. Medications required for procedure verified. Fire risk assessed and interventions discussed. No implant(s) inserted. 09/27/2023 10:05 AM The procedure site was prepped in the usual sterile fashion. Site: R knee joint Medications: 48 mg hylan G-F 20 48 mg/6 mL Anesthetics: 5 mL lidocaine (PF) 10 mg/mL (1 %) Outcome: Tolerated well, no immediate complications Post-injection instructions were reviewed with the patient and the patient voiced understanding of these instructions. SIGN OUT All instruments, equipment, possible retained foreign bodies accounted for. Hanna Antoine PA-C AMB ROOMING INTAKE FLOWSHEET DATA Pain Pain Level: 9 Pain Location: Knee-Right Description: Sharp Duration Amount of Time: (ongoing) Frequency: Continuous Intervention/Comfort measure: Exercise Patient here today for Synvisc One injection into the right knee. LOT # [id number] EXP 09/07/2025 Darling Hodgson MA documented in this encounter [facility] [facility]23 Note HNO ID: [id number] Author: DARLING HODGSON MA Service: ? Author Type: [employer] Type: Progress Notes Filed: 09/27/2023 10:05 Note Text: AMB ROOMING INTAKE FLOWSHEET DATA Pain Pain Level: 9 Pain Location: Knee-Right Description: Sharp Duration Amount of Time: (ongoing) Frequency: Continuous Intervention/Comfort measure: Exercise Patient here today for Synvisc One injection into the right knee. LOT # [id number] EXP 09/07/2025 Darling Hodgson MA [facility] 09-18-2023 Miscellaneous Notes Patient stopped by the office while in the building. She would like to get another Synvisc One injection into the right knee. She had good relief from previous injection. Referral created. documented in this encounter [facility] 09-18-2023 Note HNO ID: [id number] Author: KEISHA HOFFMAN PT Service: ? Author Type: Physical Therapist Type: Progress Notes Filed: 01/08/2024 10:20 Note Text: 01/08/[address] [facility]ATION [facility] SPORTS THERAPY PHYSICAL THERAPY DISCONTINUANCE OF CARE Plan of Care Period: Start of Care Date: 09/18/23 Last Visit Date: 09/18/2023 Therapy Program: Patient did not return for follow up care as planned. Please refer to last visit note for interventions provided for this episode of care. Assessment: Unable to formally assess goal achievement. Reason for Discontinuation of Care: Patient has not returned to therapy or scheduled additional follow-up appointments. Keisha Hoffman PT Episode Visit Count: 1 Therapist That Will Accept/Oversee The Plan Of Care: Keisha Hoffman Start of Care Date: 09/18/23 Onset Date: 08/18/23 Plan of Care Certification Date: 09/18/23 Next Certification Due Date: 09/18/23 Patient Identified by Name and Date of : Yes REHABILITATION AND SPORTS THERAPY PHYSICAL THERAPY EVALUATION PLAN OF CARE: Assessment: Maria Esther Reddy presents with diagnosis of vertigo that interferes with nothing . She presents with impairments in functional performance testing indicates pt. Is currently performing all fucntional movements at her baseline without onset of dizziness symptoms. PROMIS? (Patient-Reported Outcomes Measurement Information System) scores were reviewed and identified as a rehabilitation concern. Prognosis for therapy is Excellent due to: current objective clinical presentation . She will benefit from skilled therapy services to meet the goals established for this plan of care as noted below. Goals for Episode of Care: created on 09/18/23 through 09/18/23 All goals met. Symptoms resolved. Patient Goals: pt. denies dizziness but states she came to eval as instructed by referring provider Planned Interventions, Frequency, and Duration: Current Frequency: 1 visit Duration: 1 visit Total Number of Visits Planned: 0 Planned Treatment Interventions: Self-retirement management ([id number]) PLAN FOR NEXT VISIT: DC - pt. denies need for PT and demonstrates negative testing for peripheral vestibular involvement Patient demonstrates good understanding of plan of care and treatment. The above goals and plan of care were discussed and agreed upon by patient/family. SUBJECTIVE: for pt. reports of vertigo described as self spinning each time she time she laid down for x 4 days. Sudden onset with durations lasting a few moments. Resolved with laying still. Consistent onset of symptoms with the action of laying down. Symptoms have resolved and she denies having any symptoms for about a month. Pt. was given meclizine but did not fill it. She has not had dizziness with laying down since. Denies dizziness or vision changes with walking or head movement. Pt. states that she does not feel that she needs PT. Denies falls. Patient Goals: pt. denies dizziness but states she came to eval as instructed by referring provider Functional Limitations: nothing Prior Level of Function: Independent without limitations Relevant History Employment: Retired Intake Information: Prescription present Previous Treatment: None Falls Interview: No positive findings with falls interview Concussion History of Concussion: No Vestibular Symptoms present for: months Symptom onset: sudden Dizziness: No Imbalance: Yes Imbalance triggered by: (knee pain) Imbalance Comments: only due to knee pain not balance per pt. report Fall Assessment: No falls Nausea: no Motion Sickness: None Headache: No Neck Symptoms: Yes Description: aching Location: posterior neck Location comment: chronic Frequency: Constant Symptoms worsened by: rotational movements of the head Symptoms improved by: rest Jaw Symptoms: No Ear Symptoms: No Hearing Changes: No recent changes Tinnitus: No recent changes Sleep Affected by Symptoms: not affected by pain, Not affected by dizziness History of Syncope: No History of Migraine: No Denies: headaches, dizziness, visual changes, paresthesia, neuropathy, focal weakness, tremors, neurological complaints Pain: Pain Pain Level: 0 Post Treatment Pain Post Treatment Symptoms: dizziness/vertigo symptoms not reproduced throughout eval PROMIS Scales T-scores: mean of general population = 50. 5 points is clinically meaningfully difference Percentiles provide an indication of how the patient's score ranks in relation to the general population. Higher percentile rankings indicate better function/quality of life. 50th percentile is the average of the general population and indicates half of respondents had a worse score. OBJECTIVE MEASURES WITH LEVEL OF FUNCTION: Oculomotor Testing Fixation Present Ocular ROM: WNL Spontaneous Nystagmus: No nystagmus Gaze Evoked Nystagmus: Not Present Smooth pursuit: Horizontal, Vertical and Diagonal a (more content not included)... [facility] 09-18-2023 History of Presen t illness Narrative Episode Visit Count: 1 Therapist That Will Accept/Oversee The Plan Of Care: Keisha Hoffman Start of Care Date: 09/18/23 Onset Date: 08/18/23 Plan of Care Certification Date: 09/18/23 Next Certification Due Date: 09/18/23 Patient Identified by Name and Date of : Yes REHABILITATION AND SPORTS THERAPY PHYSICAL THERAPY EVALUATION PLAN OF CARE: Assessment: Maria Esther Reddy presents with diagnosis of vertigo that interferes with nothing . She presents with impairments in functional performance testing indicates pt. Is currently performing all fucntional movements at her baseline without onset of dizziness symptoms. PROMIS (Patient-Reported Outcomes Measurement Information System) scores were reviewed and identified as a rehabilitation concern. Prognosis for therapy is Excellent due to: current objective clinical presentation . She will benefit from skilled therapy services to meet the goals established for this plan of care as noted below. Goals for Episode of Care: created on 09/18/23 through 09/18/23 All goals met. Symptoms resolved. Patient Goals: pt. denies dizziness but states she came to eval as instructed by referring provider Planned Interventions, Frequency, and Duration: Current Frequency: 1 visit Duration: 1 visit Total Number of Visits Planned: 0 Planned Treatment Interventions: Self-retirement management ([id number]) PLAN FOR NEXT VISIT: DC - pt. denies need for PT and demonstrates negative testing for peripheral vestibular involvement Patient demonstrates good understanding of plan of care and treatment. The above goals and plan of care were discussed and agreed upon by patient/family. SUBJECTIVE: for pt. reports of vertigo described as self spinning each time she time she laid down for x 4 days. Sudden onset with durations lasting a few moments. Resolved with laying still. Consistent onset of symptoms with the action of laying down. Symptoms have resolved and she denies having any symptoms for about a month. Pt. was given meclizine but did not fill it. She has not had dizziness with laying down since. Denies dizziness or vision changes with walking or head movement. Pt. states that she does not feel that she needs PT. Denies falls. Patient Goals: pt. denies dizziness but states she came to [facility] as instructed by referring provider Functional Limitations: nothing Prior Level of Function: Independent without limitations Relevant History Employment: Retired Intake Information: Prescription present Previous Treatment: None Falls Interview: No positive findings with falls interview Concussion History of Concussion: No Vestibular Symptoms present for: months Symptom onset: sudden Dizziness: No Imbalance: Yes Imbalance triggered by: (knee pain) Imbalance Comments: only due to knee pain not balance per pt. report Fall Assessment: No falls Nausea: no Motion Sickness: None Headache: No Neck Symptoms: Yes Description: aching Location: posterior neck Location comment: chronic Frequency: Constant Symptoms worsened by: rotational movements of the head Symptoms improved by: rest Jaw Symptoms: No Ear Symptoms: No Hearing Changes: No recent changes Tinnitus: No recent changes Sleep Affected by Symptoms: not affected by pain, Not affected by dizziness History of Syncope: No History of Migraine: No Denies: headaches, dizziness, visual changes, paresthesia, neuropathy, focal weakness, tremors, neurological complaints Pain: Pain Pain Level: 0 Post Treatment Pain Post Treatment Symptoms: dizziness/vertigo symptoms not reproduced throughout eval PROMIS Scales T-scores: mean of general population = 50. 5 points is clinically meaningfully difference Percentiles provide an indication of how the patient's score ranks in relation to the general population. Higher percentile rankings indicate better function/quality of life. 50th percentile is the average of the general population and indicates half of respondents had a worse score. OBJECTIVE MEASURES WITH LEVEL OF FUNCTION: Oculomotor Testing Fixation Present Ocular ROM: WNL Spontaneous Nystagmus: No nystagmus Gaze Evoked Nystagmus: Not Present Smooth pursuit: Horizontal, Vertical and Diagonal all WNL Saccadic eye movements: Horizontal, vertical and oblique all WNL. Head Thrusts: Negative VOR cancelation: Negative Convergence (Distance): WNL VOR to slow head movements: Negative X1 Viewing - Horizontal: negative X1 Viewing - Vertical: negative Cross Cover: Negative Positional Testing Right Dedra-Hallpike: Asymptomatic, No nystagmus Left [place]-Hallpike: Asymptomatic, No nystagmus Right Ear Down: No nystagmus, Asymptomatic Left Ear Down: Asymptomatic, No nystagmus Mobility Rolling: Independent Supine To Sit: Independent Sit to Supine: Independent Sit To Stand: Independent Stand To Sit: Independent Bed To Chair: Independent Gait Gait: Independent Gait Distance (feet): 50 Gait Device: None Gait Deviations: General Deviations General Deviations/Observations: Step length decreased, Trunk Control Decreased, Wide base of support, Lateral sway increased, Flexed trunk posture, Edwina decreased Vitals Pulse: 61 Education: Education Learning Preferences: Explanation Barriers: None Learning/educational needs: Plan of Care Education Provided: Yes, see treatment interventions for education provided Education Provided To: Patient Education Mode/Type: Explanation/Discussion Response to Education/Teach Back: States/Identifies TREATMENT: PT Treatment Interventions: Self-Custodial Management Evaluation Self-Custodial Management: 1: discussed return to physician if symptoms return 2: discussed possible causes of dizziness which can be either from the inner ear or cardiovascular related Skilled Intervention: Skilled judgment in the selection of proper modification for activity of daily living/home management based on clinical presentation, deficits, and needs. Reviewed patient specific diagnosis in relation to activities of daily living/home management. Activity progression based on professional judgement. Billing * Evaluation Moderate Complexity: 1 Unit Self-Care/Home Management Treatment Minutes: 15 Skilled Treatment Time Minutes (timed and untimed codes): 45 Total Session Time (minutes): 45 Session Start Time : 1103 Session Stop Time : 1148 Keisha Hoffman PT documented in this encounter [facility] 09-11-2023 Note HNO ID: [id number] Author: AMY ZARATE RN Service: ? Author Type: Registered Nurse Type: Progress Notes Filed: 09/11/2023 10:14 Note Text: ACM LANA RN Patient identified by name and date of . Reason for review or outreach: Chart Review Lana Priority Emergency Department Utilization Utilization in past 6 months: # Occurrences Date Last Occurrence Hospital Admission Hospital Observation ED 1 05/13/23 SNF / Acute Rehab / LTAC ED DIAGNOSES/REASON(S) FOR ED USE: pt presented to ED for chest discomfort, palpitations, new onset at fib OTHER FINDINGS/SUMMARY: Pt completed follow up appointment post ED visit No further action required Patient Attributed To: QAE Payer: [employer]eter[employer] MIRANDA Action Taken: No action needed Contact made with patient: No, Chart review only. Signature: Amy Zarate RN [facility] 09-11-2023 History of Presen t illness Narrative AC LANA RN Patient identified by name and date of . Reason for review or outreach: Chart Review Lana Priority Emergency Department Utilization Utilization in past 6 months: # Occurrences Date Last Occurrence Hospital Admission Hospital Observation ED 1 05/13/23 SNF / Acute Rehab / LTAC ED DIAGNOSES/REASON(S) FOR ED USE: pt presented to ED for chest discomfort, palpitations, new onset at fib OTHER FINDINGS/SUMMARY: Pt completed follow up appointment post ED visit No further action required Patient Attributed To: QAE Payer: E[employer] MIRANDA Action Taken: No action needed Contact made with patient: No, Chart review only. Signature: Amy Zarate RN documented in this encounter [facility] 09-11-2023 Note Patient Outreach ([facility]) MARIA ESTHER REDDY ([id number]) 1945 F Date Time Provider Department 09/11/23 AMY ZARATE [facility] During your visit today, we recorded the following information about you: Amy Zarate RN 09/11/2023 10:14 AM Signed AC LANA RN Patient identified by name and date of . Reason for review or outreach: Chart Review Lana Priority Emergency Department Utilization Utilization in past 6 months: # Occurrences Date Last Occurrence Hospital Admission Hospital Observation ED 1 05/13/23 SNF / Acute Rehab / LTAC ED DIAGNOSES/REASON(S) FOR ED USE: pt presented to ED for chest discomfort, palpitations, new onset at fib OTHER FINDINGS/SUMMARY: Pt completed follow up appointment post ED visit No further action required Patient Attributed To: LILY Payer: Eufemia MIRANDA Action Taken: No action needed Contact made with patient: No, Chart review only. Signature: Amy Zarate RN Allergies As of Date: 09/11/2023 Noted Allergy Reaction SULFA (SULFONAMIDE ANTIBIOTICS) 06/21/2005 11 - Vomiting Date Reviewed: 08/30/2023 Reviewed by: Preethi Mcclure APRN.MOLD HOISTER - Fully Assessed Reason for Visit: ACM LANA RN [[id number]] Cmt: EDU per request of payor Prescriptions as of 09/11/2023 - metoprolol succinate ER (TOPROL XL) 50 mg 24 hr tablet Take 1.5 tablets by mouth once daily. - meclizine (ANTIVERT) 25 mg tab Take 1 tablet by mouth three times a day as needed. - levothyroxine (SYNTHROID) 150 mcg tablet Take 1 tablet by mouth daily before breakfast. - ELIQUIS 5 mg tab(s) Take 1 tablet by mouth two times a day. - budesonide-formoterol (SYMBICORT) 160-4.5 mcg/actuation inhaler Inhale 2 Puffs as instructed two times a day. - furosemide (LASIX) 40 mg tablet Take 1 tablet by mouth once daily. - omeprazole (PRILOSEC) 40 mg capsule Take 1 capsule by mouth once daily. - simvastatin (ZOCOR) 20 mg tablet Take 1 tablet by mouth daily at bedtime. - albuterol HFA (PROVENTIL HFA, VENTOLIN HFA) 90 mcg/actuation inhaler Inhale 2 Puffs as instructed every 4 hours as needed for wheezing/shortness of breath. - fluticasone (FLONASE) 50 mcg/actuation nasal spray Use 1 [place] in each nostril once daily. Facility-Administered Medications as of 09/11/2023 - perflutren lipid microspheres 1.3 mL in NaCl (PF) 0.9% 10 mL injection (DEFINITY) - sodium chloride 0.9 % (flush) 10 mL (BD POSIFLUSH) Problem List As Of Date 09/11/2023 Noted Resolved DYSMETABOLIC SYNDROME X [E88.810] 08/24/2005 Hypothyroidism [E03.9] 08/24/2005 Lumbago [M54.50] 08/24/2005 03/06/2017 Plantar fascial fibromatosis [M72.2] 04/04/2006 01/27/2021 Sprain of foot, unspecified site [S93.609A] 10/22/2007 04/23/2014 Other enthesopathy of ankle and tarsus [M77.50] 11/05/2007 03/06/2017 Vitamin D deficiency [E55.9] 12/19/2007 03/06/2017 Other osteoporosis [M81.8] 12/19/2007 07/24/2011 Ingrowing nail [L60.0] 01/02/2008 04/23/2014 BENIGN HYPERTENSION [I10] 09/23/2008 BENIGN NEOPLASM LG BOWEL [D12.6] 09/23/2008 Other symptoms involving cardiovascular system *09/23/2008 03/14/2016 PERSONAL HISTORY OF COLONIC POLYPS [Z86.010] 10/29/2008 Osteopenia [M85.80] 07/24/2011 Primary osteoarthritis of right knee [M17.11] 06/09/2012 Morbid obesity [E66.01] 06/09/2012 Hyperlipidemia with target LDL less than 100 [E*06/20/2012 Tobacco abuse [Z72.0] 12/20/2014 Occult GI bleeding [R19.5] 12/28/2014 03/06/2017 IVONNE (acute kidney injury) (HCC) [N17.9] 06/06/2018 01/27/2021 Knee injuries, right, initial encounter [S89.91*12/27/2021 Prediabetes [R73.03] 11/19/2022 SOB (shortness of breath) [R06.02] 11/19/2022 02/15/2023 COPD, 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] 02/15/2023 Centrilobular emphysema (HCC) [J43.2] 02/15/2023 Lung nodules [R91.8] 02/15/2023 Paroxysmal atrial fibrillation (HCC) [I48.0] 05/13/2023 Congestive heart failure (HCC) [I50.9] 06/24/2023 Pre-operative cardiovascular examination [Z01.8*06/24/2023 Encounter Status:Closed by AMY ZARATE on 09/11/23 [facility] 08-30-2023 Instructions Preethi Mcclure APRN.CNS - 08/30/2023 2:50 PM EDT 1) Increase metoprolol XL to 1 and 1/2 tablets daily to control heart rate 2) Get thyroid level checked end of September 3) Get CT scan according to lung doctor 4) Vestibular therapy ordered 5) Vertigo referred for vestibular therapy 6) Meclizine 3 x day as needed for dizzinesss 7) Follow up in 4 months documented in this encounter [facility] 08-30-2023 Note HNO ID: [id number] Author: PREETHI MCCLURE APRN.CNS Service: ? Author Type: Clinical Nurse Specialist Type: Progress Notes Filed: 08/30/2023 15:03 Note Text: This is a 78 year old female who presents today with: Patient presents with: Follow Up: Routine 4 month follow up HISTORY OF PRESENT ILLNESS: Maria Esther Reddy is a 78 year old female. Patient presents with: Follow Up: Routine 4 month follow up Having palpitations and lightheadedness. Dizziness with lying down. HR elevated- known Afib, anticoagulated REVIEW OF SYSTEMS has cancer GENERAL: No weight loss, + malaise, no fevers, + chills HEENT: Negative for frequent or significant headaches, No changes in hearing, + change in vision since cataract surgery. NECK: Negative for lumps, goiter, pain and significant neck swelling RESPIRATORY: + productive cough clear- lung nodules being monitored by CT, no hemoptysis, + wheezing, + dyspnea or shortness of breath CARDIOVASCULAR: Negative for chest pain,+ leg swelling left not new, denies orthopnea, + palpitations GI: No nausea, vomiting, or diarrhea/constipation. No hematochezia/melena. No heartburn or reflux symptoms with medication. : No history of dysuria, no frequency, +incontinence MUSCULOSKELETAL: Negative for joint pain or swelling, right knee SKIN: Negative for lesions, rash, and itching ENDOCRINE: Negative for cold or heat intolerance, polyuria, + polydipsia, no goiter NEURO: No history of headaches, syncope, paralysis, seizures or tremors MOOD: Negative for depression, anxiety, or suicidal ideation except with HR increased PAST MEDICAL HISTORY: PAST MEDICAL HISTORY Diagnosis Date A-fib (HCC) Arthritis of knee, right 06/09/2012 Benign neoplasm of colon 06/10/2002 CHF (congestive heart failure) (HCC) Dysmetabolic syndrome X Hyperlipidemia LDL goal < 100 06/20/2012 Morbid obesity (HCC) 06/09/2012 Other osteoporosis Other symptoms involving cardiovascular system Personal history of colonic polyps Phlebitis and thrombophlebitis of other deep vessels of lower extremities Unspecified hypothyroidism H/o Radioactive Iodine Treatment Unspecified vitamin D deficiency PAST SURGICAL HISTORY Procedure Laterality Date ADENOIDECTOMY PRIMARY Adenoidectomy COLONOSCOPY W/BIOPSY SINGLE/MULTIPLE 12/10/08 3 small polyps COLSC FLX W/RMVL OF TUMOR POLYP LESION SNARE TQ COLSC FLX W/RMVL OF TUMOR POLYP LESION SNARE TQ 03/18/15 2 polyps in transverse colon - no retrieved, 2 at 20 nd 30cm EGD TRANSORAL BIOPSY SINGLE/MULTIPLE 03/18/15 duodenitis, small hiatal hernia LIG/TRNSXJ FLP TUBE ABDL/VAG APPR UNI/BI Tubal ligation NEUROPLASTY AND/TRANSPOS MEDIAN NRV CARPAL TUNNE Carpal tunnel decomp- both PAST SURGICAL HISTORY OF radioactive iodine to thyroid TONSILLECTOMY PRIMARY/SECONDARY Tonsillectomy ALLERGIES Sulfa (Sulfonamide Antibiotics) MEDICATIONS Current Outpatient Medications Medication Sig levothyroxine (SYNTHROID) 150 mcg tablet Take 1 tablet by mouth daily before breakfast. ELIQUIS 5 mg tab(s) Take 1 tablet by mouth two times a day. metoprolol succinate ER (TOPROL XL) 50 mg 24 hr tablet Take 1 tablet by mouth once daily. budesonide-formoterol (SYMBICORT) 160-4.5 mcg/actuation inhaler Inhale 2 Puffs as instructed two times a day. furosemide (LASIX) 40 mg tablet Take 1 tablet by mouth once daily. omeprazole (PRILOSEC) 40 mg capsule Take 1 capsule by mouth once daily. simvastatin (ZOCOR) 20 mg tablet Take 1 tablet by mouth daily at bedtime. albuterol HFA (PROVENTIL HFA, VENTOLIN HFA) 90 mcg/actuation inhaler Inhale 2 Puffs as instructed every 4 hours as needed for wheezing/shortness of breath. fluticasone (FLONASE) 50 mcg/actuation nasal spray Use 1 [place] in each nostril once daily. Current Facility-Administered Medications Medication Dose Route Frequency perflutren lipid microspheres 1.3 mL in NaCl (PF) 0.9% 10 mL injection (DEFINITY) INTRAVENOUS DIRECTED PRN sodium chloride 0.9 % (flush) 10 mL (BD POSIFLUSH) 10 mL INTRAVENOUS DIRECTED PRN FAMILY HISTORY Problem Relation Age of Onset Stroke Mother Heart Mother other (atrial fibulation) Mother Heart Father Alzheimer's Disease Father Diabetes Father other (PARKINSONS) Father other (atrial fibrillation) Brother artificial heart valve Colon Cancer Brother other (colon polyps) Brother Social History Tobacco Use Smoking status: Every Day Packs/day: 1.00 Years: 57.00 Additional pack years: 0.00 Total pack years: 57.00 Types: Cigarettes Smokeless tobacco: Never Vaping Use Vaping Use: Never used Substance Use Topics Alcohol use: Yes Comment: once a year Drug use: No EXAM: BP 128/64 Pulse (!) 132 Resp 20 Wt 104.8 kg (231 lb) SpO2 94% BMI 42.25 kg/m? PHYSICAL EXAM: General Appearance: Well appearing, alert, in no acute distress, well-hydrated, well nourished. and Obese. Skin: Skin color, texture, turgor normal, no (more content not included)... [facility] 08-30-2023 History of Presen t illness Narrative This is a 78 year old female who presents today with: Patient presents with: Follow Up: Routine 4 month follow up HISTORY OF PRESENT ILLNESS: Maria Esther Reddy is a 78 year old female. Patient presents with: Follow Up: Routine 4 month follow up Having palpitations and lightheadedness. Dizziness with lying down. HR elevated- known Afib, anticoagulated REVIEW OF SYSTEMS has cancer GENERAL: No weight loss, + malaise, no fevers, + chills HEENT: Negative for frequent or significant headaches, No changes in hearing, + change in vision since cataract surgery. NECK: Negative for lumps, goiter, pain and significant neck swelling RESPIRATORY: + productive cough clear- lung nodules being monitored by CT, no hemoptysis, + wheezing, + dyspnea or shortness of breath CARDIOVASCULAR: Negative for chest pain,+ leg swelling left not new, denies orthopnea, + palpitations GI: No nausea, vomiting, or diarrhea/constipation. No hematochezia/melena. No heartburn or reflux symptoms with medication. : No history of dysuria, no frequency, +incontinence MUSCULOSKELETAL: Negative for joint pain or swelling, right knee SKIN: Negative for lesions, rash, and itching ENDOCRINE: Negative for cold or heat intolerance, polyuria, + polydipsia, no goiter NEURO: No history of headaches, syncope, paralysis, seizures or tremors MOOD: Negative for depression, anxiety, or suicidal ideation except with HR increased PAST MEDICAL HISTORY: PAST MEDICAL HISTORY Diagnosis Date A-fib (HCC) Arthritis of knee, right 06/09/2012 Benign neoplasm of colon 06/10/2002 CHF (congestive heart failure) (HCC) Dysmetabolic syndrome X Hyperlipidemia LDL goal < 100 06/20/2012 Morbid obesity (HCC) 06/09/2012 Other osteoporosis Other symptoms involving cardiovascular system Personal history of colonic polyps Phlebitis and thrombophlebitis of other deep vessels of lower extremities Unspecified hypothyroidism H/o Radioactive Iodine Treatment Unspecified vitamin D deficiency PAST SURGICAL HISTORY Procedure Laterality Date ADENOIDECTOMY PRIMARY <AGE 13 Adenoidectomy COLONOSCOPY W/BIOPSY SINGLE/MULTIPLE 12/10/08 3 small polyps COLSC FLX W/RMVL OF TUMOR POLYP LESION SNARE TQ COLSC FLX W/RMVL OF TUMOR POLYP LESION SNARE TQ 03/18/15 2 polyps in transverse colon - no retrieved, 2 at 20 nd 30cm EGD TRANSORAL BIOPSY SINGLE/MULTIPLE 03/18/15 duodenitis, small hiatal hernia LIG/TRNSXJ FLP TUBE ABDL/VAG APPR UNI/BI Tubal ligation NEUROPLASTY &/TRANSPOS MEDIAN NRV CARPAL TUNNE Carpal tunnel decomp- both PAST SURGICAL HISTORY OF radioactive iodine to thyroid TONSILLECTOMY PRIMARY/SECONDARY <AGE 13 Tonsillectomy ALLERGIES Sulfa (Sulfonamide Antibiotics) MEDICATIONS Current Outpatient Medications Medication Sig levothyroxine (SYNTHROID) 150 mcg tablet Take 1 tablet by mouth daily before breakfast. ELIQUIS 5 mg tab(s) Take 1 tablet by mouth two times a day. metoprolol succinate ER (TOPROL XL) 50 mg 24 hr tablet Take 1 tablet by mouth once daily. budesonide-formoterol (SYMBICORT) 160-4.5 mcg/actuation inhaler Inhale 2 Puffs as instructed two times a day. furosemide (LASIX) 40 mg tablet Take 1 tablet by mouth once daily. omeprazole (PRILOSEC) 40 mg capsule Take 1 capsule by mouth once daily. simvastatin (ZOCOR) 20 mg tablet Take 1 tablet by mouth daily at bedtime. albuterol HFA (PROVENTIL HFA, VENTOLIN HFA) 90 mcg/actuation inhaler Inhale 2 Puffs as instructed every 4 hours as needed for wheezing/shortness of breath. fluticasone (FLONASE) 50 mcg/actuation nasal spray Use 1 [place] in each nostril once daily. Current Facility-Administered Medications Medication Dose Route Frequency perflutren lipid microspheres 1.3 mL in NaCl (PF) 0.9% 10 mL injection (DEFINITY) INTRAVENOUS DIRECTED PRN sodium chloride 0.9 % (flush) 10 mL (BD POSIFLUSH) 10 mL INTRAVENOUS DIRECTED PRN FAMILY HISTORY Problem Relation Age of Onset Stroke Mother Heart Mother other (atrial fibulation) Mother Heart Father Alzheimer's Disease Father Diabetes Father other (PARKINSONS) Father other (atrial fibrillation) Brother artificial heart valve Colon Cancer Brother other (colon polyps) Brother Social History Tobacco Use Smoking status: Every Day Packs/day: 1.00 Years: 57.00 Additional pack years: 0.00 Total pack years: 57.00 Types: Cigarettes Smokeless tobacco: Never Vaping Use Vaping Use: Never used Substance Use Topics Alcohol use: Yes Comment: once a year Drug use: No EXAM: BP 128/64 Pulse (!) 132 Resp 20 Wt 104.8 kg (231 lb) SpO2 94% BMI 42.25 kg/m PHYSICAL EXAM: General Appearance: Well appearing, alert, in no acute distress, well-hydrated, well nourished. and Obese. Skin: Skin color, texture, turgor normal, no suspicious rashes or lesions. Head: Normocephalic, no masses, lesions, tenderness or abnormalities. HEENT: ears free of cerumen, opaque tympanic membranes raji. Lungs: Lungs clear to auscultation. No wheezing, rhonchi, rales.. Heart: RRR without murmur, gallop, or rubs. No ectopy, tachycardia. Abdomen: Normal abdominal exam, Abdomen soft, non-tender. Bowel sounds normal. No masses, organomegaly. Extremities: No deformities, left lower leg trace edema- not new, skin discoloration, clubbing or cyanosis. Neuro: cranial nerves III-XII intact except significant nystagmus with upper outer gazes LABS: reviewed labs ASSESSMENT/PLAN: 1. Chronic obstructive pulmonary disease, unspecified COPD type (HCC) - ICD9: 496, ICD10: J44.9 (primary diagnosis) Ongoing 2. Hypothyroidism, unspecified type - ICD9: 244.9, ICD10: E03.9 - Instructed patient on importance of taking on an empty stomach either first thing in the morning or at bedtime. - Get TSH end of September 3. Hyperglycemia - ICD9: 790.29, ICD10: R73.9 Pre-DM - Monitoring 4. Paroxysmal atrial fibrillation (HCC) - ICD9: 427.31, ICD10: I48.0 Uncontrolled - Increase metoprolol XL to 75mg daily 5. Bilateral leg edema - ICD9: 782.3, ICD10: R60.0 Stable - Wearing compression stockings 6. Centrilobular emphysema (HCC) - ICD9: 492.8, ICD10: J43.2 Stable - Low dose CT scan per pulmonary 7. Essential hypertension, benign - ICD9: 401.1, ICD10: I10 - Controlled - Recommend home blood pressure monitoring, to bring results to next visit - Encouraged sodium restriction, DASH or Mediterranean diet - Recommend regular aerobic exercise 8. Lung nodules - ICD9: 793.19, ICD10: R91.8 Following with pulmonary 9. Morbid obesity (HCC) - ICD9: 278.01, ICD10: E66.01 Ongoing - Continue current medications 10. Tobacco use - ICD9: 305.1, ICD10: Z72.0 - Cessation encouraged. - Physiologic and physical aspects of tobacco addiction as well as strategies for quitting were discussed. - Counseling was given focusing on the harmful effects of this addiction especially given the patient's medical condition(s) which will be worsened because of the chemicals in tobacco. 11. BPPV (benign paroxysmal positional vertigo), unspecified laterality - ICD9: 386.11, ICD10: H81.10 - Start meclizine 25mg q 6 hr prn - CONSULT TO PHYSICAL THERAPY Discussed treatment plan and patient voices understanding. Patient's questions answered appropriately. Medications and potential side effects were discussed and patient voices understanding. Return to the office as scheduled or as needed for worsening/no improvement. Preethi Mcclure APRN.MOLD HOISTER The patient indicates understanding of these issues and agrees with the plan. documented in this encounter [facility] 08-23-2023 Miscellaneous Notes Patient informed via VM. Advised to call back with any questions or concerns. Celina Hernadez MA They nan thyroid when they did pulmonary's labs. It was not to be done for a number of weeks yet. Recheck labs in four to six weeks. documented in this encounter [facility] 08-22-2023 Miscellaneous Notes Patient notified of results, verbalizes understanding of instructions. Padmini Tobin LPN Labs are ok.thyroid appears to be overcorrected now. Change synthroid to 150 mcg a day and recheck tsh in six weeks. documented in this encounter [facility] 08-21-2023 History of Presen t illness Narrative Images from the original note were not included. Patient: Maria Esther Reddy PCP: Bradley Causey MD CC: follow up HPI: Maria Esther Reddy 78 year old morbidly obese female current smoker, 57 pack years with PMH significant for hypothyroidism h/o Grave's dz s/p radioactive iodine ablation, HLD, AFib on Eliquis, lung nodules, and COPD. Current maintenance therapy with Symbicort and as needed Albuterol. Today, patient reports daily cough productive of white phlegm. No hemoptysis. Variable wheezing. Exertional dyspnea with climbing stairs, walking up inclines and long distances. Patient states, I am headed in my brothers footsteps. Apparently he is on supplemental oxygen and has a very minimal remote smoking history. She is unsure of any further details. I do not see an Alpha-1 on file. Lower extremity edema, stable. Currently smoking 1 ppd. She is under stress with her spouses cancer. He has melanoma and they are traveling to [place] for treatment. PAST MEDICAL HISTORY Diagnosis Date A-fib (HCC) Arthritis of knee, right 06/09/2012 Benign neoplasm of colon 06/10/2002 CHF (congestive heart failure) (HCC) Dysmetabolic syndrome X Hyperlipidemia LDL goal < 100 06/20/2012 Morbid obesity (HCC) 06/09/2012 Other osteoporosis Other symptoms involving cardiovascular system Personal history of colonic polyps Phlebitis and thrombophlebitis of other deep vessels of lower extremities Unspecified hypothyroidism H/o Radioactive Iodine Treatment Unspecified vitamin D deficiency Allergies: Sulfa (Sulfonamide * Vomiting ELIQUIS 5 mg tab(s)^Take 1 tablet by mouth two times a day.^Disp: 180 tablet^Rfl: 1 metoprolol succinate ER (TOPROL XL) 50 mg 24 hr tablet^Take 1 tablet by mouth once daily.^Disp: 90 tablet^Rfl: 1 budesonide-formoterol (SYMBICORT) 160-4.5 mcg/actuation inhaler^Inhale 2 Puffs as instructed two times a day.^Disp: 10.2 Each^Rfl: 11 furosemide (LASIX) 40 mg tablet^Take 1 tablet by mouth once daily.^Disp: 90 tablet^Rfl: 1 omeprazole (PRILOSEC) 40 mg capsule^Take 1 capsule by mouth once daily.^Disp: 90 capsule^Rfl: 3 simvastatin (ZOCOR) 20 mg tablet^Take 1 tablet by mouth daily at bedtime.^Disp: 90 tablet^Rfl: 3 levothyroxine (SYNTHROID) 175 mcg tablet^Take 1 tablet by mouth daily before breakfast.^Disp: 90 tablet^Rfl: 3 albuterol HFA (PROVENTIL HFA, VENTOLIN HFA) 90 mcg/actuation inhaler^Inhale 2 Puffs as instructed every 4 hours as needed for wheezing/shortness of breath.^Disp: 6.7 g^Rfl: 0 fluticasone (FLONASE) 50 mcg/actuation nasal spray^Use 1 [place] in each nostril once daily.^Disp: 3 Bottle^Rfl: 3 Social History Tobacco Use Smoking status: Every Day Packs/day: 1.00 Years: 57.00 Additional pack years: 0.00 Total pack years: 57.00 Types: Cigarettes Smokeless tobacco: Never Substance Use Topics Alcohol use: Yes Comment: once a year Drug use: No Family History Problem Relation Age of Onset Stroke Mother Heart Mother other (atrial fibulation) Mother Heart Father Alzheimer's Disease Father Diabetes Father other (PARKINSONS) Father other (atrial fibrillation) Brother artificial heart valve Colon Cancer Brother other (colon polyps) Brother PAST SURGICAL HISTORY Procedure Laterality Date ADENOIDECTOMY PRIMARY <AGE 13 Adenoidectomy COLONOSCOPY W/BIOPSY SINGLE/MULTIPLE 12/10/08 3 small polyps COLSC FLX W/RMVL OF TUMOR POLYP LESION SNARE TQ COLSC FLX W/RMVL OF TUMOR POLYP LESION SNARE TQ 03/18/15 2 polyps in transverse colon - no retrieved, 2 at 20 nd 30cm EGD TRANSORAL BIOPSY SINGLE/MULTIPLE 03/18/15 duodenitis, small hiatal hernia LIG/TRNSXJ FLP TUBE ABDL/VAG APPR UNI/BI Tubal ligation NEUROPLASTY &/TRANSPOS MEDIAN NRV CARPAL TUNNE Carpal tunnel decomp- both PAST SURGICAL HISTORY OF radioactive iodine to thyroid TONSILLECTOMY PRIMARY/SECONDARY <AGE 13 Tonsillectomy I reviewed the past medical history, family history, social history and surgical history with changes noted above and updated in EMR. IMMUNIZATIONS Prevnar - 2014 Pneumovax 2016 Influenza - 04/24/2023 COVID-19 - most recent 09/2020 ROS: CONSTITUTIONAL: No fevers, chills, nightsweats, unintended weight loss HEENT: Some nasal congestion/sinus symptoms, postnasal drip. EYES: No diplopia or blurry vision, itchy eyes CARDIOVASCULAR: No chest pain, palpitations, orthopnea, PND PULM: See HPI GI: No dysphagia/odynophagia, problematic reflux. NEURO: No new balance problems, peripheral weakness/paresthesias or numbness of concern. MUSC-SKEL: Polyarticular joint pain INTEGUMENTARY: No new skin changes or rashes PHYSICAL EXAMINATION: BP 124/62 (BP Site: Right Arm, BP Position: Sitting, BP Cuff Size: Regular Adult) Pulse 65 Temp 36.7 C (98 F) (Temporal Artery) Resp 17 Wt 108.8 kg (239 lb 12.8 oz) SpO2 95% BMI 43.86 kg/m Gen: No acute distress. Cooperative with examination. HEENT: Normocephalic. Sclera, conjunctiva clear. Upper plate. No thrush. Resp: No stridor, accessory respiratory muscle use, supra-sternal or intercostal retractions. No wheezes, crackles. CV: Regular rythm. Heart tones normal. Radial pulses normal. Ext: Warm and well perfused. No clubbing, cyanosis. Bilateral lower extremity edema. Skin: No rash, ecchymoses. Neuro: Mental status normal. Affect normal. No tremor. DATA: PFT 01/2023: Imaging / Diagnostic Studies: DATE OF EXAM: Jun 04 2023 10:26AM [facility] 0561 - CT LUNG FOLLOWUP WO IVCON / PROCEDURE REASON: Lung nodules * * * * Physician Interpretation * * * * EXAMINATION: CT LUNG FOLLOWUP WO IVCON CLINICAL HISTORY: Lung nodules Technique: Spiral CT acquisition of the chest from the thoracic inlet to the upper abdomen without contrast. MQ: [id number] Followup LDCT Patient characteristics: * Kgbx-na-Veutc: 1945; Age at exam: 78 years * Gender: Female * Lung Disease: Asymptomatic (no signs or symptoms of lung disease) * Number of Pack Years: 71 * Current smoker (=0) or Number of Years since Quit: 0 * Ordering provider and NPI: FREDIS KHAN [id number] * Interpreting radiologist and NPI: Jalen [id number] Exam acquisition parameters: * Exam Date: 06/04/2023 10:26 AM * Site: [facility] * * CT System Closing Manager: Siemens * CT System Model: Sensation * Tube Current-Time (mA-sec): 33 * Peak Voltage (kV): 120V * Scan Time (sec): 9.85 * Scan Volume (z-length, cm): -25.95 * Pitch: 0.75 * Slice Thickness (mm): 1.5 * CT Dose-Length Product: 94 mGy*cm * CT Dose Index: 2.55mGy * CT Dose Reduction Method: Automated exposure control(AEC) and iterative recon COMPARISON: Prior lung screen dated 12/03/2022 RESULT: Are nodules present? Yes, 1-5 nodules Lung nodule comments: 7 mm posterior subpleural right lower lobe nodule (118) unchanged. 4 mm left upper lobe nodule (40) unchanged. 6 mm right lung base subpleural nodule (203) unchanged. 5 mm posterior right upper lobe nodule (94) unchanged. 5 mm posterior right upper lobe nodule (55) new from prior. Other findings: Small hiatal hernia. Degenerative changes of the thoracic spine. Mild chronic right upper rib deformities. Bronchial thickening, moderate upper lobe predominant emphysema, scattered areas of groundglass opacity and peripheral reticulation more pronounced in the upper lobes likely due to smoking-related interstitial lung disease. IMPRESSION: LungRADS category: 3 LungRADS modifier: None LungRADS 0 reason: n/a Recommendations: Followup LDCT in 6 months Echo: CONCLUSIONS: - Exam indication: Shortness of Breath - The left ventricle is small. Left ventricular systolic function is normal. EF = 60 5% (2D biplane) Indeterminate left ventricular diastolic dysfunction. - The right ventricle is normal in size. Right ventricular systolic function is normal. - The left atrial cavity is mildly dilated. - There are no significant valvular abnormalities. ASSESSMENT/PLAN: 1. Pulmonary emphysema, unspecified emphysema type (HCC) - ICD9: 492.8, ICD10: J43.9 (primary diagnosis) Will check Alpha-1 with emphysema noted on imaging and family history. Continue Symbicort with as needed Albuterol. Smoking cessation is critical. - ALPHA 1 ANTITRYP PHEN/GENOTYPE 2. Morbid obesity (HCC) - ICD9: 278.01, ICD10: E66.01 Weight loss advised. 3. Lung nodules - ICD9: 793.19, ICD10: R91.8 Enrolled in lung cancer screening program. Next LDCT in November 2023. 4. Cigarette smoker - ICD9: 305.1, ICD10: F17.210 - Cessation encouraged. - Physiologic and physical aspects of tobacco addiction as well as strategies for quitting were discussed. - Counseling was given focusing on the harmful effects of this addiction especially given the patient's medical condition(s) which will be worsened because of the chemicals in tobacco. Patient is dealing with her husbands health issues and is feeling very stressed. Portions of this documentation were copied and pasted from previous office visit notes in order to provide a cohesive continuity of the history. The note has been reviewed and edited and updated as necessary. Eloise uHrt PA-C documented in this encounter [facility] 08-21-2023 Note HNO ID: [id number] Author: ELOISE HURT PA-C Service: ? Author Type: Physician Therapeutic Recreation Leader Type: Progress Notes Filed: 08/21/2023 13:13 Note Text: Patient: Maria Esther Reddy PCP: Bradley Causey MD CC: follow up HPI: Maria Esther Reddy 78 year old morbidly obese female current smoker, 57 pack years with PMH significant for hypothyroidism h/o Grave's dz s/p radioactive iodine ablation, HLD, AFib on Eliquis, lung nodules, and COPD. Current maintenance therapy with Symbicort and as needed Albuterol. Today, patient reports daily cough productive of white phlegm. No hemoptysis. Variable wheezing. Exertional dyspnea with climbing stairs, walking up inclines and long distances. Patient states, I am headed in my brothers footsteps. Apparently he is on supplemental oxygen and has a very minimal remote smoking history. She is unsure of any further details. I do not see an Alpha-1 on file. Lower extremity edema, stable. Currently smoking 1 ppd. She is under stress with her spouses cancer. He has melanoma and they are [place] [facility] for treatment. PAST MEDICAL HISTORY Diagnosis Date A-fib (HCC) Arthritis of knee, right 06/09/2012 Benign neoplasm of colon 06/10/2002 CHF (congestive heart failure) (HCC) Dysmetabolic syndrome X Hyperlipidemia LDL goal < 100 06/20/2012 Morbid obesity (HCC) 06/09/2012 Other osteoporosis Other symptoms involving cardiovascular system Personal history of colonic polyps Phlebitis and thrombophlebitis of other deep vessels of lower extremities Unspecified hypothyroidism H/o Radioactive Iodine Treatment Unspecified vitamin D deficiency Allergies: Sulfa (Sulfonamide * Vomiting ELIQUIS 5 mg tab(s)Take 1 tablet by mouth two times a day.Disp: 180 tabletRfl: 1 metoprolol succinate ER (TOPROL XL) 50 mg 24 hr tabletTake 1 tablet by mouth once daily.Disp: 90 tabletRfl: 1 budesonide-formoterol (SYMBICORT) 160-4.5 mcg/actuation inhalerInhale 2 Puffs as instructed two times a day.Disp: 10.2 EachRfl: 11 furosemide (LASIX) 40 mg tabletTake 1 tablet by mouth once daily.Disp: 90 tabletRfl: 1 omeprazole (PRILOSEC) 40 mg capsuleTake 1 capsule by mouth once daily.Disp: 90 capsuleRfl: 3 simvastatin (ZOCOR) 20 mg tabletTake 1 tablet by mouth daily at bedtime.Disp: 90 tabletRfl: 3 levothyroxine (SYNTHROID) 175 mcg tabletTake 1 tablet by mouth daily before breakfast.Disp: 90 tabletRfl: 3 albuterol HFA (PROVENTIL HFA, VENTOLIN HFA) 90 mcg/actuation inhalerInhale 2 Puffs as instructed every 4 hours as needed for wheezing/shortness of breath.Disp: 6.7 gRfl: 0 fluticasone (FLONASE) 50 mcg/actuation nasal sprayUse 1 [place] in each nostril once daily.Disp: 3 BottleRfl: 3 Social History Tobacco Use Smoking status: Every Day Packs/day: 1.00 Years: 57.00 Additional pack years: 0.00 Total pack years: 57.00 Types: Cigarettes Smokeless tobacco: Never Substance Use Topics Alcohol use: Yes Comment: once a year Drug use: No Family History Problem Relation Age of Onset Stroke Mother Heart Mother other (atrial fibulation) Mother Heart Father Alzheimer's Disease Father Diabetes Father other (PARKINSONS) Father other (atrial fibrillation) Brother artificial heart valve Colon Cancer Brother other (colon polyps) Brother PAST SURGICAL HISTORY Procedure Laterality Date ADENOIDECTOMY PRIMARY Adenoidectomy COLONOSCOPY W/BIOPSY SINGLE/MULTIPLE 12/10/08 3 small polyps COLSC FLX W/RMVL OF TUMOR POLYP LESION SNARE TQ COLSC FLX W/RMVL OF TUMOR POLYP LESION SNARE TQ 03/18/15 2 polyps in transverse colon - no retrieved, 2 at 20 nd 30cm EGD TRANSORAL BIOPSY SINGLE/MULTIPLE 03/18/15 duodenitis, small hiatal hernia LIG/TRNSXJ FLP TUBE ABDL/VAG APPR UNI/BI Tubal ligation NEUROPLASTY AND/TRANSPOS MEDIAN NRV CARPAL TUNNE Carpal tunnel decomp- both PAST SURGICAL HISTORY OF radioactive iodine to thyroid TONSILLECTOMY PRIMARY/SECONDARY Tonsillectomy I reviewed the past medical history, family history, social history and surgical history with changes noted above and updated in EMR. IMMUNIZATIONS Prevnar - 2014 Pneumovax - 2016 Influenza - 04/24/2023 COVID-19 - most recent 09/2020 ROS: CONSTITUTIONAL: No fevers, chills, nightsweats, unintended weight loss HEENT: Some nasal congestion/sinus symptoms, postnasal drip. EYES: No diplopia or blurry vision, itchy eyes CARDIOVASCULAR: No chest pain, palpitations, orthopnea, PND PULM: See HPI GI: No dysphagia/odynophagia, problematic reflux. NEURO: No new balance problems, peripheral weakness/paresthesias or numbness of concern. MUSC-SKEL: Polyarticular joint pain INTEGUMENTARY: No new skin changes or rashes PHYSICAL EXAMINATION: BP 124/62 (BP Site: Right Arm, BP Position: Sitting, BP Cuff Size: Regular Adult) Pulse 65 Temp 36.7 ?C (98 ?F) (Temporal Artery) Resp 17 Wt 108.8 kg (239 lb 12.8 oz) SpO2 95% BMI 43.86 kg/m? Gen: N (more content not included)... [facility] 08-20-2023 Miscellaneous Notes Phoned patient and aware lab orders in place in computer per PCP. Labs placed Patient called requesting labs before her appointment on 08/29 w/ pcp please advise documented in this encounter [facility] 07-13-2023 Miscellaneous Notes Patient calls to review recommendations for cough with cold symptoms. Nurse triage completed. Protocol recommends home care. Reviewed home care, when to call back, and red flag symptoms to go to ED with. Patient verbalizes understanding. Reason for Disposition Cough with cold symptoms (e.g., runny nose, postnasal drip, throat clearing) Answer Assessment - Initial Assessment Questions 1. ONSET: 3-4 days ago. 2. SEVERITY:Bothersome. 3. SPUTUM: Clear 4. HEMOPTYSIS: No 5. DIFFICULTY BREATHING: No 6. FEVER: No 7. CARDIAC HISTORY: Hx of CHF. 8. LUNG HISTORY:Emphysema, Mild COPD. 9. PE RISK FACTORS: No recent major surgery, recent prolonged travel, bedridden. 10. OTHER SYMPTOMS: Runny nose. No wheezing, SOB, or chest pain. Protocols used: Cough - Acute [id number] documented in this encounter [facility] 05-20-2023 History of Presen t illness Narrative Images from the original note were not included. Patient: Maria Esther Reddy PCP: Bradley Causey MD CC: follow up HPI: Maria Esther Reddy 78 year old morbidly obese female current smoker, 57 pack years with PMH significant for hypothyroidism h/o Grave's dz s/p radioactive iodine ablation, HLD, AFib on Eliquis, lung nodules, and COPD. Was initially seen by Dr. Henderson 02/15/2023 for evaluation of COPD. At that time, she was started on Spiriva for mild COPD. Stopped the Spiriva after 2 months due to cost of medication and states she did not notice a difference in her symptoms. Daily cough productive of kaur phlegm. No hemoptysis. Frequent wheezing. Exertional dyspnea climbing stairs. No issues with carrying laundry/groceries or walking on flat surfaces. Using a cane to ambulate. Lower extremity edema, stable. She is smoking between a half pack to a pack per day. PAST MEDICAL HISTORY Diagnosis Date Arthritis of knee, right 06/09/2012 Benign neoplasm of colon 2002 Dysmetabolic syndrome X Hyperlipidemia LDL goal < 100 06/20/2012 Morbid obesity (HCC) 06/09/2012 Other osteoporosis Other symptoms involving cardiovascular system Personal history of colonic polyps Phlebitis and thrombophlebitis of other deep vessels of lower extremities Unspecified hypothyroidism H/o Radioactive Iodine Treatment Unspecified vitamin D deficiency Allergies: Sulfa (Sulfonamide * Vomiting furosemide (LASIX) 40 mg tablet^Take 1 tablet by mouth once daily.^Disp: 90 tablet^Rfl: 1 omeprazole (PRILOSEC) 40 mg capsule^Take 1 capsule by mouth once daily.^Disp: 90 capsule^Rfl: 3 simvastatin (ZOCOR) 20 mg tablet^Take 1 tablet by mouth daily at bedtime.^Disp: 90 tablet^Rfl: 3 levothyroxine (SYNTHROID) 175 mcg tablet^Take 1 tablet by mouth daily before breakfast.^Disp: 90 tablet^Rfl: 3 levothyroxine (SYNTHROID) 175 mcg tablet^Take 1 tablet by mouth daily before breakfast.^Disp: 30 tablet^Rfl: 0 tiotropium (SPIRIVA WITH HANDIHALER) 18 mcg inhalation capsule^Inhale 1 capsule as instructed once daily. USE WITH HANDIHALER.^Disp: 30 capsule^Rfl: 11 albuterol HFA (PROVENTIL HFA, VENTOLIN HFA) 90 mcg/actuation inhaler^Inhale 2 Puffs as instructed every 6 hours as needed.^Disp: 3 Each^Rfl: 3 albuterol HFA (PROVENTIL HFA, VENTOLIN HFA) 90 mcg/actuation inhaler^Inhale 2 Puffs as instructed every 4 hours as needed for wheezing/shortness of breath.^Disp: 6.7 g^Rfl: 0 fluticasone (FLONASE) 50 mcg/actuation nasal spray^Use 1 [place] in each nostril once daily.^Disp: 3 Bottle^Rfl: 3 Social History Tobacco Use Smoking status: Every Day Packs/day: 1.25 Years: 57.00 Additional pack years: 0.00 Total pack years: 71.25 Types: Cigarettes Smokeless tobacco: Never Substance Use Topics Alcohol use: Yes Comment: once a year Drug use: No Family History Problem Relation Age of Onset Stroke Mother Heart Mother Heart Father Alzheimer's Disease Father Diabetes Father other (PARKINSONS) Father other (atrial fibrillation) Brother artificial heart valve Colon Cancer Brother other (colon polyps) Brother PAST SURGICAL HISTORY Procedure Laterality Date ADENOIDECTOMY PRIMARY <AGE 13 Adenoidectomy COLONOSCOPY W/BIOPSY SINGLE/MULTIPLE 12/10/08 3 small polyps COLSC FLX W/RMVL OF TUMOR POLYP LESION SNARE TQ COLSC FLX W/RMVL OF TUMOR POLYP LESION SNARE TQ 03/18/15 2 polyps in transverse colon - no retrieved, 2 at 20 nd 30cm EGD TRANSORAL BIOPSY SINGLE/MULTIPLE 03/18/15 duodenitis, small hiatal hernia LIG/TRNSXJ FLP TUBE ABDL/VAG APPR UNI/BI Tubal ligation NEUROPLASTY &/TRANSPOS MEDIAN NRV CARPAL TUNNE Carpal tunnel decomp- both PAST SURGICAL HISTORY OF radioactive iodine to thyroid TONSILLECTOMY PRIMARY/SECONDARY <AGE 13 Tonsillectomy I reviewed the past medical history, family history, social history and surgical history with changes noted above and updated in EMR. IMMUNIZATIONS Prevnar - 2014 Pneumovax - 2016 Influenza - 04/24/2023 COVID-19 - most recent 09/2020 ROS: CONSTITUTIONAL: No fevers, chills, nightsweats, unintended weight loss HEENT: Some nasal congestion/sinus symptoms, postnasal drip. EYES: No diplopia or blurry vision, itchy eyes CARDIOVASCULAR: No chest pain, palpitations, orthopnea, PND PULM: See HPI GI: No dysphagia/odynophagia, problematic reflux. NEURO: No new balance problems, peripheral weakness/paresthesias or numbness of concern. MUSC-SKEL: Polyarticular joint pain PSY: No concerns regarding depression, anxiety INTEGUMENTARY: No new skin changes or rashes PHYSICAL EXAMINATION: BP 130/70 (BP Site: Right Arm) Pulse 67 Temp (!) 35.6 C (96 F) Ht 157.5 cm (5' 2) Wt 108 kg (238 lb) BMI 43.53 kg/m Gen: No acute distress. Cooperative with examination. HEENT: Normocephalic. Sclera, conjunctiva clear. Upper plate. No thrush. Resp: No stridor, accessory respiratory muscle use, supra-sternal or intercostal retractions. No wheezes, crackles. CV: Regular rythm. Heart tones normal. Radial pulses normal. MSK: No kyphoscoliosis. Ext: Warm and well perfused. No clubbing, cyanosis. Bilateral lower extremity edema. Skin: No rash, ecchymoses. Neuro: Mental status normal. Affect normal. No tremor. DATA: PFT 01/2023: Imaging / Diagnostic Studies: DATE OF EXAM: Dec 03 2022 11:44AM [facility] 0562 - CT LUNG SCREEN WO IVCON / COMPARISON: None RESULT: Are nodules present? Yes, 1-5 nodules If No, go to IMPRESSION. If yes, proceed with characterization of the FIVE largest nodules. Nodule 1: This Solid nodule is located in the Right Lower Lobe on slice number 129 with an average diameter of 7.8 mm (9.3 mm x 6.3 mm). Nodule 2: This Solid nodule is located in the Right Lower Lobe on slice number 208 with an average diameter of 7.5 mm (9.8 mm x 5.2 mm). Nodule 3: This Solid nodule is located in the Right Upper Lobe on slice number 102 with an average diameter of 5.8 mm (7.1 mm x 4.4 mm). Nodule 4: This Solid nodule is located in the Left Upper Lobe on slice number 47 with an average diameter of 5.6 mm (6.7 mm x 4.5 mm). If this is an ANNUAL LDCT for LCS, please ensure nodule number is the same as in the prior evaluation. Other lung nodule comments: Other findings: Mild to moderate emphysema is noted, which is both centrilobular and paraseptal in distribution. There are patchy centrilobular and groundglass opacities in both lungs, predominantly in the upper lobes. Also noted are reticular opacities in the upper lobes adjacent to emphysematous changes, which may be related to smoking related interstitial fibrosis. Dependent bibasilar atelectasis is noted. There is mild central and peripheral bronchial wall thickening. No pleural effusion is noted. The thyroid gland is atrophic/surgically removed. Few subcentimeter mediastinal and hilar lymph nodes are nonspecific. There is a small hiatal hernia. The thoracic aorta is normal in caliber. There is moderate to severe calcification of the thoracic aorta. The arch vessel branching pattern is bovine (i.e., common trunk of the innominate and left common carotid artery). Central pulmonary arteries are normal in size. There is left atrial enlargement. Mitral annular calcification is noted. Trace pericardial fluid is noted. Limited images of the upper abdomen demonstrate no acute abnormality. Small amount of pneumobilia is noted. Degenerative changes are noted in the thoracic spine. Emphysema: Mild (5-25%), Centrilobular, Upper lobe Coronary Artery Calcifications: Circumflex None; Left Anterior Descending None; Right Coronary None IMPRESSION: LungRADS category: 3 Echo: CONCLUSIONS: - Exam indication: Shortness of Breath - The left ventricle is small. Left ventricular systolic function is normal. EF = 60 5% (2D biplane) Indeterminate left ventricular diastolic dysfunction. - The right ventricle is normal in size. Right ventricular systolic function is normal. - The left atrial cavity is mildly dilated. - There are no significant valvular abnormalities. ASSESSMENT/PLAN: 1. COPD, mild (HCC) - ICD9: 496, ICD10: J44.9 (primary diagnosis) Patient did not have symptom improvement with Spiriva and it was not cost effective. Will trial Symbicort. Albuterol HFA inhaler, 2 inhalations 10-15 minutes prior to activities associated with shortness of breath, and as needed for rescue relief of shortness of breath or wheezing, up to 4 times daily. Smoking cessation is critical. - BUDESONIDE-FORMOTEROL HFA 160 MCG-4.5 MCG/ACTUATION AEROSOL INHALER 2. Lung nodules - ICD9: 793.19, ICD10: R91.8 Enrolled in lung cancer screening program. Next LDCT scheduled 06/04/2023. 3. Cigarette smoker - ICD9: 305.1, ICD10: F17.210 Cessation encouraged. Physiologic and physical aspects of tobacco addiction as well as strategies for quitting were discussed. Counseling was given focusing on the harmful effects of this addiction especially given the patient's medical condition(s) which will be worsened because of the chemicals in tobacco. Patient has no desire to quit smoking. 4. Morbid obesity (HCC) - ICD9: 278.01, ICD10: E66.01 Weight loss advised. Portions of this documentation were copied and pasted from previous office visit notes in order to provide a cohesive continuity of the history. The note has been reviewed and edited and updated as necessary. Eloise Hurt PA-C documented in this encounter [facility] 05-13-2023 Miscellaneous Notes Scan on 05/13/2023 5:59 PM by Provider, TREASURE Saleem: Consultation - Emergency Medicine Sees cardiology 06/24/23 and is also on the waitlist. Patient calling from [facility] to say she had a pre op EKG for upcoming cataract surgery and was told the EKG was abnormal. She was advised to see PCP today or go to the ER. There are no same day appointments available at this time of day. Advised patient to go to ER as instructed by [facility]. Yessica Pearl RN documented in this encounter [facility] 05-13-2023 Discharge summary Note Date/Time May 13, 2023 4:27pm [facility] Medical Records Department [address] [place] [address] Emergency Department Summary 05/13/23 MR#: [id number] Acct: [id number] Name: MARIA ESTHER REDDY DIANELYS Rep #:[id number] : 1945 78 From: Giancarlo Ya MD PCP: Dr. Bradley Causey MD Status:REG E R Location: ED HPI History of Present Illness Chief Complaint: Chest Pain Narrative Narrative: 78-year-old female, past medical history of COPD, smoker, presents to the emergency department because while she was at the eye doctor she states they performed an EKG which showed her to be in atrial fibrillation. She states thatshe does not have this diagnosis but admittedly has been having intermittent palpitations and fluttering of her heart for the last few months to years. She states that as soon as they took the EKG legs off of her, she felt back to normal. She denies any chest pain or shortness of breath that is new for her with her COPD. She presents because of the atrial fibrillation. PFSH PFSH Home Medications albuterol sulfate 90 mcg/actuation aerosol inhaler (ProAir HFA) 2 puff PO PRN PRN Sob &/Or Wheezing 06/05/18 [History Last Taken Unknown] levothyroxine 150 mcg tablet (Synthroid) 150 mcg PO DAILY THYROID 06/05/18 [History Last Taken 06/05/18] lisinopril 20 mg tablet 20 mg PO DAILY #30 tabs 06/05/18 [Rx Last Taken Unknown] lisinopril 20 mg-hydrochlorothiazide 12.5 mg tablet 1 tab PO DAILY BP 06/05/18 [History Last Taken 06/05/18] odwisnpo-raff-npsh 8 mg-folic 400 mcg-K 50 mcg-lutein 300 mcg tablet (Centrum Silver Women) 1 tab PO DAILY SUPPLEMENT 06/05/18 [History Last Taken 06/04/18] omeprazole 40 mg capsule,delayed release 40 mg PO DAILY 06/05/18 [History Last Taken 06/05/18] simvastatin 20 mg tablet 20 mg PO DAILY CHOLESTEROL 06/05/18 [History Last Taken 06/04/18] apixaban 5 mg tablet (Eliquis) 5 mg PO BID #60 tabs 05/13/23 [Rx Last Taken Unknown] metoprolol succinate 50 mg tablet,extended release 24 hr (Toprol XL) 50 mg PO DAILY #30 tabs 05/13/23 [Rx Last Taken Unknown] Allergy/AdvReac Type Severity Reaction Status Date / Time Sulfa (Sulfonamide AdvReac Vomiting Verified 05/13/23 15:56 Antibiotics) Social History Smoking Status: Current every day smoker tobacco type: cigarettes ROS ROS ED ROS Narrative Constitutional: No fever, no chills. HEENT: No sore throat. No neck pain. No loss of vision. No rhinorrhea. Cardiovascular: No chest pain. Intermittent palpitations and fluttering. No pedal edema. Respiratory: No cough, no shortness of breath. Abdominal: No abdominal pain. No nausea. No vomiting. Genitourinary: No dysuria. No hematuria. Musculoskeletal: No myalgias. No arthralgias. Neurologic: No headaches. No dizziness. No lightheadedness. Skin: No rash. No change in color. Psychiatric: No depression. No anxiety. EXAM Physical Exam Narrative Exam Narrative: Afebrile. Vital signs noted. HEENT: Normocephalic. Atraumatic. PERRL, EOMI. Neck soft and supple. No pointtenderness or step off. Cardiovascular: Regular rate and rhythm. No murmurs, rubs, or gallops appreciated. Respiratory: No tachypnea. Lungs clear to auscultation bilaterally. Diminishedbreath sounds bilateral bases. Gastrointestinal: Abdomen soft, nontender, with normoactive bowel sounds. No rebound or guarding. Neurological: Awake. Alert. Nonfocal, nonlateralizing. Skin: No rash. Normal color. No pallor. Musculoskeletal: No pedal edema. Full range of motion extremities. Const Vital Signs: 05/13/23 15:56 05/13/23 16:15 05/13/23 16:18 Temperature 98.4 F Temperature Source Temporal Pulse Rate 74 Respiratory Rate 16 Respiratory Effort Normal Non-Labored Blood Pressure 127/63 H Blood Pressure Mean 84 Pulse Ox 99 Oxygen Delivery Method Room Air Room Air MDM MDM MDM Narrative Medical decision making narrative: Concern is for atrial fibrillation with RVR versus PACs. I reviewed her prior records. I see no evidence of atrial fibrillation on her previous EKGs except the one that was performed today. It shows atrial fibrillation at around 167 bpm/RVR. She states she is supposed to see a continuous drier operator in the future as she has had multiple work-ups including echocardiogram and EKGs, but has never been found to be in atrial fibrillation. Her EKG today was obtained and interpreted by myself independently as normal sinus rhythm at 71 bpm without ectopy or acuteST changes. No STEMI. I reviewed her laboratory work and she has a normal white count of 7.9, hemoglobin slightly hemoconcentrated at 15.6, hematocrit 47.9, platelet count normal at 209. Potassium is slightly low at 3.2. She is on hydrochlorothiazide. This was supplemented and replaced with 40 mill equivalents orally. Glucose is slightly elevated at 117 but she has a normal anion gap of 7 with a BUN of 21 and creatinine normal 0.96. TSH is slightly lowat 0.23, she does take levothyroxine. High-sensitivity troponin is 8. Chest x-ray in 1 view interpreted by myself independently shows no evidence of acute process, no pneumothorax or pneumonia. I reviewed the radiology report which confirms my independent interpretation. As her EKG shows her to be in normal sinus rhythm, she is not on anything for rate control currently. I did discuss the risk-benefit of starting her on a blood thinner such as Eliquis. She states her brothers take that and she is familiar with that. She was told of the risk of intracranial hemorrhage and GI bleeding and increased bleeding from wounds and acknowledges an understanding. I feel the risk-benefit ratio has been discussed and she accepts because her CHADS2 score is 2. Additionally, I discussed the patient with Dr. Fleming with [facility] cardiology who agrees with starting her on metoprolol succinateat 50 mg, and Eliquis. She was given her first doses here in the emergency department and prescription called in for the next 30 days. She will follow-up with cardiology in the next week. I feel she can be discharged safely home withfollow-up. Return instructions to the emergency department were reviewed. Disposition is discharged home in stable condition. History & Record Review Discussion w/independent historian: Patient Additional record(s) reviewed:: Prior ED visit and Prior labs Lab Data Labs: Laboratory Results - last 24 hr 05/13/23 16:23 WBC 7.9 RBC 5.29 Hgb 15.6 H Hct 47.9 H MCV 90.5 MCH 29.5 MCHC 32.6 RDW Std Deviation 46.5 H RDW Coeff of Martir 13.8 Plt Count 209 MPV 11.0 Immature Gran % (Auto) 0.400 Neut % (Auto) 62.1 Lymph % (Auto) 26.0 Stevens % (Auto) 8.7 Eos % (Auto) 1.9 Baso % (Auto) 0.9 Absolute Neuts (auto) 4.9 Absolute Lymphs (auto) 2.06 Nucleated RBC % 0 Sodium 142 Potassium 3.2 L Chloride 104 Carbon Dioxide 31.0 Anion Gap 7 BUN 21 H Creatinine 0.96 Est GFR (MDRD) Af Amer 72 Est GFR (MDRD) Non-Af 60 BUN/Creatinine Ratio 21.8 H Glucose 117 H Calcium 8.6 Magnesium 1.6 Total Bilirubin 0.50 AST 17 ALT 17 Alkaline Phosphatase 108 Troponin I High Sens 8 Total Protein 6.7 Albumin 3.2 Globulin 3.5 Albumin/Globulin Ratio 0.9 TSH 0.23 L Radiography Diagnostic Testing: Clinical Impression(s) from Imaging Studies Chest X-Ray 05/13/23 16:40 IMPRESSION: No acute findings in the chest. Electronically Signed: Shalom Lares MD at 17:01 EST , Discharge Plan Triage Chief Complaint: Chest Pain Other Complaint: Palpitations ED Provider: Giancarlo Ya Dx/Rx/DC Orders Clinical Impression: Palpitations, Atrial fibrillation, Hypokalemia Instructions: ED AFIB, ED Hypokalemia Prescriptions: New metoprolol succinate [Toprol XL] 50 mg tablet extended release 24 hr 50 mg PO DAILY Qty: 30 0RF Eliquis 5 mg tablet 5 mg PO BID Qty: 60 0RF No Action lisinopril-hydrochlorothiazide 20-12.5 tablet 1 tab PO DAILY omeprazole 40 MG capsule,delayed release(DR/EC) 40 mg PO DAILY simvastatin 20 MG tablet 20 mg PO DAILY levothyroxine [Synthroid] 150 MCG tablet 150 mcg PO DAILY albuterol sulfate [ProAir HFA] 1 PUFF inhaler 2 puff PO PRN PRN (Reason: Sob &/Or Wheezing) npcppnpc-bjq-kqpt-FA-vit K-lut [Centrum Silver Women] 1 EACH tablet 1 tab PO DAILY lisinopril 20 MG tablet 20 mg PO DAILY Qty: 30 1RF Primary Care Provider: Bradley Causey Referrals: Nu Fleming MD [Non-Staff] - 5-7 Days Bradley Causey MD [Primary Care Provider] - 3-5 Days Activity Restrictions/Additional Instructions: Follow-up with cardiology in 5 to 7 days. You may need to follow-up with your primary care physician as well to recheck your potassium as you may need to start supplementation. We will be starting Eliquis, and you do have increased risk of bleeding. Disposition Disposition: Home, Self Care What to do if you have Problems For any increased pain, shortness of breath, bleeding, nausea or vomiting, chestpain, or any unexpected problems, contact your Primary Care Provider. Call [facility] ([phone]) or report to the closest Emergency Room. Call 911 if necessary. 05/13/23 1746 <Electronically signed by Giancarlo Ya MD> Cosigner Signature (if applicable): CC: Dr. Bradley Causey MD ~ Signed [facility] Work Phone: 1(578) 300-816812-04-2023 Miscellaneous Notes* Telephone Encounter - Michael Mistry - 05/13/2023 10:27 AM EST Patient phones requesting refills as follows: Requested Prescriptions Pending Prescriptions Disp Refills furosemide (LASIX) 40 mg tablet 90 tablet 1 Sig: Take 1 tablet by mouth once daily. BENIGNO 04/24/23 08/30/23 Please review and advise. Michael Mistry [facility] Discharge instructions Additional Instructions Follow-up with cardiology in 5 to 7 days. You may need to follow-up with your primary care physician as well to recheck your potassium as you may need to start supplementation. We will be starting Eliquis, and you do have increased risk of bleeding.[facility] Work Phone: 1(468) 188-801511-18-2023 NoteIMPRESSION: 1. Mild osteoarthrosis of the bilateral feet with interval progression at the left forefoot Partner Marketing Manager: ARBEN Transcribe Date/Time: Apr 27 2023 11:37A Dictated by : KAYLEN JUARES MD This examination was interpreted and the report reviewed and electronically signed by: KAYLEN JUARES MD on Apr 27 2023 11:39AM EST DIVISION OF [id number] History of Present illness Narrative* Bradley Causey MD - 04/24/2023 3:21 PM EST Patient presents with: Follow Up HPI: Patient presents today for office visit for follow up. Patient believes she probably has bilateral heel spurs. State that unable to walk bare foot on hardfloor. Has pain when first ambulating. No swelling. Is wearing shoes helps. Wearing crocs. Seeing pulmonary. Order placed in january to see Cardiology. Cannot get her in until August. Discussed that it is way too far out. Has had echo and stress test. Breathing is stable. No worse. No current chest pain. Swelling is better. Edema is better. Weight is up a little. Remains on lasix. See previous ov: Swelling in legs are better. Continues on Furosemide. Due for BMP. She feels back to normal with legs. No redness or swelling. Denies chest pain No new shortness of breath. Hx of COPD. Discussed getting pft's No dizziness. Trying to see Dr. Verduzco for gel injection in right knee. Continued pain. Stress Test completed on 11/27/22. No ischemia. Echo was overall ok. Normal lv function. Could not assess diastolic dysyfunction. Lung screening completed 12/03/22 Still smoking 1 PPD Component Latest Ref Rng & Units 11/02/2022 11/16/2022 01/14/2023 04/03/2023 WBC 3.70 - 11.00 k/uL 8.47 7.92 RBC 3.90 - 5.20 m/uL 5.09 5.28 (H) Hemoglobin 11.5 - 15.5 g/dL 15.2 15.8 (H) Hematocrit 36.0 - 46.0 % 47.0 (H) 48.0 (H) MCV 80.0 - 100.0 fL 92.3 90.9 MCH 26.0 - 34.0 pg 29.9 29.9 MCHC 30.5 - 36.0 g/dL 32.3 32.9 RDW-CV 11.5 - 15.0 % 14.9 14.7 Platelet Count 150 - 400 k/uL 216 265 MPV 9.0 - 12.7 fL 11.6 10.9 Neut% % 68.8 56.0 Abs Neut (ANC) 1.45 - 7.50 k/uL 5.82 4.44 Lymph% % 20.8 30.8 Abs Lymph 1.00 - 4.00 k/uL 1.76 2.44 Stevens% % 8.0 9.3 Abs Stevens <0.87 k/uL 0.68 0.74 Eosin% % 1.5 2.7 Abs Eosin <0.46 k/uL 0.13 0.21 Baso% % 0.7 0.9 Abs Baso <0.11 k/uL 0.06 0.07 Immature Gran % % 0.2 0.3 IMMATURE GRANS (ABS) <0.10 k/uL <0.03 <0.03 NRBC /100 WBC 0.0 0.0 Absolute nRBC <0.01 k/uL <0.01 <0.01 DTYPE Auto Auto Protein, Total 6.3 - 8.0 g/dL 6.6 6.6 Albumin 3.9 - 4.9 g/dL 3.9 3.9 Calcium 8.5 - 10.2 mg/dL 9.3 9.2 9.6 Bilirubin, Total 0.2 - 1.3 mg/dL 0.7 0.7 Alkaline Phosphatase 34 - 123 U/L 115 103 AST 13 - 35 U/L 29 22 ALT 7 - 38 U/L 16 11 Glucose 74 - 99 mg/dL 116 (H) 141 (H) 102 (H) BUN 7 - 21 mg/dL 20 22 (H) 25 (H) Creatinine 0.58 - 0.96 mg/dL 0.75 0.84 0.83 Sodium 136 - 144 mmol/L 140 142 142 Potassium 3.7 - 5.1 mmol/L 4.7 3.8 4.0 Chloride 97 - 105 mmol/L 105 102 102 CO2 22 - 30 mmol/L 23 28 28 Anion Gap 9 - 18 mmol/L 12 12 12 eGFR >=60 mL/min/1.73m 83 72 73 Cholesterol, Total <200 mg/dL 184 Triglyceride <150 mg/dL 81 HDL Cholesterol >39 mg/dL 58 Non HDL Cholesterol <130 mg/dL 126 Fasting Time hrs 12 VLDL Cholesterol <30 mg/dL 16 TC:HDL Ratio <5.10 3.17 LDL Cholesterol <100 mg/dL 110 (H) LDL:HDL Ratio <2.54 1.90 Hemoglobin A1C 4.3 - 5.6 % 5.8 (H) Estimated Average Glucose mg/dL 120 NT Pro BNP <450 pg/mL 678 (H) 702 (H) MEDICATIONS: Current Outpatient Medications Medication Sig levothyroxine (SYNTHROID) 175 mcg tablet Take 1 tablet by mouth daily before breakfast. tiotropium (SPIRIVA WITH HANDIHALER) 18 mcg inhalation capsule Inhale 1 capsule as instructed once daily. USE WITH HANDIHALER. furosemide (LASIX) 40 mg tablet Take 1 tablet by mouth once daily. (Patient taking differently: Take 20 mg by mouth once daily.) simvastatin (ZOCOR) 20 mg tablet Take 1 tablet by mouth daily at bedtime. omeprazole (PRILOSEC) 40 mg capsule Take 1 capsule by mouth once daily. albuterol HFA (PROVENTIL HFA, VENTOLIN HFA) 90 mcg/actuation inhaler Inhale 2 Puffs as instructed every 6 hours as needed. fluticasone (FLONASE) 50 mcg/actuation nasal spray Use 1 [place] in each nostril once daily. levothyroxine (SYNTHROID) 175 mcg tablet Take 1 tablet by mouth daily before breakfast. albuterol HFA (PROVENTIL HFA, VENTOLIN HFA) 90 mcg/actuation inhaler Inhale 2 Puffs as instructed every 4 hours as needed for wheezing/shortness of breath. Current Facility-Administered Medications Medication Dose Route Frequency perflutren lipid microspheres 1.3 mL in NaCl (PF) 0.9% 10 mL injection (DEFINITY) INTRAVENOUS DIRECTED PRN sodium chloride 0.9 % (flush) 10 mL (BD POSIFLUSH) 10 mL INTRAVENOUS DIRECTED PRN ALLERGIES: ALLERGIES Allergen Reactions Sulfa (Sulfonamide * Vomiting PAST MEDICAL HISTORY Diagnosis Date Arthritis of knee, right 06/09/2012 Benign neoplasm of colon 2003 Dysmetabolic syndrome X Hyperlipidemia LDL goal < 100 06/20/2012 Morbid obesity (HCC) 06/09/2012 Other osteoporosis Other symptoms involving cardiovascular system Personal history of colonic polyps Phlebitis and thrombophlebitis of other deep vessels of lower extremities Unspecified hypothyroidism H/o Radioactive Iodine Treatment Unspecified vitamin D deficiency PAST SURGICAL HISTORY Procedure Laterality Date ADENOIDECTOMY PRIMARY <AGE 13 Adenoidectomy COLONOSCOPY W/BIOPSY SINGLE/MULTIPLE 12/10/08 3 small polyps COLSC FLX W/RMVL OF TUMOR POLYP LESION SNARE TQ COLSC FLX W/RMVL OF TUMOR POLYP LESION SNARE TQ 03/18/15 2 polyps in transverse colon - no retrieved, 2 at 20 nd 30cm EGD TRANSORAL BIOPSY SINGLE/MULTIPLE 03/18/15 duodenitis, small hiatal hernia LIG/TRNSXJ FLP TUBE ABDL/VAG APPR UNI/BI Tubal ligation NEUROPLASTY &/TRANSPOS MEDIAN NRV CARPAL TUNNE Carpal tunnel decomp- both PAST SURGICAL HISTORY OF radioactive iodine to thyroid TONSILLECTOMY PRIMARY/SECONDARY <AGE 13 Tonsillectomy FAMILY HISTORY Problem Relation Age of Onset Stroke Mother Heart Mother Heart Father Alzheimer's Disease Father Diabetes Father other (PARKINSONS) Father other (atrial fibrillation) Brother artificial heart valve Colon Cancer Brother other (colon polyps) Brother Social History Tobacco Use Smoking status: Every Day Packs/day: 1.25 Years: 57.00 Additional pack years: 0.00 Total pack years: 71.25 Types: Cigarettes Smokeless tobacco: Never Substance Use Topics Alcohol use: Yes Comment: once a year Drug use: No Reviewed current medications, allergies, past medical history, surgical history, family history andsocial history today. REVIEW OF SYSTEMS All other reviewed and negative other than HPI. HEALTH MAINTENANCE: Reviewed health maintenance issues today and recommended the following in detail. RSV Vaccine(1 - 1-dose 60+ series) Never done Influenza Vaccine(1) due on 02/08/2023 VITALS: BP 112/62 Pulse 69 Wt 104.8 kg (231 lb) SpO2 97% BMI 46.45 kg/m Last 4 Encounter Wt Readings: Date: Wt: 04/24/2023 104.8 kg (231 lb) 01/16/2023 101.6 kg (224 lb) 01/14/2023 100.1 kg (220 lb 9.6 oz) 11/20/2022 100.8 kg (222 lb 3.2 oz) PHYSICAL EXAMINATION: General appearance: Well appearing, alert, in no acute distress, well-hydrated, well nourished. Skin: Skin color, texture, turgor normal, no suspicious rashes or lesions Head: Normocephalic, no masses, lesions, tenderness or abnormalities Lungs: Lungs clear to auscultation. No wheezing, rhonchi, rales Heart: RRR without murmur, gallop, or rubs. No ectopy Abdomen: Normal abdominal exam, Abdomen soft, non-tender. Bowel sounds normal. No masses, organomegaly Extremities: No deformities, edema is stable. ASSESSMENT/PLAN: 1. Diastolic congestive heart failure, unspecified HF chronicity (HCC) - ICD9: 428.30, 428.0, ICD10: I50.30 (primary diagnosis) - likely diastolic chf. Is stable, however weight is up. Was to see cardiology but appt is placed nearly 7 months out. See if we can get her in sooner. Continue meds. Red flags for re-assessment reviewed with patient in detail. 2. Encounter for immunization - ICD9: V03.89, ICD10: Z23 - INFLUENZA VACCINE, PRSV FREE, AGE 65+ YR, HIGH DOSE, QUADRIVALENT (FLUZONE HIGH-DOSE) 3. GERD without esophagitis - ICD9: 530.81, ICD10: K21.9 - OMEPRAZOLE 40 MG CAPSULE,DELAYED RELEASE 4. Hyperlipidemia with target LDL less than 100 - ICD9: 272.4, ICD10: E78.5 - Controlled - Continue current medications - Counseled on healthy diet and regular exercise - SIMVASTATIN 20 MG TABLET 5. Essential hypertension, benign - ICD9: 401.1, ICD10: I10 - Controlled - Continue current medications 6. Centrilobular emphysema (HCC) - ICD9: 492.8, ICD10: J43.2 - per pulmonary. 7. COPD, mild (HCC) - ICD9: 496, ICD10: J44.9 - per pulmonary. 8. Lung nodules - ICD9: 793.19, ICD10: R91.8 - per pulmonary 9. Hypothyroidism, unspecified type - ICD9: 244.9, ICD10: E03.9 - stable. 10. Dysmetabolic syndrome X - ICD9: 277.7, ICD10: E88.810 - stable. 11. Prediabetes - ICD9: 790.29, ICD10: R73.03 - stable. 12. Morbid obesity (HCC) - ICD9: 278.01, ICD10: E66.01 -work on weight reduction. 13. Foot pain, bilateral - ICD9: 729.5, ICD10: M79.671, M79.672 - continue to wear crocs. Declines podiatry. - XR FOOT GENERAL 3V AP/LAT/OBL BILATERAL Bradley Causey MD documented in this encounterHol[facility] Miscellaneous Notes* Telephone Encounter - Sherry Yan LPN - 04/08/2023 12:56 PM EDT Scheduled 04/24/23 * Telephone Encounter - Leah Ferreira - 04/08/2023 9:51 AM EDT Patient has been identified by name and date of : Yes Requested Prescriptions Pending Prescriptions Disp Refills levothyroxine (SYNTHROID) 175 mcg tablet 90 tablet 3 Sig: Take 1 tablet by mouth daily before breakfast. levothyroxine (SYNTHROID) 175 mcg tablet Sig: Take 1 tablet by mouth daily before breakfast. RX INSTRUCTIONS: Patient aware RX will be sent to pharmacy. No need to notify patient. Patient aware RX escripted to mail away pharmacy. No need to notify patient. Leah Snyder documented in this encounterHolmes [facility]09-[facility] Nurse Note* Holly Fuentes LPN - 02/15/2023 8:53 AM EDT BP 122/58 P 115 R 17 SPO2 98% documented in this encounterHolmes County [facility]09-08-2023 History of Present illness Narrative* Smita Henderson MD - 02/15/2023 8:45 AM EDT Images from the original note were not included. . [facility] [place] Note Patient name: Maria Esther Reddy PCP: Bradley Causey MD Referring Physician: Fredis Khan CNP CC: COPD HPI: Maria Esther Reddy 77 year old morbidly obese female current smoker, 57 pack years with PMH significant for hypothyroidism h/o Grave's dz s/p radioactive iodine ablation, HLD recently seen [facility], referred for evaluation of COPD. She is a current 1-1/2 pack a day smoker andhas no desire to quit. She has had problems with cough mainly in the morning. She has sinus congestion with postnasal drip which she believes is the cause of her chronic cough. She has Flonase to useas needed which does help but she is noncompliant. She has had intermittent wheezing and some dyspnea on exertion but is mainly limited by her orthopedic issues. She denies any triggers including changes in the weather, exposure to fumes or strong odors. She has albuterol to use as needed which shebelieves does offer her some relief. She denies a history of chronic bronchitis or recurrent pneumonia. She has never been hospitalized for her COPD. She has had dyspnea and lower extremity edema, slightly elevated BNP, pending cardiology evaluation. DATA: PFT 01/2023: Labs: Component Ref Range & Units 1 mo ago NT Pro BNP <450 pg/mL 702 High Imaging / Diagnostic Studies: DATE OF EXAM: Dec 03 2022 11:44AM [facility] 0562 - CT LUNG SCREEN WO IVCON / COMPARISON: None RESULT: Are nodules present? Yes, 1-5 nodules If No, go to IMPRESSION. If yes, proceed with characterization of the FIVE largest nodules. Nodule 1: This Solid nodule is located in the Right Lower Lobe on slice number 129 with an average diameter of 7.8 mm (9.3 mm x 6.3 mm). Nodule 2: This Solid nodule is located in the Right Lower Lobe on slice number 208 with an average diameter of 7.5 mm (9.8 mm x 5.2 mm). Nodule 3: This Solid nodule is located in the Right Upper Lobe on slice number 102 with an average diameter of 5.8 mm (7.1 mm x 4.4 mm). Nodule 4: This Solid nodule is located in the Left Upper Lobe on slice number 47 with an average diameter of 5.6 mm (6.7 mm x 4.5 mm). If this is an ANNUAL LDCT for LCS, please ensure nodule number is the same as in the prior evaluation. Other lung nodule comments: Other findings: Mild to moderate emphysema is noted, which is both centrilobular and paraseptal in distribution. There are patchy centrilobular and groundglass opacities in both lungs, predominantly in the upper lobes. Also noted are reticular opacities in the upper lobes adjacent to emphysematous changes, which may be related to smoking related interstitial fibrosis. Dependent bibasilar atelectasis is noted. There is mild central and peripheral bronchial wall thickening. No pleural effusion is noted. The thyroid gland is atrophic/surgically removed. Few subcentimeter mediastinal and hilar lymph nodes arenonspecific. There is a small hiatal hernia. The thoracic aorta is normal in caliber. There is moderate to severe calcification of the thoracic aorta. The arch vessel branching pattern is bovine (i.e., common trunk of the innominate and left common carotid artery). Central pulmonary arteries are normal in size. There is left atrial enlargement. Mitral annular calcification is noted. Trace pericardial fluid is noted. Limited images of the upper abdomen demonstrate no acute abnormality. Small amount of pneumobilia is noted. Degenerative changes are noted in the thoracic spine. Emphysema: Mild (5-25%), Centrilobular, Upper lobe Coronary Artery Calcifications: Circumflex None; Left Anterior Descending None; Right Coronary None IMPRESSION: LungRADS category: 3 I personally reviewed the images and agree with the above assessment Echo: CONCLUSIONS: - Exam indication: Shortness of Breath - The left ventricle is small. Left ventricular systolic function is normal. EF = 60 5% (2D biplane) Indeterminate left ventricular diastolic dysfunction. - The right ventricle is normal in size. Right ventricular systolic function is normal. - The left atrial cavity is mildly dilated. - There are no significant valvular abnormalities. PAST MEDICAL HISTORY Diagnosis Date Arthritis of knee, right 06/09/2012 Benign neoplasm of colon 2003 Dysmetabolic syndrome X Hyperlipidemia LDL goal < 100 06/20/2012 Morbid obesity (HCC) 06/09/2012 Other osteoporosis Other symptoms involving cardiovascular system Personal history of colonic polyps Phlebitis and thrombophlebitis of other deep vessels of lower extremities Unspecified hypothyroidism H/o Radioactive Iodine Treatment Unspecified vitamin D deficiency ALLERGIES Allergen Reactions Sulfa (Sulfonamide * Vomiting furosemide (LASIX) 40 mg tablet^Take 1 tablet by mouth once daily.^Disp: 90 tablet^Rfl: 1 simvastatin (ZOCOR) 20 mg tablet^Take 1 tablet by mouth daily at bedtime.^Disp: 90 tablet^Rfl: 3 omeprazole (PRILOSEC) 40 mg capsule^Take 1 capsule by mouth once daily.^Disp: 90 capsule^Rfl: 3 levothyroxine (SYNTHROID) 175 mcg tablet^Take 1 tablet by mouth daily before breakfast.^Disp: 90 tablet^Rfl: 3 fluticasone (FLONASE) 50 mcg/actuation nasal spray^Use 1 [place] in each nostril once daily.^Disp: 3 Bottle^Rfl: 3 tiotropium (SPIRIVA WITH HANDIHALER) 18 mcg inhalation capsule^Inhale 1 capsule as instructed once daily. USE WITH HANDIHALER.^Disp: 30 capsule^Rfl: 11 albuterol HFA (PROVENTIL HFA, VENTOLIN HFA) 90 mcg/actuation inhaler^Inhale 2 Puffs as instructed every 6 hours as needed.^Disp: 3 Each^Rfl: 3 albuterol HFA (PROVENTIL HFA, VENTOLIN HFA) 90 mcg/actuation inhaler^Inhale 2 Puffs as instructed every 4 hours as needed for wheezing/shortness of breath.^Disp: 6.7 g^Rfl: 0 Social History Tobacco Use Smoking status: Every Day Packs/day: 1.25 Years: 57.00 Additional pack years: 0.00 Total pack years: 71.25 Types: Cigarettes Smokeless tobacco: Never Substance Use Topics Alcohol use: Yes Comment: once a year Drug use: No 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 Pets: None FAMILY HISTORY Problem Relation Age of Onset Stroke Mother Heart Mother Heart Father Alzheimer's Disease Father Diabetes Father other (PARKINSONS) Father other (atrial fibrillation) Brother artificial heart valve Colon Cancer Brother other (colon polyps) Brother PAST SURGICAL HISTORY Procedure Laterality Date ADENOIDECTOMY PRIMARY <AGE 13 Adenoidectomy COLONOSCOPY W/BIOPSY SINGLE/MULTIPLE 12/10/08 3 small polyps COLSC FLX W/RMVL OF TUMOR POLYP LESION SNARE TQ COLSC FLX W/RMVL OF TUMOR POLYP LESION SNARE TQ 03/18/15 2 polyps in transverse colon - no retrieved, 2 at 20 nd 30cm EGD TRANSORAL BIOPSY SINGLE/MULTIPLE 03/18/15 duodenitis, small hiatal hernia LIG/TRNSXJ FLP TUBE ABDL/VAG APPR UNI/BI Tubal ligation NEUROPLASTY &/TRANSPOS MEDIAN NRV CARPAL TUNNE Carpal tunnel decomp- both PAST SURGICAL HISTORY OF radioactive iodine to thyroid TONSILLECTOMY PRIMARY/SECONDARY <AGE 13 Tonsillectomy PMH, Social history, family history and surgical history reviewed and updated in EMR REVIEW OF SYSTEMS: CONSTITUTIONAL: No fevers, chills, nightsweats, unintended weight loss HEENT: Some nasal congestion/sinus symptoms, postnasal drip. EYES: No diplopia or blurry vision, itchy eyes CARDIOVASCULAR: No chest pain, palpitations, orthopnea, PND, edema PULM: See HPI GI: No dysphagia/odynophagia, problematic reflux. NEURO: No new balance problems, peripheral weakness/paresthesias or numbness of concern. MUSC-SKEL: Polyarticular joint pain PSY: No concerns regarding depression, anxiety INTEGUMENTARY: No new skin changes or rashes PHYSICAL EXAMINATION: Weight 102.1 kg, BP 120/58, pulse 116, SPO2 98% on room air, RR 17 General Appearance: Obese elderly female, NAD. Skin: Skin color, texture, turgor normal, no suspicious rashes or lesions. Head: Normocephalic, no masses, lesions, tenderness or abnormalities. Eyes: Sclera, conjunctiva normal. Oropharynx: Upper plate, no oral lesions. Neck: No JVD, no masses, no thyromegaly. Lungs: Not labored, normal to percussion, no wheezes or crackles. Heart: Irregular rhythm, tachycardia, no murmur. Extremities: Edema, no clubbing. Neurologic: Alert and oriented, no focal findings. Lymph Nodes: No cervical lymphadenopathy and No supraclavicular lymphadenopathy. Assessment/Plan: 1. 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 Emphysema noted on chest imaging -Started Spiriva HandiHaler with continued albuterol as needed -Encourage patient to use Flonase nasal spray 2. Irregular heart rate -Exam concerning for atrial fibrillation -EKG 3. Lung nodules -Likely inflammatory. Already set up for follow-up CT of her chest through lung cancer screening clinic 4. Cigarette smoker -Current smoker with sequelae of emphysema and COPD -As per HPI, she has no desire to quit smoking and does not want to discuss it further 5. Morbid obesity -Class III obesity, BMI 42 -Weight loss advised Smita Henderson MD [facility] [place] documented in this encounterHol[facility]08-15-2023 Miscellaneous Notes* Telephone Encounter - Marcos Gutierrez - 01/22/2023 2:31 PM EDT Called and scheduled pt with pulmonology * Telephone Encounter - Bradley Causey MD - 01/19/2023 10:33 AM EDT ? Referral was signed on 01/17 * Telephone Encounter - Adamaris Candelario - 01/18/2023 11:28 AM EDT Referral is still pending, unable to schedule right now * Telephone Encounter - Preethi Ashford LPN - 01/17/2023 2:27 PM EDT Patient notified. Verbalized understanding. Forwarding on to clerical to schedule. * Telephone Encounter - Bradley Causey MD - 01/17/2023 1:50 PM EDT Pulmonary shows mild changes that could be due to emphysema. Refer to pulmonary documented in this encounterHolmes [facility]08-14-2023 History of Present illness Narrative* Marissa Pena PA-C - 01/21/2023 2:15 PM EDTAssociated Order(s): Large Joint Arthro/Inj: R knee joint Post-Procedure Diagnose(s): Primary osteoarthritis of right knee Large Joint Arthro/Inj: R knee joint Informed Consent Consent Obtained: Verbal [place] Protocol A moment to CARE was completed. SIGN IN Sign in communication not applicable due to emergent procedure. Personnel directly involved with the procedure wore the appropriate PPE. Special Equipment: N/A Patient/Surrogate Stated/Verified: Patient name, Date of , Relevant allergies and Intended procedure TIME OUT Intended patient and procedure match the source document(s). Consent documented and matches the intended procedure. Relevant labs, photos, and/or imaging studies have been reviewed. Correct side/site marked and visible. Medications required for procedure verified. No fire risk assessment and interventions applicable. No implant(s) inserted. 01/21/2023 2:48 PM The procedure site was prepped in the usual sterile fashion. Site: R knee joint Medications: 48 mg hylan G-F 20 48 mg/6 mL Anesthetics: 5 mL lidocaine (PF) 10 mg/mL (1 %) Outcome: Tolerated well, no immediate complications Post-injection instructions were reviewed with the patient and the patient voiced understanding of these instructions. SIGN OUT No instruments, equipment or retained foreign bodies applicable. * Earnestine Quispe Ma - 01/21/2023 1:40 PM EDT Patient presents with: Right Knee - Injections AMB ROOMING INTAKE FLOWSHEET DATA Pain Pain Level: 4 Pain Location: Knee-Right Description: Dull, Aching Duration Amount of Time: (Ongoing) Frequency: Intermittent (Occurs with weight bearing) Intervention/Comfort measure: Medication Patient here for Synvisc One right knee. Taking Tylenol for the pain and helps some. LOT # [id number] EXP 07/10/2025 Earnestine Quispe Ma documented in this encounterHolmes [facility]08-09-2023 Miscellaneous Notes* Telephone Encounter - Darling Hodgson Ma - 01/16/2023 4:08 PM EDT The patient has been contacted and scheduled on 01/21/2023. * Telephone Encounter - Amy Perez - 01/11/2023 1:32 PM EDT [facility] approval fax was scanned to the scanned documents. * Telephone Encounter - Darling Hodgson Ma - 01/08/2023 11:11 AM EDT Referral completed for Synvisc One injection into her right knee. * Telephone Encounter - Marissa Pena PA-C - 01/08/2023 8:28 AM EDT Per last phone note her insurance was requiring PT, weight loss and trying topical capsacin. I see she participated in PT and last PCP note says she has lost 10 pounds. Ok to resubmit for right knee visco supplementation. * Telephone Encounter - Earnestine Quispe Ma - 01/07/2023 3:10 PM EDT Patient last seen on 10/19/[address] Verduzco. Her insurance required her to have PT prior to authorizing the last time. Looks like she went to PT 3 times. * Telephone Encounter - Kristina Jiménez RN - 01/07/2023 12:38 PM EDT Patient called in requesting update on approval from medicare for a gel shot in right knee. Kristina Jiménez, RN documented in this encounterHolmes [facility]08-09-2023 History of Present illness Narrative* Radha Laboy RPFT - 01/16/2023 10:00 AM EDT PULM FUNCTION SMARTBLOCK: Provider: Bradley Causey MD Assisting Tech: Radha Laboy RPFT Spirometry: 1 documented in this encounterHolmes County [facility]06-29-2023 Miscellaneous Notes* Telephone Encounter - Fredis Khan APRN.CNP - 12/06/2022 9:12 AM EDT Phone call to patient to discuss results LDCT Lung Rads category 3-repeat CT in 6 mos Interstitial fibrosis lungs and emphysema. Trace pericardial fluid is noted, pt had ECHO 11/16/22 WNL documented in this encounterHolmes County [facility]06-26-2023 History of Present illness Narrative* Beverly Childers RT(R) - 12/03/2022 11:00 AM EDT Radiology Service Progress Note PATIENT NAME: Maria Esther Reddy DATE OF SERVICE: December 03, 2022 TIME: 1:48 PM PATIENT IDENTITY VERIFICATION COMPLETED USING TWO (2) IDENTIFIERS: Name and Date of confirmedby patient verbally. FALL SCREENING: Has the patient had 2 falls in the last year or 1 fall with injury or currently using an Ambulatory Assistive Device (Walker, Cane, Wheelchair, Crutches, etc.)? No PATIENT GENDER DATA: Female. status: : No status: NO. PATIENT RELEVANT IMPLANT DATA REVIEWED: Yes RADIOLOGY DEPARTMENT: CT; Exam(s) Completed: Chest PERIPHERAL IV DATA: Not applicable SIGNED BY: RT Elkin(R) December 03, 2022 1:48 PM documented in this encounterHolmes County [facility]06-12-2023 History of Past illness Narrative* Problem Noted Date Diagnosed Date Resolved Date SOB (shortness of breath) 11/19/2022 IVONNE (acute kidney injury) 06/06/2018 Occult GI bleeding 12/28/2014 7 Other symptoms involving car diovascular system 09/23/2008 03/14/2016 Ingrowing nail 01/02/2008 04/23/2014 Vitamin D deficiency 12/19/2007 017 Other osteoporosis 12/19/2007 2 Other enthesopathy of ankle and tarsus 11/05/2007 03/06/2017 Sprain of foot, unspecified site 10/22/2007 04/23/2014 Plantar fascial fibromatosis 04/04/2006 01/27/2021 Lumbago 08/24/2005 03/06/2017 documented as of this encounter (statuses as of 02/15/2023) [facility]06[facility]12-[facility] History of Past illness Narrative* Problem Noted Date Diagnosed Date Resolved Date SOB (shortness of breath) 11/19/2022 IVONNE (acute kidney injury) 06/06/2018 Occult GI bleeding 12/28/2014 7 Other symptoms involving car diovascular system 09/23/2008 03/14/2016 Ingrowing nail 01/02/2008 04/23/2014 Vitamin D deficiency 12/19/2007 017 Other osteoporosis 12/19/2007 2 Other enthesopathy of ankle and tarsus 11/05/2007 03/06/2017 Sprain of foot, unspecified site 10/22/2007 04/23/2014 Plantar fascial fibromatosis 04/04/2006 01/27/2021 Lumbago 08/24/2005 03/06/2017 documented as of this encounter (statuses as of 04/08/2023) [facility] of Past illness Narrative* Problem Noted Date Diagnosed Date Resolved Date SOB (shortness of breath) 11/19/2022 IVONNE (acute kidney injury) 06/06/2018 Occult GI bleeding 12/28/2014 7 Other symptoms involving car diovascular system 09/23/2008 03/14/2016 Ingrowing nail 01/02/2008 04/23/2014 Vitamin D deficiency 12/19/2007 017 Other osteoporosis 12/19/2007 2 Other enthesopathy of ankle and tarsus 11/05/2007 03/06/2017 Sprain of foot, unspecified site 10/22/2007 04/23/2014 Plantar fascial fibromatosis 04/04/2006 01/27/2021 Lumbago 08/24/2005 03/06/2017 documented as of this encounter (statuses as of 04/12/2023) [facility] of Past illness Narrative* Problem Noted Date Diagnosed Date Resolved Date SOB (shortness of breath) 11/19/2022 IVONNE (acute kidney injury) 06/06/2018 Occult GI bleeding 12/28/2014 7 Other symptoms involving car diovascular system 09/23/2008 03/14/2016 Ingrowing nail 01/02/2008 04/23/2014 Vitamin D deficiency 12/19/2007 017 Other osteoporosis 12/19/2007 2 Other enthesopathy of ankle and tarsus 11/05/2007 03/06/2017 Sprain of foot, unspecified site 10/22/2007 04/23/2014 Plantar fascial fibromatosis 04/04/2006 01/27/2021 Lumbago 08/24/2005 03/06/2017 documented as of this encounter (statuses as of 04/25/2023) [facility] of Past illness Narrative* Problem Noted Date Diagnosed Date Resolved Date SOB (shortness of breath) 11/19/2022 IVONNE (acute kidney injury) 06/06/2018 Occult GI bleeding 12/28/2014 7 Other symptoms involving car diovascular system 09/23/2008 03/14/2016 Ingrowing nail 01/02/2008 04/23/2014 Vitamin D deficiency 12/19/2007 017 Other osteoporosis 12/19/2007 2 Other enthesopathy of ankle and tarsus 11/05/2007 03/06/2017 Sprain of foot, unspecified site 10/22/2007 04/23/2014 Plantar fascial fibromatosis 04/04/2006 01/27/2021 Lumbago 08/24/2005 03/06/2017 documented as of this encounter (statuses as of 05/13/2023) [facility] of Past illness Narrative* Problem Noted Date Diagnosed Date Resolved Date SOB (shortness of breath) 11/19/2022 IVONNE (acute kidney injury) 06/06/2018 Occult GI bleeding 12/28/2014 7 Other symptoms involving car diovascular system 09/23/2008 03/14/2016 Ingrowing nail 01/02/2008 04/23/2014 Vitamin D deficiency 12/19/2007 017 Other osteoporosis 12/19/2007 2 Other enthesopathy of ankle and tarsus 11/05/2007 03/06/2017 Sprain of foot, unspecified site 10/22/2007 04/23/2014 Plantar fascial fibromatosis 04/04/2006 01/27/2021 Lumbago 08/24/2005 03/06/2017 documented as of this encounter (statuses as of 05/14/2023) [facility] of Past illness Narrative* Problem Noted Date Diagnosed Date Resolved Date SOB (shortness of breath) 11/19/2022 IVONNE (acute kidney injury) 06/06/2018 Occult GI bleeding 12/28/2014 7 Other symptoms involving car diovascular system 09/23/2008 03/14/2016 Ingrowing nail 01/02/2008 04/23/2014 Vitamin D deficiency 12/19/2007 017 Other osteoporosis 12/19/2007 2 Other enthesopathy of ankle and tarsus 11/05/2007 03/06/2017 Sprain of foot, unspecified site 10/22/2007 04/23/2014 Plantar fascial fibromatosis 04/04/2006 01/27/2021 Lumbago 08/24/2005 03/06/2017 documented as of this encounter (statuses as of 05/20/2023) [facility] of Past illness Narrative* Problem Noted Date Diagnosed Date Resolved Date SOB (shortness of breath) 11/19/2022 IVONNE (acute kidney injury) 06/06/2018 Occult GI bleeding 12/28/2014 7 Other symptoms involving car diovascular system 09/23/2008 03/14/2016 Ingrowing nail 01/02/2008 04/23/2014 Vitamin D deficiency 12/19/2007 017 Other osteoporosis 12/19/2007 2 Other enthesopathy of ankle and tarsus 11/05/2007 03/06/2017 Sprain of foot, unspecified site 10/22/2007 04/23/2014 Plantar fascial fibromatosis 04/04/2006 01/27/2021 Lumbago 08/24/2005 03/06/2017 documented as of this encounter (statuses as of 07/13/2023) [facility] of Past illness Narrative* Problem Noted Date Diagnosed Date Resolved Date SOB (shortness of breath) 11/19/2022 IVONNE (acute kidney injury) 06/06/2018 Occult GI bleeding 12/28/2014 7 Other symptoms involving car diovascular system 09/23/2008 03/14/2016 Ingrowing nail 01/02/2008 04/23/2014 Vitamin D deficiency 12/19/2007 017 Other osteoporosis 12/19/2007 2 Other enthesopathy of ankle and tarsus 11/05/2007 03/06/2017 Sprain of foot, unspecified site 10/22/2007 04/23/2014 Plantar fascial fibromatosis 04/04/2006 01/27/2021 Lumbago 08/24/2005 03/06/2017 documented as of this encounter (statuses as of 08/20/2023) [facility] of Past illness Narrative* Problem Noted Date Diagnosed Date Resolved Date SOB (shortness of breath) 11/19/2022 IVONNE (acute kidney injury) 06/06/2018 Occult GI bleeding 12/28/2014 7 Other symptoms involving car diovascular system 09/23/2008 03/14/2016 Ingrowing nail 01/02/2008 04/23/2014 Vitamin D deficiency 12/19/2007 017 Other osteoporosis 12/19/2007 2 Other enthesopathy of ankle and tarsus 11/05/2007 03/06/2017 Sprain of foot, unspecified site 10/22/2007 04/23/2014 Plantar fascial fibromatosis 04/04/2006 01/27/2021 Lumbago 08/24/2005 03/06/2017 documented as of this encounter (statuses as of 08/21/2023) [facility]23 History of Past illness Narrative* Problem Noted Date Diagnosed Date Resolved Date SOB (shortness of breath) 11/19/2022 IVONNE (acute kidney injury) 06/06/2018 Occult GI bleeding 12/28/2014 7 Other symptoms involving car diovascular system 09/23/2008 03/14/2016 Ingrowing nail 01/02/2008 04/23/2014 Vitamin D deficiency 12/19/2007 017 Other osteoporosis 12/19/2007 2 Other enthesopathy of ankle and tarsus 11/05/2007 03/06/2017 Sprain of foot, unspecified site 10/22/2007 04/23/2014 Plantar fascial fibromatosis 04/04/2006 01/27/2021 Lumbago 08/24/2005 03/06/2017 documented as of this encounter (statuses as of 08/22/2023) [facility] History of Past illness Narrative* Problem Noted Date Diagnosed Date Resolved Date SOB (shortness of breath) 11/19/2022 IVONNE (acute kidney injury) 06/06/2018 Occult GI bleeding 12/28/2014 7 Other symptoms involving car diovascular system 09/23/2008 03/14/2016 Ingrowing nail 01/02/2008 04/23/2014 Vitamin D deficiency 12/19/2007 017 Other osteoporosis 12/19/2007 2 Other enthesopathy of ankle and tarsus 11/05/2007 03/06/2017 Sprain of foot, unspecified site 10/22/2007 04/23/2014 Plantar fascial fibromatosis 04/04/2006 01/27/2021 Lumbago 08/24/2005 03/06/2017 documented as of this encounter (statuses as of 08/23/2023) [facility] History of Past illness Narrative* Problem Noted Date Diagnosed Date Resolved Date SOB (shortness of breath) 11/19/2022 IVONNE (acute kidney injury) 06/06/2018 Occult GI bleeding 12/28/2014 7 Other symptoms involving car diovascular system 09/23/2008 03/14/2016 Ingrowing nail 01/02/2008 04/23/2014 Vitamin D deficiency 12/19/2007 017 Other osteoporosis 12/19/2007 2 Other enthesopathy of ankle and tarsus 11/05/2007 03/06/2017 Sprain of foot, unspecified site 10/22/2007 04/23/2014 Plantar fascial fibromatosis 04/04/2006 01/27/2021 Lumbago 08/24/2005 03/06/2017 documented as of this encounter (statuses as of 08/30/2023) [facility] History of Past illness Narrative* Problem Noted Date Diagnosed Date Resolved Date SOB (shortness of breath) 11/19/2022 IVONNE (acute kidney injury) 06/06/2018 Occult GI bleeding 12/28/2014 7 Other symptoms involving car diovascular system 09/23/2008 03/14/2016 Ingrowing nail 01/02/2008 04/23/2014 Vitamin D deficiency 12/19/2007 017 Other osteoporosis 12/19/2007 2 Other enthesopathy of ankle and tarsus 11/05/2007 03/06/2017 Sprain of foot, unspecified site 10/22/2007 04/23/2014 Plantar fascial fibromatosis 04/04/2006 01/27/2021 Lumbago 08/24/2005 03/06/2017 documented as of this encounter (statuses as of 09/11/2023) [facility] History of Past illness Narrative* Problem Noted Date Diagnosed Date Resolved Date SOB (shortness of breath) 11/19/2022 IVONNE (acute kidney injury) 06/06/2018 Occult GI bleeding 12/28/2014 7 Other symptoms involving car diovascular system 09/23/2008 03/14/2016 Ingrowing nail 01/02/2008 04/23/2014 Vitamin D deficiency 12/19/2007 017 Other osteoporosis 12/19/2007 2 Other enthesopathy of ankle and tarsus 11/05/2007 03/06/2017 Sprain of foot, unspecified site 10/22/2007 04/23/2014 Plantar fascial fibromatosis 04/04/2006 01/27/2021 Lumbago 08/24/2005 03/06/2017 documented as of this encounter (statuses as of 09/19/2023) [facility] History of Past illness Narrative* Problem Noted Date Diagnosed Date Resolved Date SOB (shortness of breath) 11/19/2022 IVONNE (acute kidney injury) 06/06/2018 Occult GI bleeding 12/28/2014 7 Other symptoms involving car diovascular system 09/23/2008 03/14/2016 Ingrowing nail 01/02/2008 04/23/2014 Vitamin D deficiency 12/19/2007 017 Other osteoporosis 12/19/2007 2 Other enthesopathy of ankle and tarsus 11/05/2007 03/06/2017 Sprain of foot, unspecified site 10/22/2007 04/23/2014 Plantar fascial fibromatosis 04/04/2006 01/27/2021 Lumbago 08/24/2005 03/06/2017 documented as of this encounter (statuses as of 09/27/2023) [facility] History of Past illness Narrative* Problem Noted Date Diagnosed Date Resolved Date SOB (shortness of breath) 11/19/2022 IVONNE (acute kidney injury) 06/06/2018 Occult GI bleeding 12/28/2014 7 Other symptoms involving car diovascular system 09/23/2008 03/14/2016 Ingrowing nail 01/02/2008 04/23/2014 Vitamin D deficiency 12/19/2007 017 Other osteoporosis 12/19/2007 2 Other enthesopathy of ankle and tarsus 11/05/2007 03/06/2017 Sprain of foot, unspecified site 10/22/2007 04/23/2014 Plantar fascial fibromatosis 04/04/2006 01/27/2021 Lumbago 08/24/2005 03/06/2017 documented as of this encounter (statuses as of 09/27/2023) [facility]06-09-2023 History of Present illness Narrative* Meg Griffith RT(R) - 11/16/2022 8:30 AM EDT Radiology Service Progress Note PATIENT NAME: Maria Esther Reddy DATE OF SERVICE: November 16, 2022 TIME: 8:56 AM PATIENT IDENTITY VERIFICATION COMPLETED USING TWO (2) IDENTIFIERS: Name and Date of confirmedby patient verbally. FALL SCREENING: Has the patient had 2 falls in the last year or 1 fall with injury or currently using an Ambulatory Assistive Device (Walker, Cane, Wheelchair, Crutches, etc.)? No PATIENT GENDER DATA: Female. status: : No status: NO. PATIENT RELEVANT IMPLANT DATA REVIEWED: Not Applicable RADIOLOGY DEPARTMENT: General X-ray: Exam(s) Completed: Chest X-Ray PERIPHERAL IV DATA: Not applicable SIGNED BY: RT Michelle(R) November 16, 2022 8:56 AM documented in this encounterHol[facility] History of Present illness Narrative* Bradley Causey MD - 11/12/2022 7:23 PM EDT Patient presents with: Follow Up: Urgent care follow up HPI: Patient presents today for office visit for UC follow up. See hpi from urgent care visit: Edema Associated symptoms include coughing. Pertinent negatives include no chest pain, chills, fever or myalgias. Maria Esther Reddy is a 77 year old female who presents with bilateral ankle and calf swelling for the past 2 days. States she has had this in the past but never this bad. Has never had to take diuretic medication. She has a history of COPD but denies worsening cough or shortness of breath. She has not had a fever. She has not taken any medication for this at home. She states it is hard for her to bend her ankles due to the swelling. She feels both legs are equally swollen. She denies any tenderness in her legs. She is not currently taking any medications commonly associated with edema such as calcium channel blockers or other vasodilators. She had a chest xray done as well as labs and was placed on lasix. Also had labs. Has had duplex of her left leg in the past. Had an us and mri of her left leg by Gasper Gibbons recently She is on nsaids. No cardiac hx. No new coughing. No fever or chills. No illness. No chest pain. No new shortness of breath but has been that way. No new orthopnea. No redness or warmth. Rarely albuterol. Has support hose that zip but does not work for her edema because they are painful. Her edema is worse towards evening. 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 No hx of dvt. See Chest xray from 11/01/22 IMPRESSION: Increased pulmonary vascular congestion and increased markings including peribronchial cuffing. New patchy partially consolidative right basilar opacity. Diagnostic considerations therefore include congestive and/or inflammatory interstitial prominence and uncomplicated right basilar atelectasis or in association with aspiration pneumonitis/bronchopneumonia. Component Latest Ref Rng & Units 10/01/2022 11/02/2022 WBC 3.70 - 11.00 k/uL 8.47 RBC 3.90 - 5.20 m/uL 5.09 Hemoglobin 11.5 - 15.5 g/dL 15.2 Hematocrit 36.0 - 46.0 % 47.0 (H) MCV 80.0 - 100.0 fL 92.3 MCH 26.0 - 34.0 pg 29.9 MCHC 30.5 - 36.0 g/dL 32.3 RDW-CV 11.5 - 15.0 % 14.9 Platelet Count 150 - 400 k/uL 216 MPV 9.0 - 12.7 fL 11.6 Neut% % 68.8 Abs Neut (ANC) 1.45 - 7.50 k/uL 5.82 Lymph% % 20.8 Abs Lymph 1.00 - 4.00 k/uL 1.76 Stevens% % 8.0 Abs Stevens <0.87 k/uL 0.68 Eosin% % 1.5 Abs Eosin <0.46 k/uL 0.13 Baso% % 0.7 Abs Baso <0.11 k/uL 0.06 Immature Gran % % 0.2 IMMATURE GRANS (ABS) <0.10 k/uL <0.03 NRBC /100 WBC 0.0 Absolute nRBC <0.01 k/uL <0.01 DTYPE Auto Protein, Total 6.3 - 8.0 g/dL 6.6 Albumin 3.9 - 4.9 g/dL 3.9 Calcium 8.5 - 10.2 mg/dL 9.3 Bilirubin, Total 0.2 - 1.3 mg/dL 0.7 Alkaline Phosphatase 34 - 123 U/L 115 AST 13 - 35 U/L 29 ALT 7 - 38 U/L 16 Glucose 74 - 99 mg/dL 116 (H) BUN 7 - 21 mg/dL 20 Creatinine 0.58 - 0.96 mg/dL 0.75 Sodium 136 - 144 mmol/L 140 Potassium 3.7 - 5.1 mmol/L 4.7 Chloride 97 - 105 mmol/L 105 CO2 22 - 30 mmol/L 23 Anion Gap 9 - 18 mmol/L 12 eGFR >=60 mL/min/1.73m 83 TSH 0.270 - 4.200 mIU/L 1.960 NT Pro BNP <450 pg/mL 678 (H) MEDICATIONS: Current Outpatient Medications Medication Sig Multivitamins chew Take by mouth. gummy furosemide (LASIX) 20 mg tablet Take 1 tablet by mouth once daily. meloxicam (MOBIC) 15 mg tablet Take 1 tablet by mouth once daily. simvastatin (ZOCOR) 20 mg tablet Take 1 tablet by mouth daily at bedtime. omeprazole (PRILOSEC) 40 mg capsule Take 1 capsule by mouth once daily. albuterol HFA (PROVENTIL HFA, VENTOLIN HFA) 90 mcg/actuation inhaler Inhale 2 Puffs as instructed every 6 hours as needed. levothyroxine (SYNTHROID) 175 mcg tablet Take 1 tablet by mouth daily before breakfast. albuterol HFA (PROVENTIL HFA, VENTOLIN HFA) 90 mcg/actuation inhaler Inhale 2 Puffs as instructed every 4 hours as needed for wheezing/shortness of breath. fluticasone (FLONASE) 50 mcg/actuation nasal spray Use 1 [place] in each nostril once daily. No current facility-administered medications for this visit. ALLERGIES: ALLERGIES Allergen Reactions Sulfa (Sulfonamide * Vomiting PAST MEDICAL HISTORY Diagnosis Date Arthritis of knee, right 06/09/2012 Benign neoplasm of colon 2002 Dysmetabolic syndrome X Hyperlipidemia LDL goal < 100 06/20/2012 Morbid obesity (HCC) 06/09/2012 Other osteoporosis Other symptoms involving cardiovascular system Personal history of colonic polyps Phlebitis and thrombophlebitis of other deep vessels of lower extremities Unspecified hypothyroidism H/o Radioactive Iodine Treatment Unspecified vitamin D deficiency PAST SURGICAL HISTORY Procedure Laterality Date ADENOIDECTOMY PRIMARY <AGE 13 Adenoidectomy COLONOSCOPY W/BIOPSY SINGLE/MULTIPLE 12/10/08 3 small polyps COLSC FLX W/RMVL OF TUMOR POLYP LESION SNARE TQ COLSC FLX W/RMVL OF TUMOR POLYP LESION SNARE TQ 03/18/15 2 polyps in transverse colon - no retrieved, 2 at 20 nd 30cm EGD TRANSORAL BIOPSY SINGLE/MULTIPLE 03/18/15 duodenitis, small hiatal hernia LIG/TRNSXJ FLP TUBE ABDL/VAG APPR UNI/BI Tubal ligation NEUROPLASTY &/TRANSPOS MEDIAN NRV CARPAL TUNNE Carpal tunnel decomp- both PAST SURGICAL HISTORY OF radioactive iodine to thyroid TONSILLECTOMY PRIMARY/SECONDARY <AGE 13 Tonsillectomy FAMILY HISTORY Problem Relation Age of Onset Stroke Mother Heart Mother Heart Father Alzheimer's Disease Father Diabetes Father other (PARKINSONS) Father other (atrial fibrillation) Brother artificial heart valve Colon Cancer Brother other (colon polyps) Brother Social History Tobacco Use Smoking status: Every Day Packs/day: 1.00 Years: 20.00 Pack years: 20.00 Types: Cigarettes Smokeless tobacco: Never Substance Use Topics Alcohol use: Yes Comment: once a year Drug use: No Discussed tobacco cessation, including risks of continued use. Offered assistance to help quit if patient desires. Reviewed current medications, allergies, past medical history, surgical history, family history andsocial history today. REVIEW OF SYSTEMS All other reviewed and negative other than HPI. HEALTH MAINTENANCE: Reviewed health maintenance issues today and recommended the following in detail. LUNG CANCER SCREENING Never done VITALS: BP 142/64 Pulse 78 Wt 105.7 kg (233 lb) SpO2 95% BMI 42.62 kg/m Last 4 Encounter Wt Readings: Date: Wt: 11/12/2022 105.7 kg (233 lb) 11/01/2022 106.5 kg (234 lb 12.8 oz) 09/28/2022 101.6 kg (224 lb) 06/08/2022 100.6 kg (221 lb 12.8 oz) PHYSICAL EXAMINATION: General appearance: Well appearing, alert, in no acute distress, well-hydrated, well nourished. Skin: Skin color, texture, turgor normal, no suspicious rashes or lesions Head: Normocephalic, no masses, lesions, tenderness or abnormalities Neck: Supple, no adenopathy; Lungs: Lungs clear to auscultation. No wheezing, rhonchi, rales Heart: RRR without murmur, gallop, or rubs. No ectopy Abdomen: Normal abdominal exam, Abdomen soft, non-tender. Bowel sounds normal. No masses, organomegaly Extremities: one to two plus bilateral edema. No redness or warmth. No calf tenderness. Negative chace's. No palpable cords. No signs of dvt. Musculoskeletal: No joint swelling, deformity, or tenderness Peripheral pulses: Normal Neuro: Negative. ASSESSMENT/PLAN: 1. Edema, unspecified type - ICD9: 782.3, ICD10: R60.9 (primary diagnosis) - given her symptoms. It does not sound infectious. Would have to rule out cardiac cause. Cannot exercise on a treadmil. Elevate legs prn. Use compression stockings. Increase lasix to 40 mg a day. Check echo, stress test-nontreadmill and recheck xray. - ECG COMPLETE-nsr, no acute changes. - XR CHEST 2V FRONTAL/LAT - ECHO - PERFLUTREN LIPID MICROSPHERES 1.1 MG/ML INJECTION IN NS 10 ML 2. Tobacco use - ICD9: 305.1, ICD10: Z72.0 - Cessation encouraged. - Physiologic and physical aspects of tobacco addiction as well as strategies for quitting were discussed. - Counseling was given focusing on the harmful effects of this addiction especially given the patient's medical condition(s) which will be worsened because of the chemicals in tobacco. - CONSULT LUNG CANCER SCREENING CLINIC 3. Essential hypertension, benign - ICD9: 401.1, ICD10: I10 - Uncontrolled - recheck next ov 4. Hypothyroidism, unspecified type - ICD9: 244.9, ICD10: E03.9 - tsh is stable. 5. Hyperlipidemia with target LDL less than 100 - ICD9: 272.4, ICD10: E78.5 - follow 6. Morbid obesity (HCC) - ICD9: 278.01, ICD10: E66.01 - some of recent weight gain may be fluid retenion. 7. Dysmetabolic syndrome X - ICD9: 277.7, ICD10: E88.81 - check labs. - HGB A1C 8. Elevated brain natriuretic peptide (BNP) level - ICD9: 790.99, ICD10: R79.89 - XR CHEST 2V FRONTAL/LAT - ECHO - PERFLUTREN LIPID MICROSPHERES 1.1 MG/ML INJECTION IN NS 10 ML 9. SOB (shortness of breath) - ICD9: 786.05, ICD10: R06.02 - ECG COMPLETE - IV DISCONTINUE - INSERT IV (FL,[place]) - REGADENOSON 0.4 MG/5 ML INTRAVENOUS SYRINGE - NM CARDIAC PERF STRESS/PHARM - XR CHEST 2V FRONTAL/LAT - ECHO - PERFLUTREN LIPID MICROSPHERES 1.1 MG/ML INJECTION IN NS 10 ML - SODIUM CHLORIDE 0.9 % (FLUSH) INJECTION SYRINGE 10. Bilateral leg edema - ICD9: 782.3, ICD10: R60.0 - FUROSEMIDE 40 MG TABLET Bradley Causey RTO in one week and prn. documented in this encounterHol[facility] NoteHNO ID: [id number] Author: Romy Horner RT(R) Service: ? Author Type: Technologist Type: Progress Notes Filed: 10/18/2022 10:14 AM Note Text: Radiology Service Progress Note PATIENT NAME: Maria Esther Reddy DATE OF SERVICE: October 18, 2022 TIME: 10:14 AM PATIENT IDENTITY VERIFICATION COMPLETED USING TWO (2) IDENTIFIERS: Name and Date of confirmed by patient verbally. FALL SCREENING: Has the patient had 2 falls in the last year or 1 fall with injury or currently using an Ambulatory Assistive Device (Walker, Cane, Wheelchair, Crutches, etc.)? No PATIENT GENDER DATA: Female. status: : No status: NO. PATIENT RELEVANT IMPLANT DATA REVIEWED: Yes RADIOLOGY DEPARTMENT: MR; Exam(s) Completed: Lower MSK: Tib/Fib, left PERIPHERAL IV DATA: Not applicable SIGNED BY: Romy Horner RDMS, RVT- [facility] ([facility]) October 18, 2022 10:14 [facility] Miscellaneous Notes * Telephone Encounter - Denisa Joyce Ma - 10/18/2022 10:01 AM EDT MRI needs changed from right to left documented in this encounterHolmes [facility] History of Present illness Narrative* RT Shiva(R) - 10/18/2022 9:45 AM EDT Radiology Service Progress Note PATIENT NAME: Maria Esther Reddy DATE OF SERVICE: October 18, 2022 TIME: 10:14 AM PATIENT IDENTITY VERIFICATION COMPLETED USING TWO (2) IDENTIFIERS: Name and Date of confirmedby patient verbally. FALL SCREENING: Has the patient had 2 falls in the last year or 1 fall with injury or currently using an Ambulatory Assistive Device (Walker, Cane, Wheelchair, Crutches, etc.)? No PATIENT GENDER DATA: Female. status: : No status: NO. PATIENT RELEVANT IMPLANT DATA REVIEWED: Yes RADIOLOGY DEPARTMENT: MR; Exam(s) Completed: Lower MSK: Tib/Fib, left PERIPHERAL IV DATA: Not applicable SIGNED BY: Romy Horner RDMS, RVT- Shelia ([facility]) October 18, 2022 10:14 AM documented in this encounterHolmes County [facility]04-[facility]-2023 Miscellaneous Notes* Telephone Encounter - Smita Askew Ma - 10/03/2022 11:23 AM EDT Patient was notified and willing to do MRI Smita Askew Ma * Telephone Encounter - Priscilla Gibbons PA-C - 10/03/2022 10:52 AM EDT Please let her know US read as nodule unclear etiology, recommends MRI. Telephone on 10/03/22 MRI LOWER LEG WO IVCON RIGHT Thanks, Gasper Gibbons PA-C documented in this encounterHolmes County [facility]04[facility]23 NoteHNO ID: [id number] Author: RT Shannon (R) Service: ? Author Type: Technologist Type: Progress Notes Filed: 10/01/2022 3:36 PM Note Text: Radiology Service Progress Note PATIENT NAME: Maria Esther Reddy DATE OF SERVICE: October 01, 2022 TIME: 3:36 PM PATIENT IDENTITY VERIFICATION COMPLETED USING TWO (2) IDENTIFIERS: Name and Date of confirmed by patient verbally. FALL SCREENING: Has the patient had 2 falls in the last year or 1 fall with injury or currently using an Ambulatory Assistive Device (Walker, Cane, Wheelchair, Crutches, etc.)? No PATIENT GENDER DATA: Female. status: : No status: NO. PATIENT RELEVANT IMPLANT DATA REVIEWED: Not Applicable RADIOLOGY DEPARTMENT: Ultrasound PERIPHERAL IV DATA: Not applicable SIGNED BY: Romy Horner RDMS, RVT- [place] (student) October 01, 2022 3:36 [facility]04-24[facility]23 History of Present illness Narrative* SONU Shannon) - 10/01/2022 3:00 PM EDT Radiology Service Progress Note PATIENT NAME: Maria Esther Reddy DATE OF SERVICE: October 01, 2022 TIME: 3:36 PM PATIENT IDENTITY VERIFICATION COMPLETED USING TWO (2) IDENTIFIERS: Name and Date of confirmedby patient verbally. FALL SCREENING: Has the patient had 2 falls in the last year or 1 fall with injury or currently using an Ambulatory Assistive Device (Walker, Cane, Wheelchair, Crutches, etc.)? No PATIENT GENDER DATA: Female. status: : No status: NO. PATIENT RELEVANT IMPLANT DATA REVIEWED: Not Applicable RADIOLOGY DEPARTMENT: Ultrasound PERIPHERAL IV DATA: Not applicable SIGNED BY: Romy Horner RDMS, RVT- [place] (student) October 01, 2022 3:36 PM documented in this encounterHolmes [facility]04[facility] History of Present illness Narrative* Priscilla Gibbons PA-C - 09/28/2022 8:14 AM EDT 77 year old female with c/o Nodule posterior upper calf over a few months, tender. Mild swelling left leg. No injury. Overuse because right knee pain. Insurance won't cover any procedures including gel shots. Left ring finger with pain and swelling in proximal joint, seat of w/c came down on hand. Still painful and swollen and unable to close fist. Need refills. GERD doing well. No issues on medication. Bowels are good. No muscles or GI issues aches with statin. Component Latest Ref Rng & Units 12/05/2020 2022 Cholesterol, Total <200 mg/dL 163 163 Triglyceride <150 mg/dL 97 72 HDL Cholesterol >39 mg/dL 45 48 LDL Cholesterol <100 mg/dL 99 101 (H) Non HDL Cholesterol <130 mg/dL 118 115 Fasting Time hrs 12 11 VLDL Cholesterol <30 mg/dL 19 14 TC:HDL Ratio <5.10 3.62 3.40 LDL:HDL Ratio <2.54 2.20 2.10 Using meloxicam 15mg maybe 3-4 times. Continues to smoke, not open at this time to cessation. Persistent morning cough, no wheezing, rare use of inhaler. HISTORIES FAMILY HISTORY Problem Relation Age of Onset Stroke Mother Heart Mother Heart Father Alzheimer's Disease Father Diabetes Father other (PARKINSONS) Father other (atrial fibrillation) Brother artificial heart valve Colon Cancer Brother other (colon polyps) Brother PAST MEDICAL HISTORY Diagnosis Date Arthritis of knee, right 06/09/2012 Benign neoplasm of colon 2002 Dysmetabolic syndrome X Hyperlipidemia LDL goal < 100 06/20/2012 Morbid obesity (HCC) 06/09/2012 Other osteoporosis Other symptoms involving cardiovascular system Personal history of colonic polyps Phlebitis and thrombophlebitis of other deep vessels of lower extremities Unspecified hypothyroidism H/o Radioactive Iodine Treatment Unspecified vitamin D deficiency PAST SURGICAL HISTORY Procedure Laterality Date ADENOIDECTOMY PRIMARY <AGE 13 Adenoidectomy COLONOSCOPY W/BIOPSY SINGLE/MULTIPLE 12/10/08 3 small polyps COLSC FLX W/RMVL OF TUMOR POLYP LESION SNARE TQ COLSC FLX W/RMVL OF TUMOR POLYP LESION SNARE TQ 03/18/15 2 polyps in transverse colon - no retrieved, 2 at 20 nd 30cm EGD TRANSORAL BIOPSY SINGLE/MULTIPLE 10/9/15 duodenitis, small hiatal hernia LIG/TRNSXJ FLP TUBE ABDL/VAG APPR UNI/BI Tubal ligation NEUROPLASTY &/TRANSPOS MEDIAN NRV CARPAL TUNNE Carpal tunnel decomp- both PAST SURGICAL HISTORY OF radioactive iodine to thyroid TONSILLECTOMY PRIMARY/SECONDARY <AGE 13 Tonsillectomy Social History Tobacco Use Smoking status: Every Day Packs/day: 1.00 Years: 20.00 Pack years: 20.00 Types: Cigarettes Smokeless tobacco: Never Substance Use Topics Alcohol use: Yes Comment: once a year Drug use: No ACTIVE PROBLEM LIST Dysmetabolic Syndrome X Hypothyroidism Essential Hypertension, Benign Benign Neoplasm of Colon PERSONAL HISTORY OF COLONIC POLYPS Osteopenia Primary Osteoarthritis of Right Knee Morbid Obesity (Hcc) Hyperlipidemia With Target Ldl Less Than 100 Tobacco Abuse Knee Injuries, Right, Initial Encounter Current Outpatient Medications Medication Sig Dispense Refill meloxicam (MOBIC) 15 mg tablet Take 1 tablet by mouth once daily. 90 tablet 1 levothyroxine (SYNTHROID) 175 mcg tablet Take 1 tablet by mouth daily before breakfast. 90 tablet 3 simvastatin (ZOCOR) 20 mg tablet Take 1 tablet by mouth daily at bedtime. 90 tablet 3 omeprazole (PRILOSEC) 40 mg capsule Take 1 capsule by mouth once daily. 90 capsule 3 albuterol HFA (PROVENTIL HFA, VENTOLIN HFA) 90 mcg/actuation inhaler Inhale 2 Puffs as instructed every 6 hours as needed. 3 Each 3 fluticasone (FLONASE) 50 mcg/actuation nasal spray Use 1 [place] in each nostril once daily. 3 Bottle3 albuterol HFA (PROVENTIL HFA, VENTOLIN HFA) 90 mcg/actuation inhaler Inhale 2 Puffs as instructed every 4 hours as needed for wheezing/shortness of breath. 6.7 g 0 No current facility-administered medications for this visit. SPIROMETRY Never done BP CONTROLLED (<130/80) Never done LUNG CANCER SCREENING Never done ADVANCE DIRECTIVE DISCUSSION due on 06/10/2022 DEPRESSION ASSESSMENT due on 06/10/2022 EXAM: BP 132/60 Pulse 72 Resp 16 Wt 101.6 kg (224 lb) SpO2 94% BMI 40.97 kg/m Pleasant obese adult woman in no acute distress. Alert and oriented all spheres. Normal affect and cognition. Speech normal. No deficits to learning or comprehension. Skin warm, dry, pink to lips and nailbeds. Normal turgor. Respirations regular and unlabored. Thyroid non-tender, no masses, or enlargement. Carotids pulses 2+/4+ without bruits. No JVD with HOB at 30 degrees. Extrem: no clubbing or cyanosis. Edema: 0-1/4. 1.5cm hard nodule upper posterior left calf, transilluminates but tender to palpation. Extremities are warm and pink with prompt capillary refill. Left ring finger proximal IPJ swollen, tender, reduced flexion on hand grasp. ASSESSMENT/PLAN: 1. Hypothyroidism, unspecified type - ICD9: 244.9, ICD10: E03.9 (primary diagnosis) - Instructed patient on importance of taking on an empty stomach either first thing in the morning or at bedtime. - check TSH and free T4 today - continue current dose of Synthroid Stable - Behavioral intervention - TSH BLD - COMP METABOLIC PANEL - CBC + DIFF 2. Primary osteoarthritis of right knee - ICD9: 715.16, ICD10: M17.11 Intermittent pain, sparing use NSAID - MELOXICAM 15 MG TABLET - COMP METABOLIC PANEL - CBC + DIFF 3. Knee injury, right, initial encounter - ICD9: 959.7, ICD10: S89.91XA - MELOXICAM 15 MG TABLET 4. Hyperlipidemia with target LDL less than 100 - ICD9: 272.4, ICD10: E78.5 - good control - Continue current medication. - Encouraged following a low fat, low cholesterol diet. - Discussed the benefits of regular aerobic exercise and weight loss. - SIMVASTATIN 20 MG TABLET - LIPID PANEL BASIC - COMP METABOLIC PANEL 5. GERD without esophagitis - ICD9: 530.81, ICD10: K21.9 - Discussed lifestyle modifications including losing weight, limiting caffeine, no meals three hours before sleep, and head of bed elevation - OMEPRAZOLE 40 MG CAPSULE,DELAYED RELEASE - COMP METABOLIC PANEL - CBC + DIFF 6. Wheezing - ICD9: 786.07, ICD10: R06.2 - ALBUTEROL SULFATE HFA 90 MCG/ACTUATION AEROSOL INHALER 7. Injury of finger of left hand, subsequent encounter - ICD9: V58.89, 959.5, ICD10: S69.92XD - XR DIGIT GENERAL 3V FRONTAL/LAT/OBL LEFT 8. Subcutaneous nodule of left lower leg - ICD9: 782.2, ICD10: R22.42 - US EXTREMITY MASS/FLUID COLLECTION LEFT M Faraz Gibbons PA-C documented in this encounterHolmes [facility]12[facility] Miscellaneous Notes* Addendum Note - Stoney Delvalle MD - 06/08/2022 2:56 PM ESTAddended by: STONEY DELVALLE on: 06/08/2022 02:56 PM Modules accepted: Orders documented in this encounterHolmes County [facility]12-30-2022 History of Present illness Narrative* Stoney Delvalle MD - 06/08/2022 2:12 PM EST Patient presents with: Cough: Cough, congestion, sinus and St x 2 days HPI: Feeling sick for 3 days. Positive symptoms: Cough, Sore throat, Sinus pressure, Nasal Congestion, Rhinorrhea, Shortness of breath, Wheezing, Chest tightness, Chills, Headache, Nausea, Diarrhea, Negative symptoms: OTC: Cold Medicine, Tylenol; has not used inhaler PAST MEDICAL HISTORY Diagnosis Date Arthritis of knee, right 06/09/2012 Benign neoplasm of colon 2003 Dysmetabolic syndrome X Hyperlipidemia LDL goal < 100 06/20/2012 Morbid obesity (HCC) 06/09/2012 Other osteoporosis Other symptoms involving cardiovascular system Personal history of colonic polyps Phlebitis and thrombophlebitis of other deep vessels of lower extremities Unspecified hypothyroidism H/o Radioactive Iodine Treatment Unspecified vitamin D deficiency ACTIVE PROBLEM LIST Dysmetabolic Syndrome X Hypothyroidism Essential Hypertension, Benign Benign Neoplasm of Colon PERSONAL HISTORY OF COLONIC POLYPS Osteopenia Primary Osteoarthritis of Right Knee Morbid Obesity (Hcc) Hyperlipidemia With Target Ldl Less Than 100 Tobacco Abuse Knee Injuries, Right, Initial Encounter MEDICATIONS: Current Outpatient Medications Medication Sig meloxicam (MOBIC) 15 mg tablet Take 1 tablet by mouth once daily. levothyroxine (SYNTHROID) 175 mcg tablet Take 1 tablet by mouth daily before breakfast. simvastatin (ZOCOR) 20 mg tablet Take 1 tablet by mouth daily at bedtime. omeprazole (PRILOSEC) 40 mg capsule Take 1 capsule by mouth once daily. albuterol HFA (PROVENTIL HFA, VENTOLIN HFA) 90 mcg/actuation inhaler Inhale 2 Puffs as instructed every 6 hours as needed. fluticasone (FLONASE) 50 mcg/actuation nasal spray Use 1 [place] in each nostril once daily. No current facility-administered medications for this visit. ALLERGIES: ALLERGIES Allergen Reactions Sulfa (Sulfonamide * Vomiting VITALS: BP 160/80 Pulse 67 Temp 36.6 C (97.9 F) (Tympanic) Resp 18 Wt 100.6 kg (221 lb 12.8 oz) SpO2 93% BMI 40.57 kg/m PHYSICAL EXAM: GEN: mildly ill appearing, uncomfortable with headache HEENT: PERRL, EOMI, conjunctiva clear Ears: canals clear. TMs without erythema, bulge, or effusion Sinuses: non-tender frontal sinus, non-tender maxillary sinuses Throat: tachy erythematous mucous membranes, no exudate Neck: supple, no thyromegaly, no lymphadenopathy HEART: regular rate and rhythm, no murmurs LUNGS: diffuse coarse wheezes, no increased WOB; Wheezy-raspy cough ASSESSMENT/PLAN: 1. COPD with exacerbation (HCC) - ICD9: 491.21, ICD10: J44.1 - suspect viral URI, differential includes COVID-19 and influenza. - Discussed supportive care treatment with home isolation, rest, cold medicine, and analgesia. - Red flags to seek further treatment include chest pain, shortness of breath, and lethargy; in theER if severe. - ALBUTEROL SULFATE HFA 90 MCG/ACTUATION AEROSOL INHALER - refill at local pharmacy sent - PREDNISONE 10 MG TABLET - taper - DOXYCYCLINE MONOHYDRATE 100 MG CAPSULE Discussed COVID antiviral treatment if positive - she may be interested. Stoney Delvalle MD documented in this encounterHolmes County [facility]10-06-2022 History of Present illness Narrative* Priscilla Gibbons PA-C - 03/15/2022 9:20 AM EDT 77 year old female with c/o follow Leg leg swells over several years Want gel shots for knees but required by insurance Hyperlipidemia with target ldl less than 100 Current medication Simvastatin 20mg daily HS Taking medication consistently Yes Observing low cholesterol high fiber diet No Muscle aches No Stomach complaints/ diarrhea No Last 2 Lipids: Component Latest Ref Rng & Units 12/05/2020 2022 Cholesterol, Total <200 mg/dL 163 163 Triglyceride <150 mg/dL 97 72 HDL Cholesterol >39 mg/dL 45 48 LDL Cholesterol <100 mg/dL 99 101 (H) Non HDL Cholesterol <130 mg/dL 118 115 Fasting Time hrs 12 11 VLDL Cholesterol <30 mg/dL 19 14 TC:HDL Ratio <5.10 3.62 3.40 LDL:HDL Ratio <2.54 2.20 2.10 Hypothyroidism, unspecified type Hypothyroidism Current medication: Levothyroxine 175mcg daily AC Taking as directed on an empty stomach? Yes. Thyroid pain: Yes. Mass effect: No. Change in energy level/ fatigue? No, not good. Sleep disturbance ? Usually good, anytime, anywhere. Temperature Intolerance: cold No, hot No. In females, menstrual cycle issues? N/a, If yes: Change in bowel habits? No. If yes: Constipation? No. If yes: Diarrhea? Yes. If yes: Weight changes?No. Memory issues: No. Diaphoresis: No. Numbness, tingling none Radiological imaging with contrast dyes within the last 3 months? No. History of radiation exposure to head or neck area? No. Change in hair or skin? Hair thinning slowly. If yes: Other symptoms: Last 2 Encounter Wt Readings: Date: Wt: 09/26/2021 110.5 kg (243 lb 9.6 oz) 06/06/2021 110.1 kg (242 lb 12.8 oz) Last thyroid labs: TSH Date Value 2022 18.000 mIU/L 01/27/2021 0.223 uU/mL 02/01/2020 4.610 uU/mL ) Gerd without esophagitis Current medication: omeprazole 40mg AC. Current symptoms: none. Last Mg level if on PPI chronically: none. Heartburn is controlled: Yes. Dysphagia: No. Bloody or black stools: No. Bowel changes: No. Last EGD and/or colonoscopy: 03/18/2015. 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 Interval history: intermittent wheezing. Current medications: Albuterol HFA 90mcg/actuation 2 puffs q6h prn Worsening shortness of breath: No. Cough: occasoinal. Wheezing: not too often. Smoking: Yes. 1PPD, not going to quit until stops working Compliant with medications: Yes. Using rescue inhaler: once a month. Morbid obesity (hcc) stable Arthritis of knee, right Current medications: Meloxicam 15mg daily Notes right ring finger arthritis, can't close completely. HISTORIES FAMILY HISTORY Problem Relation Age of Onset Stroke Mother Heart Mother Heart Father Alzheimer's Disease Father Diabetes Father other (PARKINSONS) Father other (atrial fibrillation) Brother artificial heart valve Colon Cancer Brother other (colon polyps) Brother PAST MEDICAL HISTORY Diagnosis Date Arthritis of knee, right 06/09/2012 Benign neoplasm of colon 2003 Dysmetabolic syndrome X Hyperlipidemia LDL goal < 100 06/20/2012 Morbid obesity (HCC) 06/09/2012 Other osteoporosis Other symptoms involving cardiovascular system Personal history of colonic polyps Phlebitis and thrombophlebitis of other deep vessels of lower extremities Unspecified hypothyroidism H/o Radioactive Iodine Treatment Unspecified vitamin D deficiency PAST SURGICAL HISTORY Procedure Laterality Date ADENOIDECTOMY PRIMARY <AGE 13 Adenoidectomy COLONOSCOPY W/BIOPSY SINGLE/MULTIPLE 12/10/08 3 small polyps COLSC FLX W/RMVL OF TUMOR POLYP LESION SNARE TQ COLSC FLX W/RMVL OF TUMOR POLYP LESION SNARE TQ 03/18/15 2 polyps in transverse colon - no retrieved, 2 at 20 nd 30cm EGD TRANSORAL BIOPSY SINGLE/MULTIPLE 03/18/15 duodenitis, small hiatal hernia LIG/TRNSXJ FLP TUBE ABDL/VAG APPR UNI/BI Tubal ligation NEUROPLASTY &/TRANSPOS MEDIAN NRV CARPAL TUNNE Carpal tunnel decomp- both PAST SURGICAL HISTORY OF radioactive iodine to thyroid TONSILLECTOMY PRIMARY/SECONDARY <AGE 13 Tonsillectomy Social History Tobacco Use Smoking status: Every Day Packs/day: 1.00 Years: 20.00 Pack years: 20.00 Types: Cigarettes Smokeless tobacco: Never Substance Use Topics Alcohol use: Yes Comment: once a year Drug use: No ACTIVE PROBLEM LIST Dysmetabolic Syndrome X Hypothyroidism Essential Hypertension, Benign Benign Neoplasm of Colon PERSONAL HISTORY OF COLONIC POLYPS Osteopenia Primary Osteoarthritis of Right Knee Morbid Obesity (Hcc) Hyperlipidemia With Target Ldl Less Than 100 Tobacco Abuse Knee Injuries, Right, Initial Encounter Current Outpatient Medications Medication Sig Dispense Refill levothyroxine (SYNTHROID) 175 mcg tablet Take 1 tablet by mouth daily before breakfast. 90 tablet 3 simvastatin (ZOCOR) 20 mg tablet Take 1 tablet by mouth daily at bedtime. 90 tablet 3 omeprazole (PRILOSEC) 40 mg capsule Take 1 capsule by mouth once daily. 90 capsule 3 albuterol HFA (PROVENTIL HFA, VENTOLIN HFA) 90 mcg/actuation inhaler Inhale 2 Puffs as instructed every 6 hours as needed. 3 Each 3 levothyroxine (SYNTHROID) 150 mcg tablet Take 1 tablet by mouth once daily. Take on empty stomach. For Thyroid. 90 tablet 1 meloxicam (MOBIC) 15 mg tablet Take 1 tablet by mouth once daily. 30 tablet 1 fluticasone (FLONASE) 50 mcg/actuation nasal spray Use 1 [place] in each nostril once daily. 3 Bottle3 No current facility-administered medications for this visit. LUNG CANCER SCREENING Never done SHINGRIX VACCINE(2 of 2) due on 08/04/2020 COVID-19 VACCINE(3 - Booster for Pfizer series) due on 11/03/2020 ADVANCE DIRECTIVE DISCUSSION Never done DEPRESSION ASSESSMENT Never done INFLUENZA(1) due on 02/08/2022 EXAM: BP 120/72 Pulse 76 Resp 16 Wt 108.4 kg (239 lb) SpO2 100% BMI 43.71 kg/m Pleasant obese adult woman in no acute distress. Alert and oriented all spheres. Normal affect and cognition. Speech normal. No deficits to learning or comprehension. Skin warm, dry, pink to lips and nailbeds. Normal turgor. Respirations regular and unlabored. HEENT: NCAT. No scleral icterus or conjunctival injection. TM's clear. Nose and oropharynx free from injection or lesion. Oral membranes moist and pink. No cervical lymph nodes. Thyroid non-palpable.Carotids pulses 2+/4+ without bruits. No JVD with HOB at 30 degrees. Chest is normal shape. Lungs are clear to all lr with good air exchange through out. HRRR without murmur or gallop. No lifts, heaves, or rubs. Extrem: no clubbing or cyanosis. Edema: 1/4+. Extremities are warm and pink with prompt capillary refill. Bilateral knee arthritis, no effusion. ASSESSMENT/PLAN: 1. Hyperlipidemia with target LDL less than 100 - ICD9: 272.4, ICD10: E78.5 (primary diagnosis) - good control - Continue current medication. 2. Hypothyroidism, unspecified type - ICD9: 244.9, ICD10: E03.9 - Instructed patient on importance of taking on an empty stomach either first thing in the morning or at bedtime. Stable and recheck labs - Behavioral intervention 3. GERD without esophagitis - ICD9: 530.81, ICD10: K21.9 - Discussed lifestyle modifications including losing weight, limiting caffeine, no meals three hours before sleep, and head of bed elevation 4. Wheezing - ICD9: 786.07, ICD10: R06.2 Stable and mild 5. Morbid obesity (HCC) - ICD9: 278.01, ICD10: E66.01 Stable - Behavioral intervention 6. Need for influenza vaccination - ICD9: V04.81, ICD10: Z23 - INFLUENZA SEASONAL QUADRIVALENT HIGH DOSE AGE 65+ 7. Primary osteoarthritis of right knee - ICD9: 715.16, ICD10: M17.11 Refill as trial - MELOXICAM 15 MG TABLET 8. Knee injury, right, initial encounter - ICD9: 959.7, ICD10: S89.91XA - MELOXICAM 15 MG TABLET Priscilla Gibbons PA-C Some of this note may have been copied and pasted for the purpose of history context and comparison. documented in this encounterHolmes [facility]09-29-[facility] Miscellaneous Notes* Telephone Encounter - Radha Suarez RN - 03/08/2022 10:25 AM EDT Patient has been identified by name and date of : Yes Patient phones for refill(s): Requested Prescriptions Pending Prescriptions Disp Refills levothyroxine (SYNTHROID) 175 mcg tablet 90 tablet 3 Sig: Take 1 tablet by mouth daily before breakfast. Order changed with lab work from 2022. Patient needs new prescription. Date of last office visit with pcp: 09/26/2021 Future appt: 03/15/2022 Last 2 Encounter Wt Readings: Date: Wt: 09/26/2021 110.5 kg (243 lb 9.6 oz) 06/06/2021 110.1 kg (242 lb 12.8 oz) Previous labs/tests for medication: Thyroid: TSH Date Value 2022 18.000 mIU/L 01/27/2021 0.223 uU/mL Blood Pressure: BUN (mg/dL) Date Value 2022 14 12/05/2020 22 Sodium (mmol/L) Date Value 2022 141 12/05/2020 137 Last 1 Encounter BP Readings: Date: BP: 09/26/2021 122/70 Liver Function: ALT (U/L) Date Value 01/27/2021 11 AST (U/L) Date Value 01/27/2021 20 Please advise. Thank you. Radha Suarez RN documented in this encounterHolmes [facility]09-13-2022 Miscellaneous Notes* Telephone Encounter - Denisa Joyce Ma - 02/20/2022 5:17 PM EDT Pt notified * Telephone Encounter - Priscilla Gibbons PA-C - 02/20/2022 5:03 PM EDT Telephone on 02/20/22 BASIC METABOLIC PNL HGB A1C TSH BLD LIPID PANEL BASIC CBC Thanks, Gasper Gibbons PA-C * Telephone Encounter - Janel Perales RN - 02/20/2022 1:29 PM EDT Patient calling and asking about labs that provider wants patient to get done before appointment on02/23/2022. Orders pended if agreeable. Janel Perales RN documented in this encounterHolmes County [facility]08-05-2022 History of Present illness Narrative* Keisha Hoffman, PT - 01/12/2022 7:57 AM EDT Episode Visit Count: 3 Therapist That Will Oversee The Plan Of Care: Keisha Hoffman Start of Care Date: 12/27/21 Onset Date: 12/27/20 Plan of Care Certification Date: 12/27/21 Next Certification Due Date: 02/07/22 REHABILITATION AND SPORTS THERAPY PHYSICAL THERAPY TREATMENT NOTE ASSESSMENT: Maria Esther Reddy tolerated the session with fatigue, increased symptoms and expected muscle soreness. She demonstrated difficulty with seated LAQ, which was modified to parital arc quads. She demonstrates improved active LAQ knee extension and supine active assisted heel slide ROM of both knees today. The patient will continue to benefit from ongoing skilled physical therapy to progress toward set goals. PLAN FOR NEXT VISIT: Continue closed chain functional strengthening as tolerated. SUBJECTIVE: Patient Reason for Visit: Today is pt. last scheduled visit. Pt. states that it's not bad for the L knee, I just know it's there. 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 She plans to schedule visits when she knows for sure she will be able to make them. She does not like to cancel. Pain: Pain Pain Level: 3 Pain Location: Knee - Right Additional Pain Information : Location 2 Pain Level 2: 0 Pain Location 2: Knee - Left Post Treatment Pain Post Treatment Pain Level: 5 Post Treatment Pain Location: Knee - Right OBJECTIVE MEASURES WITH LEVEL OF FUNCTION: LE AROM R Knee Extension: -12 Degrees (seated LAQ) L Knee Extension: -13 Degrees (seated LAQ) LE PROM R Knee Flexion: 108 Degrees (AAROM with strap, supine) L Knee Flexion: 108 Degrees (AAROM with strap, supine) TREATMENT: Therapeutic Exercise: 1: sciFit level 2 5 min seat (subjective taken) 2: heel slides 2 sets of 5x5 sec each side 3: *sit <> stand 1x3 with B arm rests progressing to 1x3 with x1 UE, and no UE assist 1x5 (denies pain) 4: AROM LAQ, 1x5 RLE, modified to partial arc due to c/o pain 5: (max cues for correct technique, and to complete AROM within availiable painfree ROM before using the strap to complete the arc) 6: *seated gastroc stretch knee extended each LE 3x30 sec 7: *step ups 4 step 2x5 each side with x1 UE // bars (cues to stand tall, and fully extend the knees upon standing) Skilled Intervention: Patient was educated in proper exercise technique and purpose for exercises. Reviewed and educated patient on additions/changes for home exercise program as above (*). Skilled judgment was provided in selection of appropriate interventions. Provided written instruction for home exercise program to facilitate proper performance and compliance. Additional time necessary for rest and providing updated HEP due to adding step ups and sit <> stand functional strengthening that is better tolerated than LAQ. Educated patient on rationale for performing exercises in regards to decreasing fatigue , includingbalance, increase ease of ADL and ROM and function . Patient education as noted. Neuromuscular Re-Education: 1: romberg balance foam 30 sec 2x, eyes open no sway 2: semi tandem foam eyes open, 2x30 sec minimal sway Skilled Intervention: Skilled judgment used to assess appropriate program for balance and coordination activity. Education in proprioceptive/kinesthetic awareness during standing. Insured patient safety with use of // bars. Patient education as noted. Billing Therapeutic Exercise Treatment Minutes: 35 Neuromuscular Re-Education Treatment Minutes: 5 Total Treatment Time Minutes (timed/untimed): 40 Keisha Hoffman PT documented in this encounterHolmes County [facility]07-27-2022 History of Present illness Narrative* Keisha Hoffman PT - 01/03/2022 9:20 AM EDT Episode Visit Count: 2 Therapist That Will Oversee The Plan Of Care: Keisha Hoffman Start of Care Date: 12/27/21 Onset Date: 12/27/20 Plan of Care Certification Date: 12/27/21 Next Certification Due Date: 02/07/22 REHABILITATION AND SPORTS THERAPY PHYSICAL THERAPY TREATMENT NOTE ASSESSMENT: Maria Esther Reddy tolerated the session with fatigue, increased symptoms and expected muscle soreness. She demonstrated improvements in AAROM knee flexion during heel slides today as comparedto first visit. Requires max cues for correct technique and to avoid painful ranges with stretchingexercises. The patient will continue to benefit from ongoing skilled physical therapy to progress toward set goals. PLAN FOR NEXT VISIT: Continue functional LE strengthening and progress to CKC as pt. is able to tolerate SUBJECTIVE: Patient Reason for Visit: Pt. says shes been walking more. Pain: Pain Pain Level: (does not rate) Pain Location: Knee - Right Additional Pain Information : Location 2 Pain Level 2: (does not rate) Pain Location 2: Knee - Left Post Treatment Pain Post Treatment Pain Level: (does not rate) Post Treatment Pain Location: Knee - Right OBJECTIVE MEASURES WITH LEVEL OF FUNCTION: LE AROM R Knee Flexion: 105 Degrees L Knee Flexion: 109 Degrees TREATMENT: Therapeutic Exercise: 1: sciFit level 2 5 min seat (subjective taken) 2: heel slides 2 sets of 5x5 sec each side 3: *supine SAQ 2x8 each side, purple ball at distal posterior femur (cues to perform slowly, education to use rolled up towel in place of ball) 4: supine SLR 2x8 each side, dc due to pain with 2nd set (cues to avoid painful AROM) 5: *seated LAQ AAROM with strap assistance 2x10 each LE (max cues for correct technique, and to complete AROM within availiable painfree ROM before using the strap to complete the arc) 6: *seated HS stretch with strap 3x30 sec Skilled Intervention: Patient was educated in proper exercise technique and purpose for exercises. Reviewed and educated patient on additions/changes for home exercise program as above (*). Skilled judgment was provided in selection of appropriate interventions. Provided written instruction for home exercise program to facilitate proper performance and compliance. Correct performance of therapeutic exercises was facilitated with verbal, visual and tactile cuing. Additional time necessary for max cues and modifying exercises due to pain and difficulty with correct technique. Educated patient on rationale for performing exercises in regards to decreasing fatigue , increase ease of ADL and ROM and function . Patient education as noted. Billing Therapeutic Exercise Treatment Minutes: 30 Self-Care/Home Management Treatment Minutes: 10 Total Treatment Time Minutes (timed/untimed): 40 Keisha Hoffman PT documented in this encounterHolmes County [facility]07-20-2022 History of Present illness Narrative* Keisha Hoffman PT - 12/27/2021 3:42 PM EDT Episode Visit Count: 1 Therapist That Will Oversee The Plan Of Care: Keisha Hoffman Start of Care Date: 12/27/21 Onset Date: 12/27/20 Plan of Care Certification Date: 12/27/21 Next Certification Due Date: 02/07/22 Patient Identified by Name and Date of : Yes REHABILITATION AND SPORTS THERAPY PHYSICAL THERAPY EVALUATION PLAN OF CARE: Assessment: Maria Esther Reddy presents with diagnosis of primary osteoarthritis of R knee that interferes with standing;walking;walking in the house;walking in the community;stair negotiation;rising froma chair;lifting;sleeping;weight bearing;driving . She presents with impairments in ADL's, balance, gait, independence in exercise, joint mobility, overall function, range of motion, strength , symptom management and tissue tenderness. Prognosis for therapy is Fair due to: clinical presentation;multiple co- morbidities;chronic nature of impairments;coping skills;occupational demands;limited tolerance to activity;advanced age . She will benefit from skilled therapy services to meet the goals established for this plan of care as noted below. Goals for Episode of Care: created on 12/27/21 through 02/07/22 [place] in home exercise program. Patient will decrease pain to 3 or less/10 with functional activities to allow patient to improve ambulation, transfers and standing tolerance for ADLs. Patient will increase active ROM of R knee flexion to 115 degrees or greater, and R knee extension to lacking 10 or less degrees seated LAQ to allow pt to to improve postural alignment, to improve performance of ADLs, to improve gait mechanics / gait pattern and to decrease falls risks . Patient will demonstrate increase in R quadriceps strength strength to 2+ to 3- /5 during manual muscle testing in order to improve function for prior functional tasks and work tasks. Perform walking or standing x15 to 20 minutes with decreased report of symptoms/pain in 6 weeks. Perform stairs without increased pain. Patient will Improve Timed Up and Go to 9 or less seconds to demonstrate decreased risk of falling. Patient will improve 5 time sit to stand to demonstrate improvement in functional lower extremity strength. Improve postural awareness. Normal gait. Reciprocal stair negotiation. 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 Pt will f/u with physician and discuss injections dependingon how symptoms are responding to PT at that point. Patient demonstrates good understanding of plan of care and treatment. The above goals and plan of care were discussed and agreed upon by patient/family. SUBJECTIVE: Maria Esther Reddy is a 76 year old female seen today for B chronic knee pain. Pt. reports having multiple cortisone injections that are not helping. She tells PT she would like to try gel injecitons however insurance is requiring that she complete PT, apply topical medicaiton and lose weight. 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 She expresses much frustration with how her pain complicates her ability to exercise to lose weight. 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 Home Environment Patient Lives With: Spouse Equipment Owned: Cane;Grab Bars-Toilet (walking stick) Intake Information: Prescription present Previous Treatment: Physical Therapy ;Injections ;Self prescribed exercises;Topicals (tylenol) Falls Interview: No positive findings with falls interview Pain: Pain Pain Level: 6 Pain Location: Knee - Right Description: Aching Additional Pain Information : Location 2 Pain Level 2: 0 Pain Location 2: Knee - Left Post Treatment Pain Post Treatment Pain Level: No Change Post Treatment Pain Location: Knee - Right PROMIS Scales T-scores: mean of general population = 50. 5 points is clinically meaningfully difference Percentiles provide an indication of how the patient's score ranks in relation to the general population. Higher percentile rankings indicate better function/quality of life. 50th percentile is the average of the general population and indicates half of respondents had a worse score. T-scores: mean of general population = 50. 5 points is clinically meaningfully difference Percentiles provide an indication of how the patient's score ranks in relation to the general population. Higher percentile rankings indicate better function/quality of life. 50th percentile is the average of the general population and indicates half of respondents had a worse score. OBJECTIVE MEASURES WITH LEVEL OF FUNCTION: Cognition Cognition: Follows Commands Vision Vision Deficits: Wears corrective lenses Knee Observations R Knee Palpation Tenderness: Medial joint line Sensation - Lower Extremity LE Light Touch Sensation: Grossly Intact LE AROM R Knee Extension: -35 Degrees R Knee Flexion: 100 Degrees L Knee Extension: -17 Degrees L Knee Flexion: 103 Degrees LE Flexibility Flexibility: Hamstring Flexibility;Quadriceps Flexibility R Hamstring Flexibility: limited L Hamstring Flexibility: limited Functional Strength Functional Strength: Step down;Bilateral Heel Raise Step down: LLE lead Gait Gait: Independent Gait Distance (feet): 50 Gait Device: None Gait Deviations: General Deviations General Deviations/Observations: Antalgic gait;Shuffling Gait;Step length decreased;Trunk Control Decreased;Wide base of support;Lateral sway increased Gait Observation: SOB with minimal exertion Functional Performance Test Results 30 Second Chair Stand Test: 11 reps Timed Up and Go (sec): 14.22 sec Timed Up and Go - Condition 2 (sec) : 12.95 Education: Education Learning Preferences: Demonstration;Explanation;Printed Materials;Performance Barriers: None Learning/educational needs: Plan of Care;Changes in Plan of Care;Gait Training;Safety;Home exerciseprogram Education Provided: Yes, see treatment interventions for education provided Education Provided To: Patient Education Mode/Type: Demonstration;Explanation/Discussion;Literature/Printed Materials;Performance Response to Education/Teach Back: States/Identifies;Return Demonstration TREATMENT: PT Treatment Interventions: Therapeutic Exercise;Self-Custodial Management Evaluation Evaluation Therapeutic Exercise: 1: *heel slides 3 sets of 5 each side 2: *supine quad sets 2 sets of 5, 5 sec hold each LE 3: *seated LAQ 3x5 each side 4: *sit <> stand with BUE support 3x5 Skilled Intervention: Patient was educated in proper exercise technique and purpose for exercises. Reviewed and educated patient on additions/changes for home exercise program as above (*). Skilled judgment was provided in selection of appropriate interventions. Provided written instruction for home exercise program to facilitate proper performance and compliance. Correct performance of therapeutic exercises was facilitated with verbal, visual and tactile cuing. Additional time necessary for providing pt. Education and printed HEP due to initial evaluation today. Educated patient on rationale for performing exercises in regards to decreasing fatigue , increase ease of ADL and ROM and function . Patient education as noted. Self-Custodial Management: 1: *pt. education regarding importance of restoring functional strength and mobility in addition toaddressing the B knee pain symptoms 2: *pt. education regarding how PT goals will assist her weight loss goal efforts, allowing her to have improved activity tolerance and functional mobility to exercise and move more 3: *discussed the importance of consistent exercise with correct technique vs. large volume of exercises that may cause worse symptoms or poor technique with excessive fatigue Skilled Intervention: Skilled judgment in the selection of proper modification for activity of daily living/home management based on clinical presentation, deficits, and needs. Provided written instruction for activities of daily living techniques to facilitate proper performance and compliance. Reviewed patient specific diagnosis in relation to activities of daily living/home management. Activity progression based on professional judgement. Moderate verbal cues for maintaining neutral spine alignment. Reviewed and educated patient on additions/changes for home program as noted above with an (*). Correct performance of home program was facilitated with verbal, visual and tactile cueing. Billing * Evaluation Low Complexity: 1 Unit Therapeutic Exercise Treatment Minutes: 15 Self-Care/Home Management Treatment Minutes: 10 Total Treatment Time Minutes (timed/untimed): 45 Keisha Hoffman PT documented in this encounterHolmes [facility] Miscellaneous Notes* Telephone Encounter - Rachel Elizalde RN - 12/12/2021 12:54 PM EDT Patient notified of provider's instructions and verbalizes understanding. She will attempt to schedule PT. 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 * Telephone Encounter - Marissa Pena PA-C - 12/12/2021 11:42 AM EDT PT order placed. Up to the patient if she wants to do PT then try again for visco supplmentation approval. * Telephone Encounter - Rachel Elizalde RN - 12/12/2021 11:30 AM EDT LM for pt. to call office. DId you want to place order for PT? * Telephone Encounter - Giovanni Verduzco MD - 12/12/2021 7:52 AM EDT Her insurance is requiring her to rub some capsacin cream on her knees and to do some physical therapy and to lose weight before they approve Gel injections. I don't make the rules, I just relay them. It's stupid, but that is what their criteria is. * Telephone Encounter - Rachel Elizalde RN - 12/07/2021 11:46 AM EDT Referral placed for Synvisc x 3 to right knee. * Telephone Encounter - Marissa Pena PA-C - 12/06/2021 5:06 PM EDT Please accept this as a request for approval for Euflexxa (or equivalent insurance approved brand) injections for Osteoarthritis for patient's right knee. Please put a note in EPIC once approved and notify patient upon approval so they can schedule appointment. Thank you, Marissa Pena PA-C * Telephone Encounter - Darling Hodgson Ma - 12/06/2021 3:56 PM EDT Patient called in to schedule gel injections as the cortisone injections are no longer helping. Ok to authorize for Insurance preferred brand of Orthovisc, Synvisc, or Synvisc One? Please choose medication. Thanks. documented in this encounterHolmes [facility]05[facility] History of Present illness Narrative* Ina Kaufman MA - 10/25/2021 9:37 AM EDT POPULATION HEALTH NAVIGATION OUTREACH Action/FYI Spoke with patient: Care Gap Reviewed:: Annual Wellness visit - BENIGNO w/PCP was on 01/27/21 to establish care ------- Scheduled patient w/PCP Advanced Directives ----- Advanced Directives information sent to patient in [facility] Pt identified by name and : YES, via phone Outreach Outcome/Action Spoke to patient or caregiver: Patient scheduled Advance Directives sent Reason for Outreach Care Gap or Scheduling/Wellness visits Payer: Payor: [employer] MEDICARE / Plan: [employer] MEDICARE PPO / Product Type: PPO / Care Gap Reviewed:: Annual Wellness visit Reminder: Reminder note to check Health Maintenance for items below Health Maintenance items due: LUNG CANCER SCREENING Never done SHINGRIX VACCINE(2 of 2) due on 08/04/2020 COVID-19 VACCINE(3 - Booster for Pfizer series) due on 02/08/2021 ADVANCE DIRECTIVE DISCUSSION Never done Message Sent to Practice: No Navigation Signature: Ina Kaufman MA October 25, 2021 9:37 AM documented in this encounterHolmes [facility]05[facility]10-[facility] Miscellaneous Notes* Telephone Encounter - Janell Fermin LPN - 10/17/2021 10:07 AM EDT Patient phones requesting refills as follows: Pending Prescriptions Disp Refills SIMVASTATIN 20 MG TABLET 90 tablet 3 Sig: Take 1 tablet by mouth daily at bedtime. LARISA: No OMEPRAZOLE 40 MG CAPSULE,DELAYED RELEASE 90 capsule 3 Sig: Take 1 capsule by mouth once daily. LARISA: No ALBUTEROL SULFATE HFA 90 MCG/ACTUATION AEROSOL INHALER 3 Each 3 Sig: Inhale 2 Puffs as instructed every 6 hours as needed. LARISA: No LEVOTHYROXINE 150 MCG TABLET 90 tablet 1 Sig: Take 1 tablet by mouth once daily. Take on empty stomach. For Thyroid. LARISA: No BENIGNO 09/26/21 NOV no upcoming appt noted Please review and advise. Janell Fermin LPN documented in this encounterCleveland [phone] History of Present illness Narrative* M Faraz Gibbons PA-C - 09/26/2021 12:09 PM EDT 76 year old female with c/o leg swelling in left lower leg over last month. Has gained weight over last year. Sits a lot. Significant other has malignant melanoma multiple metastases, neither 1 are currently tracking, patient is significantly less exercise. Right leg with bone on bone arthritis right knee. Patient does not want to pursue surgery. No chest pain, shortness of breath, lightheadedness or dizziness, nausea, syncopal symptoms. HISTORIES FAMILY HISTORY Problem Relation Age of Onset Stroke Mother Heart Mother Heart Father Alzheimer's Disease Father Diabetes Father other (PARKINSONS) Father other (atrial fibrillation) Brother artificial heart valve Colon Cancer Brother other (colon polyps) Brother PAST MEDICAL HISTORY Diagnosis Date Arthritis of knee, right 06/09/2012 Benign neoplasm of colon 2002 Dysmetabolic syndrome X Hyperlipidemia LDL goal < 100 06/20/2012 Morbid obesity (HCC) 06/09/2012 Other osteoporosis Other symptoms involving cardiovascular system Personal history of colonic polyps Phlebitis and thrombophlebitis of other deep vessels of lower extremities Unspecified hypothyroidism H/o Radioactive Iodine Treatment Unspecified vitamin D deficiency PAST SURGICAL HISTORY Procedure Laterality Date ADENOIDECTOMY PRIMARY <AGE 13 Adenoidectomy COLONOSCOPY W/BIOPSY SINGLE/MULTIPLE 12/10/08 3 small polyps COLSC FLX W/RMVL OF TUMOR POLYP LESION SNARE TQ COLSC FLX W/RMVL OF TUMOR POLYP LESION SNARE TQ 03/18/15 2 polyps in transverse colon - no retrieved, 2 at 20 nd 30cm EGD TRANSORAL BIOPSY SINGLE/MULTIPLE 03/18/15 duodenitis, small hiatal hernia LIG/TRNSXJ FLP TUBE ABDL/VAG APPR UNI/BI Tubal ligation NEUROPLASTY &/TRANSPOS MEDIAN NRV CARPAL TUNNE Carpal tunnel decomp- both PAST SURGICAL HISTORY OF radioactive iodine to thyroid TONSILLECTOMY PRIMARY/SECONDARY <AGE 13 Tonsillectomy Social History Tobacco Use Smoking status: Current Every Day Smoker Packs/day: 1.00 Years: 20.00 Pack years: 20.00 Types: Cigarettes Smokeless tobacco: Never Used Substance Use Topics Alcohol use: Yes Comment: once a year Drug use: No ACTIVE PROBLEM LIST Dysmetabolic Syndrome X Hypothyroidism Essential Hypertension, Benign Benign Neoplasm of Colon PERSONAL HISTORY OF COLONIC POLYPS Osteopenia Arthritis of Knee, Right Morbid Obesity (Hcc) Hyperlipidemia With Target Ldl Less Than 100 Tobacco Abuse Current Outpatient Medications Medication Sig Dispense Refill meloxicam (MOBIC) 15 mg tablet Take 1 tablet by mouth once daily. 30 tablet 1 levothyroxine (SYNTHROID) 150 mcg tablet Take 1 tablet by mouth once daily. Take on empty stomach. For Thyroid. 90 tablet 1 simvastatin (ZOCOR) 20 mg tablet Take 1 tablet by mouth daily at bedtime. 90 tablet 3 omeprazole (PRILOSEC) 40 mg capsule Take 1 capsule by mouth once daily. 90 capsule 3 fluticasone (FLONASE) 50 mcg/actuation nasal spray Use 1 [place] in each nostril once daily. 3 Bottle3 albuterol HFA (PROVENTIL HFA, VENTOLIN HFA) 90 mcg/actuation inhaler Inhale 2 Puffs as instructed every 6 hours as needed. 3 Each 3 No current facility-administered medications for this visit. SHINGRIX VACCINE(2 of 2) due on 08/04/2020 COVID-19 VACCINE(3 - Booster for Pfizer series) due on 02/08/2021 ADVANCE DIRECTIVE DISCUSSION Never done EXAM: BP 122/70 Pulse 69 Temp 36.2 C (97.2 F) (Left Tympanic) Resp 16 Wt 110.5 kg (243 lb 9.6 oz) SpO2 97% BMI 44.56 kg/m Pleasant obese adult woman in no acute distress. Alert and oriented all spheres. Normal affect and cognition. Speech normal. No deficits to learning or comprehension. Skin warm, dry, pink to lips and nailbeds. Normal turgor. Respirations regular and unlabored. Chest clear to auscultation percussion. Cardiac exam regular rate and rhythm with no murmurs or gallops. Extrem: no clubbing or cyanosis. Edema: 0-1+ pitting bilaterally lower extremities to feet. No palpable cords. No evidence of erythema. Patient is tender on palpation posterior calf on the left, not tender on the right. Extremities are warm and pink with prompt capillary refill. ASSESSMENT/PLAN: 1. Left leg swelling - ICD9: 729.81, ICD10: M79.89 (primary diagnosis) - US DVT LOWER LT 2. Pain of left calf - ICD9: 729.5, ICD10: M79.662 - US DVT LOWER LT Low suspicion DVT but will proceed with ultrasound. Discussed need for exercise, weight loss, to avoid sitting and prolonged positions. Discussed options for support hose versus compression stockings, any support will help. Follow-up after testing. Priscilla Gibbons PA-C documented in this encounterHolmes [facility]08-20-2021 History of Present illness Narrative* Gilma Parson RT(R) - 01/27/2021 2:00 PM EDT Radiology Service Progress Note PATIENT NAME: Maria Esther Reddy DATE OF SERVICE: January 27, 2021 TIME: 2:02 PM PATIENT IDENTITY VERIFICATION COMPLETED USING TWO (2) IDENTIFIERS: Name and Date of confirmedby patient verbally. FALL SCREENING: Has the patient had 2 falls in the last year or 1 fall with injury or currently using an Ambulatory Assistive Device (Walker, Cane, Wheelchair, Crutches, etc.)? No PATIENT GENDER DATA: Female. status: : No status: NO. PATIENT RELEVANT IMPLANT DATA REVIEWED: Not Applicable RADIOLOGY DEPARTMENT: General X-ray: Exam(s) Completed: Spine X-Ray(s): Lumbar AP / LAT / L5-S1 Lower Extremity X-Ray(s): Knee, AP / Lat / Tunne / Merchant Left and Wt. Bearing PERIPHERAL IV DATA: Not applicable SIGNED BY: RT Gilberto(R) January 27, 2021 2:02 PM documented in this encounterHolmes [facility]03-15-2021 History of Present illness Narrative* Kat Miller (Rt), Christal - 08/22/2020 2:10 PM EDT Radiology Service Progress Note PATIENT NAME: Maria Esther Reddy DATE OF SERVICE: August 22, 2020 TIME: 2:09 PM PATIENT IDENTITY VERIFICATION COMPLETED USING TWO (2) IDENTIFIERS: Name and Date of confirmedby patient verbally. FALL SCREENING: Has the patient had 2 falls in the last year or 1 fall with injury or currently using an Ambulatory Assistive Device (Walker, Cane, Wheelchair, Crutches, etc.)? No PATIENT GENDER DATA: Female. status: : No status: NO. PATIENT RELEVANT IMPLANT DATA REVIEWED: Yes RADIOLOGY DEPARTMENT: General X-ray: Exam(s) Completed: Lower Extremity X- Ray(s): Knee, AP / Lat / Tunne / Merchant Right and Wt. Bearing: PERIPHERAL IV DATA: Not applicable SIGNED BY: RT Art August 22, 2020 2:09 PM documented in this encounterHolmes [facility]12-28-2018 History of Past illness Narrative* Problem Noted Date Resolved Date IVONNE (acute kidney injury) 06/06/20182020 Occult GI bleeding 12/28/2014 03/06/2017 Other symptoms involving cardiovascular system 0 09/23/2008 03/14/2016 Ingrowing nail 01/02/2008 04/23/2014 Vitamin D deficiency 12/19/2007 03/06/2017 Other osteoporosis 12/19/2007 07/24/2011 Other enthesopathy of ankle and tarsus 8 03/06/2017 Sprain of foot, unspecified site 10/22/2007 04/23/2014 Plantar fascial fibromatosis 04/04/2006 Lumbago 08/24/2005 03/06/2017 documented as of this encounter (statuses as of 09/27/2021) [facility]12[facility] History of Past illness Narrative* Problem Noted Date Resolved Date IVONNE (acute kidney injury) 06/06/20182020 Occult GI bleeding 12/28/2014 03/06/2017 Other symptoms involving cardiovascular system 0 09/23/2008 03/14/2016 Ingrowing nail 01/02/2008 04/23/2014 Vitamin D deficiency 12/19/2007 03/06/2017 Other osteoporosis 12/19/2007 07/24/2011 Other enthesopathy of ankle and tarsus 8 03/06/2017 Sprain of foot, unspecified site 10/22/2007 04/23/2014 Plantar fascial fibromatosis 04/04/2006 Lumbago 08/24/2005 03/06/2017 documented as of this encounter (statuses as of 09/29/2021) [facility] History of Past illness Narrative* Problem Noted Date Resolved Date IVONNE (acute kidney injury) 06/06/20182020 Occult GI bleeding 12/28/2014 03/06/2017 Other symptoms involving cardiovascular system 0 09/23/2008 03/14/2016 Ingrowing nail 01/02/2008 04/23/2014 Vitamin D deficiency 12/19/2007 03/06/2017 Other osteoporosis 12/19/2007 07/24/2011 Other enthesopathy of ankle and tarsus 8 03/06/2017 Sprain of foot, unspecified site 10/22/2007 04/23/2014 Plantar fascial fibromatosis 04/04/2006 Lumbago 08/24/2005 03/06/2017 documented as of this encounter (statuses as of 10/17/2021) [facility] of Past illness Narrative* Problem Noted Date Resolved Date IVONNE (acute kidney injury) 06/06/20182020 Occult GI bleeding 12/28/2014 03/06/2017 Other symptoms involving cardiovascular system 0 09/23/2008 03/14/2016 Ingrowing nail 01/02/2008 04/23/2014 Vitamin D deficiency 12/19/2007 03/06/2017 Other osteoporosis 12/19/2007 07/24/2011 Other enthesopathy of ankle and tarsus 8 03/06/2017 Sprain of foot, unspecified site 10/22/2007 04/23/2014 Plantar fascial fibromatosis 04/04/2006 Lumbago 08/24/2005 03/06/2017 documented as of this encounter (statuses as of 10/25/2021) [facility] of Past illness Narrative* Problem Noted Date Resolved Date IVONNE (acute kidney injury) 06/06/20182020 Occult GI bleeding 12/28/2014 03/06/2017 Other symptoms involving cardiovascular system 0 09/23/2008 03/14/2016 Ingrowing nail 01/02/2008 04/23/2014 Vitamin D deficiency 12/19/2007 03/06/2017 Other osteoporosis 12/19/2007 07/24/2011 Other enthesopathy of ankle and tarsus 8 03/06/2017 Sprain of foot, unspecified site 10/22/2007 04/23/2014 Plantar fascial fibromatosis 04/04/2006 Lumbago 08/24/2005 03/06/2017 documented as of this encounter (statuses as of 12/12/2021) [facility] of Past illness Narrative* Problem Noted Date Resolved Date IVONNE (acute kidney injury) 06/06/20182020 Occult GI bleeding 12/28/2014 03/06/2017 Other symptoms involving cardiovascular system 0 09/23/2008 03/14/2016 Ingrowing nail 01/02/2008 04/23/2014 Vitamin D deficiency 12/19/2007 03/06/2017 Other osteoporosis 12/19/2007 07/24/2011 Other enthesopathy of ankle and tarsus 8 03/06/2017 Sprain of foot, unspecified site 10/22/2007 04/23/2014 Plantar fascial fibromatosis 04/04/2006 Lumbago 08/24/2005 03/06/2017 documented as of this encounter (statuses as of 12/27/2021) [facility] of Past illness Narrative* Problem Noted Date Resolved Date IVONNE (acute kidney injury) 06/06/20182020 Occult GI bleeding 12/28/2014 03/06/2017 Other symptoms involving cardiovascular system 0 09/23/2008 03/14/2016 Ingrowing nail 01/02/2008 04/23/2014 Vitamin D deficiency 12/19/2007 03/06/2017 Other osteoporosis 12/19/2007 07/24/2011 Other enthesopathy of ankle and tarsus 8 03/06/2017 Sprain of foot, unspecified site 10/22/2007 04/23/2014 Plantar fascial fibromatosis 04/04/2006 Lumbago 08/24/2005 03/06/2017 documented as of this encounter (statuses as of 01/03/2022) [facility] of [facility] illness Narrative* Problem Noted Date Resolved Date IVONNE (acute kidney injury) 06/06/20182020 Occult GI bleeding 12/28/2014 03/06/2017 Other symptoms involving cardiovascular system 0 09/23/2008 03/14/2016 Ingrowing nail 01/02/2008 04/23/2014 Vitamin D deficiency 12/19/2007 03/06/2017 Other osteoporosis 12/19/2007 07/24/2011 Other enthesopathy of ankle and tarsus 8 03/06/2017 Sprain of foot, unspecified site 10/22/2007 04/23/2014 Plantar fascial fibromatosis 04/04/2006 Lumbago 08/24/2005 03/06/2017 documented as of this encounter (statuses as of 01/12/2022) [facility] of [facility] illness Narrative* Problem Noted Date Resolved Date IVONNE (acute kidney injury) 06/06/20182020 Occult GI bleeding 12/28/2014 03/06/2017 Other symptoms involving cardiovascular system 0 09/23/2008 03/14/2016 Ingrowing nail 01/02/2008 04/23/2014 Vitamin D deficiency 12/19/2007 03/06/2017 Other osteoporosis 12/19/2007 07/24/2011 Other enthesopathy of ankle and tarsus 8 03/06/2017 Sprain of foot, unspecified site 10/22/2007 04/23/2014 Plantar fascial fibromatosis 04/04/2006 Lumbago 08/24/2005 03/06/2017 documented as of this encounter (statuses as of 02/20/2022) [facility] of [facility] illness Narrative* Problem Noted Date Resolved Date IVONNE (acute kidney injury) 06/06/20182020 Occult GI bleeding 12/28/2014 03/06/2017 Other symptoms involving cardiovascular system 0 09/23/2008 03/14/2016 Ingrowing nail 01/02/2008 04/23/2014 Vitamin D deficiency 12/19/2007 03/06/2017 Other osteoporosis 12/19/2007 07/24/2011 Other enthesopathy of ankle and tarsus 8 03/06/2017 Sprain of foot, unspecified site 10/22/2007 04/23/2014 Plantar fascial fibromatosis 04/04/2006 Lumbago 08/24/2005 03/06/2017 documented as of this encounter (statuses as of 03/08/2022) [facility] of [facility] illness Narrative* Problem Noted Date Resolved Date IVONNE (acute kidney injury) 06/06/20182020 Occult GI bleeding 12/28/2014 03/06/2017 Other symptoms involving cardiovascular system 0 09/23/2008 03/14/2016 Ingrowing nail 01/02/2008 04/23/2014 Vitamin D deficiency 12/19/2007 03/06/2017 Other osteoporosis 12/19/2007 07/24/2011 Other enthesopathy of ankle and tarsus 8 03/06/2017 Sprain of foot, unspecified site 10/22/2007 04/23/2014 Plantar fascial fibromatosis 04/04/2006 Lumbago 08/24/2005 03/06/2017 documented as of this encounter (statuses as of 03/15/2022) [facility] of Past illness Narrative* Problem Noted Date Resolved Date IVONNE (acute kidney injury) 06/06/20182020 Occult GI bleeding 12/28/2014 03/06/2017 Other symptoms involving cardiovascular system 0 09/23/2008 03/14/2016 Ingrowing nail 01/02/2008 04/23/2014 Vitamin D deficiency 12/19/2007 03/06/2017 Other osteoporosis 12/19/2007 07/24/2011 Other enthesopathy of ankle and tarsus 8 03/06/2017 Sprain of foot, unspecified site 10/22/2007 04/23/2014 Plantar fascial fibromatosis 04/04/2006 Lumbago 08/24/2005 03/06/2017 documented as of this encounter (statuses as of 06/13/2022) [facility] [facility] History of Past illness Narrative* Problem Noted Date Resolved Date IVONNE (acute kidney injury) 06/06/20182020 Occult GI bleeding 12/28/2014 03/06/2017 Other symptoms involving cardiovascular system 0 09/23/2008 03/14/2016 Ingrowing nail 01/02/2008 04/23/2014 Vitamin D deficiency 12/19/2007 03/06/2017 Other osteoporosis 12/19/2007 07/24/2011 Other enthesopathy of ankle and tarsus 8 03/06/2017 Sprain of foot, unspecified site 10/22/2007 04/23/2014 Plantar fascial fibromatosis 04/04/2006 Lumbago 08/24/2005 03/06/2017 documented as of this encounter (statuses as of 09/28/2022) [facility]12[facility] History of Past illness Narrative* Problem Noted Date Resolved Date IVONNE (acute kidney injury) 06/06/20182020 Occult GI bleeding 12/28/2014 03/06/2017 Other symptoms involving cardiovascular system 0 09/23/2008 03/14/2016 Ingrowing nail 01/02/2008 04/23/2014 Vitamin D deficiency 12/19/2007 03/06/2017 Other osteoporosis 12/19/2007 07/24/2011 Other enthesopathy of ankle and tarsus 8 03/06/2017 Sprain of foot, unspecified site 10/22/2007 04/23/2014 Plantar fascial fibromatosis 04/04/2006 Lumbago 08/24/2005 03/06/2017 documented as of this encounter (statuses as of 10/02/2022) [facility]12[facility] History of Past illness Narrative* Problem Noted Date Resolved Date IVONNE (acute kidney injury) 06/06/20182020 Occult GI bleeding 12/28/2014 03/06/2017 Other symptoms involving cardiovascular system 0 09/23/2008 03/14/2016 Ingrowing nail 01/02/2008 04/23/2014 Vitamin D deficiency 12/19/2007 03/06/2017 Other osteoporosis 12/19/2007 07/24/2011 Other enthesopathy of ankle and tarsus 8 03/06/2017 Sprain of foot, unspecified site 10/22/2007 04/23/2014 Plantar fascial fibromatosis 04/04/2006 Lumbago 08/24/2005 03/06/2017 documented as of this encounter (statuses as of 10/04/2022) [facility]12[facility] History of Past illness Narrative* Problem Noted Date Resolved Date IVONNE (acute kidney injury) 06/06/20182020 Occult GI bleeding 12/28/2014 03/06/2017 Other symptoms involving cardiovascular system 0 09/23/2008 03/14/2016 Ingrowing nail 01/02/2008 04/23/2014 Vitamin D deficiency 12/19/2007 03/06/2017 Other osteoporosis 12/19/2007 07/24/2011 Other enthesopathy of ankle and tarsus 8 03/06/2017 Sprain of foot, unspecified site 10/22/2007 04/23/2014 Plantar fascial fibromatosis 04/04/2006 Lumbago 08/24/2005 03/06/2017 documented as of this encounter (statuses as of 10/18/2022) [facility] History of Past illness Narrative* Problem Noted Date Resolved Date IVONNE (acute kidney injury) 06/06/20182020 Occult GI bleeding 12/28/2014 03/06/2017 Other symptoms involving cardiovascular system 0 09/23/2008 03/14/2016 Ingrowing nail 01/02/2008 04/23/2014 Vitamin D deficiency 12/19/2007 03/06/2017 Other osteoporosis 12/19/2007 07/24/2011 Other enthesopathy of ankle and tarsus 8 03/06/2017 Sprain of foot, unspecified site 10/22/2007 04/23/2014 Plantar fascial fibromatosis 04/04/2006 Lumbago 08/24/2005 03/06/2017 documented as of this encounter (statuses as of 10/19/2022) [facility] History of Past illness Narrative* Problem Noted Date Resolved Date IVONNE (acute kidney injury) 06/06/20182020 Occult GI bleeding 12/28/2014 03/06/2017 Other symptoms involving cardiovascular system 0 09/23/2008 03/14/2016 Ingrowing nail 01/02/2008 04/23/2014 Vitamin D deficiency 12/19/2007 03/06/2017 Other osteoporosis 12/19/2007 07/24/2011 Other enthesopathy of ankle and tarsus 8 03/06/2017 Sprain of foot, unspecified site 10/22/2007 04/23/2014 Plantar fascial fibromatosis 04/04/2006 Lumbago 08/24/2005 03/06/2017 documented as of this encounter (statuses as of 11/13/2022) [facility] History of Past illness Narrative* Problem Noted Date Resolved Date IVONNE (acute kidney injury) 06/06/20182020 Occult GI bleeding 12/28/2014 03/06/2017 Other symptoms involving cardiovascular system 0 09/23/2008 03/14/2016 Ingrowing nail 01/02/2008 04/23/2014 Vitamin D deficiency 12/19/2007 03/06/2017 Other osteoporosis 12/19/2007 07/24/2011 Other enthesopathy of ankle and tarsus 8 03/06/2017 Sprain of foot, unspecified site 10/22/2007 04/23/2014 Plantar fascial fibromatosis 04/04/2006 Lumbago 08/24/2005 03/06/2017 documented as of this encounter (statuses as of 12/06/2022) [facility]12[facility] History of Past illness Narrative* Problem Noted Date Diagnosed Date Resolved Date IVONNE (acute kidney injury) 06/06/2018 Occult GI bleeding 12/28/2014 7 Other symptoms involving car diovascular system 09/23/2008 03/14/2016 Ingrowing nail 01/02/2008 04/23/2014 Vitamin D deficiency 12/19/2007 017 Other osteoporosis 12/19/2007 2 Other enthesopathy of ankle and tarsus 11/05/2007 03/06/2017 Sprain of foot, unspecified site 10/22/2007 04/23/2014 Plantar fascial fibromatosis 04/04/2006 01/27/2021 Lumbago 08/24/2005 03/06/2017 documented as of this encounter (statuses as of 01/16/2023) [facility]12[facility] History of Past illness Narrative* Problem Noted Date Diagnosed Date Resolved Date IVONNE (acute kidney injury) 06/06/2018 Occult GI bleeding 12/28/2014 7 Other symptoms involving car diovascular system 09/23/2008 03/14/2016 Ingrowing nail 01/02/2008 04/23/2014 Vitamin D deficiency 12/19/2007 017 Other osteoporosis 12/19/2007 2 Other enthesopathy of ankle and tarsus 11/05/2007 03/06/2017 Sprain of foot, unspecified site 10/22/2007 04/23/2014 Plantar fascial fibromatosis 04/04/2006 01/27/2021 Lumbago 08/24/2005 03/06/2017 documented as of this encounter (statuses as of 01/17/2023) [facility]12[facility] History of Past illness Narrative* Problem Noted Date Diagnosed Date Resolved Date IVONNE (acute kidney injury) 06/06/2018 Occult GI bleeding 12/28/2014 7 Other symptoms involving car diovascular system 09/23/2008 03/14/2016 Ingrowing nail 01/02/2008 04/23/2014 Vitamin D deficiency 12/19/2007 017 Other osteoporosis 12/19/2007 2 Other enthesopathy of ankle and tarsus 11/05/2007 03/06/2017 Sprain of foot, unspecified site 10/22/2007 04/23/2014 Plantar fascial fibromatosis 04/04/2006 01/27/2021 Lumbago 08/24/2005 03/06/2017 documented as of this encounter (statuses as of 01/22/2023) [facility] History of Past illness Narrative* Problem Noted Date Diagnosed Date Resolved Date IVONNE (acute kidney injury) 06/06/2018 Occult GI bleeding 12/28/2014 7 Other symptoms involving car diovascular system 09/23/2008 03/14/2016 Ingrowing nail 01/02/2008 04/23/2014 Vitamin D deficiency 12/19/2007 017 Other osteoporosis 12/19/2007 2 Other enthesopathy of ankle and tarsus 11/05/2007 03/06/2017 Sprain of foot, unspecified site 10/22/2007 04/23/2014 Plantar fascial fibromatosis 04/04/2006 01/27/2021 Lumbago 08/24/2005 03/06/2017 documented as of this encounter (statuses as of 01/23/2023) [facility] History of Past illness Narrative* Problem Noted Date Diagnosed Date Resolved Date IVONNE (acute kidney injury) 06/06/2018 Occult GI bleeding 12/28/2014 7 Other symptoms involving car diovascular system 09/23/2008 03/14/2016 Ingrowing nail 01/02/2008 04/23/2014 Vitamin D deficiency 12/19/2007 017 Other osteoporosis 12/19/2007 2 Other enthesopathy of ankle and tarsus 11/05/2007 03/06/2017 Sprain of foot, unspecified site 10/22/2007 04/23/2014 Plantar fascial fibromatosis 04/04/2006 01/27/2021 Lumbago 08/24/2005 03/06/2017 documented as of this encounter (statuses as of 04/12/2023) [facility] Diagnosis Left leg swelling- Primary Swelling of limb Pain of left calf Pain in limb [facility] Diagnosis Left leg swelling Swelling of limb Pain of left calf Pain in limb [facility] this [facility] Diagnosis Hyperlipidemia with target LDL less than 100 Other and unspecified hyperlipidemia GERD without esophagitis Esophageal reflux Wheezing Hypothyroidism, unspecified type documented in this encounter [facility] Diagnosis Primary osteoarthritis of right knee- Primary Primary localized osteoarthrosis, lower leg Knee injury, right, initial encounter [facility] this encounter [facility] Diagnosis Primary osteoarthritis of right knee- Primary Primary localized osteoarthrosis, lower leg Knee injury, right, initial encounter Knee injuries, right, initial encounter [facility] Diagnosis Knee injuries, right, initial encounter [facility] Diagnosis Knee injuries, right, initial encounter [facility] Diagnosis Morbid obesity (HCC)- Primary Morbid obesity Essential hypertension, benign Hyperlipidemia with target LDL less than 100 Other and unspecified hyperlipidemia Hypothyroidism, unspecified type [facility] this encounter [facility] Diagnosis Hyperlipidemia with target LDL less than 100- Primary Other and unspecified hyperlipidemia Hypothyroidism, unspecified type GERD without esophagitis Esophageal reflux Wheezing Morbid obesity (HCC) Morbid obesity Need for influenza vaccination Need for prophylactic vaccination and inoculation against influenza Primary osteoarthritis of right knee Primary localized osteoarthrosis, lower leg Knee injury, right, initial encounter [facility] COPD with exacerbation (HCC)- Primary Obstructive chronic bronchitis with exacerbation [facility]* Diagnosis Hypothyroidism, unspecified type- Primary Primary osteoarthritis of right knee Primary localized osteoarthrosis, lower leg Knee injury, right, initial encounter Hyperlipidemia with target LDL less than 100 Other and unspecified hyperlipidemia GERD without esophagitis Esophageal reflux Wheezing Injury of finger of left hand, subsequent encounter Subcutaneous nodule of left lower leg [facility] Subcutaneous nodule of left lower leg [facility] Diagnosis Injury of finger of left hand, subsequent encounter [facility] Diagnosis Mass of right lower leg- Primary [facility] Diagnosis Mass of left lower leg- Primary Localized swelling, mass, or lump of left lower extremity [facility] Diagnosis Mass of right lower leg Mass of left lower leg Localized swelling, mass, or lump of left lower extremity [facility] Diagnosis Edema, unspecified type- Primary Tobacco use Tobacco use disorder Essential hypertension, benign Hypothyroidism, unspecified type Hyperlipidemia with target LDL less than 100 Other and unspecified hyperlipidemia Morbid obesity (HCC) Morbid obesity Dysmetabolic syndrome X Dysmetabolic Syndrome X Elevated brain natriuretic peptide (BNP) level Other nonspecific findings on examination of blood SOB (shortness of breath) Shortness of breath Bilateral leg edema Edema [facility] Diagnosis Lung nodules- Primary Other nonspecific abnormal finding of lung field [facility] Diagnosis SOB (shortness of breath) Shortness of breath [facility] Diagnosis Primary osteoarthritis of right knee- Primary Primary localized osteoarthrosis, lower leg [facility] Diagnosis Chronic obstructive pulmonary disease, unspecified COPD type (HCC)- Primary [facility]* Diagnosis COPD, mild (HCC)- Primary Chronic airway obstruction, not elsewhere classified Irregular heart rate Cardiac dysrhythmia, unspecified Lung nodules Other nonspecific abnormal finding of lung field Cigarette smoker Tobacco use disorder Morbid obesity (HCC) Morbid obesity [facility] this encounter [facility] Diagnosis Tobacco use Tobacco use disorder Encounter for screening for lung cancer documented in this encounter [facility] note* Diagnosis Elevated brain natriuretic peptide (BNP) level Other nonspecific findings on examination of blood SOB (shortness of breath) Shortness of breath Edema, unspecified type [facility] Diagnosis Diastolic congestive heart failure, unspecified HF chronicity (HCC)- Primary Encounter for immunization Need for other specified prophylactic vaccination against single bacterial disease GERD without esophagitis Esophageal reflux Hyperlipidemia with target LDL less than 100 Other and unspecified hyperlipidemia Essential hypertension, benign Centrilobular emphysema (HCC) Other emphysema COPD, mild (HCC) Chronic airway obstruction, not elsewhere classified Lung nodules Other nonspecific abnormal finding of lung field Hypothyroidism, unspecified type Dysmetabolic syndrome X Dysmetabolic Syndrome X Prediabetes Other abnormal glucose Morbid obesity (HCC) Morbid obesity Foot pain, bilateral Pain in limb documented in this encounter [facility] noteNo assessment information availableWSt. Anthony's Hospital Work Phone: Evaluation note* Diagnosis Bilateral leg edema Edema [facility] Diagnosis Paroxysmal atrial fibrillation (HCC) Atrial fibrillation [facility] Diagnosis COPD, mild (HCC)- Primary Chronic airway obstruction, not elsewhere classified Lung nodules Other nonspecific abnormal finding of lung field Cigarette smoker Tobacco use disorder Morbid obesity (HCC) Morbid obesity [facility]* Diagnosis Hypothyroidism, unspecified type- Primary Hyperglycemia Other abnormal glucose documented in this encounter [facility] note* Diagnosis Pulmonary emphysema, unspecified emphysema type (HCC)- Primary Morbid obesity (HCC) Morbid obesity Lung nodules Other nonspecific abnormal finding of lung field Cigarette smoker Tobacco use disorder [facility] this encounter [facility]* Diagnosis Hypothyroidism, unspecified type- Primary documented in this encounter [facility] note* Diagnosis Hypothyroidism, unspecified type- Primary [facility] Diagnosis Chronic obstructive pulmonary disease, unspecified COPD type (HCC)- Primary Hypothyroidism, unspecified type Hyperglycemia Other abnormal glucose Paroxysmal atrial fibrillation (HCC) Atrial fibrillation Bilateral leg edema Edema Centrilobular emphysema (HCC) Other emphysema Essential hypertension, benign Lung nodules Other nonspecific abnormal finding of lung field Morbid obesity (HCC) Morbid obesity Tobacco use Tobacco use disorder BPPV (benign paroxysmal positional vertigo), unspecified laterality [facility] Diagnosis BPPV (benign paroxysmal positional vertigo), unspecified laterality [facility] this encounter [facility] Diagnosis Primary osteoarthritis of right knee- Primary Primary localized osteoarthrosis, lower leg [facility] Diagnosis Bilateral leg edema Edema [facility] Diagnosis Multiple lung nodules- Primary Other nonspecific abnormal finding of lung field Tobacco use current [facility] Diagnosis Lung nodules Other nonspecific abnormal finding of lung field [facility] Diagnosis Lung nodules- Primary Other nonspecific abnormal finding of lung field [facility] Diagnosis Essential hypertension, benign- Primary Chronic systolic congestive heart failure (HCC) Chronic systolic heart failure Centrilobular emphysema (HCC) Other emphysema Tobacco abuse Tobacco use disorder Acquired hypothyroidism Unspecified hypothyroidism Class 3 severe obesity due to excess calories with body mass index (BMI) of 40.0 to 44.9 in adult, unspecified whether serious comorbidity present (HCC) [facility] Diagnosis Foot pain, bilateral Pain in limb [facility] this encounter [facility] Diagnosis SOB (shortness of breath) Shortness of breath [facility] Diagnosis Bilateral leg edema- Primary Edema [facility] Diagnosis Acute pain of left knee Lumbar pain Lumbago [facility] Diagnosis Knee injury, right, initial encounter [facility]* Diagnosis Paroxysmal atrial fibrillation (HCC) Atrial fibrillation [facility]* Diagnosis Hypothyroidism, unspecified type [facility] Diagnosis Paroxysmal atrial fibrillation (HCC)- Primary Atrial fibrillation Screening for depression Encounter for screening examination for other mental health and behavioral disorders Anxiety with depression Chronic insomnia Insomnia, unspecified Essential hypertension, benign Hyperlipidemia with target LDL less than 100 Other and unspecified hyperlipidemia COPD, mild (HCC) Chronic airway obstruction, not elsewhere classified Prediabetes Other abnormal glucose Encounter for immunization Need for other specified prophylactic vaccination against single bacterial disease Acute maxillary sinusitis, recurrence not specified [facility] Diagnosis Acute exacerbation of chronic obstructive pulmonary disease (COPD) (HCC)- Primary Obstructive chronic bronchitis with exacerbation Chronic insomnia Insomnia, unspecified COPD with exacerbation (HCC) Obstructive chronic bronchitis with exacerbation [facility]* Diagnosis Hyperlipidemia with target LDL less than 100 Other and unspecified hyperlipidemia documented in this encounter [facility] note* Diagnosis Bilateral leg edema Edema documented in this encounter [facility] for referral (narrative)* Diagnostic Procedure Only (Urgent) - Authorized Specialty Diagnoses / Procedures Referred By Contac t Referred To Contact US IMAGING Diagnoses Left leg swelling Pain of left calf Procedures US DVT LOWER LT DUP-SCAN XTR VEINS UNILATERAL/LIMITED STUDY Priscilla Gibbons PA-C [address] [place] [address] Us Imaging Referral ID Status Reason Start Date Expiration Date Visits Requested Visits Authorized [id number] Authorized Auto-Generat ed Referral 09/26/2021 10/26/20[address] [facility] Diagnostic Procedure Only (Urgent) - Closed Specialty Diagnoses / Procedures Referred By Contac t Referred To Contact US IMAGING Diagnoses Left leg swelling Pain of left calf Procedures US DVT LOWER LT DUP-SCAN XTR VEINS UNILATERAL/LIMITED STUDY Priscilla Gibbons PA-C [address] [place] [address] Us Imaging Referral ID Status Reason Start Date Expiration Date V isits Requested Visits Authorized [id number] Closed Auto-Generate d Referral 09/26/2021 10/26/2022 1 1 [facility] for referral (narrative)* - Pending Review Specialty Diagnoses / Procedures Referred By Contac t Referred To Contact Physical Therapy Diagnoses Primary osteoarthritis of right knee Knee injury, right, initial encounter Procedures CONSULT TO PHYSICAL THERAPY Marissa Pena PA-C [address] [place] [address] Referral ID Status Reason Start Date Expiration Date V isits Requested Visits Authorized [id number] Pending Review 12/12/2021 03/12/2022 1 1 [facility] for referral (narrative)* Diagnostic Procedure Only (Routine) - Pending Review Specialty Diagnoses / Procedures Referred By Contac t Referred To Contact XR IMAGING Diagnoses Injury of finger of left hand, subsequent encounter Procedures XR DIGIT GENERAL 3V FRONTAL/LAT/OBL LEFT RADEX FINGR MINIMUM 2 VIEWS Priscilla Gibbons PA-C [address] [place] [address] Xr Imaging Referral ID Status Reason Start Date Expiration Date Visits Requested Visits Authorized [id number] Pending Review Auto-Generat ed Referral 09/28/2022 10/28/2023 1 1 * Diagnostic Procedure Only (Routine) - Authorized Specialty Diagnoses / Procedures Referred By Contac t Referred To Contact US IMAGING Diagnoses Subcutaneous nodule of left lower leg Procedures US EXTREMITY MASS/FLUID COLLECTION LEFT Priscilla Gibbons PA-C [address] [place] [address] Us Imaging Referral ID Status Reason Start Date Expiration Date Visits Requested Visits Authorized [id number] Authorized Auto-Generat ed Referral 09/28/2022 10/28/2023 1 1 [facility] for referral (narrative)* Diagnostic Procedure Only (Routine) - Closed Specialty Diagnoses / Procedures Referred By Contac t Referred To Contact US IMAGING Diagnoses Subcutaneous nodule of left lower leg Procedures US EXTREMITY MASS/FLUID COLLECTION LEFT Priscilla Gibbons PA-C [address] [place] [address] Us Imaging Referral ID Status Reason Start Date Expiration Date V isits Requested Visits Authorized [id number] Closed Auto-Generate d Referral 09/28/2022 10/28/2023 1 1 [facility] for referral (narrative)* Diagnostic Procedure Only (Routine) - Closed Specialty Diagnoses / Procedures Referred By Contac t Referred To Contact XR IMAGING Diagnoses Injury of finger of left hand, subsequent encounter Procedures XR DIGIT GENERAL 3V FRONTAL/LAT/OBL LEFT RADEX FINGR MINIMUM 2 VIEWS Priscilla Gibbons PA-C [address] [place] [address] Xr Imaging Referral ID Status Reason Start Date Expiration Date V isits Requested Visits Authorized [id number] Closed Auto-Generate d Referral 09/28/2022 10/28/2023 1 1 [facility] for referral (narrative)* Outpatient Procedure (Routine) - Authorized Specialty Diagnoses / Procedures Referred By Contac t Referred To Contact [facility] Diagnoses Elevated brain natriuretic peptide (BNP) level SOB (shortness of breath) Edema, unspecified type Procedures ECHO ECHO TTHRC R-T 2D W/WOM-MODE COMPL SPEC&COLR D Bradley Causey MD [address] [place] [id number] [facility] [address] [place] [address] Referral ID Status Reason Start Date Expiration Date Visits Requested Visits Authorized [id number] Authorized Auto-Generat ed Referral 11/12/2022 11/12/2023 1 1 * Diagnostic Procedure Only (Routine) - Authorized Specialty Diagnoses / Procedures Referred By Contac t Referred To Contact MOLECULAR [facility] FUNCTIONAL IMAGING Diagnoses SOB (shortness of breath) Procedures NM CARDIAC PERF STRESS/PHARM MYOCARDIAL SPECT [place] [address] [place] [id number] [facility] [address] [id number] Referral ID Status Reason Start Date Expiration Date Visits Requested Visits Authorized [id number] Authorized Auto-Generat ed Referral 11/12/2022 12/12/2023 1 1 * Transition of Care (Routine) - Ref Not Required Specialty Diagnoses / Procedures Referred By Contac t Referred To Contact Diagnoses Tobacco use Procedures CONSULT LUNG CANCER SCREENING CLINIC Bradley Causey MD [address] [place] [address] Referral ID Status Reason Start Date Expiration Date Visits Requested Visits Authorized [id number] Ref Not Required PCP Requested Referral 11/12/2022 02/10/2023 1 1 * Outpatient Procedure (Routine) - Closed Specialty Diagnoses / Procedures Referred By Contac t Referred To Contact [facility] Diagnoses SOB (shortness of breath) Edema, unspecified type Procedures ECG COMPLETE ECG ROUTINE ECG W/LEAST 12 LDS W/I&R Bradley Causey MD [address] [place] [address] [facility] [address] [place] [address] Referral ID Status Reason Start Date Expiration Date V isits Requested Visits Authorized [id number] Closed Auto-Generate d Referral 11/12/2022 11/12/2023 1 1 [facility] for referral (narrative)* Outpatient Procedure (Routine) - Pending Review Specialty Diagnoses / Procedures Referred By Contac t Referred To Contact [facility] Diagnoses Irregular heart rate Procedures ECG COMPLETE ECG ROUTINE ECG W/LEAST 12 LDS W/I&R Smita Henderson MD [address] [place] [address] [facility] [place] [address] [place] [address] Referral ID Status Reason Start Date Expiration Date Visits Requested Visits Authorized [id number] Pending Review Auto-Generat ed Referral 02/15/2023 02/15/2024 1 1 [facility] for referral (narrative)* Diagnostic Procedure Only (Routine) - Closed Specialty Diagnoses / Procedures Referred By Contac t Referred To Contact XR IMAGING Diagnoses Foot pain, bilateral Procedures XR FOOT GENERAL 3V AP/LAT/OBL BILATERAL RADEX FOOT COMPLETE MINIMUM 3 VIEWS Bradley Causey MD [address] [place] [address] [place] [address] Referral ID Status Reason Start Date Expiration Date V isits Requested Visits Authorized [id number] Closed Auto-Generate d Referral 04/24/2023 05/23/2024 1 1 [facility] for referral (narrative)* Diagnostic Procedure Only (Routine) - Closed Specialty Diagnoses / Procedures Referred By Contac t Referred To Contact XR IMAGING Diagnoses Foot pain, bilateral Procedures XR FOOT GENERAL 3V AP/LAT/OBL BILATERAL RADEX FOOT COMPLETE MINIMUM 3 VIEWS Bradley Causey MD [address] [place] [address] [place] [address] Referral ID Status Reason Start Date Expiration Date V isits Requested Visits Authorized [id number] Closed Auto-Generate d Referral 04/24/2023 05/23/2024 1 1 [facility] for referral (narrative)* Diagnostic Procedure Only (Routine) - Closed Specialty Diagnoses / Procedures Referred By Contac t Referred To Contact XR IMAGING Diagnoses Lumbar pain Procedures XR LUMBAR GENERAL 3V AP/LAT/L5-S1 X-RAY L-S SPINE AP/LATERAL Bradley Causey MD [address] [place] [address] [place] [address] Referral ID Status Reason Start Date Expiration Date V isits Requested Visits Authorized [id number] Closed Auto-Generate d Referral 01/27/2021 02/26/2022 1 1 * Diagnostic Procedure Only (Routine) - Closed Specialty Diagnoses / Procedures Referred By Contac t Referred To Contact XR IMAGING Diagnoses Acute pain of left knee Procedures XR KNEE GENERAL 4V AP BOTH/PA BOTH/LAT/MERC LT KNEE AP-WGT/LAT/MERCHANT Vale, Bradley Lan MD [address] [place] [address] [place] [address] Referral ID Status Reason Start Date Expiration Date V isits Requested Visits Authorized [id number] Closed Auto-Generate d Referral 01/27/2021 02/26/2022 1 1 [facility] for visit Narrative* Diagnostic Procedure Only (Urgent) - Closed Specialty Diagnoses / Procedures Referred By Contac t Referred To Contact US IMAGING Diagnoses Left leg swelling Pain of left calf Procedures US DVT LOWER LT DUP-SCAN XTR VEINS UNILATERAL/LIMITED STUDY Priscilla Gibbons PA-C [address] [place] [address] Us Imaging Referral ID Status Reason Start Date Expiration Date V isits Requested Visits Authorized [id number] Closed Auto-Generate d Referral 09/26/2021 10/26/2022 1 1 [facility] for visit Narrative* Diagnostic Procedure Only (Routine) - Closed Specialty Diagnoses / Procedures Referred By Contac t Referred To Contact US IMAGING Diagnoses Subcutaneous nodule of left lower leg Procedures US EXTREMITY MASS/FLUID COLLECTION LEFT Priscilla Gibbons PA-C [address] [place] [address] Us Imaging Referral ID Status Reason Start Date Expiration Date V isits Requested Visits Authorized [id number] Closed Auto-Generate d Referral 09/28/2022 10/28/2023 1 1 [facility] for visit Narrative* Diagnostic Procedure Only (Routine) - Closed Specialty Diagnoses / Procedures Referred By Contac t Referred To Contact XR IMAGING Diagnoses Injury of finger of left hand, subsequent encounter Procedures XR DIGIT GENERAL 3V FRONTAL/LAT/OBL LEFT RADEX FINGR MINIMUM 2 VIEWS Priscilla Gibbons PA-C [address] [place] [address] Xr Imaging Referral ID Status Reason Start Date Expiration Date V isits Requested Visits Authorized [id number] Closed Auto-Generate d Referral 09/28/2022 10/28/2023 1 1 [facility] for visit Narrative* Diagnostic Procedure Only (Routine) - Closed Specialty Diagnoses / Procedures Referred By Contac t Referred To Contact XR IMAGING Diagnoses Foot pain, bilateral Procedures XR FOOT GENERAL 3V AP/LAT/OBL BILATERAL RADEX FOOT COMPLETE MINIMUM 3 VIEWS Bradley Causey MD [address] [place] [address] [place] [address] Referral ID Status Reason Start Date Expiration Date V isits Requested Visits Authorized [id number] Closed Auto-Generate d Referral 04/24/2023 05/23/2024 1 1 [facility] for visit Narrative* Diagnostic Procedure Only (Routine) - Closed Specialty Diagnoses / Procedures Referred By Contac t Referred To Contact XR IMAGING Diagnoses Lumbar pain Procedures XR LUMBAR GENERAL 3V AP/LAT/L5-S1 X-RAY L-S SPINE AP/LATERAL Bradley Causey MD [address] [place] [address] [place] [address] Referral ID Status Reason Start Date Expiration Date V isits Requested Visits Authorized [id number] Closed Auto-Generate d Referral 01/27/2021 02/26/2022 1 1 [facility] Health Concerns Infection Onset Date Last Indicated Resolved Time COVID-19 Rule-Out 06/08/2022 06/08/2022 06/09/2022 1:42 AM EST Reason for Referral Specialty Diagnoses / Procedures Referred By Contac t Referred To Contact MR IMAGING Diagnoses Mass of right lower leg Procedures MRI LOWER LEG WO IVCON RIGHT MRI LOWER EXTREM OTH/THN JT W/O CONTR MATRL Priscilla Gibbons PA-C [address] [place] [address] Mr Imaging Referral ID Status Reason Start Date Expiration Date Visits Requested Visits Authorized [id number] Pending Review Auto-Generat ed Referral 10/03/2022 11/02/2023 1 1 Specialty Diagnoses / Procedures Referred By Contac t Referred To Contact MR IMAGING Diagnoses Mass of left lower leg Localized swelling, mass, or lump of left lower extremity Procedures MRI LOWER LEG WO IVCON LEFT MRI LOWER EXTREM OTH/THN JT W/O CONTR Devendra Gonzalez MD [address] [place] [address] Mr Imaging Referral ID Status Reason Start Date Expiration Date V isits Requested Visits Authorized [id number] Closed Auto-Generate d Referral 10/18/2022 11/17/2023 1 1 Specialty Diagnoses / Procedures Referred By Contac t Referred To Contact CT IMAGING Diagnoses Lung nodules Procedures CT LUNG FOLLOWUP WO IVCON DIAGNOSTIC COMPUTED TOMOGRAPHY THORAX W/O CNTRST Fredis Khan, BRAIDING MACHINE TENDER.OTOLARYNGOLOGY NURSE [address] [place] [address] Ct Imaging Referral ID Status Reason Start Date Expiration Date Visits Requested Visits Authorized [id number] Pending Review Auto-Generat ed Referral 3 01/05/2024 1 1 Specialty Diagnoses / Procedures Referred By Contac t Referred To Contact [facility] Diagnoses Chronic obstructive pulmonary disease, unspecified COPD type (HCC) Procedures CONSULT TO PULM/CRITICAL CARE OFFICE/OUTPATIENT [facility] 60-74 MINUTES Bradley Causey MD [address] [place] [address] Referral ID Status Reason Start Date Expiration Date Visits Requested Visits Authorized [id number] Pending Review PCP Requested Referral 01/17/2023 01/17/2024 1 1 Specialty Diagnoses / Procedures Referred By Contac t Referred To Contact CT IMAGING Diagnoses Tobacco use Encounter for screening for lung cancer Procedures CT LUNG SCREEN WO IVCON COMPUTED TOMOGRAPHY THORAX LW DOSE LNG CA SCR C- Fredis Khan, BRAIDING MACHINE TENDER.OTOLARYNGOLOGY NURSE [address] [place] [address] [place] [id number] Referral ID Status Reason Start Date Expiration Date V isits Requested Visits Authorized [id number] Closed Auto-Generate d Referral 11/20/2022 12/20/2023 1 1 Specialty Diagnoses / Procedures Referred By Contac t Referred To Contact [facility] Diagnoses BPPV (benign paroxysmal positional vertigo), unspecified laterality Procedures CONSULT TO PHYSICAL THERAPY PHYSICAL THERAPY EVALUATION HIGH COMPLEX 45 MINS Preethi Mcclure, BRAIDING MACHINE TENDER.MOLD HOISTER [address] [place] [address] [facility] [place] [address] [place] [address] Referral ID Status Reason Start Date Expiration Date Visits Requested Visits Authorized [id number] Authorized Auto-Generat ed Referral 06/10/2023 06/09/2024 99 99 Specialty Diagnoses / Procedures Referred By Contac t Referred To Contact CT IMAGING Diagnoses Lung nodules Procedures CT LUNG FOLLOWUP WO IVCON DIAGNOSTIC COMPUTED TOMOGRAPHY THORAX W/O CNTRST Fredis Khan, BRAIDING MACHINE TENDER.OTOLARYNGOLOGY NURSE [address] [place] [address] Ct Imaging [id number] Referral ID Status Reason Start Date Expiration Date Visits Requested Visits Authorized [id number] Pending Review Auto-Generat ed Referral 12/11/2023 01/09/2025 1 1 Summary Purpose Family History No Family History Records FoundNo Family History Records FoundNo Family History Records Found Advance Directives Advance Directive Response Recorded Date/ Time Living Will No May 13 4:15pm Power of Ict Analyst No May 13, 2023 4:15pm Documents on File Type Date Recorded 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 Advance Directive(s) 07/28/2024 10:56 AM Medications Administered Section Inactive Administered Medications - up to 3 most recent administrations Medication Order MAR Action Action Date Dose Rate Site hylan G-F 20 48 mg/6 mL 48 mg injection (SYNVISC-ONE) 48 mg, Injection - FOR ORTHO USE ONLY, ONE TIME INJECTION, 1 dose, Starting on Sat01/21/23 at 1448, Until Sat01/21/23 at 1448 Given 01/21/2023 2:48 PM EDT 48 mg Knee, Right lidocaine (PF) 10 mg/mL (1 %) 5 mL injection (XYLOCAINE) 5 mL, Injection - FOR ORTHO USE ONLY, ONE TIME INJECTION, 1 dose, Starting on Sat01/21/23 at 1448, Until Sat01/21/23 at 1448 Given 01/21/2023 2:48 PM EDT 5 mL Knee, Right Chief Complaint and Reason for Visit Chief Complaint chest pain Additional Source Comments Source Comments (unrecognize d section and content) In the event this informatio n is protected by the Federal Confidentiality of Alcohol and Drug Abuse Patient Records regulations: The Federal rules restrict any use of the information to criminally investigate or prosecute any alcohol or drug abuse patient.[facility] the event this information is protected by the Federal Confidentiality of Alcohol and Drug Abuse Patient Records regulations: The Federal rules restrict any use of the information to criminally investigate or prosecute any alcohol or drug abuse patient.[facility] the event this information is protected by the Federal Confidentiality of Alcohol and Drug Abuse Patient Records regulations: The Federal rules restrict any use of the information to criminally investigate or prosecute any alcohol or drug abuse patient.[facility]In the event this information is protected by the Federal Confidentiality of Alcohol and Drug Abuse Patient Records regulations: The Federal rules restrict any use of the information to criminally investigate or prosecute any alcohol or drug abuse patient.[facility]In the event this information is protected by the Federal Confidentiality of Alcohol and Drug Abuse Patient Records regulations: The Federal rules restrict any use of the information to criminally investigate or prosecute any alcohol or drug abuse patient.[facility] HospitalIn the event this information is protected by the Federal Confidentiality of Alcohol and Drug Abuse Patient Records regulations: The Federal rules restrict any use of the information to criminally investigate or prosecute any alcohol or drug abuse patient.[facility] HospitalIn the event this information is protected by the Federal Confidentiality of Alcohol and Drug Abuse Patient Records regulations: The Federal rules restrict any use of the information to criminally investigate or prosecute any alcohol or drug abuse patient.[facility] HospitalIn the event this information is protected by the Federal Confidentiality of Alcohol and Drug Abuse Patient Records regulations: The Federal rules restrict any use of the information to criminally investigate or prosecute any alcohol or drug abuse patient.[facility] HospitalIn the event this information is protected by the Federal Confidentiality of Alcohol and Drug Abuse Patient Records regulations: The Federal rules restrict any use of the information to criminally investigate or prosecute any alcohol or drug abuse patient.[facility] HospitalIn the event this information is protected by the Federal Confidentiality of Alcohol and Drug Abuse Patient Records regulations: The Federal rules restrict any use of the information to criminally investigate or prosecute any alcohol or drug abuse patient.[facility] HospitalIn the event this information is protected by the Federal Confidentiality of Alcohol and Drug Abuse Patient Records regulations: The Federal rules restrict any use of the information to criminally investigate or prosecute any alcohol or drug abuse patient.[facility] HospitalIn the event this information is protected by the Federal Confidentiality of Alcohol and Drug Abuse Patient Records regulations: The Federal rules restrict any use of the information to criminally investigate or prosecute any alcohol or drug abuse patient.[facility] HospitalIn the event this information is protected by the Federal Confidentiality of Alcohol and Drug Abuse Patient Records regulations: The Federal rules restrict any use of the information to criminally investigate or prosecute any alcohol or drug abuse patient.[facility] HospitalIn the event this information is protected by the Federal Confidentiality of Alcohol and Drug Abuse Patient Records regulations: The Federal rules restrict any use of the information to criminally investigate or prosecute any alcohol or drug abuse patient.[facility] HospitalIn the event this information is protected by the Federal Confidentiality of Alcohol and Drug Abuse Patient Records regulations: The Federal rules restrict any use of the information to criminally investigate or prosecute any alcohol or drug abuse patient.[facility] HospitalIn the event this information is protected by the Federal Confidentiality of Alcohol and Drug Abuse Patient Records regulations: The Federal rules restrict any use of the information to criminally investigate or prosecute any alcohol or drug abuse patient.[facility] HospitalIn the event this information is protected by the Federal Confidentiality of Alcohol and Drug Abuse Patient Records regulations: The Federal rules restrict any use of the information to criminally investigate or prosecute any alcohol or drug abuse patient.[facility] HospitalIn the event this information is protected by the Federal Confidentiality of Alcohol and Drug Abuse Patient Records regulations: The Federal rules restrict any use of the information to criminally investigate or prosecute any alcohol or drug abuse patient.[facility] HospitalIn the event this information is protected by the Federal Confidentiality of Alcohol and Drug Abuse Patient Records regulations: The Federal rules restrict any use of the information to criminally investigate or prosecute any alcohol or drug abuse patient.[facility] HospitalIn the event this information is protected by the Federal Confidentiality of Alcohol and Drug Abuse Patient Records regulations: The Federal rules restrict any use of the information to criminally investigate or prosecute any alcohol or drug abuse patient.[facility] HospitalIn the event this information is protected by the Federal Confidentiality of Alcohol and Drug Abuse Patient Records regulations: The Federal rules restrict any use of the information to criminally investigate or prosecute any alcohol or drug abuse patient.[facility] HospitalIn the event this information is protected by the Federal Confidentiality of Alcohol and Drug Abuse Patient Records regulations: The Federal rules restrict any use of the information to criminally investigate or prosecute any alcohol or drug abuse patient.[facility] HospitalIn the event this information is protected by the Federal Confidentiality of Alcohol and Drug Abuse Patient Records regulations: The Federal rules restrict any use of the information to criminally investigate or prosecute any alcohol or drug abuse patient.[facility] HospitalIn the event this information is protected by the Federal Confidentiality of Alcohol and Drug Abuse Patient Records regulations: The Federal rules restrict any use of the information to criminally investigate or prosecute any alcohol or drug abuse patient.[facility] HospitalIn the event this information is protected by the Federal Confidentiality of Alcohol and Drug Abuse Patient Records regulations: The Federal rules restrict any use of the information to criminally investigate or prosecute any alcohol or drug abuse patient.[facility] HospitalIn the event this information is protected by the Federal Confidentiality of Alcohol and Drug Abuse Patient Records regulations: The Federal rules restrict any use of the information to criminally investigate or prosecute any alcohol or drug abuse patient.[facility] HospitalIn the event this information is protected by the Federal Confidentiality of Alcohol and Drug Abuse Patient Records regulations: The Federal rules restrict any use of the information to criminally investigate or prosecute any alcohol or drug abuse patient.[facility] HospitalIn the event this information is protected by the Federal Confidentiality of Alcohol and Drug Abuse Patient Records regulations: The Federal rules restrict any use of the information to criminally investigate or prosecute any alcohol or drug abuse patient.[facility] HospitalIn the event this information is protected by the Federal Confidentiality of Alcohol and Drug Abuse Patient Records regulations: The Federal rules restrict any use of the information to criminally investigate or prosecute any alcohol or drug abuse patient.[facility] HospitalIn the event this information is protected by the Federal Confidentiality of Alcohol and Drug Abuse Patient Records regulations: The Federal rules restrict any use of the information to criminally investigate or prosecute any alcohol or drug abuse patient.[facility] HospitalIn the event this information is protected by the Federal Confidentiality of Alcohol and Drug Abuse Patient Records regulations: The Federal rules restrict any use of the information to criminally investigate or prosecute any alcohol or drug abuse patient.[facility] HospitalIn the event this information is protected by the Federal Confidentiality of Alcohol and Drug Abuse Patient Records regulations: The Federal rules restrict any use of the information to criminally investigate or prosecute any alcohol or drug abuse patient.[facility] HospitalIn the event this information is protected by the Federal Confidentiality of Alcohol and Drug Abuse Patient Records regulations: The Federal rules restrict any use of the information to criminally investigate or prosecute any alcohol or drug abuse patient.[facility] HospitalIn the event this information is protected by the Federal Confidentiality of Alcohol and Drug Abuse Patient Records regulations: The Federal rules restrict any use of the information to criminally investigate or prosecute any alcohol or drug abuse patient.[facility] HospitalIn the event this information is protected by the Federal Confidentiality of Alcohol and Drug Abuse Patient Records regulations: The Federal rules restrict any use of the information to criminally investigate or prosecute any alcohol or drug abuse patient.[facility] HospitalIn the event this information is protected by the Federal Confidentiality of Alcohol and Drug Abuse Patient Records regulations: The Federal rules restrict any use of the information to criminally investigate or prosecute any alcohol or drug abuse patient.[facility] HospitalIn the event this information is protected by the Federal Confidentiality of Alcohol and Drug Abuse Patient Records regulations: The Federal rules restrict any use of the information to criminally investigate or prosecute any alcohol or drug abuse patient.[facility] HospitalIn the event this information is protected by the Federal Confidentiality of Alcohol and Drug Abuse Patient Records regulations: The Federal rules restrict any use of the information to criminally investigate or prosecute any alcohol or drug abuse patient.[facility] HospitalIn the event this information is protected by the Federal Confidentiality of Alcohol and Drug Abuse Patient Records regulations: The Federal rules restrict any use of the information to criminally investigate or prosecute any alcohol or drug abuse patient.[facility] HospitalIn the event this information is protected by the Federal Confidentiality of Alcohol and Drug Abuse Patient Records regulations: The Federal rules restrict any use of the information to criminally investigate or prosecute any alcohol or drug abuse patient.[facility] HospitalIn the event this information is protected by the Federal Confidentiality of Alcohol and Drug Abuse Patient Records regulations: The Federal rules restrict any use of the information to criminally investigate or prosecute any alcohol or drug abuse patient.[facility] HospitalIn the event this information is protected by the Federal Confidentiality of Alcohol and Drug Abuse Patient Records regulations: The Federal rules restrict any use of the information to criminally investigate or prosecute any alcohol or drug abuse patient.[facility] HospitalIn the event this information is protected by the Federal Confidentiality of Alcohol and Drug Abuse Patient Records regulations: The Federal rules restrict any use of the information to criminally investigate or prosecute any alcohol or drug abuse patient.[facility] HospitalIn the event this information is protected by the Federal Confidentiality of Alcohol and Drug Abuse Patient Records regulations: The Federal rules restrict any use of the information to criminally investigate or prosecute any alcohol or drug abuse patient.[facility] HospitalIn the event this information is protected by the Federal Confidentiality of Alcohol and Drug Abuse Patient Records regulations: The Federal rules restrict any use of the information to criminally investigate or prosecute any alcohol or drug abuse patient.[facility] HospitalIn the event this information is protected by the Federal Confidentiality of Alcohol and Drug Abuse Patient Records regulations: The Federal rules restrict any use of the information to criminally investigate or prosecute any alcohol or drug abuse patient.[facility] HospitalIn the event this information is protected by the Federal Confidentiality of Alcohol and Drug Abuse Patient Records regulations: The Federal rules restrict any use of the information to criminally investigate or prosecute any alcohol or drug abuse patient.[facility] HospitalIn the event this information is protected by the Federal Confidentiality of Alcohol and Drug Abuse Patient Records regulations: The Federal rules restrict any use of the information to criminally investigate or prosecute any alcohol or drug abuse patient.[facility] HospitalIn the event this information is protected by the Federal Confidentiality of Alcohol and Drug Abuse Patient Records regulations: The Federal rules restrict any use of the information to criminally investigate or prosecute any alcohol or drug abuse patient.[facility] HospitalIn the event this information is protected by the Federal Confidentiality of Alcohol and Drug Abuse Patient Records regulations: The Federal rules restrict any use of the information to criminally investigate or prosecute any alcohol or drug abuse patient.[facility] HospitalIn the event this information is protected by the Federal Confidentiality of Alcohol and Drug Abuse Patient Records regulations: The Federal rules restrict any use of the information to criminally investigate or prosecute any alcohol or drug abuse patient.[facility] HospitalIn the event this information is protected by the Federal Confidentiality of Alcohol and Drug Abuse Patient Records regulations: The Federal rules restrict any use of the information to criminally investigate or prosecute any alcohol or drug abuse patient.[facility] HospitalIn the event this information is protected by the Federal Confidentiality of Alcohol and Drug Abuse Patient Records regulations: The Federal rules restrict any use of the information to criminally investigate or prosecute any alcohol or drug abuse patient.[facility] HospitalIn the event this information is protected by the Federal Confidentiality of Alcohol and Drug Abuse Patient Records regulations: The Federal rules restrict any use of the information to criminally investigate or prosecute any alcohol or drug abuse patient.[facility] HospitalIn the event this information is protected by the Federal Confidentiality of Alcohol and Drug Abuse Patient Records regulations: The Federal rules restrict any use of the information to criminally investigate or prosecute any alcohol or drug abuse patient.[facility] HospitalIn the event this information is protected by the Federal Confidentiality of Alcohol and Drug Abuse Patient Records regulations: The Federal rules restrict any use of the information to criminally investigate or prosecute any alcohol or drug abuse patient.[facility] HospitalIn the event this information is protected by the Federal Confidentiality of Alcohol and Drug Abuse Patient Records regulations: The Federal rules restrict any use of the information to criminally investigate or prosecute any alcohol or drug abuse patient.[facility] HospitalIn the event this information is protected by the Federal Confidentiality of Alcohol and Drug Abuse Patient Records regulations: The Federal rules restrict any use of the information to criminally investigate or prosecute any alcohol or drug abuse patient.[facility] HospitalIn the event this information is protected by the Federal Confidentiality of Alcohol and Drug Abuse Patient Records regulations: The Federal rules restrict any use of the information to criminally investigate or prosecute any alcohol or drug abuse patient.[facility] HospitalIn the event this information is protected by the Federal Confidentiality of Alcohol and Drug Abuse Patient Records regulations: The Federal rules restrict any use of the information to criminally investigate or prosecute any alcohol or drug abuse patient.[facility] HospitalIn the event this information is protected by the Federal Confidentiality of Alcohol and Drug Abuse Patient Records regulations: The Federal rules restrict any use of the information to criminally investigate or prosecute any alcohol or drug abuse patient.[facility] HospitalIn the event this information is protected by the Federal Confidentiality of Alcohol and Drug Abuse Patient Records regulations: The Federal rules restrict any use of the information to criminally investigate or prosecute any alcohol or drug abuse patient.[facility] Reason for Visit (unrecogniz ed section and content) Reason Comments PT Eval Specialty Diagnoses / Procedures Referred By Kaden reece Referred To Contact [facility] Diagnoses BPPV (benign paroxysmal positional vertigo), unspecified laterality Procedures CONSULT TO PHYSICAL THERAPY PHYSICAL THERAPY EVALUATION HIGH COMPLEX 45 MINS Preethi Mcclure, BRAIDING MACHINE TENDER.MOLD HOISTER [address] [place] [address] [facility] [place] [address] [place] [address] Referral ID Status Reason Start Date Expiration Date Visits Requested Visits Authorized [id number] Authorized Auto-Generat ed Referral 06/10/2023 06/09/2024 99 99 Reason Comments Physical Therapy Specialty Diagnoses / Procedures Referred By Kaden reece Referred To Contact Physical Therapy / PHYSICAL THERAPY Diagnoses Primary osteoarthritis of right knee Knee injury, right, initial encounter Procedures CONSULT TO PHYSICAL THERAPY PHYSICAL THERAPY EVALUATION HIGH COMPLEX 45 MINS THERAPEUTIC EXERCISES RE, EA 15 MIN. Marissa Pena PA-C [address] [place] [address] Keisha Hoffman, PT Referral ID Status Reason Start Date Expiration Date V isits Requested Visits Authorized [id number] Authorized 06/10/2021 06/09/2022 99 99 Reason Comments Swelling LEFT leg & ankle x 2 months Reason Onset Date Comments Refill Request 10/17/2021 Reason Onset Date Comments Population Health Navigation Outreach 10/25/2021 [employer] Care Gaps Reason Comments Patient Question Reason Comments Lab Orders Reason Onset Date Comments Refill Request 03/08/2022 Reason Onset Date Comments Follow Up Immunizations 03/15/2022 Flu vaccination Reason Comments Cough Cough, congestion, s inus and St x 2 days Reason Comments Lump Left calf, one month Reason Comments MRI Appointment Reason Comments Orders Specialty Diagnoses / Procedures [facility] To Contact [facility] Diagnoses Mass of right lower leg Procedures MRI LOWER LEG WO IVCON RIGHT MRI LOWER EXTREM OTH/THN JT W/O CONTR Priscilla Arana PA-C [address] [place] [address] Mr Imaging Referral ID Status Reason Start Date Expiration Date V isits Requested Visits Authorized [id number] Closed Auto-Generate d Referral 10/03/2022 11/02/2023 1 1 Reason Comments Follow Up Urgent care follow u p Reason Comments Results Reason Comments Spirometry Specialty Diagnoses / Procedures [facility] Diagnoses SOB (shortness of breath) Procedures SPIROMETRY WITH DILATOR IF OBSTRUCTED BRNCDILAT RSPSE SPMTRY PRE&POST-BRNCDILAT ADMBradley Muñoz MD [address] [place] [address] [facility] [place] [address] [place] [address] Referral ID Status Reason Start Date Expiration Date V isits Requested Visits Authorized [id number] Closed Auto-Generate d Referral 01/14/2023 02/13/2024 1 1 Reason Comments Patient Question Reason Comments Injections Synvisc One right knee Specialty Diagnoses / Procedures [facility] Ref[facility] To Contact ORTHOPAEDIC SURGERY Diagnoses Unilateral primary osteoarthritis, right knee M17.11 Primary osteoarthritis of right knee Procedures SYNVISC OR SYNVISC-ONE Synvisc One injection into right knee Marissa Pena PA-C [address] [place] [address] [facility] [address] [place] [address] Referral ID Status Reason Start Date Expiration Date Visits Re quested Visits Authorized [id number] Closed 01/10/2023 04/12/2023 1 1 Reason Comments New Patient COPD Specialty Diagnoses / Procedures [facility] Referred To Contact Pulmonary [facility] Critical Care Medicine Diagnoses Chronic obstructive pulmonary disease, unspecified COPD type (HCC) Procedures CONSULT TO PULM/CRITICAL CARE OFFICE/OUTPATIENT [facility] 60-74 MINUTES Bradley Causey MD [address] [place] [address] Referral ID Status Reason Start Date Expiration Date Visits Requested Visits Authorized [id number] Pending Review PCP Requested Referral 01/17/2023 01/17/2024 1 1 Reason Onset Date Comments Refill Request 04/08/[address] Specialty Diagnoses / Procedures Referred By Contac t Referred To Contact CT IMAGING Diagnoses Tobacco use Encounter for screening for lung cancer Procedures CT LUNG SCREEN WO IVCON COMPUTED TOMOGRAPHY THORAX LW DOSE LNG CA Fredis Page APRN.OTOLARYNGOLOGY NURSE [address] [place] [address] [place] [address] Referral ID Status Reason Start Date Expiration Date V isits Requested Visits Authorized [id number] Closed Auto-Generate d Referral 11/20/2022 12/20/2023 1 1 Reason Comments Follow Up Reason Onset Date Comments Refill Request 05/11/2023 Reason Comments Patient Update Reason Comments Established Patient COPD Reason Comments Cough Reason Comments Orders labs Reason Comments Established Patient Reason Comments Results Reason Comments Follow Up Routine 4 month foll ow up Reason Onset Date Comments ACM LANA RN 09/11/[address] of payor Reason Comments Synvisc One injection Reason Comments Established Patient Injections Specialty Diagnoses / Procedures Referred By Contac t Referred To Contact ORTHOPAEDIC SURGERY Diagnoses Unilateral primary osteoarthritis, right knee Primary osteoarthritis of right knee [M17.11] Procedures SYNVISC OR SYNVISC-ONE Synvisc One injection into the right knee Marissa Pena PA-C [address] [place] [address] [facility] [address] [place] [address] Referral ID Status Reason Start Date Expiration Date V isits Requested Visits Authorized [id number] Authorized 09/19/2023 09/18/2024 99 99 Reason Onset Date Comments Refill Request 11/09/2023 Reason Comments Established Patient LCS Specialty Diagnoses / Procedures Referred By Kaden t Referred To Contact CT IMAGING Diagnoses Lung nodules Procedures CT LUNG FOLLOWUP WO IVCON DIAGNOSTIC COMPUTED TOMOGRAPHY THORAX W/O CNTRST Fredis Khan, RASHI.OTOLARYNGOLOGY NURSE [address] [place] [id number] [facility] [place] [address] Referral ID Status Reason Start Date Expiration Date V isits Requested Visits Authorized [id number] Closed Auto-Generate d Referral 06/04/2023 07/03/2024 [address] Reason Comments Swelling Bilateral legs, wors e Cough Couple days Shortness of Breath Reason Onset Date Comments Refill Request 03/18/2024 Reason Onset Date Comments Refill Request 05/08/2024 Reason Onset Date Comments Refill Request 05/22/2024 Reason Onset Date Comments Refill Request 05/25/2024 Reason Comments 6 Month Exam Reason Comments Follow Up Reason Onset Date Comments Refill Request 10/16/2024 Reason Onset Date Comments Refill Request 11/07/2024 Care Teams (unrecognized sec tion and content) Front Desk Lead Relationship Specialty Start Date End Date Bradley Causey MD [address] [place] [address] PCP - General Family Practice 01/27/21 Front Desk Lead Relationship Specialty Start Date End Date Bradley Causey MD [address] [place] [address] PCP - General Family Practice 01/27/21 Front Desk Lead Relationship Specialty Start Date End Date Bradley Causey MD [address] [place] [address] PCP - General Family Practice 01/27/21 Front Desk Lead Relationship Specialty Start Date End Date Bradley Causey MD [address] [place] [address] PCP - General Family Practice 01/27/21 Front Desk Lead Relationship Specialty Start Date End Date Bradley Causey MD [address] [place] [address] PCP - General Family Practice 01/27/21 Front Desk Lead Relationship Specialty Start Date End Date Bradley Causey MD [address] [facility] [place] [address] PCP - General Family Practice 01/27/21 Front Desk Lead Relationship Specialty Start Date End Date Bradley Causey MD [address] [facility] [place] [address] PCP - General Family Practice 01/27/21 Front Desk Lead Relationship Specialty Start Date End Date Bradley Causey MD [address] [facility] [place] [address] PCP - General Family Practice 01/27/21 Front Desk Lead Relationship Specialty Start Date End Date Bradley Causey MD [address] [facility] [place] [address] PCP - General Family Practice 01/27/21 Front Desk Lead Relationship Specialty Start Date End Date Bradley Causey MD [address] [facility] [place] [address] PCP - General Family Medicine 01/27/21 Front Desk Lead Relationship Specialty Start Date End Date Bradley Causey MD [address] [facility] [place] [address] PCP - General Family Medicine 01/27/21 Front Desk Lead Relationship Specialty Start Date End Date Bradley Causey MD [address] [facility] [place] [address] PCP - General Family Medicine 01/27/21 Front Desk Lead Relationship Specialty Start Date End Date Bradley Causey MD [address] [facility] [place] [address] PCP - General Family Medicine 01/27/21 Front Desk Lead Relationship Specialty Start Date End Date Bradley Causey MD [address] [facility] [place] [address] PCP - General Family Medicine 01/27/21 Front Desk Lead Relationship Specialty Start Date End Date Bradley Causey MD [address] [facility] [place] [address] PCP - General Family Medicine 01/27/21 Front Desk Lead Relationship Specialty Start Date End Date Bradley Causey MD [address] [place] [address] PCP - General Family Medicine 01/27/21 Front Desk Lead Relationship Specialty Start Date End Date Bradley Causey MD [address] [place] [address] PCP - General Family Medicine 01/27/21 Front Desk Lead Relationship Specialty Start Date End Date Bradley Causey MD [address] [place] [address] PCP - General Family Medicine 01/27/21 Front Desk Lead Relationship Specialty Start Date End Date Bradley Causey MD [address] [place] [address] PCP - General Family Medicine 01/27/21 Front Desk Lead Relationship Specialty Start Date End Date Bradley Causey MD [address] [place] [address] PCP - General Family Medicine 01/27/21 Front Desk Lead Relationship Specialty Start Date End Date Bradley Causey MD [address] [place] [address] PCP - General Family Medicine 01/27/21 Front Desk Lead Relationship Specialty Start Date End Date Bradley Causey MD [address] [place] [address] PCP - General Family Medicine 01/27/21 Front Desk Lead Relationship Specialty Start Date End Date Bradley Causey MD [address] [place], [place] [address] PCP - General Family Medicine 01/27/21 Front Desk Lead Relationship Specialty Start Date End Date Bradley Causey MD [address] [place], [place] [address]6071 PCP - General Family Medicine 01/27/21 Front Desk Lead Relationship Specialty Start Date End Date Bradley Causey MD [address] [place], [place] [address]451 PCP - General Family Medicine 01/27/21 Front Desk Lead Relationship Specialty Start Date End Date Bradley Causey MD [address] [place] [address] PCP - General Family Medicine 01/27/21 Front Desk Lead Relationship Specialty Start Date End Date Bradley Causey MD [address] [place] [address] PCP - General Family Medicine 01/27/21 Front Desk Lead Relationship Specialty Start Date End Date Bradley Causey MD [address] [place], [place] [address] PCP - General Family Medicine 01/27/21 Team Status: Active Member Role Status Dates Dr. Rene Limon III, MD Family Provider Active Dr. Bradley Causey MD Primary Care Provider Active Team Status: Inactive Member Role Status Dates Dr. Bradley Causey MD Primary Care Provider Active Giancarlo Ya MD Emergency Provider Active Front Desk Lead Relationship Specialty Start Date End Date Bradley Causey MD [address] [place], [place] 930921 PCP - General Family Medicine 01/27/21 Front Desk Lead Relationship Specialty Start Date End Date Bradley Causey MD [address] [place], [place] 676[address] PCP - General Family Medicine 01/27/21 Front Desk Lead Relationship Specialty Start Date End Date Bradley Causey MD [address] [place] [address] PCP - General Family Medicine 01/27/21 Eloise Hurt PA-C [address] [place] [address] Pulmonary and Critical Care Medicine 06/04/23 Front Desk Lead Relationship Specialty Start Date End Date Bradley Causey MD [address] [place] [address] PCP - General Family Medicine 01/27/21 Eloise Hurt PA-C [address] [place] [address] Pulmonary and Critical Care Medicine 06/04/23 Front Desk Lead Relationship Specialty Start Date End Date Bradley Causey MD [address] [place] [address] PCP - General Family Medicine 01/27/21 Eloise Hurt PA-C [address] [place] [address] Pulmonary and Critical Care Medicine 06/04/23 Front Desk Lead Relationship Specialty Start Date End Date Bradley Causey MD [address] [place] [address] PCP - General Family Medicine 01/27/21 Eloise Hurt PA-C [address] [place], [place] [address] [phone] Pulmonary and Critical Care Medicine 06/04/23 Front Desk Lead Relationship Specialty Start Date End Date Bradley Causey MD [address] [place] [address] PCP - General Family Medicine 01/27/21 Eloise Hurt PA-C [address] [place] [address] Pulmonary and Critical Care Medicine 06/04/23 Front Desk Lead Relationship Specialty Start Date End Date Bradley Causey MD [address] [place] [address] PCP - General Family Medicine 01/27/21 Eloise Hurt PA-C [address] [place] [address] Pulmonary and Critical Care Medicine 06/04/23 Front Desk Lead Relationship Specialty Start Date End Date Bradley Causey MD [address] [place] [address] PCP - General Family Medicine 01/27/21 Eloise Hurt PA-C [address] [place] [address] Pulmonary and Critical Care Medicine 06/04/23 Front Desk Lead Relationship Specialty Start Date End Date Bradley Causey MD [address] [place] [address] PCP - General Family Medicine 01/27/21 Eloise Hurt PA-C [address] [place], [place] [address] Pulmonary and Critical Care Medicine 06/04/23 Front Desk Lead Relationship Specialty Start Date End Date Bradley Causey MD [address] [place] [address] PCP - General Family Medicine 01/27/21 Eloise Hurt PA-C [address] [place] [address] Pulmonary and Critical Care Medicine 06/04/23 Front Desk Lead Relationship Specialty Start Date End Date Bradley Causey MD [address] [place] [address] PCP - General Family Medicine 01/27/21 Eloise Hurt PA-C [address] [place] [address] Pulmonary and Critical Care Medicine 06/04/23 Front Desk Lead Relationship Specialty Start Date End Date Bradley Causey MD [address] [place] [address] PCP - General Family Medicine 01/27/21 Eloise Hurt PA-C [address] [place] [address] Pulmonary and Critical Care Medicine 06/04/23 Front Desk Lead Relationship Specialty Start Date End Date Bradley Causey MD [address] [place], [place] 902[address] PCP - General Family Medicine 01/27/21 Front Desk Lead Relationship Specialty Start Date End Date Bradley Causey MD [address] [place], [place] 742821 PCP - General Family Medicine 01/27/21 Front Desk Lead Relationship Specialty Start Date End Date Bradley Causey MD [address] [place], [place] 462041 PCP - General Family Medicine 01/27/21 Eloise Hurt PA-C [address] [place], [place] [address]891 Pulmonary and Critical Care Medicine 06/04/23 Front Desk Lead Relationship Specialty Start Date End Date Bradley Causey MD [address] [place], [place] 269001 PCP - General Family Medicine 01/27/21 Front Desk Lead Relationship Specialty Start Date End Date Rene Limon III, MD [employer] PCP - General 01/25/03 01/26/21 Front Desk Lead Relationship Specialty Start Date End Date Bradley Causey MD [address] [place], [place] [address]39391 PCP - General Family Medicine 01/27/21 Eloise Hurt PA-C [address] [place], [place] [address] Pulmonary and Critical Care Medicine 06/04/23 Front Desk Lead Relationship Specialty Start Date End Date Bradley Causey MD [address] [place], [place] [address]32[address] PCP - General Family Medicine 01/27/21 Eloise Hurt, PA-C [address] [place] [address] Pulmonary and Critical Care Medicine 06/04/23 Front Desk Lead Relationship Specialty Start Date End Date Bardley Causey MD [address] [place] [address] PCP - General Family Medicine 01/27/21 Eloise Hurt, PA-C [address] [place] [address] Pulmonary and Critical Care Medicine 06/04/23 Yarelis Ashley APRN.OTOLARYNGOLOGY NURSE [address] [place] [address] Electronic Pagination System [facility]Kit [facility] 05/18/24 Preethi Mcclure APRN.OTOLARYNGOLOGY NURSE [address] [place] [address] Community [facility] 05/18/24 Front Desk Lead Relationship Specialty Start Date End Date Bradley Causey MD [address] [place] [address] PCP - General Family Medicine 01/27/21 Eloise Hurt PA-C [address] [place] [address] Pulmonary and Critical Care Medicine 06/04/23 Yarelis Ashley APRN.OTOLARYNGOLOGY NURSE [address] [place] [address] [facility] 05/18/24 Preethi Mcclure APRN.OTOLARYNGOLOGY NURSE [address] [place] [address] Electronic Pagination System OperatorKit [facility] 05/18/24 Front Desk Lead Relationship Specialty Start Date End Date Bradley Causey MD [address] [facility] [place] [address] PCP - General Family Medicine 01/27/21 Eloise Hurt, SPENCER-C [address] [place] [place] [address] Pulmonary and Critical Care Medicine 06/04/23 Yarelis Ashley APRN.OTOLARYNGOLOGY NURSE [address] [facility] [place] [address] Community [facility] 05/18/24 Preethi Mcclure APRN.OTOLARYNGOLOGY NURSE [address] [facility] [place] [address] Community [facility] 05/18/24 Front Desk Lead Relationship Specialty Start Date End Date Bradley Causey MD [address] [facility], [place] [address] PCP - General Family Medicine 01/27/21 Eloise Hurt, SPENCER-Candelario [address] [place] [address] Pulmonary and Critical Care Medicine 06/04/23 Yarelis Ashley APRN.OTOLARYNGOLOGY NURSE [address] [facility] [place] [address] Community [facility] 05/18/24 Preethi Mcclure APRN.OTOLARYNGOLOGY NURSE [address] [facility] [place] [address] Community Health 05/18/24 Front Desk Lead Relationship Specialty Start Date End Date Bradley Causey MD [address] [facility], [place] [address] PCP - General Family Medicine 01/27/21 Eloise Hurt PA-C [address] [place] [address] Pulmonary and Critical Care Medicine 06/04/23 Yarelis Ashley APRN.OTOLARYNGOLOGY NURSE [address] [place] [address] [facility] 05/18/24 Preethi Mcclure APRN.OTOLARYNGOLOGY NURSE [address] [place] [address] Community [facility] 05/18/24 Front Desk Lead Relationship Specialty Start Date End Date Bradley Causey MD [address] [place] [address] PCP - General [facility] 01/27/21 Eloise Hurt PA-C [address] [place] [address] Pulmonary and Critical Care Medicine 06/04/23 Yarelis Ashley APRN.OTOLARYNGOLOGY NURSE [address] [facility] [place] [address] Community Health 05/18/24 Preethi Mcclure APRN.OTOLARYNGOLOGY NURSE [address] [place] [address] Electronic Pagination System Operator Family Medicine 05/18/24 INFORMATION SOURCE (unrecogn ized section and content) DATE CREATED AUTHOR 10/19/2022 [facility] DATE CREATED AUTHOR AUTHOR'S ORGANIZ ATION 05/19/2023 [facility] DATE CREATED AUTHOR AUTHOR'S ORGANIZ ATION 07/23/2024 [facility] Goals (unrecognized section and content) Goals may be documented in a n alternate section Inactive Administered Medications - up to 3 most recent administrations Administered Medications (un recognized section and content) Medication Order MAR Action Action Date Dose Rate Site hylan G-F 20 48 mg/6 mL 48 mg injection (SYNVISC-ONE) 48 mg, Injection - FOR ORTHO USE ONLY, ONCE, 1 dose, Starting on Sat09/27/23 at 1005, Until Sat09/27/23 at 1005 Given 09/27/2023 10:05 AM EDT 48 mg Knee , Right lidocaine (PF) 10 mg/mL (1 %) 5 mL injection (XYLOCAINE) 5 mL, Injection - FOR ORTHO USE ONLY, ONCE, 1 dose, Starting on Sat09/27/23 at 1005, Until Sat09/27/23 at 1005 Given 09/27/2023 10:05 AM EDT 5 mL Knee , Right FOR RECORDS PERTAINING TO PATIENTS WHO ARE OR HAVE BEEN ENROLLED IN A CHEMICAL DEPENDENCY/SUBSTANCEABUSE PROGRAM, SOME INFORMATION MAY BE OMITTED. This clinical summary was aggregated from multiple sources. Caution should be exercised in using it in the provision of clinical care. This summary normalizes information from multiple sources, and as a consequence, information in this document may materially change the coding, format and clinical context of patient data. In addition, data may be omitted in some cases. CLINICAL DECISIONS SHOULD BE BASED ON THE PRIMARY CLINICAL RECORDS. [employer] provides no warranty or guarantee of the accuracy or completeness of information in this document.
[2024-11-14 13:04] LABS: Absolute Lymphocyte Count 1.85 X10^3/uL (0.83-4.51); Absolute Neutrophil Count 3.8 X10^3/uL (2.0-7.7); Basophil# 0.05 X10^3/uL; Basophil% 0.8 % (0-1); Hematocrit 44.6 % (37-47); Hemoglobin 14.6 g/dL (12.0-15.0); Lymphocyte # 1.85 X10^3/ul (0.83-4.51); Mean Corp Hgb Conc 32.7 g/dL (32-36); Mean Corpuscular Hgb 29.4 pg (27.0-32.0); Mean Corpuscular Volume 89.9 fL (81-99); Mean Platelet Vol. 10.6 fl (6.2-12.0); Monocyte# 0.71 X10^3/uL; Monocyte% 10.7 % (0-10); NRBC Flagged by Analyzer 0 % (0-5); Neutrophil # 3.79 X10^3/uL (2.7-7.7); Neutrophil % 57.3 % (47-70); Platelet Count 203 K/mm3 (150-450); RBC Distribution Width CV 14.2 % (11.6-14.6); RBC Distribution Width SD 46.5 fl (35.1-43.9); Red Blood Count 4.96 M/mm3 (4.2-5.4); White Blood Count 6.6 K/mm3 (4.4-11.0)
[2024-11-14 13:21] LABS: ALB/GLOB Ratio 1.3 RATIO (0.9-2.4); AST(SGOT) 20 U/L (<=31); Alanine Aminotransfer ALT/SGPT 6 U/L (<=34); Albumin, Serum 3.6 g/dL (3.4-4.8); Alkaline Phosphatase 114 U/L (35-104); Anion Gap 10 (5-15); BUN 25 mg/dL (4-19); BUN/Creat Ratio 24.4 RATIO (10-20); Calcium,Total 9.2 mg/dL (7.6-11.0); Carbon Dioxide 25.1 mmol/L (21.0-32.0); Chloride 104 mmol/L (98-108); Creatinine, Serum 1.03 mg/dL (0.70-1.20); EST Glomerular Filtration Rate 56 (>60); Globulin 2.8 g/dL (2.2-4.2); Glucose 108 mg/dL (70-99); Lipase 19 U/L (13-75); Potassium 4.6 mmol/L (3.3-5.1); Protein, Total 6.4 g/dL (5.9-8.4); Sodium Level 140 mmol/L (133-145); Total Bilirubin 0.47 mg/dL (0.00-1.30)
[2024-11-14] MEDS: Dicyclomine 10 MG Capsule 20 MG PO (13:36)
[2024-11-14] MEDS: 0.9% Normal Saline (500mL Bag) 500 ML 999 ML IV (13:37)
--- NOTE | 2024-11-14 13:41 | EDS_ITS ---
HPI History of Present Illness Chief Complaint: Constipation Narrative Narrative: Patient is a 71-year-old female with a past medical history of hypothyroidism, hypertension, hypercholesterolemia on Eliquis who presents to the emergency department the chief complaint of not having a bowel movement approximately 8 days. Patient states that she tried stool softeners, enema without any success and is having pain therefore she came here for further evaluation management. Patient states that she has been passing gas. PFSH PFS Home Medications ?Medication ?Instructions ?Recorded ?Last Taken ?Type albuterol sulfate 90 mcg/actuation 2 puff PO PRN PRN S ob &/Or Wheezing 06/05/18 Unknown History aerosol inhaler (ProAir HFA) levothyroxine 150 mcg tablet 150 mcg PO DAILY THYROID 06/05/18 06/05/18 History (Synthroid) lisinopril 20 mg tablet 20 mg PO DAILY #30 tabs 05/11 12/25 Unknown Rx lisinopril 20 1 tab PO DAILY BP 06/05/18 1 08/06/17 History mg-hydrochlorothiazide 12.5 mg tablet [id number] 8 mg-folic 400 1 tab PO DAILY SUPPL EMENT 06/05/18 06/04/18 History mcg-K 50 mcg-lutein 300 mcg tablet (Centrum Silver Women) omeprazole 40 mg capsule,delayed 40 mg PO DAILY 06/05/18 History release simvastatin 20 mg tablet 20 mg PO DAILY CHOLESTEROL 1 08/06/17 06/04/18 History apixaban 5 mg tablet (Eliquis) 5 mg PO BID #60 tabs Unknown Rx metoprolol succinate 50 mg 50 mg PO DAILY #30 tabs 09/30 Unknown Rx tablet,extended release 24 hr (Toprol XL) cephalexin 500 mg capsule 500 mg PO BID 5 days #10 cap s 11/14/24 Unknown Rx cyclobenzaprine 5 mg tablet 5 mg PO TID PRN muscle spa sm #14 11/14/24 Unknown Rx tabs docusate sodium 50 mg capsule 50 mg PO BID #30 caps Unknown Rx (Colace Clear) lidocaine 5 % topical patch 1 patch topical DAILY #15 ea 11/14/24 Unknown Rx Allergy/AdvReac Type Severity Reaction Status Date / Time Sulfa (Sulfonamide AdvReac Vomiting Verified 11/14/24 12:32 Antibiotics) Social History Smoking Status: Current every day smoker tobacco type: cigarettes ROS ROS ED ROS Narrative Constitutional: Denies fevers, chills, headaches Cardiovascular: Denies chest pain Respiratory: Denies shortness of breath Abdomen: Complains of abdominal discomfort and not having a bowel movement as noted above : Denies any urinary symptoms Neurological: Denies numbness, wheeze, tingling Musculoskeletal: Complains of lower back pain Skin: Denies rashes or lesions EXAM Physical Exam Narrative Exam Narrative: General: Patient was sitting in chair at bedside resting comfortably did not appear to be in acute distress I did have her get up and ambulate and get into the bed Head: Atraumatic, normocephalic Eyes: PERRL bilaterally, EOMI bilateral, no conjunctival injection noted Neck: Soft, supple, trach midline Cardiovascular: Patient bradycardic with a regular rhythm Respiratory: Clear to auscultation bilaterally Abdomen: Soft, tenderness palpation the right lower quadrant no rebound or guarding on exam Extremities: +4/5 strength noted in the bilateral upper and lower extremities, radial pulses +2/4 in the bilateral extremities Neurological: Patient follow commands knew that she was at [facility] year is 2024 Skin: Warm, dry, tact no rashes lesions noted Const Vital Signs: 11/14/24 12:29 11/14/24 14:28 Temperature 97.6 F L Temperature Source Oral Pulse Rate 56 L 61 Respiratory Rate 19 H 16 Blood Pressure 140/87 H 138/76 H Blood Pressure Mean 104 96 Pulse Ox 97 95 Oxygen Delivery Method Room Air MDM MDM MDM Narrative Medical decision making narrative: Patient is a 79-year-old female who presented to the emergency department chief complaint of constipation not having a bowel movement approximately 8 days. On the differential diagnose includes but not limited to constipation, bowel obstruction, AAA, UTI, ileus. Once workup is obtained reviewed she will be reevaluated. Patient be given Bentyl Patient's CBC reviewed showed no evidence leukocytosis white blood count normal at 6.6, he was 14.6, platelet count was 203. Patient sodium normal at 140, potassium normal at 4.6, creatinine normal at 1.03. Patient's AST and ALT were 20 and 6 respectively, lipase was normal at 19. Patient's urinalysis reviewed showed urinary tract infection with 500 leukocyte esterase positive nitrites with 4+ bacteria she was given a gram Rocephin this was sent for culture. She will be placed on Keflex. Patient's CT abdomen pelvis with IV contrast reviewed and showed cholelithiasis without cholecystitis hiatal hernia she has osteoporotic vertebral central endplate compression deformities T12, L1 and L4 no aggressive bony lesions spondylolisthesis L5 on S1. On reevaluation the patient she notified me that she has been recently moving and been throwing away files. States that the trash can tipped over and notes that she tried to pick this up and notes that this flared her back up as well. Patient will be also given prescriptions for cyclobenzaprine she was advised to rotate Tylenol and ibuprofen [id number] as well for her back pain given that she likely pulled a muscle from moving heavy items. She was encouraged to follow-up with her doctor in outpatient setting return with worsening symptoms or concerns. She will be given prescription for Colace and she is also advised to use MiraLAX twice daily. All question concerns answered she was discharged home in stable condition Lab Data Labs: Laboratory Results - last 24 hr 11/14/24 11/14/24 12:51 14:34 WBC 6.6 RBC 4.96 Hgb 14.6 Hct 44.6 MCV 89.9 MCH 29.4 MCHC 32.7 RDW Std Deviation 46.5 H RDW Coeff of Martir 14.2 Plt Count 203 MPV 10.6 Immature Gran % (Auto) 0.200 Neut % (Auto) 57.3 Lymph % (Auto) 28.0 [place] % (Auto) 10.7 H Eos % (Auto) 3.0 Baso % (Auto) 0.8 Absolute Neuts (auto) 3.8 Absolute Lymphs (auto) 1.85 Nucleated RBC % 0 Sodium 140 Potassium 4.6 Chloride 104 Carbon Dioxide 25.1 Anion Gap 10 BUN 25 H Creatinine 1.03 Est GFR (MDRD) Non-Af 56 L BUN/Creatinine Ratio 24.4 H Glucose 108 H Calcium 9.2 Total Bilirubin 0.47 AST 20 ALT 6 Alkaline Phosphatase 114 H Total Protein 6.4 Albumin 3.6 Globulin 2.8 Albumin/Globulin Ratio 1.3 Lipase 19 Urine Color Yellow Urine Clarity Cloudy Urine pH 6.5 Ur Specific Stanley 1.015 Urine Protein 30 H Urine Glucose (UA) Normal Urine Ketones Negative Urine Occult Blood 25 H Urine Nitrite Positive H Urine Bilirubin Negative Urine Urobilinogen 4 H Ur Leukocyte Esterase 500 H Urine RBC 0-5 SEEN Urine WBC 10-25 SEEN Ur Squamous Epith Cells 0 SEEN Urine Bacteria 4+ Urine Mucus 0 SEEN Radiography Diagnostic Testing: Clinical Impression(s) from Imaging Studies Abdomen/Pelvis CT 11/14/24 12:44 IMPRESSION: Cholelithiasis without cholecystitis Hiatal hernia Reading [facility] Discharge Plan Triage Chief Complaint: Constipation ED Provider: Hair Farris Dx/Rx/DC Orders Clinical Impression: Urinary tract infection, Musculoskeletal strain, Back pain, Constipation Prescriptions: New cyclobenzaprine 5 mg tablet 5 mg PO TID PRN (Reason: muscle spasm) Qty: 14 0RF Colace Clear 50 mg capsule 50 mg PO BID Qty: 30 0RF lidocaine 5 % adhesive patch,medicated 1 patch topical DAILY Qty: 15 0RF Rx Instructions: leave on most painful area for up to 12 hrs cephalexin 500 mg capsule 500 mg PO BID 5 Days Qty: 10 0RF No Action lisinopril-hydrochlorothiazide 20-12.5 tablet 1 tab PO DAILY omeprazole 40 MG capsule,delayed release(DR/EC) 40 mg PO DAILY simvastatin 20 MG tablet 20 mg PO DAILY levothyroxine [Synthroid] 150 MCG tablet 150 mcg PO DAILY albuterol sulfate [ProAir HFA] 1 PUFF inhaler 2 puff PO PRN PRN (Reason: Sob &/Or Wheezing) [id number] K-lut [Centrum Silver Women] 1 EACH tablet 1 tab PO DAILY lisinopril 20 MG tablet 20 mg PO DAILY Qty: 30 1RF metoprolol succinate [Toprol XL] 50 mg tablet extended release 24 hr 50 mg PO DAILY Qty: 30 0RF Eliquis 5 mg tablet 5 mg PO BID Qty: 60 0RF Primary Care Provider: Bradley Collazo Referrals: Bradley Collazo MD [Primary Care Provider] - Activity Restrictions/Additional Instructions: You are diagnosed with a urinary tract infection here in the emergency department take antibiotics as prescribed. Rotate Tylenol and ibuprofen [id number] when you do this you can take something every 3 hours with max dose Tylenol in 24 hours 4000 mg, max dose of ibuprofen in 24 hours 3200 mg. Use the Lidoderm patch as prescribed as well as the muscle relaxer as prescribed do not operate anything in the influence of the muscle relaxer as it can make you sleepy and drowsy. Take antibiotic as prescribed. Follow-up and urine culture. Follow-up your doctor in outpatient setting return with any concerns Print Language: Mongolian Disposition Disposition: Home, Self Care
[2024-11-14 14:28] VITALS: BP 138/76; PULSE 61; RESP 16; O2SAT 95
[2024-11-14 14:48] LABS: Mucous, Urine 0 SEEN /hpf (<or=2+); Squamous Epithelial Cells - UA 0 SEEN /hpf (5-10)
[2024-11-14 14:51] LABS: Color, Urine Yellow (Yellow); Glucose, Dipstick Normal (Normal); Ketone-Dipstick Negative (Negative); Leukocyte Esterase-Dipstick 500 /ul (Negative); Nitrite-Dipstick Positive (Negative); Occult Blood-Urine 25 /ul (Negative); Protein-Dipstick 30 mg/dl (Negative); Specific Gravity, Urine 1.015 (1.002-1.030); Urine Bilirubin Dipstick Negative (Negative); Urine Clarity Cloudy (Clear); Urine Urobilinogen 4 mg/dl (Normal); Urine pH 6.5 (5.0 - 8.0)
[2024-11-14 14:59] LABS: White Blood Cells 10-25 SEEN /hpf (0-5)
[2024-11-14 15:00] LABS: Bacteria 4+ /hpf (None Seen); Red Blood Cells-Urine 0-5 SEEN /hpf (0-5)
[2024-11-14] MEDS: Orphenadrine 60 MG/2 ML Ampul 30 MG IV (15:34)
[2024-11-14] MEDS: Ketorolac 15 MG/ML Vial IV (15:34)
[2024-11-14] MEDS: Ceftriaxone 1 GM/50 ML BAG IV (15:34)
[2024-11-14 16:00] VITALS: BP 133/71; PULSE 66; RESP 14; O2SAT 96
[2024-11-14 16:12] VITALS: BP 133/71; PULSE 66; RESP 14; TEMP 36.2; O2SAT 96
== END 2024-11-14 16:19 | disposition home or self-care (01) ==
PROVIDERS: Emergency Provider Emergency Medicine; PCP Family Medicine; Referring Provider Emergency Medicine; Visit Provider Emergency Medicine
DX: N39.0 Urinary tract infection, site not specified (principal); S39.012A Strain of muscle, fascia and tendon of lower back, initial encounter; K59.00 Constipation, unspecified; F17.210 Nicotine dependence, cigarettes, uncomplicated; Z79.01 Long term (current) use of anticoagulants; X58.XXXA Exposure to other specified factors, initial encounter
CPT/HCPCS: 74177; 80053; 81001; 83690; 85025; 87077; 87086; 87088; 87186; 96365; 96375; 99283; Q9967; A4216

== ENCOUNTER → 2025-01-22 | Outpatient (CLI) | payer MEDICARE, SELFPAY ==
--- NOTE | 2025-01-22 15:39 | MRI_ITS ---
PROCEDURE: SPINE LUMBAR (ROUTINE) 01/22/2025 REASON FOR EXAM: 3M HX PAIN, 3 COMPRESSION FX TECHNIQUE: SPINE LUMBAR (ROUTINE) COMPARISON: January 07, 2025 FINDINGS: Moderate acute/subacute compression fracture deformity of T12 with associated bone marrow edema and 2 mm of osseous retropulsion at its posterosuperior endplate. No significant bony spinal stenosis at the level of the fracture. Mild/moderate chronic compression fracture deformities of L1 and L3 without bone marrow edema. Remaining vertebral body heights are preserved. Grade 2 anterolisthesis of L5-S1 with ankylosis vertebral bodies. No significant scoliosis. Conus medullaris is intact and terminates at L1-2. Small perineural cyst at S2. Moderate paraspinal muscle atrophy. No paraspinal mass. T12-L1: Minimal posterior disc bulge. Mild bilateral facet arthrosis. No significant spinal stenosis or foraminal narrowing. L1-2: Minimal posterior disc bulge. Mild bilateral facet arthrosis. No significant spinal stenosis or foraminal narrowing. L2-3: Posterior disc osteophyte complex. Mild bilateral facet arthrosis and ligamentum flavum hypertrophy. No significant spinal stenosis. Minimal bilateral foraminal narrowing. L3-4: Posterior disc bulge. Moderate bilateral facet arthrosis and ligamentum flavum hypertrophy. Mild/moderate spinal stenosis. Mild bilateral foraminal narrowing. L4-5: Minimal posterior disc bulge. Moderate bilateral facet arthrosis and ligamentum flavum hypertrophy. No significant spinal stenosis. Mild bilateral foraminal narrowing. L5-S1: Vertebral body ankylosis. Grade 2 anterolisthesis. No focal disc abnormality or significant spinal stenosis. Moderate bilateral facet arthrosis. Mild bilateral foraminal narrowing. MRI/Spine Lumbar (Routine) IMPRESSION: 1. Moderate acute/subacute compression fracture of T12 with bone marrow edema. Chronic compression fractures of L1 and L3. 2. Acquired mild/moderate spinal stenosis at L3-4. 3. Acquired mild multilevel foraminal narrowing. Reading Location: [facility]
== END | disposition home or self-care (01) ==
LOC: MRI 15:35
PROVIDERS: PCP Family Medicine; Referring Provider Student in an Organized Health Care Education/Training Program; Visit Provider Student in an Organized Health Care Education/Training Program
DX: M43.17 Spondylolisthesis, lumbosacral region (principal); S32.030A Wedge compression fracture of third lumbar vertebra, initial encounter for closed fracture; S32.010A Wedge compression fracture of first lumbar vertebra, initial encounter for closed fracture; S22.080A Wedge compression fracture of T11-T12 vertebra, initial encounter for closed fracture
CPT/HCPCS: 72148